=== PATIENT | female | born 1985 | race Caucasian/White ===

== ENCOUNTER 2016-07-29 10:20 | Emergency (ER) | payer OTHER ==
[2016-07-29 11:11] VITALS: BP 105/68
--- NOTE | 2016-07-29 12:13 | UC ---
Abdominal Pain Female HPI - HPI Summary HPI Summary: ONSET OF LOWER ABDOMINAL CRAMPING 6AM TODAY. PT IS 11-12 WEEKS . SEE OB/ [facility] IN [place]. NEXT APPT 08/08. HAS H/O ECTOPIC . DENIES FEVER, NAUSEA OR BLEEDING. NO URINARY SX. - History of Current Complaint Chief Complaint: UCGeneralIllness Stated Complaint: CRAMPING Time Seen by Provider: 07/29/16 12:00 Hx Obtained From: Patient Hx Last Menstrual Period: 04/29/16 Onset/Duration: Sudden Onset Severity Initially: Moderate Severity Currently: Moderate Pain Intensity: 5 Pain Scale Used: 0-10 Numeric Location: Other - LOWER ABDOMEN Radiates: No Character: Cramping Aggravating Factor(s): Nothing Alleviating Factor(s): Nothing Associated Signs and Symptoms: Positive: Negative Allergies/Adverse Reactions: Allergies Allergy/AdvReac Type Severity Reaction Status Date / Time No Known Allergies Allergy Verified 07/29/16 11:05 PMH/Surg Hx/FS Hx/Imm Hx Endocrine History Of: Denies: Diabetes, Thyroid Disease Cardiovascular History Of: Reports: Cardiac Disorders - Tachycardia Denies: Hypertension Respiratory History Of: Reports: Asthma Denies: COPD GI/ History Of: Denies: Gastroesophageal Reflux, Ulcer Neurological History Of: Denies: TIA Psychological History Of: Reports: Anxiety, Depression - on Paxil prior to , taking Lexapro now Cancer History Of: Denies: Lung Cancer - Surgical History Surgical History: Yes Surgery Procedure, Year, and Place: Right Fall[facility] T[facility], [facility] Ear Tubes as a child Other Surgical History: Has right ear tube - Family History Known Family History: Positive: Unknown - PT ADOPTED - Social History Alcohol Use: None Substance Use Type: None Smoking Status (MU): Light Every Day Tobacco Smoker Type: Cigarettes Amount Used/How Often: 4 cig Length of Time of Smoking/Using Tobacco: 14 yrs When Did the Patient Quit Smoking/Using Tobacco: 06/29 Household Exposure Type: Cigarettes - Immunization History Most Recent Influenza Vaccination: 04/2015 Most Recent Pneumonia Vaccination: FALL 2013 Review of Systems Constitutional: Negative Respiratory: Negative Cardiovascular: Negative Gastrointestinal: Abdominal Pain All Other Systems Reviewed And Are Negative: Yes Physical Exam Triage Information Reviewed: Yes Appearance: Well-Appearing, No Pain Distress, Well-Nourished Vital Signs: Initial Vital Signs Temp 98.1 F 07/29/16 11:05 Pulse 80 07/29/16 11:05 Resp 18 07/29/16 11:05 BP 105/68 07/29/16 11:05 Pulse Ox 98 07/29/16 11:05 Vital Signs Reviewed: Yes Eyes: Positive: Conjunctiva Clear ENT: Positive: Hearing grossly normal Neck: Positive: Supple Respiratory: Positive: No respiratory distress, No accessory muscle use Cardiovascular: Positive: Pulses Normal Abdomen Description: Positive: Nontender, Soft. Negative: CVA Tenderness (R), CVA Tenderness (L), Distended, Guarding Musculoskeletal: Positive: No Edema Neurological: Positive: Alert Psychological: Positive: Age Appropriate Behavior Skin: Negative: rashes Diagnostics - Radiology LIMITED OB US Xray Interpretation: Positive (See Comments) - SINGLE LIVE INTRAUTERINE GESTATION AT 11 WEEKS AND 3 DAYS BY CROWN-RUMP LENGTH Radiology Interpretation Completed By: Radiologist Abd Pain Female Course/Dx - Differential Dx/Diagnosis Provider Diagnoses: 1ST TRIMESTER Discharge - Discharge Plan Condition: Stable Disposition: HOME Patient Education Materials: (ED) Referrals: Niesha Larson MD [Medical Doctor] - (KEEP YOUR APPT 08/08) Additional Instructions: NORMAL INTRAUTERINE SEEN ON US TODAY. GO TO ER WITHOUT FAIL IF YOUR CRAMPING WORSENS OR YOU DEVELOP BLEEDING, FEVER OR ANY OTHER CONCERNING SYMPTOMS. TYLENOL FOR DISCOMFORT. NO IBUPROFEN OR ALEVE. KEEP YOUR OB APPT SCHEDULED.
--- NOTE | 2016-07-29 12:50 | RAD ---
HISTORY: Cramping. The gestational age by dates is: 13 weeks, 0 days COMPARISONS: July 11, 2016 TECHNIQUE: Multiple transverse and longitudinal ultrasound images were obtained of the pelvis using grayscale, color Doppler, spectral Doppler imaging and M-Mode Doppler imaging using the endovaginal transducer. FINDINGS: UTERUS: The uterus is normal in shape, size, contour, and echotexture. GESTATION: There is a single live intrauterine gestation. The crown-rump length measures 4.51 cm for a gestational age of 11 weeks, 3 days. The AVIVA is February 14, 2017. cardiac motion is detected at a rate of 169 beats per minute. Gross movement is identified. anatomy cannot be assessed secondary to early dates. The amniotic fluid is qualitatively normal. There are no retroplacental fluid collections. CUL-DE-SAC: There is no free fluid within the cul-de-sac. RIGHT OVARY: The right ovary measures 2.1 x 2.1 x 1.4 cm. LEFT OVARY: The left ovary measures 5.4 x 3.8 x 2.4 cm. There is a 3 cm simple cyst of left ovary. Normal arterial and venous waveforms are identifiable within the ovary on spectral Doppler imaging. BLADDER: The bladder is not well visualized. IMPRESSION: SINGLE LIVE INTRAUTERINE GESTATION AT 11 WEEKS AND 3 DAYS BY CROWN-RUMP LENGTH.
== END 2016-07-29 13:30 | disposition home or self-care (01) ==
LOC: UCEAST 10:20
DX: O26.91 Pregnancy related conditions, unspecified, first trimester (principal); Z3A.11 11 weeks gestation of pregnancy; R10.30 Lower abdominal pain, unspecified; F17.210 Nicotine dependence, cigarettes, uncomplicated
CPT/HCPCS: 76815; 99211; G0463

== ENCOUNTER 2016-08-04 08:54 | Emergency (ER) | payer OTHER ==
[2016-08-04 09:13] VITALS: BP 98/61
--- NOTE | 2016-08-04 09:44 | UC ---
Abdominal Pain Female HPI - HPI Summary HPI Summary: 12-13 weeks , cramping lower abdominal pain. Seen for this last week at [facility], ultrasound was normal with an 11 week fetus in utero. No fever. Continued "pressure" in lower abdomen. Occasional mild spotting. Has OB appt on 08/08 - History of Current Complaint Chief Complaint: UCGU Stated Complaint: CRAMPING Time Seen by Provider: 08/04/16 09:06 Hx Obtained From: Patient Hx Last Menstrual Period: 04/29/16 Onset/Duration: Gradual Onset, Lasting Weeks - 3 Timing: Constant Severity Initially: Mild Severity Currently: Mild Location: Suprapubic Radiates: No Character: Aching, Cramping Aggravating Factor(s): Nothing Alleviating Factor(s): Nothing Associated Signs and Symptoms: Positive: Vaginal Bleeding - spotting, Nausea. Negative: Fever, Cough, Constipation, Blood in Stool, Urinary Symptoms, Decreased Appetite, Vomiting, Diarrhea - Risk Factors Ectopic Risk Factor: Negative Ovarian Torsion Risk Factor: Negative Allergies/Adverse Reactions: Allergies Allergy/AdvReac Type Severity Reaction Status Date / Time No Known Allergies Allergy Verified 07/29/16 11:05 PMH/Surg Hx/FS Hx/Imm Hx Endocrine History Of: Denies: Diabetes, Thyroid Disease Cardiovascular History Of: Reports: Cardiac Disorders - Tachycardia Denies: Hypertension Respiratory History Of: Reports: Asthma Denies: COPD GI/ History Of: Denies: Gastroesophageal Reflux, Ulcer Neurological History Of: Denies: TIA Psychological History Of: Reports: Anxiety, Depression - on Paxil prior to , taking Lexapro now Cancer History Of: Denies: Lung Cancer - Surgical History Surgical History: Yes Surgery Procedure, Year, and Place: Right Fallopian Tube Removed, 2010, [facility]. Ear Tubes as a child Other Surgical History: Has right ear tube - Family History Known Family History: Positive: None, Unknown - PT ADOPTED - Social History Occupation: Unemployed Lives: With Family Alcohol Use: None Substance Use Type: None Smoking Status (MU): Light Every Day Tobacco Smoker Type: Cigarettes Amount Used/How Often: 4 cig Length of Time of Smoking/Using Tobacco: 14 yrs When Did the Patient Quit Smoking/Using Tobacco: 06/29 Household Exposure Type: Cigarettes - Immunization History Most Recent Influenza Vaccination: 04/2015 Most Recent Pneumonia Vaccination: FALL 2013 Review of Systems Constitutional: Negative Skin: Negative Eyes: Negative ENT: Negative Respiratory: Negative Cardiovascular: Negative Gastrointestinal: Abdominal Pain Genitourinary: Negative Motor: Negative Neurovascular: Negative Musculoskeletal: Negative Neurological: Negative Psychological: Negative All Other Systems Reviewed And Are Negative: Yes Physical Exam Triage Information Reviewed: Yes Appearance: Well-Appearing, No Pain Distress, Well-Nourished Vital Signs: Initial Vital Signs Temp 97.7 F 08/04/16 09:07 Pulse 84 08/04/16 09:07 Resp 16 08/04/16 09:07 BP 98/61 08/04/16 09:07 Pulse Ox 99 08/04/16 09:07 Vital Signs Reviewed: Yes Eye Exam: Normal Neck exam: Normal Respiratory Exam: Normal Respiratory: Positive: Lungs clear Cardiovascular Exam: Normal Abdomen Description: Positive: Soft, Other: - mild suprapubic tenderness. 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
== END 2016-08-04 09:56 | disposition home or self-care (01) ==
LOC: UCCORT 08:54
DX: O26.851 Spotting complicating pregnancy, first trimester (principal); Z3A.11 11 weeks gestation of pregnancy; R10.30 Lower abdominal pain, unspecified; R11.0 Nausea; F17.210 Nicotine dependence, cigarettes, uncomplicated
CPT/HCPCS: 87086; 99212; G0463

== ENCOUNTER 2016-08-19 13:55 | Emergency (ER) | payer OTHER ==
[2016-08-19 14:10] VITALS: BP 120/55
--- NOTE | 2016-08-19 22:11 | ED ---
Siva Colon Aidan, scribed for Davon Pierre MD on 08/19/16 at 1646 . - HPI Summary HPI Summary: 30 y/o female presents to the ED with a complaint of acute, constant, moderate ( 6/10), lower pelvic pain described as a cramp that has persisted for the 15 weeks that she has been . No aggravating or alleviating factors noted. Additionally, the patient is concerned with her lack of weight gain during her current . She has only noted a 5lb weight gain since the onset of . Pt denies any vaginal discharge, urinary symptoms, or flank pain. Imaging shows a normal inside the uterus. During her last OB appointment 2 weeks ago, she was given a pelvic exam that was normal. - History of Current Complaint Chief Complaint: EDAbdPain Stated Complaint: CRAMPING/15 WKS Time Seen by Provider: 08/19/16 15:10 Hx Obtained From: Patient Chief Complaint: Pain - lower pelvic pain since onset of , Other: - lack pof weight gain since onset of , Pt has only gained 5 lbs Onset/Duration: Started Weeks Ago - 15, Still Present Timing: Constant Severity: Moderate Current Severity: Moderate Pain Intensity: 6 Location of Pain: None Character: Cramping Aggravating Factors: Other: - unknown Alleviating Factors: Other: - unknown Associated Signs and Symptoms: Positive: Other: - lack of weight gain - Assessment Hx Now: Yes SAB: 1 IEA: 0 Hx Hysterectomy: No - Additional Pertinent History Maternal Blood Type and Rh: O Positive - Allergies/Home Medications Allergies/Adverse Reactions: Allergies Allergy/AdvReac Type Severity Reaction Status Date / Time No Known Allergies Allergy Verified 08/19/16 14:10 PMH/Surg Hx/FS Hx/Imm Hx Endocrine/Hematology History: Denies: Hx Diabetes, Hx Thyroid Disease Cardiovascular History: Reports: Other Cardiovascular Problems/Disorders - PVCs , SVTs Denies: Hx Hypertension Respiratory History: Reports: Hx Asthma Denies: Hx Chronic Obstructive Pulmonary Disease (COPD), Hx Lung Cancer GI History: Denies: Hx Ulcer Neurological History: Denies: Hx Transient Ischemic Attacks (TIA) Psychiatric History: Reports: Hx Anxiety, Hx Depression - on Paxil prior to , taking Lexapro now - Surgical History Surgery Procedure, Year, and Place: Right Fallopian Tube Removed, 2010, [facility]. Ear Tubes as a child Infectious Disease History: No Infectious Disease History: Denies: Hx Clostridium Difficile, Hx Hepatitis, Hx Human Immunodeficiency Virus (HIV), Hx of Known/Suspected MRSA, Hx Shingles, Hx Tuberculosis, Hx Known/ Suspected VRE, Hx Known/Suspected VRSA, History Other Infectious Disease, Traveled Outside the [place] in Last 30 Days - Family History Known Family History: Positive: Unknown - PT ADOPTED - Social History Occupation: Unemployed Lives: With Family Alcohol Use: None Substance Use Type: Reports: None Smoking Status (MU): Light Every Day Tobacco Smoker Type: Cigarettes Amount Used/How Often: 4 cig Length of Time of Smoking/Using Tobacco: 14 yrs Review of Systems Constitutional: Other - lack of weight gain during thus far Eyes: Negative ENT: Negative Cardiovascular: Negative Respiratory: Negative Positive: Abdominal Pain. Negative: Vomiting, Diarrhea, Nausea Genitourinary: Negative Musculoskeletal: Negative Skin: Negative Neurological: Negative Psychological: Normal All Other Systems Reviewed And Are Negative: Yes Physical Exam - Physical Exam Triage Information Reviewed: Yes Vital Signs On Initial Exam: Temp Pulse Resp BP SpO2 FiO2 99.0 F 93 20 120/55 100 08/19/16 14:06 08/19/16 14:06 08/19/16 14:06 08/19/16 14:06 08/19/16 14:06 Vital Signs Reviewed: Yes Appearance: Positive: Well-Appearing - comfortable, pleasant, alert, No Pain Distress Skin: Positive: Warm, Skin Color Reflects Adequate Perfusion, Dry Eyes: Positive: EOMI, COLT ENT: Positive: Other - moist mucosa Neck: Positive: Supple, Nontender - soft, No Lymphadenopathy, Other: - no edema Respiratory/Lung Sounds: Positive: Clear to Auscultation, Breath Sounds Present. Negative: Rales, Rhonchi, Wheezes Cardiovascular: Positive: RRR, Other - no gallops, S1, S2. Negative: Murmur, Rub Abdomen Description: Positive: Other: - abdomen is gravid and uterus is somewhat palpable at the umbilicus, no guarding or rebound, no distress. Negative: CVA Tenderness (R), CVA Tenderness (L), Guarding Bowel Sounds: Positive: Present Musculoskeletal: Positive: Strength/ROM Intact, Other - no calf tenderness. Negative: Edema Left, Edema Right Neurological: Positive: Alert, Oriented to Person Place, Time Psychiatric: Positive: Normal - coherent Procedures - Procedure Summary Procedure Summary: bed side unofficial sonosite US: heart rate clearly visualized, heart rate of 156, clear IUP, very frequent movement. During 5 minutes of examination, I did not visualize 1 uterine contraction. Diagnostics - Vital Signs Vital Signs Temp Pulse Resp BP Pulse Ox 08/19/16 14:06 99.0 F 93 20 120/55 100 - Laboratory Lab Statement: Any lab studies that have been ordered have been reviewed, and results considered in the medical decision making process. Course/Dx - Course Course Of Treatment: She has a reliable OB follow up and has had her first appointment 2 weeks ago. By symptoms and examination, the patients presentations are benign. No focal complaints or findings on exam other than pelvic tenderness. Prior US was also reviewed. Her biggest concern was her 5lb weight gain thus far this , which she believes is to small. Weve considered PID, threatened miscarriage, ectopic, STD, UTI, and abruption, but at this point and stage in the , considering her benign examination, I believe that no further intervention or workup is necessary. - Differential Diagnosis/HQI/PQRI: Incomplete , Missed , Spontaneous , Threatened , Appendicitis, Preeclampsia, Intrauterine , PID, Placenta Abruption, Placenta Previa, STI/STD, Tubo- ovarian Abscess - Diagnoses Provider Diagnoses: Pelvic pain Discharge - Discharge Plan Condition: Good Disposition: HOME Patient Education Materials: Pelvic Pain in Women (ED) Referrals: Lisa Craig PA [Primary Care Provider] - Additional Instructions: follow up with your ob within one week. The documentation as recorded by the Siva sanford Aidan accurately reflects the service I personally performed and the decisions made by , Davon Pierre MD.
== END 2016-08-19 16:50 | disposition home or self-care (01) ==
LOC: ED 13:55
DX: R10.2 Pelvic and perineal pain (principal); Z3A.15 15 weeks gestation of pregnancy
CPT/HCPCS: 99283

== ENCOUNTER 2016-12-21 19:07 | Emergency (ER) | payer OTHER ==
[2016-12-21 19:24] VITALS: BP 109/60
--- NOTE | 2016-12-21 19:55 | UC ---
Throat Pain/Nasal Bobby HPI - HPI Summary HPI Summary: 31 yo female with sore throat and cough x 2-3 days no fever no n/v/d no cp or sob she is 32 weeks - History of Current Complaint Chief Complaint: UCRespiratory Stated Complaint: ST/COUGH- 32 WEEKS Time Seen by Provider: 12/21/16 19:37 Hx Obtained From: Patient Hx Last Menstrual Period: 04/29/16 Onset/Duration: Gradual Onset, Lasting Days Severity: Mild Pain Intensity: 3 Pain Scale Used: 0-10 Numeric Cough: Productive - Allergies/Home Medications Allergies/Adverse Reactions: Allergies Allergy/AdvReac Type Severity Reaction Status Date / Time No Known Allergies Allergy Verified 12/21/16 19:24 Home Medications: Home Medications Multiple Vitamin [Multi Vitamin] 1 tab PO DAILY 12/21/16 [History Confirmed 01/30] PMH/Surg Hx/FS Hx/Imm Hx Previously Healthy: Yes Cardiovascular History: Other - palpitations/PVCs/PACs on propranolol Other Cardiovascular History: pvcs/pacs ,on propranolol Respiratory History: Asthma - as child - Surgical History Surgical History: Yes Surgery Procedure, Year, and Place: Right Fallopian Tube Removed, 2010, [facility]. Ear Tubes as a child Other Surgical History: Has right ear tube - Family History Known Family History: Positive: Unknown - PT ADOPTED - Social History Alcohol Use: None Substance Use Type: None Smoking Status (MU): Light Every Day Tobacco Smoker Type: Cigarettes Amount Used/How Often: 4 cig Length of Time of Smoking/Using Tobacco: 14 yrs When Did the Patient Quit Smoking/Using Tobacco: 06/29 Household Exposure Type: Cigarettes - Immunization History Most Recent Influenza Vaccination: 04/2015 Most Recent Pneumonia Vaccination: FALL 2013 Review of Systems Constitutional: Negative Skin: Negative Eyes: Negative ENT: Sore Throat Respiratory: Cough Cardiovascular: Negative Gastrointestinal: Negative Genitourinary: Negative Motor: Negative Neurovascular: Negative Musculoskeletal: Negative Neurological: Negative Psychological: Negative All Other Systems Reviewed And Are Negative: Yes Physical Exam Triage Information Reviewed: Yes Appearance: Well-Appearing, No Pain Distress, Well-Nourished Vital Signs: Initial Vital Signs Temp 98.7 F 12/21/16 19:18 Pulse 96 12/21/16 19:18 Resp 14 12/21/16 19:18 BP 109/60 12/21/16 19:18 Pulse Ox 99 12/21/16 19:18 Vital Signs Reviewed: Yes Eyes: Positive: Conjunctiva Clear ENT: Positive: Hearing grossly normal, Pharyngeal erythema, TMs normal. Negative: Nasal congestion, Nasal drainage, Tonsillar swelling, Tonsillar exudate, Trismus, Muffled/hoarse voice Neck: Positive: Supple, Nontender, No Lymphadenopathy Respiratory: Positive: Lungs clear, Normal breath sounds, No respiratory distress, No accessory muscle use Cardiovascular: Positive: RRR, No Murmur Abdomen Description: Positive: Other: - gravid uterus Musculoskeletal: Positive: ROM Intact, No Edema Neurological: Positive: Alert Psychological: Positive: Normal Response To Family Skin Exam: Normal Throat Pain/Nasal Course/Dx - Differential Dx/Diagnosis Provider Diagnoses: viral URI /pharyngitis Discharge - Discharge Plan Condition: Stable Disposition: HOME Patient Education Materials: Pharyngitis (ED) Referrals: Lisa Craig PA [Primary Care Provider] - Additional Instructions: strep test (-) tylenol recheck in 3-4 days if not better recheck for new or worsening symptoms
== END 2016-12-21 20:19 | disposition home or self-care (01) ==
LOC: UCCORT 19:07
DX: O26.893 Other specified pregnancy related conditions, third trimester (principal); J06.9 Acute upper respiratory infection, unspecified; J02.9 Acute pharyngitis, unspecified; I49.3 Ventricular premature depolarization; J45.909 Unspecified asthma, uncomplicated; Z3A.32 32 weeks gestation of pregnancy; Z87.891 Personal history of nicotine dependence
CPT/HCPCS: 87651; 99212; G0463

== ENCOUNTER 2016-12-27 19:49 | Emergency (ER) | payer OTHER ==
[2016-12-27 20:48] VITALS: BP 133/60
--- NOTE | 2016-12-27 21:09 | UC ---
Throat Pain/Nasal Bobby HPI - HPI Summary HPI Summary: patient is complaining of a stuffy nose and cough. she is 24 wks and hx of SVT - History of Current Complaint Chief Complaint: UCRespiratory Stated Complaint: UPPER RESP Time Seen by Provider: 12/27/16 20:56 Hx Obtained From: Patient Hx Last Menstrual Period: 04/29/16 ?: Yes Onset/Duration: Gradual Onset, Lasting Days Severity: Moderate Cough: Nonproductive Associated Signs & Symptoms: Positive: Dysphagia, Nasal Discharge - Epiglottits Risk Factors Epiglottis Risk Factors: Negative - Allergies/Home Medications Allergies/Adverse Reactions: Allergies Allergy/AdvReac Type Severity Reaction Status Date / Time No Known Allergies Allergy Verified 12/27/16 20:48 PMH/Surg Hx/FS Hx/Imm Hx Previously Healthy: Yes - Surgical History Surgical History: Yes Surgery Procedure, Year, and Place: Right Fall[facility] Tube Rem[facility], 2010, [facility]. Ear Tubes as a child Other Surgical History: Has right ear tube - Family History Known Family History: Positive: Unknown - PT ADOPTED - Social History Alcohol Use: None Substance Use Type: None Smoking Status (MU): Light Every Day Tobacco Smoker Type: Cigarettes Amount Used/How Often: 4 cig Length of Time of Smoking/Using Tobacco: 14 yrs When Did the Patient Quit Smoking/Using Tobacco: 06/29 Household Exposure Type: Cigarettes - Immunization History Most Recent Influenza Vaccination: 04/2015 Most Recent Pneumonia Vaccination: FALL 2013 Review of Systems Constitutional: Negative Skin: Negative Eyes: Negative ENT: Sore Throat, Nasal Discharge Respiratory: Cough Cardiovascular: Negative Gastrointestinal: Negative Genitourinary: Negative Motor: Negative Neurovascular: Negative Musculoskeletal: Negative Neurological: Negative Psychological: Negative All Other Systems Reviewed And Are Negative: Yes Physical Exam Triage Information Reviewed: Yes Appearance: No Pain Distress, Well-Nourished, Ill-Appearing Vital Signs: Initial Vital Signs Temp 99.3 F 12/27/16 20:42 Pulse 101 12/27/16 20:42 Resp 20 12/27/16 20:42 BP 133/60 12/27/16 20:42 Pulse Ox 99 12/27/16 20:42 Vital Signs Reviewed: Yes Eye Exam: Normal Eyes: Positive: Conjunctiva Clear ENT: Positive: Pharyngeal erythema, Nasal congestion, TMs normal, Other: - pnd Dental Exam: Normal Neck exam: Normal Neck: Positive: Supple, Nontender, No Lymphadenopathy Respiratory Exam: Normal Respiratory: Positive: Chest non-tender, Lungs clear, Normal breath sounds Cardiovascular Exam: Normal Cardiovascular: Positive: No Murmur, Pulses Normal, Tachycardia Abdominal Exam: Normal Abdomen Description: Positive: Nontender, No Organomegaly, Soft Bowel Sounds: Positive: Present Musculoskeletal Exam: Normal Musculoskeletal: Positive: Strength Intact, ROM Intact, No Edema Neurological Exam: Normal Neurological: Positive: Alert, Muscle Tone Normal Psychological Exam: Normal Throat Pain/Nasal Course/Dx - Course Course Of Treatment: hx obtained, exam performed ,meds reviewed, reviewed the home care for cold like symtpoms and what she can use during . recommmend follow up if symtpoms do not improve, with her OB. - Differential Dx/Diagnosis Differential Diagnosis/HQI/PQRI: Influenza, Laryngitis, Otitis Media, Pharyngitis, Sinusitis, URI Provider Diagnoses: nasal congestion. cough. Discharge - Discharge Plan Condition: Stable Disposition: HOME Patient Education Materials: Cold Symptoms (ED) Referrals: Lisa Craig PA [Primary Care Provider] - Additional Instructions: 1. Use the nasal saline for your nose, to wash out the nasal passages. 2. Warm fluids, honey and cough drops for you cough. 3. salt water gargles are also effective 4. Tylenol for pain and fever. 5. Follow up with your OB for any worsening symptoms.
== END 2016-12-27 21:12 | disposition home or self-care (01) ==
LOC: UCCORT 19:49
DX: O26.899 Other specified pregnancy related conditions, unspecified trimester (principal); R05 Cough; R09.81 Nasal congestion; Z3A.24 24 weeks gestation of pregnancy
CPT/HCPCS: 99211; G0463

== ENCOUNTER 2017-01-09 21:15 | Emergency (ER) | payer OTHER ==
[2017-01-09 21:23] VITALS: BP 115/63
--- NOTE | 2017-01-09 21:58 | UC ---
Ear Complaint HPI - HPI Summary HPI Summary: 31 YO female with decreased hearing both ears has taken about 4-5 doses of amox now with right otorrhea no f/c - History of Current Complaint Chief Complaint: UCEar Stated Complaint: EAR PAIN Time Seen by Provider: 01/09/17 21:35 Hx Last Menstrual Period: 04/29/16 Onset/Duration: Gradual Onset, Lasting Days Severity Initially: Mild Severity Currently: Mild Pain Intensity: 3 Pain Scale Used: 0-10 Numeric Alleviating Factors: OTC Meds Associated Signs/Symptoms: Positive: Discharge - right, Hearing Loss - R>L - Allergies/Home Medications Allergies/Adverse Reactions: Allergies Allergy/AdvReac Type Severity Reaction Status Date / Time No Known Allergies Allergy Verified 01/09/17 21:23 Home Medications: Home Medications Amoxicillin CAP* [Amoxicillin 500 MG CAP*] 500 mg PO TID 01/09/17 [History Confirmed 01/09/17] PMH/Surg Hx/FS Hx/Imm Hx Previously Healthy: Yes - Surgical History Surgical History: Yes Surgery Procedure, Year, and Place: Right Fallopian Tube Removed, 2010, [facility]. Ear Tubes as a child Other Surgical History: Has right ear tube - Family History Known Family History: Positive: Unknown - PT ADOPTED - Social History Alcohol Use: None Substance Use Type: None Smoking Status (MU): Light Every Day Tobacco Smoker Type: Cigarettes Amount Used/How Often: 4 cig Length of Time of Smoking/Using Tobacco: 14 yrs When Did the Patient Quit Smoking/Using Tobacco: 06/29 Household Exposure Type: Cigarettes - Immunization History Most Recent Influenza Vaccination: 04/2015 Most Recent Pneumonia Vaccination: FALL 2013 Review of Systems Constitutional: Negative Skin: Negative Eyes: Negative ENT: Ear Ache, Nasal Discharge Respiratory: Negative Cardiovascular: Negative Gastrointestinal: Negative Genitourinary: Negative Motor: Negative Neurovascular: Negative Musculoskeletal: Negative Neurological: Negative Psychological: Negative All Other Systems Reviewed And Are Negative: Yes Physical Exam Triage Information Reviewed: Yes Appearance: Well-Appearing, No Pain Distress, Well-Nourished Vital Signs: Initial Vital Signs Temp 98.0 F 01/09/17 21:19 Pulse 93 01/09/17 21:19 Resp 14 01/09/17 21:19 BP 115/63 01/09/17 21:19 Pulse Ox 100 01/09/17 21:19 Eye Exam: Normal ENT: Negative: Hearing grossly normal, TMs normal - suppurative OM left, right retracted Dental: Negative: Abscess @ Neck: Positive: Supple, Nontender, No Lymphadenopathy Respiratory: Positive: Lungs clear, Normal breath sounds, No respiratory distress Cardiovascular: Positive: RRR, No Murmur Abdomen Description: Positive: Other: - gravid uterus Neurological: Positive: Alert Psychological Exam: Normal Skin Exam: Normal Ear Complaint Course/Dx - Differential Dx/Diagnosis Provider Diagnoses: right supprative OM. left serous otitis media. third trimester Discharge - Discharge Plan Condition: Stable Disposition: HOME Prescriptions: Fluticasone NASAL SPRAY 50MCG* [Flonase NASAL SPRAY 50MCG*] 2 spray BOTH NARES DAILY #1 btl Patient Education Materials: Otitis Media (ED), Serous Otitis Media (ED) Referrals: Lisa Craig PA [Primary Care Provider] - 2 Weeks Additional Instructions: your right ear drum has perforated your left ear drum is retracted but not infected FINISH YOUR 10 DAYS OF AMOX TRY FLONASE TYLENOL NEED FOR PAIN
== END 2017-01-09 22:04 | disposition home or self-care (01) ==
LOC: UCCORT 21:15
DX: O26.893 Other specified pregnancy related conditions, third trimester (principal); H66.41 Suppurative otitis media, unspecified, right ear; H65.92 Unspecified nonsuppurative otitis media, left ear; O99.333 Smoking (tobacco) complicating pregnancy, third trimester; F17.210 Nicotine dependence, cigarettes, uncomplicated; Z3A.00 Weeks of gestation of pregnancy not specified
CPT/HCPCS: 99211; G0463

== ENCOUNTER 2017-06-16 15:05 | Emergency (ER) | payer OTHER ==
--- OUTSIDE RECORDS SUMMARY | 2017-06-16 19:44 | XMS REPORT ---
:1985 External Reference #:[id number] Author Organization [facility] Public Address [address] [address] Phone [phone] Care Team Providers Name Role Phone Rajwinder HutchinsonZAHIRA Primary Care Physician Unavailable Payers Type Date Identification Numbers Payment Provider Subscriber Commercial Policy Number: [id number] Cipriano Hung PayID: [id number] [address] [place] [address] Problems Date Description Provider Status Onset: 06/12/2017 Right conductive hearing loss Ike Mcclure M.D. 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 Active Onset: 09/11/2014 Unilateral conductive hearing loss Kenrick Larry M.D. Active Family History Date Family Member(s) Problem(s) Comments General Pt adopted, unsure of hx Social History Type Date Description Comments Marital Status Lives With Lives With Children Occupation Unemployed Cigarette Use currently smokes 1/2 Pack Daily Cigars Never Smoked Cigars Pipe Never Smoked A Pipe Smokeless Tobacco Never Used Smokeless Tobacco ETOH Use Denies alcohol use Smoking Light tobacco smoker (10 or fewer cigarettes/day) Allergies, Adverse Reactions, Alerts Date Description Reaction Status Severity Comments 09/11/2014 NKDA active Medications Medication Date Status Form Strength Qnty SIG Indications Ordering Provider Atenolol Active Tablets 50mg 1 by mouth Unknown 0 every day Lexapro Hx Tablets 20mg 1 by mouth Unknown 0 - every day 5 Paxil Hx Tablets 30mg one every in Unknown 0 - the morning 7 Vital Signs Date Vital Result Comment 06/12/2017 Height 60 inches 5'0" Weight 126.00 lb Heart Rate 66 /min BP Systolic Sitting 112 mmHg BP Diastolic Sitting 68 mmHg Respiratory Rate 16 /min Pain Level 0 BMI (Body Mass Index) 24.6 kg/m2 10/23/2014 Heart Rate 76 /min BP Systolic Sitting 118 mmHg BP Diastolic Sitting 76 mmHg 09/11/2014 Height 60 inches 5'0" Weight 130.00 lb Heart Rate 70 /min BP Systolic Sitting 122 mmHg BP Diastolic Sitting 80 mmHg BMI (Body Mass Index) 25.4 kg/m2 Results Description No Information Procedures Description No Information Encounters Type Date Location Provider CPT E/M Dx Office Visit 06/12/2017 2:30p [facility], [address] H72.01 [facility] H[facility].11 Office Visit 10/23/2014 9:15a [facility] [address] 388.[facility] 09/11/2014 10:45a [facility], [address] 389.05 [facility] Plan of Care Future Appointment(s):07/03/2017 3:00 pm - [facility]cl[facility]2017 - Ike Mcclure M.D.H72.01 Central perforation of tympanic membrane, right earComments:The patient is scheduled for an audiogram, she will return back after the audiogram. She may be a candidate for right ear tympanoplasty with graft.H90.11 Condctv hear loss, uni, right ear, w unrestr hear cntra side
--- OUTSIDE RECORDS SUMMARY | 2017-06-16 19:44 | XMS REPORT ---
:1985 External Reference #:[id number] Author Organization [facility] Address [address] [place] [address] Phone [phone] Care Team Providers Name Role Phone Rajwinder Hutchinson Primary Care Physician Unavailable Payers Type Date Identification Numbers Payment Provider Subscriber Health Maintenance Policy Number: [id number] [facility] Atiya Hung [facility] ([facility] PayID: [id number] [address] [place] [address] Problems Description No Information Family History Date Family Member(s) Problem(s) Comments General Adopted Social History Type Date Description Comments 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 Cigarette Use Current Cigarette Smoker 1 Pack Daily Cigarette Use for 12 years Cigars Never Smoked Cigars Pipe Never Smoked A Pipe Smokeless Tobacco Never Used Smokeless Tobacco ETOH Use Denies alcohol use Smoking Patient is a current smoker, smokes every day Allergies, Adverse Reactions, Alerts Date Description Reaction Status Severity Comments 05/29/2017 NKDA active Medications Medication Date Status Form Strength Qnty SIG Indications Ordering Provider Atenolol Active Tablets 25mg take 1 Unknown 000 tablet twice a day Propranolol HCL Hx Tablets 20mg TK 1 T PO Unknown 000 - bid 017 Trinessa Lo 0 Hx Tablets 0.18/0.215/ TK 1 T PO Unknown 000 - 0.25 mg-25 qd mcg 017 Citalopram 0 Hx Tablets 20mg TK 1 T PO Unknown Hydrobromide 000 - qd 017 Vital Signs Date Vital Result Comment 05/29/2017 BP Systolic 146 mmHg BP Diastolic 97 mmHg Heart Rate 74 /min Respiratory Rate 17 /min Weight 127.00 lb Weight in kg's 57.607 Height 60 inches 5'0" Height in cm's 152.4 cm BMI (Body Mass Index) 24.8 kg/m2 Results Description No Information Procedures Date CPT Code Description Status 05/29/2017 44674 Tympanometry Completed 05/29/2017 52449 Comprehensive Audiogram Completed 05/29/2017 38473 Binocular Microscopy Completed Encounters Type Date Location Provider CPT E/M Dx Office Visit 05/29/2017 2:15p [place] 07/17/07 [place] [address] H93.A1 Marco Antonio Larry H72.01 H90.11 Plan of Care 05/29/2017 - Kenrick Larry M.D.H93.A1 Pulsatile tinnitus, right earNew Xrays:CT Angiogram Head & NeckComments:The patient has been having pulsatile tinnitus in the right ear in 2013. It is her heartbeat. After that Dr. Kim placed a right myringotomy tube. It did not help her at all. Today she has a small central perforation and she has a mild low frequency conductive hearing loss in that ear. I assume that the perforation and hearing loss is from the myringotomy tube and has nothing to do with the pulsatile tinnitus since this predates placement of the tube. The pulsatile tinnitus is her heartbeat. Given the longevity of the symptom I think it warrants imaging and am ordering a CTA of the head and neck.H72.01 Central perforation of tympanic membrane, right earH90.11 Condctv hear loss, uni, right ear, w unrestr hear cntra side
== END 2017-06-16 17:05 | disposition left against medical advice (07) ==
LOC: UCCORT 15:05
DX: H93.91 Unspecified disorder of right ear (principal); Z53.9 Procedure and treatment not carried out, unspecified reason

== ENCOUNTER 2017-06-20 09:31 | Emergency (ER) | payer OTHER ==
[2017-06-20 10:58] VITALS: BP 129/70
--- NOTE | 2017-06-20 11:48 | UC ---
Ear Complaint HPI - HPI Summary HPI Summary: 31 yo female c/o R ear discomfort, persistently worse over the last several days. No fever / chills. + sinus congestion. Hears / feels a "whooshing" sound, correlates with heart beat, which is bothersome. Hx perforated TM R persistent 2/2 previous myringotomy tube that had fallen out. + cough. Has used fluticasone in the past, does not have any now. Also has used albuterol in the past, but none now. No fever / chills. No recent injury or travel. No rash. + tobacco. No sob. - History of Current Complaint Chief Complaint: UCEar Stated Complaint: EAR PAIN Time Seen by Provider: 06/20/17 11:11 Hx Obtained From: Patient Hx Last Menstrual Period: 04/29/16 ?: No - Allergies/Home Medications Allergies/Adverse Reactions: Allergies Allergy/AdvReac Type Severity Reaction Status Date / Time No Known Allergies Allergy Verified 06/20/17 10:51 Home Medications: Home Medications Atenolol TAB* [Tenormin TAB* 25 MG] 25 mg BID 06/20/17 [History Confirmed ] PMH/Surg Hx/FS Hx/Imm Hx Previously Healthy: Yes - see hpi - Surgical History Surgical History: Yes Surgery Procedure, Year, and Place: Right Fallopian Tube Removed, 2010, [facility]. Ear Tubes as a child. RIGHT ear tube 2013 Other Surgical History: Has right ear tube - Family History Known Family History: Positive: Unknown - PT ADOPTED - Social History Alcohol Use: None Substance Use Type: None Smoking Status (MU): Light Every Day Tobacco Smoker Type: Cigarettes Amount Used/How Often: 4 cig/day Length of Time of Smoking/Using Tobacco: 14 yrs When Did the Patient Quit Smoking/Using Tobacco: 06/29 Household Exposure Type: Cigarettes - Immunization History Most Recent Influenza Vaccination: 2016 Most Recent Pneumonia Vaccination: FALL 2013 Review of Systems Constitutional: Negative Skin: Negative Eyes: Negative ENT: Other - see hpi Respiratory: Cough Cardiovascular: Negative Gastrointestinal: Negative Genitourinary: Negative Motor: Negative Neurovascular: Negative Musculoskeletal: Negative Neurological: Negative Psychological: Negative Is Patient Immunocompromised?: No All Other Systems Reviewed And Are Negative: Yes Physical Exam Triage Information Reviewed: Yes Appearance: Well-Nourished, Thin Vital Signs: Initial Vital Signs Temp 97.1 F 06/20/17 10:52 Pulse 69 06/20/17 10:52 Resp 16 06/20/17 10:52 BP 129/70 06/20/17 10:52 Pulse Ox 100 06/20/17 10:52 Vital Signs Reviewed: Yes Eye Exam: Normal ENT Exam: Other - L TM dull, de la garza, intact. R TM dull, de la garza. There is a perforation, appears non-acute, inf lat TM. No blood, no drainage at time of phys exam ENT: Positive: Pharyngeal erythema - mild post pharynx redness no sores appreciated., Nasal congestion, Nasal drainage, TM dull Neck exam: Normal Neck: Positive: Supple, Nontender Respiratory Exam: Other - bilat exp wheezes, bs equal Respiratory: Positive: Chest non-tender, Wheezing Cardiovascular Exam: Normal Cardiovascular: Positive: RRR, No Murmur, Pulses Normal, Brisk Capillary Refill Abdominal Exam: Normal Abdomen Description: Positive: Nontender Musculoskeletal Exam: Normal Musculoskeletal: Positive: Strength Intact Neurological Exam: Normal - nonfocal grossly intact Psychological Exam: Normal Skin Exam: Normal Ear Complaint Course/Dx - Course Course Of Treatment: D/w pt s/sx, recommend f/u Dr. Kim as planned, has appt end of this month. Likely element of sinusitis, will start augmentin. Rx Fluticasone, albuterol. Questions as posed answered to the best of my ability. - Differential Dx/Diagnosis Provider Diagnoses: Perforated TM, non-acute. wheezing. rhinosinusitis Discharge - Discharge Plan Condition: Stable Disposition: HOME Prescriptions: Albuterol HFA INHALER* [Ventolin HFA Inhaler*] 1 - 2 puff INH Q4H PRN #1 mdi PRN Reason: Wheezing Amoxicillin/Clavulanate TAB* [Augmentin TAB 875*] 875 mg PO BID #14 tab Fluticasone NASAL SPRAY 50MCG* [Flonase NASAL SPRAY 50MCG*] 2 spray BOTH NARES DAILY #1 btl Patient Education Materials: Ruptured Eardrum (ED), Rhinosinusitis (ED), Wheezing (ED) Referrals: Rajwinder Hutchinson PA [Primary Care Provider] - Additional Instructions: Follow up with your ENT doctor (Dr. Kim) as planned end of this month. Seek medical attention for worse or new problems in the meantime. Decrease tobacco. Follow up with your primary care physician per routine.
== END 2017-06-20 11:47 | disposition home or self-care (01) ==
LOC: UCCORT 09:31
DX: H72.91 Unspecified perforation of tympanic membrane, right ear (principal); R06.2 Wheezing; J32.9 Chronic sinusitis, unspecified; F17.210 Nicotine dependence, cigarettes, uncomplicated
CPT/HCPCS: 99212; G0463

== ENCOUNTER 2017-06-27 15:02 | Emergency (ER) | payer OTHER ==
--- NOTE | 2017-06-27 16:03 | UC ---
Respiratory Complaint HPI - HPI Summary HPI Summary: 31 YO FEMALE CURRENTLY ON AMOX FOR ETD RIGHT EAR POPPING AND DECREASED HEARING SINUS PRESSURE AND PAIN HAS HAD SOME WHEEZING - History of Current Complaint Chief Complaint: UCGeneralIllness Stated Complaint: SINUSES Time Seen by Provider: 06/27/17 15:25 Hx Obtained From: Patient Hx Last Menstrual Period: 04/29/16 Onset/Duration: Lasting Weeks Timing: Constant Severity Initially: Moderate Severity Currently: Moderate Pain Intensity: 2 Pain Scale Used: 0-10 Numeric Character: Cough: Nonproductive Aggravating Factors: Nothing Alleviating Factors: Bronchodilator Associated Signs And Symptoms: Positive: Nasal Congestion, Sinus Discomfort - Allergies/Home Medications Allergies/Adverse Reactions: Allergies Allergy/AdvReac Type Severity Reaction Status Date / Time No Known Allergies Allergy Verified 06/27/17 15:27 PMH/Surg Hx/FS Hx/Imm Hx Previously Healthy: Yes Respiratory History: Asthma, Bronchitis - Surgical History Surgical History: Yes Surgery Procedure, Year, and Place: Right Fallopian Tube Removed, 2010, [facility]. Ear Tubes as a child. RIGHT ear tube 2013 Other Surgical History: Has right ear tube - Family History Known Family History: Positive: Unknown - PT ADOPTED - Social History Alcohol Use: None Substance Use Type: None Smoking Status (MU): Current Every Day Smoker Type: Cigarettes Amount Used/How Often: 1/2 PPD Length of Time of Smoking/Using Tobacco: 14 yrs When Did the Patient Quit Smoking/Using Tobacco: 06/29 Household Exposure Type: Cigarettes - Immunization History Most Recent Influenza Vaccination: 2016 Most Recent Pneumonia Vaccination: FALL 2013 Review of Systems Constitutional: Negative Skin: Negative Eyes: Negative ENT: Nasal Discharge, Sinus Congestion, Sinus Pain/Tenderness Respiratory: Cough Cardiovascular: Negative Gastrointestinal: Negative Genitourinary: Negative Motor: Negative Neurovascular: Negative Musculoskeletal: Negative Neurological: Negative Psychological: Negative Is Patient Immunocompromised?: No All Other Systems Reviewed And Are Negative: Yes Physical Exam Triage Information Reviewed: Yes Appearance: Well-Appearing, No Pain Distress, Well-Nourished Vital Signs: Initial Vital Signs Temp 97.1 F 06/27/17 15:27 Pulse 73 06/27/17 15:27 Resp 16 06/27/17 15:27 BP 120/76 06/27/17 15:27 Pulse Ox 100 06/27/17 15:27 Eyes: Positive: Conjunctiva Clear ENT: Positive: Nasal congestion, Nasal drainage, Sinus tenderness - LEFT MAX SINUS TENDERNESS, Uvula midline. Negative: Hearing grossly normal - DECREASED HEARING RIGHT, TMs normal - LEFT TM NORMAL/RIGHT TM ? RETRACTED/SCARRED, Tonsillar swelling, Tonsillar exudate, Trismus, Muffled voice Neck: Positive: Supple, Nontender, No Lymphadenopathy Respiratory: Positive: Lungs clear, Normal breath sounds, No respiratory distress, No accessory muscle use Cardiovascular: Positive: RRR Musculoskeletal: Positive: ROM Intact, No Edema Neurological: Positive: Alert Psychological Exam: Normal Skin Exam: Normal UC Diagnostic Evaluation - Laboratory O2 Sat by Pulse Oximetry: 100 - NORMAL /NOT HYPOXIC Respiratory Course/Dx - Differential Dx/Diagnosis Provider Diagnoses: LEFT SINUS PRESSURE PAIN. ?SEROUS OTITIS MEDIA Discharge - Discharge Plan Condition: Stable Disposition: HOME Prescriptions: Prednisone [Deltasone] 40 mg PO DAILY #15 tab Patient Education Materials: Serous Otitis Media (ED) Referrals: Rajwinder Hutchinson PA [Physician Show Girl] - Additional Instructions: YOU MAY NEED TO SEE YOUR ENT ABOUT YOUR EAR SYMPTOMS
[2017-06-27 16:04] VITALS: BP 120/76
== END 2017-06-27 16:24 | disposition home or self-care (01) ==
LOC: UCCORT 15:02
DX: J34.89 Other specified disorders of nose and nasal sinuses (principal)
CPT/HCPCS: 99212; G0463

== ENCOUNTER 2017-07-24 19:02 | Emergency (ER) | payer OTHER ==
--- OUTSIDE RECORDS SUMMARY | 2017-07-24 19:50 | XMS REPORT ---
:1985 External Reference #:[id number] Author Organization [facility] Address [address] [place] [address] Phone [phone] Care Team Providers Name Role Phone Ariana Tripathi MD Care Team Information Marketing Proposal Specialist Unavailable Ariana Tripathi MD Primary Care Physician Unavailable Payers Type Date Identification Numbers Payment Provider Subscriber Health Maintenance Policy Number: [facility] Atiya Hung Organization (HMO) [id number] PayID: [id number] [address] [place] [phone] Problems Date Description Provider Status Onset: 01/04/2016 Acute bronchitis Active Onset: 12/30/2014 Otitis media Active Onset: 12/23/2014 Injury of ankle Active Onset: 12/14/2014 Patient encounter status Active Onset: 10/21/2014 Bite of bed bug Active Onset: 10/21/2014 Otitic barotrauma Active Onset: 09/10/2014 Ear sensations - finding Active Onset: 09/10/2014 Allergic rhinitis Active Family History Date Family Member(s) Problem(s) Comments General Adopted, Does Not Know Family History Social History Type Date Description Comments Marital Status 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 Cigarette Use currently smokes 1/2 Pack Daily ETOH Use Never used alcohol Recreational Drug Use Never Used Drugs Allergies, Adverse Reactions, Alerts Date Description Reaction Status Severity Comments 08/18/2015 NKDA active 08/16/2015 No Known Allergies active 07/16/2012 NKDA inactive Medications Medication Date Status Form Strength Qnty SIG Indications Ordering Provider Atenolol / Active Tablets 50mg 2 Times A Unknown 0000 Day Wellbutrin SR / Active Tablets ER 1 by mouth Unknown 0000 12HR every day Vitamin D 00/ Active Capsules Unknown (Cholecalcifero 0000 l) Amoxicillin 03/24/ Hx Capsules 500mg 30cap Every 8 Unknown 2015 - s Hours 2016 Neomycin/Polymy 03/24/ Hx Suspension 3.5-32253 1unit 4 Times A Unknown erika/Hydrocortis 2016 - -1 s Day one (Otic) 2016 Proair HFA 01/03/ Hx Aerosol 108(90Bas 1unit Every 4 To Unknown 2015 - e) s 6 HRS as 05/10/ mcg/Act needed for 2016 Shortness Of Breath Augmentin 08/16/ Hx Tablets 875-125mg 20tab Twice Unknown 2016 - s Daily 2016 Cortisporin 08/16/ Hx Suspension 1% Otic 1unit Four Times Unknown Repack 2016 - s Daily 2016 Dexamethasone 10/22/ Hx Tablets 4mg 5tabs one tab Julio, 2014 - daily for Arnoldo, days M.D. 2014 Paxil 10/22/ Hx Tablets 20mg Every Day Unknown 2014 - 2016 Prednisone 09/15/ Hx Tablets 10mg 5tabs 1 by mouth Julio 2014 - every Arnoldo, 09/16/ morning M.D. 2014 Rhinocort Aqua 07/30/ Hx Suspension 32mcg/Act 1unit 2 squirts Julio, 2015 - s each Arnoldo, 05/10/ nostril M.D. 2016 every day Paxil / Hx Tablets 20mg Unknown - 2012 Wellbutrin / Hx Tablets 75mg Unknown - 2014 Sertraline HCL / Hx Tablets 25mg Unknown - 2014 Lexapro / Hx Tablets 20mg 30Tab 1 by mouth Unknown 0000 - s every day 2016 Divalproex / Hx Tablets DR 500mg 2 Times A Unknown Sodium - Day 2016 Vital Signs Date Vital Result Comment 07/20/2017 Weight 132.00 lb Height 61 inches 5'1" BMI (Body Mass Index) 24.9 kg/m2 BP Systolic 124 mmHg BP Diastolic 78 mmHg Heart Rate 82 /min O2 % BldC Oximetry 99 % Body Temperature 97.6 F Pain Level 0 05/11/2017 Weight 132.00 lb Height 61 inches 5'1" BMI (Body Mass Index) 24.9 kg/m2 BP Systolic 121 mmHg BP Diastolic 81 mmHg Heart Rate 68 /min O2 % BldC Oximetry 97 % Body Temperature 98.5 F 10/27/2014 Weight 138.00 lb Height 61 inches 5'1" BMI (Body Mass Index) 26.1 kg/m2 BP Systolic 124 mmHg BP Diastolic 76 mmHg Heart Rate 68 /min O2 % BldC Oximetry 99 % Body Temperature 97.6 F 10/24/2014 Weight 138.00 lb Height 61 inches 5'1" BMI (Body Mass Index) 26.1 kg/m2 BP Systolic 116 mmHg BP Diastolic 76 mmHg Heart Rate 81 /min O2 % BldC Oximetry 97 % Body Temperature 98.1 F 09/17/2014 Weight 139.00 lb Height 61 inches 5'1" BMI (Body Mass Index) 26.3 kg/m2 Body Temperature 98.2 F 09/15/2014 Weight 139.00 lb Height 61 inches 5'1" BMI (Body Mass Index) 26.3 kg/m2 BP Systolic 124 mmHg BP Diastolic 76 mmHg Heart Rate 81 /min O2 % BldC Oximetry 97 % Body Temperature 98.2 F 07/30/2014 Weight 156.00 lb Height 61 inches 5'1" BMI (Body Mass Index) 29.5 kg/m2 BP Systolic 126 mmHg BP Diastolic 78 mmHg Heart Rate 91 /min O2 % BldC Oximetry 99 % Body Temperature 98.3 F 11/28/2012 Weight 151.00 lb Height 61 inches 5'1" BMI (Body Mass Index) 28.5 kg/m2 BP Systolic 118 mmHg BP Diastolic 70 mmHg Heart Rate 86 /min O2 % BldC Oximetry 98 % Body Temperature 98.6 F 07/16/2012 Weight 144.00 lb Height 61 inches 5'1" BMI (Body Mass Index) 27.2 kg/m2 BP Systolic 130 mmHg BP Diastolic 70 mmHg Heart Rate 109 /min O2 % BldC Oximetry 99 % Body Temperature 98.7 F Results Description No Information Procedures Date CPT Code Description Status 07/20/2017 40724 Tympanometry Completed 07/20/2017 39565 Audiometry, Comprehensive Completed 05/11/2017 33585 Tympanometry Completed 10/27/2014 47931 Myringotomy W/Aspiration/Eustachian Tube Inflate Completed 10/24/2014 43320 Tympanometry Completed 09/26/2014 Bone Mineral Density Test Completed 09/26/2014 Diabetic Retinal Eye Exam Completed 09/26/2014 Diabetic Foot Exam Completed 09/17/2014 97768 Pure Tone Audiometry, Air & Bone Completed 11/12/2012 68347 Sleep Staging 4Or More Para Completed 07/16/2012 39118 Fiberoptic Laryngoscopy,Diag. Completed Encounters Type Date Location Provider CPT E/M Dx Office Visit 07/20/2017 9:30a [place] [address] H93.A1 H72.01 Office Visit 05/11/2017 9:45a [place] [address] H93.A1 H61.21 Office Visit 10/24/2014 2:30p Main Office Arnoldo Kim M.D. 83945 388.31 381.81 Office Visit 09/17/2014 1:15p Main Office Arnoldo Kim M.D. 99260 388.31 381.81 Office Visit 09/15/2014 10:45a [place] [address] 388.31 478.0 381.81 Office Visit 07/30/2014 2:45p [place] [address] 388.31 478.0 Office Visit 11/28/2012 1:30p [place] [address] 780.50 Office Visit 07/16/2012 2:00p [place] [address] 780.50 478.0 305.1 Plan of Care Future Appointment(s):08/31/2017 7:30 am - Julio Candelario at [facility] ([facility])
--- OUTSIDE RECORDS SUMMARY | 2017-07-24 19:50 | XMS REPORT ---
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 Ariana Tripathi MD Primary Care Physician Unavailable Payers Type Date Identification Numbers Payment Provider Subscriber Health Maintenance Policy Number: [place] [facility] Atiya Hung Organization (HMO) [id number] PayID: [id number] [address] [place] [address] Problems Date Description Provider Status Onset: 01/04/2016 [...] Strength Qnty SIG Indications Ordering Provider Atenolol 00/ Active Tablets 50mg 2 Times A Unknown 0000 Day Wellbutrin SR 0000/ Active Tablets ER 1 by mouth Unknown 0000 12HR every day Vitamin D 0000/ Active Capsules Unknown (Cholecalcifero 0000 l) Amoxicillin 03/24/ Hx Capsules 500mg 30cap Every 8 Unknown 2015 - s Hours 2016 Neomycin/Polymy 03/24/ Hx Suspension 3.5-54961 1unit 4 Times A Unknown erika/Hydrocortis 2016 - -1 s Day one (Otic) 2016 Proair HFA 01/03/ Hx Aerosol 108(90Bas 1unit Every 4 To Unknown 2015 - e) s 6 HRS as 05/10/ mcg/Act needed for 2017 Shortness Of Breath Augmentin 08/16/ Hx Tablets 875-125mg 20tab Twice Unknown 2016 - s Daily 2016 Cortisporin 08/16/ Hx Suspension 1% Otic 1unit Four Times Unknown Repack 2016 - s Daily 2016 Dexamethasone 10/22/ Hx Tablets 4mg 5tabs one tab Julio, 2014 - daily for Arnoldo, 10/26/ days M.D. 2014 Paxil 10/22/ Hx Tablets 20mg Every Day Unknown 2014 - 2016 Prednisone 09/15/ Hx Tablets 10mg 5tabs 1 by mouth Julio, 2014 - every Arnoldo, 09/16/ morning M.D. [...] Information Procedures Date CPT Code Description Status 05/11/2017 70487 Tympanometry Completed 10/27/2014 98835 Myringotomy W/Aspiration/Eustachian Tube Inflate Completed 10/24/2014 68269 Tympanometry Completed 09/26/2014 Bone Mineral Density Test Completed 09/26/2014 Diabetic Retinal Eye Exam Completed 09/26/2014 Diabetic Foot Exam Completed 09/17/2014 28968 Pure Tone Audiometry, Air & Bone Completed 11/12/2012 12843 Sleep Staging 4Or More Para Completed 07/16/2012 68275 Fiberoptic Laryngoscopy,Diag. Completed Encounters Type Date Location Provider CPT E/M Dx Office Visit 05/11/2017 9:45a [place] [address] H93.A1 H61.21 Office Visit 10/24/2014 2:30p Main Office Arnoldo Kim M.D. 42525 388.31 381.81 Office Visit 09/17/2014 1:15p Main Office Arnoldo Kim M.D. 41801 388.31 381.81 Office Visit 09/15/2014 10:45a [place] [address] 388.31 478.0 381.81 Office Visit 07/30/2014 2:45p [place] [address] 388.31 478.0 Office Visit 11/28/2012 1:30p [place] [address] 780.50 Office Visit 07/16/2012 2:00p [place] [address] 780.50 478.0 305.1 Plan of Care No Information Available
--- NOTE | 2017-07-24 19:52 | UC ---
Complaint Female HPI - HPI Summary HPI Summary: 31 year old female presents with complains of feeling light headed and crampy. - History Of Current Complaint Stated Complaint: UTI Time Seen by Provider: 07/24/17 19:51 Hx Obtained From: Patient Hx Last Menstrual Period: 04/29/16 Onset/Duration: Sudden Onset Timing: Constant Severity Initially: Moderate Severity Currently: Moderate Character: Sharp Aggravating Factor(s): Movement Alleviating Factor(s): Nothing - Allergies/Home Medications Allergies/Adverse Reactions: Allergies Allergy/AdvReac Type Severity Reaction Status Date / Time No Known Allergies Allergy Verified 07/24/17 19:54 PMH/Surg Hx/FS Hx/Imm Hx Previously Healthy: Yes - Surgical History Surgical History: Yes Surgery Procedure, Year, and Place: Right Fallopian Tube Removed, 2010, [facility]. Ear Tubes as a child. RIGHT ear tube 2013 Other Surgical History: Has right ear tube - Family History Known Family History: Positive: Unknown - PT ADOPTED - Social History Alcohol Use: None Substance Use Type: None Smoking Status (MU): Light Every Day Tobacco Smoker Type: Cigarettes Amount Used/How Often: 4 cig/day Length of Time of Smoking/Using Tobacco: 14 yrs When Did the Patient Quit Smoking/Using Tobacco: 06/29 Household Exposure Type: Cigarettes - Immunization History Most Recent Influenza Vaccination: 2016 Most Recent Pneumonia Vaccination: FALL 2013 Review of Systems Constitutional: Fever, Chills, Fatigue Skin: Negative Eyes: Negative ENT: Negative Respiratory: Negative Cardiovascular: Negative Gastrointestinal: Negative Genitourinary: Negative Motor: Negative Neurovascular: Negative Musculoskeletal: Negative Neurological: Negative Psychological: Negative All Other Systems Reviewed And Are Negative: Yes Physical Exam Triage Information Reviewed: Yes Vital Signs Reviewed: Yes Eye Exam: Normal ENT Exam: Normal Dental Exam: Normal Neck exam: Normal Neck: Positive: 1 Respiratory Exam: Normal Cardiovascular Exam: Normal Abdominal Exam: Normal Musculoskeletal Exam: Normal Neurological Exam: Normal Psychological Exam: Normal Skin Exam: Normal Complaint Female Dx - Differential Dx/Diagnosis Provider Diagnoses: fatigue. crampy. light headed Discharge - Discharge Plan Condition: Stable Disposition: HOME Prescriptions: Nitrofurantoin Monohyd Macro [Macrobid] 100 mg PO BID #14 cap Patient Education Materials: Dysuria (ED) Referrals: No Primary Care Phys,NOPCP [Primary Care Provider] -
[2017-07-24 19:54] VITALS: BP 126/67
== END 2017-07-24 20:15 | disposition home or self-care (01) ==
LOC: UCCORT 19:02
DX: R53.83 Other fatigue (principal); R10.30 Lower abdominal pain, unspecified; R42 Dizziness and giddiness; Z32.02 Encounter for pregnancy test, result negative; F17.210 Nicotine dependence, cigarettes, uncomplicated
CPT/HCPCS: 81003; 84702; 87086; 99212; G0463

== ENCOUNTER 2017-10-13 15:29 | Emergency (ER) | payer OTHER ==
--- OUTSIDE RECORDS SUMMARY | 2017-10-13 16:42 | XMS REPORT ---
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 2018 daily as needed for pain Acetaminophen 08/31/ Hx Tablets 500mg 60tab two tab Julio, 2018 - s four times Arnoldo, 09/27/ daily M.D. 2018 maximum 8 a day Amoxicillin 03/24/ Hx Capsules 500mg 30cap Every 8 Unknown 2016 - s Hours 2016 Neomycin/Polymy 03/24/ Hx Suspension 3.5-22142 1unit 4 Times A Unknown erika/Hydrocortis 2016 [...] Hx Suspension 32mcg/Act 1unit 2 squirts Julio, 2014 - s each Arnoldo, 05/10/ nostril M.D. 2016 every day Paxil / Hx Tablets 20mg Unknown - 2012 Wellbutrin / Hx Tablets 75mg Unknown 2014 Sertraline HCL / Hx Tablets 25mg Unknown 2014 Lexapro / Hx Tablets 20mg 30Tab 1 by mouth Unknown 0000 - s every day 2016 Divalproex / Hx Tablets DR 500mg 2 Times A Unknown Sodium 0000 - Day 2016 Vital Signs Date Vital Result Comment 09/28/2017 Weight 129.00 lb Height 61 inches 5'1" BMI (Body Mass Index) 24.4 kg/m2 Heart Rate 104 /min O2 % BldC Oximetry 97 % Body Temperature 98.9 F Pain Level 0 09/12/2017 Weight 129.50 lb Height 61 inches 5'1" BMI (Body Mass Index) 24.5 kg/m2 BP Systolic 131 mmHg BP Diastolic 65 mmHg Heart Rate 76 /min O2 % BldC Oximetry 100 % room air Body Temperature 97.6 F Pain Level 0 09/06/2017 Weight 132.00 lb Height 61 inches 5'1" BMI (Body Mass Index) 24.9 kg/m2 BP Systolic 118 mmHg BP Diastolic 76 mmHg Heart Rate 82 /min O2 % BldC Oximetry 99 % Body Temperature 98.4 F Pain Level 0 07/20/2017 Weight 132.00 lb Height 61 inches [...] Information Procedures Date CPT Code Description Status 08/31/2017 04160 Tympanoplasty W/O Mastoidectomy W/O Ossicular Chain Completed Reconstruct 08/31/2017 73939 Tissue Grafts, Other (Eg, Paratenon, Fat, Dermis Completed 08/31/2017 08147 Anesthesia, Tympanotomy Completed 07/20/2017 54046 Tympanometry Completed 07/20/2017 06506 Audiometry, Comprehensive Completed 05/11/2017 54588 Tympanometry Completed 10/27/2014 63160 Myringotomy W/Aspiration/Eustachian Tube Inflate Completed 10/24/2014 19182 Tympanometry Completed 09/26/2014 Bone Mineral Density Test Completed 09/26/2014 Diabetic Retinal Eye Exam Completed 09/26/2014 Diabetic Foot Exam Completed 09/17/2014 58435 Pure Tone Audiometry, Air & Bone Completed 11/12/2012 30629 Sleep Staging 4Or More Para Completed 07/16/2012 27038 Fiberoptic Laryngoscopy,Diag. Completed Encounters Type Date Location Provider CPT E/M Dx Office Visit 07/20/2017 9:30a [place] [address] H93.A1 H72.01 Office Visit 05/11/2017 9:45a [place] [address] H93.A1 H61.21 Office Visit 10/24/2014 2:30p Main Office Arnoldo Kim M.D. 96691 388.31 381.81 Office Visit 09/17/2014 1:15p Main Office Arnoldo Kim M.D. 48569 388.31 381.81 Office Visit 09/15/2014 10:45a [place] [address] 388.31 478.0 381.81 Office Visit 07/30/2014 2:45p [place] [address] 388.31 478.0 Office Visit 11/28/2012 1:30p [place] [address] 780.50 Office Visit 07/16/2012 2:00p [place] [address] 780.50 478.0 305.1 Plan of Care Future Appointment(s):12/06/2017 10:00 am - Arnoldo Kim M.D. at Main Office
--- OUTSIDE RECORDS SUMMARY | 2017-10-13 16:42 | XMS REPORT ---
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 Ariana Tripathi MD Primary Care Physician Unavailable Payers Type Date Identification Numbers Payment Provider Subscriber Health Maintenance Policy Number: Cipriano [facility] Atiya Hung Organization (HMO) [id number] PayID: [id number] [address] [place] [address] Problems Date Description Provider Status Onset: 01/04/2016 [...] Form Strength Qnty SIG Indications Ordering Provider Dexamethasone 09/28/ Active Tablets 2mg 10tab 1 by mouth Julio 2018 s every day Marco Antonio Mclaughlin Atenolol / Active Tablets 50mg 2 Times A Unknown 0000 Day Wellbutrin SR / Active Tablets ER 1 by mouth Unknown 0000 12HR every day Vitamin D / Active Capsules Unknown (Cholecalcifero 0000 l) Ibuprofen 08/31/ Hx Tablets 600mg 30tab one tab Julio, 2018 - s three Arnoldo, 09/27/ times M.D. 2018 daily as needed for pain Acetaminophen 08/31/ Hx Tablets 500mg 60tab two tab Julio, 2018 - s four times Arnoldo, 09/27/ daily M.D. 2018 maximum 8 a day Amoxicillin 03/24/ Hx Capsules 500mg 30cap Every 8 Unknown 2015 - s Hours 2016 Neomycin/Polymy 03/24/ Hx Suspension 3.5-56625 1unit 4 Times A Unknown erika/Hydrocortis 2016 - -1 s Day one (Otic) 2016 Proair HFA 01/03/ Hx Aerosol 108(90Bas 1unit Every 4 To Unknown 2015 - ) s 6 HRS as 05/10/ mcg/Act needed [...] 05/10/ nostril M.D. 2016 every day Paxil 00/ Hx Tablets 20mg Unknown - 2012 Wellbutrin [...] Procedures Date CPT Code Description Status 08/31/2017 30391 Tympanoplasty W/O Mastoidectomy W/O Ossicular Chain Completed Reconstruct 08/31/2017 98143 Tissue Grafts, Other (Eg, Paratenon, Fat, Dermis Completed 08/31/2017 19166 Anesthesia, Tympanotomy Completed 07/20/2017 50435 Tympanometry Completed 07/20/2017 13562 Audiometry, Comprehensive Completed 05/11/2017 27163 Tympanometry Completed 10/27/2014 96363 Myringotomy W/Aspiration/Eustachian Tube Inflate Completed 10/24/2014 30186 Tympanometry Completed 09/26/2014 Bone Mineral Density Test Completed 09/26/2014 Diabetic Retinal Eye Exam Completed 09/26/2014 Diabetic Foot Exam Completed 09/17/2014 04615 Pure Tone Audiometry, Air & Bone Completed 11/12/2012 66445 Sleep Staging 4Or More Para Completed 07/16/2012 27127 Fiberoptic Laryngoscopy,Diag. Completed Encounters Type Date Location Provider CPT E/M Dx Office Visit 07/20/2017 9:30a [place] [address] H93.A1 H72.01 Office Visit 05/11/2017 9:45a [place] [address] H93.A1 H61.21 Office Visit 10/24/2014 2:30p Main Office Arnoldo Kim M.D. 65420 388.31 381.81 Office Visit 09/17/2014 1:15p Main Office Arnoldo Kim M.D. 06376 388.31 381.81 Office Visit 09/15/2014 10:45a [place] [address] 388.31 478.0 381.81 Office Visit 07/30/2014 2:45p [place] [address] 388.31 478.0 Office Visit 11/28/2012 1:30p [place] [address] 780.50 Office Visit 07/16/2012 2:00p [place] [address] 780.50 478.0 305.1 Plan of Care Future Appointment(s):10/10/2017 11:00 am - Arnoldo Kim M.D. at Main [id number] 10:00 am - Arnoldo Kim M.D. at Main Office
--- OUTSIDE RECORDS SUMMARY | 2017-10-13 16:43 | XMS REPORT ---
:1985 External Reference #:[id number] Author Organization [facility] Operator Address [address] [place] [address] Phone [phone] Care Team Providers Name Role Phone Ariana Tripathi MD Care Team Information Operations Officer Trust Department Unavailable Ariana Tripathi MD Primary Care Physician Unavailable Payers Type Date Identification Numbers Payment Provider Subscriber Health Maintenance Policy Number: Cipriano [facility] Atiya Hung Organization (HMO) [id number] PayID: [id number] [address] [place] [phone] Problems Date Description Provider Status Onset: 01/04/2016 [...] Form Strength Qnty SIG Indications Ordering Provider Ibuprofen 08/31/ Active Tablets 600mg 30tab one tab Kim, 2017 s three Arnoldo, times M.D. daily as needed for pain Acetaminophen 08/31/ Active Tablets 500mg 60tab two tab Kim, 2017 s four times Arnoldo, daily M.D. maximum 8 a day Atenolol 00/ Active Tablets 50mg 2 Times A Unknown 0000 Day Wellbutrin SR 00/ Active Tablets ER 1 by mouth Unknown 0000 12HR every day Vitamin D / Active Capsules Unknown (Cholecalcifero 0000 l) Amoxicillin 03/24/ Hx Capsules 500mg 30cap Every 8 Unknown 2016 - s Hours 2016 Neomycin/Polymy 03/24/ Hx Suspension 3.5-59231 1unit 4 Times A Unknown erika/Hydrocortis 2016 - -1 s Day one (Otic) 2016 Proair HFA 01/03/ Hx Aerosol 108(90Bas 1unit Every 4 To Unknown 2015 - e) s 6 HRS as 05/10/ mcg/Act needed for 2017 Shortness Of Breath Augmentin 08/16/ Hx Tablets 875-125mg 20tab Twice Unknown 2015 - s Daily 2016 Cortisporin 08/16/ Hx Suspension 1% Otic 1unit Four Times Unknown Repack 2015 - s Daily 2016 Dexamethasone 10/22/ Hx [...] 2016 Vital Signs Date Vital Result Comment 09/12/2017 Weight 129.50 lb Height 61 inches [...] Procedures Date CPT Code Description Status 08/31/2017 98867 Tympanoplasty W/O Mastoidectomy W/O Ossicular Chain Completed Reconstruct 08/31/2017 70183 Tissue Grafts, Other (Eg, Paratenon, Fat, Dermis Completed 08/31/2017 97273 Anesthesia, Tympanotomy Completed 07/20/2017 60422 Tympanometry Completed 07/20/2017 28329 Audiometry, Comprehensive Completed 05/11/2017 83891 Tympanometry Completed 10/27/2014 23738 Myringotomy W/Aspiration/Eustachian Tube Inflate Completed 10/24/2014 82794 Tympanometry Completed 09/26/2014 Bone Mineral Density Test Completed 09/26/2014 Diabetic Retinal Eye Exam Completed 09/26/2014 Diabetic Foot Exam Completed 09/17/2014 32290 Pure Tone Audiometry, Air & Bone Completed 11/12/2012 73690 Sleep Staging 4Or More Para Completed 07/16/2012 24751 Fiberoptic Laryngoscopy,Diag. Completed Encounters Type Date Location Provider CPT E/M Dx Office Visit 07/20/2017 9:30a [place] [address] H93.A1 H72.01 Office Visit 05/11/2017 9:45a [place] [address] H93.A1 H61.21 Office Visit 10/24/2014 2:30p Main Office Arnoldo Kim M.D. 01913 388.31 381.81 Office Visit 09/17/2014 1:15p Main Office Arnoldo Kim M.D. 17870 388.31 381.81 Office Visit 09/15/2014 10:45a [place] [address] 388.31 478.0 381.81 Office Visit 07/30/2014 2:45p [place] [address] 388.31 478.0 Office Visit 11/28/2012 1:30p [place] [address] 780.50 Office Visit 07/16/2012 2:00p [place] [address] 780.50 478.0 305.1 Plan of Care Future Appointment(s):12/06/2017 10:00 am - Arnoldo Kim M.D. at Main Office
[2017-10-13 16:50] VITALS: BP 109/66
--- NOTE | 2017-10-13 17:03 | UC ---
Throat Pain/Nasal Bobby HPI - HPI Summary HPI Summary: pt c/o nasal congestion, cough, sinus pressure, "burning chest" - History of Current Complaint Chief Complaint: UCRespiratory Stated Complaint: COUGH, HEADACHE Time Seen by Provider: 10/13/17 16:51 Hx Obtained From: Patient Hx Last Menstrual Period: 2 weeks ago ?: No Onset/Duration: Gradual Onset, Lasting Days, Still Present, Worse Since - onset Severity: Moderate Pain Intensity: 0 Associated Signs & Symptoms: Positive: Sinus Discomfort Related History: Seasonal Allergies, Smoking - Epiglottits Risk Factors Epiglottis Risk Factors: Negative - Allergies/Home Medications Allergies/Adverse Reactions: Allergies Allergy/AdvReac Type Severity Reaction Status Date / Time No Known Allergies Allergy Verified 10/13/17 16:46 PMH/Surg Hx/FS Hx/Imm Hx Previously Healthy: Yes - Surgical History Surgical History: Yes Surgery Procedure, Year, and Place: Right Fallopian Tube Removed, 2010, [facility]. Ear Tubes as a child. RIGHT ear tube 2013 Other Surgical History: Has right ear tube - Family History Known Family History: Positive: Unknown - PT ADOPTED - Social History Occupation: Employed Full-time Lives: With Family Alcohol Use: None Substance Use Type: None Smoking Status (MU): Light Every Day Tobacco Smoker Type: Cigarettes Amount Used/How Often: 4 cig/day Length of Time of Smoking/Using Tobacco: 14 yrs Have You Smoked in the Last Year: Yes When Did the Patient Quit Smoking/Using Tobacco: 06/29 Household Exposure Type: Cigarettes - Immunization History Most Recent Influenza Vaccination: 2016 Most Recent Pneumonia Vaccination: FALL 2013 Review of Systems Constitutional: Fatigue Skin: Negative Eyes: Negative ENT: Sinus Congestion, Sinus Pain/Tenderness Respiratory: Cough Cardiovascular: Negative Gastrointestinal: Negative Genitourinary: Negative Motor: Negative Neurovascular: Negative Musculoskeletal: Negative Neurological: Headache Psychological: Negative Is Patient Immunocompromised?: No All Other Systems Reviewed And Are Negative: Yes Physical Exam Triage Information Reviewed: Yes Appearance: Ill-Appearing Vital Signs: Initial Vital Signs Temp 97.4 F 10/13/17 16:46 Pulse 88 10/13/17 16:46 Resp 16 10/13/17 16:46 BP 109/66 10/13/17 16:46 Pulse Ox 99 10/13/17 16:46 Vital Signs Reviewed: Yes Eye Exam: Normal ENT Exam: Other ENT: Positive: Nasal congestion, Sinus tenderness Neck exam: Normal Respiratory Exam: Normal Cardiovascular Exam: Normal Musculoskeletal Exam: Normal Neurological Exam: Normal Psychological Exam: Normal Skin Exam: Normal Throat Pain/Nasal Course/Dx - Differential Dx/Diagnosis Differential Diagnosis/HQI/PQRI: Influenza, Sinusitis, URI Provider Diagnoses: Sinusitis Discharge - Sign-Out/Discharge Documenting (check all that apply): Discharge - Discharge Plan Condition: Stable Disposition: HOME Prescriptions: Amoxicillin PO (*) [Amoxicillin 875 MG (*)] 875 mg PO Q12H #20 tab Cetirizine* [ZyrTEC 10 MG TAB*] 10 mg PO DAILY #10 tab Patient Education Materials: Sinusitis (ED) Referrals: Lindsey Rizzo MD [Primary Care Provider] - If Needed - Billing Disposition and Condition Condition: STABLE Disposition: HOME
== END 2017-10-13 17:08 | disposition home or self-care (01) ==
LOC: UCCORT 15:29
DX: J32.9 Chronic sinusitis, unspecified (principal); F17.210 Nicotine dependence, cigarettes, uncomplicated
CPT/HCPCS: 99212; G0463

== ENCOUNTER 2017-11-07 14:38 | Emergency (ER) | payer OTHER ==
[2017-11-07 18:52] VITALS: BP 130/89
--- NOTE | 2017-11-07 22:12 | ED ---
Flavia Colon Thomas, scribed for Jag Green MD on 11/07/17 at 1713 . - HPI Summary HPI Summary: The patient is a 32 year old female referred to the ED from her OB for bloodwork. The patient had lower abdominal pain a couple days ago, but she denies any lower abdominal pain today. She denies vaginal bleeding. The patient reports that she had a transvaginal ultrasound four days ago that showed she was four weeks gestation. The patient tells me that her last beta HCG was 1462. She a history of ectopic . - History of Current Complaint Chief Complaint: EDOBProblems Stated Complaint: OB PROBLEM Time Seen by Provider: 11/07/17 16:31 Hx Obtained From: Patient Onset/Duration: Started Days Ago, Resolved Severity: Mild Current Severity: None Pain Intensity: 0 Aggravating Factors: Nothing Alleviating Factors: Other: - Spontaneous Associated Signs and Symptoms: Negative: Vaginal Bleeding or Discharge - Assessment Hx Now: No SAB: 1 IEA: 0 Hx Hysterectomy: No - Additional Pertinent History Maternal Blood Type and Rh: O Positive - Allergies/Home Medications Allergies/Adverse Reactions: Allergies Allergy/AdvReac Type Severity Reaction Status Date / Time No Known Allergies Allergy Verified 11/07/17 14:45 PMH/Surg Hx/FS Hx/Imm Hx Endocrine/Hematology History: Denies: Hx Diabetes, Hx Thyroid Disease Cardiovascular History: Reports: Other Cardiovascular Problems/Disorders - PVCs , SVTs Denies: Hx Hypertension Respiratory History: Reports: Hx Asthma Denies: Hx Chronic Obstructive Pulmonary Disease (COPD), Hx Lung Cancer GI History: Denies: Hx Ulcer Neurological History: Denies: Hx Transient Ischemic Attacks (TIA) Psychiatric History: Reports: Hx Anxiety, Hx Depression - on Paxil prior to , taking Lexapro now - Surgical History Surgery Procedure, Year, and Place: Right Fallopian Tube Removed, 2010, [facility]. Ear Tubes as a child. RIGHT ear tube 2013 Infectious Disease History: No Infectious Disease History: Denies: Hx Clostridium Difficile, Hx Hepatitis, Hx Human Immunodeficiency Virus (HIV), Hx of Known/Suspected MRSA, Hx Shingles, Hx Tuberculosis, Hx Known/ Suspected VRE, Hx Known/Suspected VRSA, History Other Infectious Disease, Traveled Outside the [place] in Last 30 Days - Family History Known Family History: Positive: Unknown - PT ADOPTED - Social History Alcohol Use: None Substance Use Type: Reports: None Smoking Status (MU): Heavy Every Day Tobacco Smoker Type: Cigarettes Amount Used/How Often: 4 cig/day Length of Time of Smoking/Using Tobacco: 14 yrs Have You Smoked in the Last Year: Yes Review of Systems Negative: Fever Negative: Abdominal Pain - lower Negative: other - vaginal bleeding All Other Systems Reviewed And Are Negative: Yes Physical Exam - Summary Physical Exam Summary: Appearance: The patient is well-nourished in no acute distress and in no acute pain. Skin: The skin is warm and dry and skin color reflects adequate perfusion. HEENT: The head is normocephalic and atraumatic. The pupils are equal and reactive. The conjunctivae are clear and without drainage. Nares are patent and without drainage. Mouth reveals moist mucous membranes and the throat is without erythema and exudate. The external ears are intact. The ear canals are patent and without drainage. The tympanic membranes are intact. Neck: the neck is supple with full range of motion and non-tender. There are no carotid bruits. There is no neck vein distension. Respiratory: Chest is non-tender. Lungs are clear to auscultation and breath sounds are symmetrical and equal. Cardiovascular: Heart is regular rate and rhythm. There is no murmur or rub auscultated. There is no peripheral edema and pulses are symmetrical and equal. Abdomen: The abdomen is soft and non-tender. There are normal bowel sounds heard in all four quadrants and there is no organomegaly palpated. Musculoskeletal: There is no back tenderness noted. Extremities are non-tender with full range of motion. There is good capillary refill. There is no peripheral edema or calf tenderness elicited. Neurological: Patient is alert and oriented to person, place and time. The patient has symmetrical motor strength in all four extremities. Cranial nerves are grossly intact. Deep tendon reflexes are symmetrical and equal in all four extremities. Psychiatric: The patient has an appropriate affect and does not exhibit any anxiety or depression. - Physical Exam Triage Information Reviewed: Yes Vital Signs Reviewed: Yes Diagnostics - Vital Signs Vital Signs Temp Pulse Resp BP Pulse Ox 11/07/17 14:39 97.8 F 88 17 118/73 98 - Laboratory Lab Results: Lab Results 11/07/17 Range/Units 17:36 Beta HCG, Quant 5959.00 mIU/mL Lab Statement: Any lab studies that have been ordered have been reviewed, and results considered in the medical decision making process. Course/Dx - Course Course Of Treatment: Ms. Hung's HCG has tripled in two days. She has no abdominal pain or vaginal bleeding and I don't think an U/S is indicated at this time. - Diagnoses Provider Diagnoses: Discharge - Sign-Out/Discharge Documenting (check all that apply): Discharge/Admit/Transfer - Discharge Plan Condition: Stable Disposition: HOME Patient Education Materials: (ED) Referrals: Lindsey Rizzo MD [Primary Care Provider] - 3 Days Additional Instructions: Follow up at your OB in three days. You can use the [facility] Physician Referral service if needed. Return for new or worsening symptoms. - Billing Disposition and Condition Condition: STABLE Disposition: HOME The documentation as recorded by the Flavia sanford Thomas accurately reflects the service I personally performed and the decisions made by me, Jag Green MD.
== END 2017-11-07 18:51 | disposition home or self-care (01) ==
LOC: ED 14:38
DX: O26.91 Pregnancy related conditions, unspecified, first trimester (principal); Z3A.01 Less than 8 weeks gestation of pregnancy; F17.210 Nicotine dependence, cigarettes, uncomplicated
CPT/HCPCS: 36415; 84702; 99282

== ENCOUNTER 2017-11-09 13:28 | Emergency (ER) | payer OTHER ==
[2017-11-09 13:33] VITALS: BP 129/71
== END 2017-11-09 14:54 | disposition left against medical advice (07) ==
LOC: ED 13:28
DX: Z04.8 Encounter for examination and observation for other specified reasons (principal); Z53.21 Procedure and treatment not carried out due to patient leaving prior to being seen by health care provider
CPT/HCPCS: 99282

== ENCOUNTER 2017-11-11 13:31 | Emergency (ER) | payer OTHER ==
[2017-11-11 15:19] LABS: ABS Basophils 0.1 10^3/ul (0-0.2); ABS Eosinophils 0 10^3/ul (0-0.6); ABS Lymphocytes 1.9 10^3/ul (1.0-4.8); ABS Monocytes 0.6 10^3/ul (0-0.8); ABS Neutrophils 7.3 10^3/ul (1.5-7.7); ABS Nucleated RBC 0 10^3/ul; Eosinophil % 0.4 % (0-6); Hematocrit 44 % (35-47); Hemoglobin 15.1 g/dl (12.0-16.0); Lymphocyte % 18.7 % (25-47); Mean Corpuscular HGB Conc 35 g/dl (31-36); Mean Corpuscular Hemoglobin 28 pg (27-31); Mean Corpuscular Volume 82 fL (80-97); Mean Platelet Volume 7.4 um3 (7.4-10.4); Nucleated Red Blood Cells % 0.2; Platelet Count 322 10^3/ul (150-450); Red Blood Count 5.38 10^6/ul (4.0-5.4); Red Cell Distribution Width 13 % (10.5-15); White Blood Count 9.9 10^3/ul (3.5-10.8)
[2017-11-11 17:07] VITALS: BP 123/62
--- NOTE | 2017-11-11 17:38 | ED ---
- HPI Summary HPI Summary: Patient is a 32-year-old female who presents emergency department for vaginal spotting in early . Patient states she is roughly 5 weeks . She states she has had a confirmed intrauterine . Patient states when she wiped after using the restroom today there is a small amount of light pink blood on the toilet paper. She denies other vaginal discharge. Denies urinary symptoms. Denies concern for STIs. She denies abdominal pain or cramping. She is no past medical history. Is a daily smoker. Is scheduled for her first OB apt. November 15. Hx of ectopic . A1. - History of Current Complaint Chief Complaint: EDOBProblems Stated Complaint: PREG WITH SPOTTING Time Seen by Provider: 11/11/17 16:19 Hx Obtained From: Patient Pain Intensity: 0 - Assessment Hx Now: No SAB: 1 IEA: 0 Hx Hysterectomy: No - Additional Pertinent History Maternal Blood Type and Rh: O Positive - Allergies/Home Medications Allergies/Adverse Reactions: Allergies Allergy/AdvReac Type Severity Reaction Status Date / Time No Known Allergies Allergy Verified 11/11/17 13:46 PMH/Surg Hx/FS Hx/Imm Hx Previously Healthy: Yes Endocrine/Hematology History: Denies: Hx Diabetes, Hx Thyroid Disease Cardiovascular History: Reports: Other Cardiovascular Problems/Disorders - PVCs , SVTs Denies: Hx Hypertension Respiratory History: Reports: Hx Asthma Denies: Hx Chronic Obstructive Pulmonary Disease (COPD), Hx Lung Cancer GI History: Denies: Hx Ulcer Neurological History: Denies: Hx Transient Ischemic Attacks (TIA) Psychiatric History: Reports: Hx Anxiety, Hx Depression - on Paxil prior to , taking Lexapro now - Surgical History Surgery Procedure, Year, and Place: Right Fallopian Tube Removed, 2010, [facility]. Ear Tubes as a child. RIGHT ear tube 2013 Infectious Disease History: No Infectious Disease History: Denies: Hx Clostridium Difficile, Hx Hepatitis, Hx Human Immunodeficiency Virus (HIV), Hx of Known/Suspected MRSA, Hx Shingles, Hx Tuberculosis, Hx Known/ Suspected VRE, Hx Known/Suspected VRSA, History Other Infectious Disease, Traveled Outside the [place] in Last 30 Days - Family History Known Family History: Positive: Unknown - PT ADOPTED - Social History Occupation: Unemployed Lives: With Family Alcohol Use: None Substance Use Type: Reports: None Smoking Status (MU): Heavy Every Day Tobacco Smoker Type: Cigarettes Amount Used/How Often: 4 cig/day Length of Time of Smoking/Using Tobacco: 14 yrs Have You Smoked in the Last Year: Yes Review of Systems Constitutional: Negative Positive: other - Light vaginal spotting. Negative: burning, dysuria, discharge All Other Systems Reviewed And Are Negative: Yes Physical Exam - Physical Exam Triage Information Reviewed: Yes Vital Signs Reviewed: Yes Appearance: Positive: Well-Appearing - Patient sitting in bed in no acute distress. Talkative. Head/Face: Positive: Normal Head/Face Inspection Eyes: Positive: Normal Neck: Positive: Supple Neurological: Positive: Normal, CN Intact II-III Psychiatric: Positive: Normal Diagnostics - Vital Signs Vital Signs Temp Pulse Resp BP Pulse Ox 11/11/17 17:00 97.6 F 84 16 123/62 99 11/11/17 15:42 97.3 F 84 16 113/59 99 11/11/17 13:44 98.4 F 84 14 134/66 99 - Laboratory Lab Results: Lab Results 11/11/17 11/11/17 11/11/17 Range/Units 15:08 15:08 15:08 WBC 9.9 (3.5-10.8) 10^3/ul RBC 5.38 (4.0-5.4) 10^6/ul Hgb 15.1 (12.0-16.0) g/dl Hct 44 (35-47) % MCV 82 (80-97) fL MCH 28 (27-31) pg MCHC 35 (31-36) g/dl RDW 13 (10.5-15) % Plt Count 322 (150-450) 10^3/ul MPV 7.4 (7.4-10.4) um3 Neut % (Auto) 73.8 (38-83) % Lymph % (Auto) 18.7 L (25-47) % [place] % (Auto) 6.2 (0-7) % Eos % (Auto) 0.4 (0-6) % Baso % (Auto) 0.9 (0-2) % Absolute Neuts (auto) 7.3 (1.5-7.7) 10^3/ul Absolute Lymphs (auto) 1.9 (1.0-4.8) 10^3/ul Absolute Monos (auto) 0.6 (0-0.8) 10^3/ul Absolute Eos (auto) 0 (0-0.6) 10^3/ul Absolute Basos (auto) 0.1 (0-0.2) 10^3/ul Absolute Nucleated RBC 0 10^3/ul Nucleated RBC % 0.2 Beta HCG, Quant 45686.00 mIU/mL Blood Type O Positive Antibody Screen Negative Result Diagrams: 11/11/17 15:08 Lab Statement: Any lab studies that have been ordered have been reviewed, and results considered in the medical decision making process. Course/Dx - Course Course Of Treatment: Patient presenting to the ER in early for one episode of light vaginal spotting. She currently is having no bleeding or abdominal pain. She has had a confirmed intrauterine . Blood work was obtained in triage which shows an increasing beta hCG of 14,000. Pt. offered STI testing today which she declined. Results discussed with pt. Advised to f.u with OB as scheduled. To return to ER if sxs change or worsen. - Differential Diagnosis/HQI/PQRI: Incomplete , Missed , Spontaneous , Threatened , Early , STI/STD - Diagnoses Provider Diagnoses: Threatened , at early stage Discharge - Sign-Out/Discharge Documenting (check all that apply): Discharge/Admit/Transfer - Discharge Plan Condition: Good Disposition: HOME Patient Education Materials: Threatened Miscarriage (ED) Referrals: Lindsey Rizzo MD [Primary Care Provider] - Additional Instructions: Follow up with your OB as scheduled Return to ER if symptoms change or worsen - Billing Disposition and Condition Condition: GOOD Disposition: HOME
== END 2017-11-11 17:00 | disposition home or self-care (01) ==
LOC: ED 13:31
DX: O20.0 Threatened abortion (principal); Z3A.01 Less than 8 weeks gestation of pregnancy; J45.909 Unspecified asthma, uncomplicated; F41.9 Anxiety disorder, unspecified; F32.9 Major depressive disorder, single episode, unspecified; F17.210 Nicotine dependence, cigarettes, uncomplicated
CPT/HCPCS: 36415; 84702; 85025; 86850; 86900; 86901; 99282

== ENCOUNTER 2017-11-13 20:02 | Emergency (ER) | payer OTHER ==
--- NOTE | 2017-11-13 21:08 | RAD ---
HISTORY: , spotting COMPARISONS: None relevant available time dictation TECHNIQUE: Multiple transverse and longitudinal ultrasound images were obtained of the pelvis using grayscale, color Doppler, spectral Doppler imaging and M-Mode Doppler imaging using the endovaginal transducer. FINDINGS: UTERUS: The uterus is normal in shape, size, contour, and echotexture. GESTATION: There is a single intrauterine gestation.. The crown-rump length measures 0.3 cm for a gestational age of 6 weeks, 0 days. The AVIVA is July 09, 2018. cardiac motion is detected, though this may be an artifact of early dates.. anatomy cannot be assessed secondary to early dates. The amniotic fluid is qualitatively normal. There is a 0.6 x 0.7 x 0.8 cm subchorionic hemorrhage. CUL-DE-SAC: There is no free fluid within the cul-de-sac. RIGHT OVARY: The right ovary measures 1.8 x 2.3 x 2.2 cm. Normal arterial and venous waveforms are identifiable within the ovary on spectral Doppler imaging. LEFT OVARY: The left ovary measures 2.9 x 2.1 x 2.8 cm. Normal arterial and venous waveforms are identifiable within the ovary on spectral Doppler imaging. BLADDER: The bladder is not well visualized. IMPRESSION: 1. SINGLE LIVE INTRAUTERINE GESTATION AT 6 WEEKS, 0 DAYS BY CROWN-RUMP LENGTH. 2. CARDIAC ACTIVITY IS NOT DETECTED, THOUGH THIS MAY BE AN ARTIFACT OF EARLY DATES. RECOMMEND ATTENTION ON FOLLOW-UP IMAGING AND CORRELATION WITH SERIAL BETA-HCG LEVELS. 3. 0.8 CM SUBCHORIONIC HEMORRHAGE.
[2017-11-13 21:28] LABS: ABS Basophils 0.1 10^3/ul (0-0.2); ABS Eosinophils 0.1 10^3/ul (0-0.6); ABS Lymphocytes 2.8 10^3/ul (1.0-4.8); ABS Monocytes 0.7 10^3/ul (0-0.8); ABS Neutrophils 6.9 10^3/ul (1.5-7.7); ABS Nucleated RBC 0 10^3/ul; Eosinophil % 0.8 % (0-6); Hematocrit 44 % (35-47); Hemoglobin 15.1 g/dl (12.0-16.0); Lymphocyte % 26.4 % (25-47); Mean Corpuscular HGB Conc 35 g/dl (31-36); Mean Corpuscular Hemoglobin 28 pg (27-31); Mean Corpuscular Volume 82 fL (80-97); Mean Platelet Volume 7.4 um3 (7.4-10.4); Nucleated Red Blood Cells % 0.1; Platelet Count 328 10^3/ul (150-450); Red Blood Count 5.35 10^6/ul (4.0-5.4); Red Cell Distribution Width 14 % (10.5-15); White Blood Count 10.5 10^3/ul (3.5-10.8)
[2017-11-13 21:36] LABS: INR 0.91 (0.77-1.02)
[2017-11-13 22:01] LABS: EGFR Non-African American 112.3 (>60)
--- NOTE | 2017-11-13 22:25 | ED ---
- HPI Summary HPI Summary: 32-year-old female presents at 6 weeks with vaginal spotting with cramping. She denies any abdominal pain. She denies any nausea vomiting. She denies any diarrhea or constipation. She denies any pain with urination. She denies any abnormal vaginal discharge. She denies any flank pain. She states that has random spotting. She has been seen here multiple times and past week for OB related complaints. she has a follow-up with OB on the november 17. - History of Current Complaint Chief Complaint: EDVaginalBleeding Stated Complaint: 6 WKS PREG/SPOTTING Time Seen by Provider: 11/13/17 21:00 Pain Intensity: 0 - Assessment Hx Now: No SAB: 1 IEA: 0 Hx Hysterectomy: No - Additional Pertinent History Maternal Blood Type and Rh: O Positive - Allergies/Home Medications Allergies/Adverse Reactions: Allergies Allergy/AdvReac Type Severity Reaction Status Date / Time No Known Allergies Allergy Verified 11/11/17 13:46 Home Medications: Home Medications Atenolol TAB* [Tenormin TAB* 25 MG] 25 mg PO BID 11/13/17 [History Confirmed ] Pediatric Multivit No.50/Dha [Flintstones Gummies Plus] 1 chw PO DAILY 11/13/17 [History Confirmed 11/13/17] PMH/Surg Hx/FS Hx/Imm Hx Endocrine/Hematology History: Denies: Hx Diabetes, Hx Thyroid Disease Cardiovascular History: Reports: Other Cardiovascular Problems/Disorders - PVCs , SVTs Denies: Hx Hypertension Respiratory History: Reports: Hx Asthma Denies: Hx Chronic Obstructive Pulmonary Disease (COPD), Hx Lung Cancer GI History: Denies: Hx Ulcer Neurological History: Denies: Hx Transient Ischemic Attacks (TIA) Psychiatric History: Reports: Hx Anxiety, Hx Depression - on Paxil prior to , taking Lexapro now - Surgical History Surgery Procedure, Year, and Place: Right Fallopian Tube Removed, 2010, [facility]. Ear Tubes as a child. RIGHT ear tube 2013 Infectious Disease History: No Infectious Disease History: Denies: Hx Clostridium Difficile, Hx Hepatitis, Hx Human Immunodeficiency Virus (HIV), Hx of Known/Suspected MRSA, Hx Shingles, Hx Tuberculosis, Hx Known/ Suspected VRE, Hx Known/Suspected VRSA, History Other Infectious Disease, Traveled Outside the [place] in Last 30 Days - Family History Known Family History: Positive: Unknown - PT ADOPTED - Social History Alcohol Use: None Substance Use Type: Reports: None Smoking Status (MU): Heavy Every Day Tobacco Smoker Type: Cigarettes Amount Used/How Often: 4 cig/day Length of Time of Smoking/Using Tobacco: 14 yrs Have You Smoked in the Last Year: Yes Review of Systems Negative: Fever Negative: Chest Pain Negative: Shortness Of Breath Positive: Other - vaginal spotting. Negative: Abdominal Pain, Vomiting, Diarrhea, Nausea All Other Systems Reviewed And Are Negative: Yes Physical Exam - Physical Exam Triage Information Reviewed: Yes Vital Signs Reviewed: Yes Appearance: Positive: Well-Appearing Skin: Positive: Warm, Dry Head/Face: Positive: Normal Head/Face Inspection Eyes: Positive: Normal, Conjunctiva Clear Respiratory/Lung Sounds: Positive: Clear to Auscultation, Breath Sounds Present Cardiovascular: Positive: Normal, RRR Abdomen Description: Positive: Nontender, Soft Bowel Sounds: Positive: Present Musculoskeletal: Positive: Normal Neurological: Positive: Normal Psychiatric: Positive: Normal Diagnostics - Vital Signs Vital Signs Temp Pulse Resp BP Pulse Ox 11/13/17 20:03 98.5 F 100 18 138/74 100 - Laboratory Lab Results: Lab Results 11/13/17 11/13/17 11/13/17 Range/Units 21:17 21:17 21:17 WBC 10.5 (3.5-10.8) 10^3/ul RBC 5.35 (4.0-5.4) 10^6/ul Hgb 15.1 (12.0-16.0) g/dl Hct 44 (35-47) % MCV 82 (80-97) fL MCH 28 (27-31) pg MCHC 35 (31-36) g/dl RDW 14 (10.5-15) % Plt Count 328 (150-450) 10^3/ul MPV 7.4 (7.4-10.4) um3 Neut % (Auto) 65.5 (38-83) % Lymph % (Auto) 26.4 (25-47) % [place] % (Auto) 6.3 (0-7) % Eos % (Auto) 0.8 (0-6) % Baso % (Auto) 1.0 (0-2) % Absolute Neuts (auto) 6.9 (1.5-7.7) 10^3/ul Absolute Lymphs (auto) 2.8 (1.0-4.8) 10^3/ul Absolute Monos (auto) 0.7 (0-0.8) 10^3/ul Absolute Eos (auto) 0.1 (0-0.6) 10^3/ul Absolute Basos (auto) 0.1 (0-0.2) 10^3/ul Absolute Nucleated RBC 0 10^3/ul Nucleated RBC % 0.1 INR (Anticoag Therapy) 0.91 (0.77-1.02) APTT 33.4 (26.0-36.3) seconds Sodium (139-145) mmol/L Potassium (3.5-5.0) mmol/L Chloride (101-111) mmol/L Carbon Dioxide (22-32) mmol/L Anion Gap (2-11) mmol/L BUN (6-24) mg/dL Creatinine (0.51-0.95) mg/dL Est GFR ( Amer) (>60) Est GFR (Non-Af Amer) (>60) BUN/Creatinine Ratio (8-20) Glucose (70-100) mg/dL Calcium (8.6-10.3) mg/dL Total Bilirubin (0.2-1.0) mg/dL AST (13-39) U/L ALT (7-52) U/L Alkaline Phosphatase (34-104) U/L Total Protein (6.4-8.9) g/dL Albumin (3.2-5.2) g/dL Globulin (2-4) g/dL Albumin/Globulin Ratio (1-3) Beta HCG, Quant mIU/mL Blood Type O Positive 11/13/17 Range/Units 21:17 WBC (3.5-10.8) 10^3/ul RBC (4.0-5.4) 10^6/ul Hgb (12.0-16.0) g/dl Hct (35-47) % MCV (80-97) fL MCH (27-31) pg MCHC (31-36) g/dl RDW (10.5-15) % Plt Count (150-450) 10^3/ul MPV (7.4-10.4) um3 Neut % (Auto) (38-83) % Lymph % (Auto) (25-47) % [place] % (Auto) (0-7) % Eos % (Auto) (0-6) % Baso % (Auto) (0-2) % Absolute Neuts (auto) (1.5-7.7) 10^3/ul Absolute Lymphs (auto) (1.0-4.8) 10^3/ul Absolute Monos (auto) (0-0.8) 10^3/ul Absolute Eos (auto) (0-0.6) 10^3/ul Absolute Basos (auto) (0-0.2) 10^3/ul Absolute Nucleated RBC 10^3/ul Nucleated RBC % INR (Anticoag Therapy) (0.77-1.02) APTT (26.0-36.3) seconds Sodium 136 L (139-145) mmol/L Potassium 3.5 (3.5-5.0) mmol/L Chloride 106 (101-111) mmol/L Carbon Dioxide 22 (22-32) mmol/L Anion Gap 8 (2-11) mmol/L BUN 8 (6-24) mg/dL Creatinine 0.61 (0.51-0.95) mg/dL Est GFR ( Amer) 144.4 (>60) Est GFR (Non-Af Amer) 112.3 (>60) BUN/Creatinine Ratio 13.1 (8-20) Glucose 103 H (70-100) mg/dL Calcium 9.8 (8.6-10.3) mg/dL Total Bilirubin 0.40 (0.2-1.0) mg/dL AST 13 (13-39) U/L ALT 8 (7-52) U/L Alkaline Phosphatase 101 (34-104) U/L Total Protein 7.6 (6.4-8.9) g/dL Albumin 4.7 (3.2-5.2) g/dL Globulin 2.9 (2-4) g/dL Albumin/Globulin Ratio 1.6 (1-3) Beta HCG, Quant 29282.00 mIU/mL Blood Type Result Diagrams: 11/13/17 21:17 11/13/17 21:17 Lab Statement: Any lab studies that have been ordered have been reviewed, and results considered in the medical decision making process. - Ultrasound No standard instances Ultrasound Interpretation: Positive (See Comments) - IMPRESSION: 1. SINGLE LIVE INTRAUTERINE GESTATION AT 6 WEEKS, 0 DAYS BY CROWN-RUMP LENGTH. 2. CARDIAC ACTIVITY IS NOT DETECTED, THOUGH THIS MAY BE AN ARTIFACT OF EARLY DATES. RECOMMEND ATTENTION ON FOLLOW-UP IMAGING AND CORRELATION WITH SERIAL BETA -HCG LEVELS. 3. 0.8 CM SUBCHORIONIC HEMORRHAGE. Ultrasound Interpretation Completed By: Radiologist Course/Dx - Course Course Of Treatment: 32-year-old female presents at 6 weeks with vaginal spotting with cramping. She denies any abdominal pain. She denies any nausea vomiting. She denies any diarrhea or constipation. She denies any pain with urination. She denies any abnormal vaginal discharge. She denies any flank pain. She states that has random spotting. She has been seen here multiple times and past week for OB related complaints. she has a follow-up with OB on the november 17. On exam nontender abdomen. HCGs 24,000. Ultrasound shows IUP. HCG has been rising and has doubled in the past 2 days. told to follow up with ob. Will wait for final culture about urine. Patient understands agrees with plan. - Differential Diagnosis/HQI/PQRI: Spontaneous , Threatened , Intrauterine , Subchorionic Hemorrhage - Diagnoses Provider Diagnoses: Intrauterine , Subchorionic bleed Discharge - Sign-Out/Discharge Documenting (check all that apply): Discharge/Admit/Transfer - Discharge Plan Condition: Good Disposition: HOME Patient Education Materials: Subchorionic Hemorrhage (ED) Referrals: Lindsey Rizzo MD [Primary Care Provider] - Additional Instructions: Can take Tylenol for pain every 6 hours Follow up with obgyn Return to ED if develop any new or worsening symptoms - Billing Disposition and Condition Condition: GOOD Disposition: HOME
[2017-11-13 22:33] VITALS: BP 128/75
[2017-11-13 22:33] LABS: Urine Appearance Cloudy; Urine Blood 1+ (Negative); Urine Color Yellow; Urine Ketones Negative (Negative); Urine Protein Negative (Negative); Urine Specific Gravity 1.017 (1.010-1.030); Urine Urobilinogen Negative (Negative)
== END 2017-11-13 22:33 | disposition home or self-care (01) ==
LOC: ED 20:02
DX: O46.91 Antepartum hemorrhage, unspecified, first trimester (principal); Z3A.01 Less than 8 weeks gestation of pregnancy; F17.210 Nicotine dependence, cigarettes, uncomplicated
CPT/HCPCS: 36415; 76817; 80053; 81003; 81015; 84702; 85025; 85610; 85730; 86900; 86901; 87086; 99282

== ENCOUNTER 2017-11-30 19:35 | Emergency (ER) | payer OTHER ==
--- OUTSIDE RECORDS SUMMARY | 2017-11-30 19:56 | XMS REPORT ---
:1985 External Reference #:[id number] Author Organization [facility] Address [address], [address] [place] [address] Phone [phone] Care Team Providers Name Role Phone Lindsey Rizzo MD Care Team Information Edger Hand Unavailable Lindsey Rizzo MD Primary Care Physician Unavailable Payers Type Date Identification Numbers Payment Provider Subscriber Commercial Policy Number: [id number] [facility] David Hung PayID: [id number] [address] [place] [address] Medicaid Policy Number: [id number] Medicaid David Hung Group Name: 1 1 [address] PayID: [id number] [place] [address] Commercial Expires: 2014 Policy Number: [facility] David Hung [id number] PayID: [id number] [address] [place] [address] Problems Date Description Provider Status Onset: 05/27/2015 Hyperlipidemia Lisa Craig PA-C Active Onset: 05/27/2015 Anxiety Lisa Craig PA-C Active Onset: 05/27/2015 Depressive disorder Lisa Craig PA-C Active Onset: 04/10/2017 Palpitations Rajwindernicola Hutchinson, RPAC Active Note: PVCs/PACs Onset: 12/19/2016 32 weeks gestation of Stephan Arriaga M.D. Inactive Inactive: 04/10/2017 Onset: 01/02/2017 34 weeks gestation of Stephan Arriaga M.D. Inactive Inactive: 04/10/2017 Onset: 01/16/2017 36 weeks gestation of Stephan Arriaga M.D. Inactive Inactive: 04/10/2017 Onset: 01/23/2017 Gestation period greater than or Stephan Arriaga M.D. Inactive equal to 37 weeks Inactive: 04/10/2017 Onset: 01/30/2017 38 weeks gestation of Stephan Arriaga M.D. Inactive Inactive: 04/10/2017 Onset: 02/06/2017 39 weeks gestation of Stephan Arriaga M.D. Inactive Inactive: 04/10/2017 Onset: 04/03/2017 Encounter for routine Stephan Arriaga M.D. Inactive follow-up Inactive: 04/10/2017 Onset: 04/28/2017 Otitis media Dolly Londono M.D. 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 Abuse No history of abuse Cigarette Use current cigarette smoker Cigarette Use Currently smokes 1-5 Cigarettes Daily ETOH Use Rarely consumes alcohol Smoking Patient is a current smoker, reports 3 cig per day smokes every day during Recreational Drug Use Denies Drug Use Daily Caffeine Consumes on average 16oz of soda per day Age 1st [place] 12 Years Old # Partners in a Lifetime 2 STD's No STD History Allergies, Adverse Reactions, Alerts Date Description Reaction Status Severity Comments 12/30/2015 Bupropion active Moderate altered cognition 07/23/2014 NKDA inactive Medications Medication Date Status Form Strength Qnty SIG Indications Ordering Provider 11/16/ Active Chewtabs 0.4-32.5mg 30uni 1 by mouth O09.71 Sherine Edward/Dha 2018 ts every day Borra, CNM & Folic Acid Metoprolol 11/16/ Active Tablets 25mg 45tab 1/2 tab by R00.2 Song Camilo Tartrate 2018 s mouth twice Margaret, a day M.Venkata, [facility] Flintstones / Active Chewtabs 60mg 2 by mouth Corina, Complete 0000 every day Marco Antonio Rothman 1 11/16/ Hx Capsules 30-0.975-2 30cap take one O09.71 Sherine 2018 - 00mg s capsule by MARA Freitas 11/16/ mouth every 2017 day. Amoxicillin 04/28/ Hx Capsules 500mg 30cap take 1 H66.91 Andras 2017 - s tablet Bry, 05/09/ every 8 M.D. 2017 hours for 10 days Atenolol 04/28/ Hx Tablets 50mg 60tab 1 tab by Dasha 2016 mouth twice MD Emelina 04/28/ a day 2016 Atenolol 04/28/ Hx Tablets 25mg 60tab 1 by mouth R00.2 Song Camilo 2016 - s twice a day Margaret, 11/16/ Marco Antonio, [facility] 2018 Bystolic 04/26/ Hx Tablets 2.5mg 30tab 1 by mouth Porter 2016 daily MD Denny 2016 Norgestim-Eth 04/03/ Hx Tablets 0.18/0.215 84tab 1 by mouth Z39.2 Stephan Lee 2016 - /0.25 s every day Corina, Triphasic 11/16/ mg-25 mcg M.D. 2017 Citalopram 03/08/ Hx Tablets 20mg 90tab 1 by mouth F41.9 David Hydrobromide 2016 - s every day Norbert 11/16/ M.D. 2018 Chantix 03/08/ Hx Tablets 0.5mg X 11 1tabs 0.5 mg po Z71.6 David Starting Month 2017 - & 1 mg qd x3 days, Mathew Toussaint 05/10/ X 42 then 0.5 mg M.D. 2016 po bid x4 days; max: 2 mg/day; info: give w/ food; start drug 1wk before quit date. Chantix 03/08/ Hx Tablets 1mg 60tab 1 by mouth Z71.6 David 2016 - s twice a day Norbert 11/16/ start M.D. 2018 after 1st month Loratadine 01/02/ Hx Tablets 10mg 10tab 1 by mouth R05 David 2017 - s every day Toussaint, 03/08/ for nasal M.D. 2017 congestion Amoxicillin 01/02/ Hx Capsules 500mg 30cap 1 cap by J06.9 David 2016 - s mouth three Toussaint, 01/23/ times a day M.D. 2016 Propranolol HCL 12/08/ Hx Tablets 20mg 60tab 1 tab by David 2017 - s mouth twice Toussaint, 04/26/ a day M.D. 2016 Amoxicillin 09/18/ Hx Tablets 875mg 15tab 1 tab by Kirsten 2017 - s mouth three Perkins, ZAKIA 11/17/ times a day 2016 Amoxicillin 07/21/ Hx Capsules 500mg 14cap Take one H66.001 October 2016 - s capsule by Junior, [facility] 08/15/ mouth twice 2016 daily for 7 days. 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 1 06/27/ Hx Capsules 30-0.975-2 30cap take one October 2015 - 00mg s capsule by Junior, [facility] 07/19/ mouth every 2016 day. Vitamin D-3 06/27/ Hx Capsules 1000Unit 30cap take one October 2015 - s capsule by Junior, [facility] 11/16/ mouth daily 2017 Vitamin D-1000 12/05/ Hx Tablets 1000Unit 90tab 1 by mouth Mikal Swanson Maximum 2016 - s every day Aaron DO Strength 2015 Buspirone HCL 06/15/ Hx Tablets 5mg 60tab 1 by mouth F41.9 Mikal Swanson 2016 s 2 times a Aaron DO day Benzonatate 01/04/ Hx Capsules 200mg 90cap 1 by mouth J01.90 Mikal Swanson 2016 s three times Aaron DO a day as needed cough Saline Nasal 01/04/ Hx Solution 0.65% 135ml 2 sprays J01.90 Mikal Swanson [place] 2016 every 2 Aaron DO hours as needed Probiotic 01/04/ Hx Capsules 60cap 1-2 J01.90 Mikal Swanson Acidophilus 2016 s capsules by Aaron DO mouth daily x10 days Acetaminophen 01/04/ Hx Tablets 500mg 540ta 2 by mouth Mikal Swanson Extra Strength 2016 - bs three times Aaron DO 06/27/ a day 2015 Xenical 12/29/ Hx Capsules 120mg 270ca take with E66.9 Mikal Swanson 2016 - ps or <1h Aaron DO 06/14/ after meals 2015 containing fat 3 times daily; omit dose if meal is non-fat or missed Amoxicillin 07/23/ Hx Capsules 500mg 21cap 1 cap by H66.90 Emmett 2016 - s mouth three Vatra, 12/29/ times a day M.D. 2015 Lexapro 00/ Hx Tablets 20mg 30tab by mouth Unknown 0000 s every day Atenolol / Hx Tablets 25mg 30tab 1/2 by Jami 0000 - s mouth every Simonetta 12/24/ day Diana Thompson MSN, [employer] Paroxetine HCL / Hx Tablets 20mg 90tab 1 by mouth Mikal Swanson 0000 - s every day [facility] 2015 Acetaminophen / Hx Tablets 500mg 1-2 tabs by Unknown Extra Strength 0000 - mouth every 07/06/ 4 hours as 2014 needed Vitamin D 00/00/ Hx Tablets 1000Unit 1 by mouth Unknown (Cholecalcifero 0000 - every day l) 2014 Pravastatin 00/ Hx Tablets 10mg 1 by mouth Unknown Sodium 0000 q hs Multivitamins / Hx Capsules 1 by mouth Unknown 0000 - every day 2014 Atenolol / Hx Tablets 50mg 180ta 1 and 1/2 Song Camilo 0000 - bs by mouth Margaret, 06/15/ twice a day Marco Antonio [facility] 2015 Zithromax / Hx Tablets 250mg take 2 tabs Unknown 0000 - by mouth on 06/15/ day 1 then 2015 1 tab by mouth qddays 2-5 Atenolol / Hx Tablets 75mg 1 by mouth Unknown 0000 - bid 2015 Paxil / Hx Tablets 20mg 1 by mouth Unknown 0000 - every day 2015 Immunizations CPT Code Status Date Vaccine Lot # [id number] Given 12/20/2016 Tdap injection [id number] Given 04/16/2015 Influenza Vaccine (Fluzone) Age 3 And Older [id number] U-Pneum Given 04/12/2013 Pneumococcal,Unspecified [id number] Given 07/17/2011 Tdap injection [id number] Given 07/14/2009 H1N1 Immuniation Adminstration [id number] Given 07/14/2009 H1N1 Immuniation Adminstration Vital Signs Date Vital Result Comment 11/16/2017 BP Systolic Sitting Left Arm 120 mmHg BP Diastolic Sitting Left Arm 64 mmHg Heart Rate 80 /min Respiratory Rate 18 /min Height 64 inches 5'4" Weight 134.00 lb BMI (Body Mass Index) 23.0 kg/m2 BSA (Body Surface Area) 1.65 m2 [place] body weight in kilograms 54 11/16/2017 BP Systolic 135 mmHg BP Diastolic 74 mmHg Height 64 inches 5'4" Weight 134.00 lb BMI (Body Mass Index) 23.0 kg/m2 BSA (Body Surface Area) 1.65 m2 [place] body weight in kilograms 54 04/28/2017 BP Systolic 141 mmHg BP Diastolic 92 mmHg Body Temperature 98.2 F Heart Rate 69 /min Respiratory Rate 14 /min Height 64 inches 5'4" Weight 132.00 lb BMI (Body Mass Index) 22.7 kg/m2 BSA (Body Surface Area) 1.64 m2 O2 % BldC Oximetry 100 % 04/03/2017 BP Systolic 110 mmHg BP Diastolic 86 mmHg Height 64 inches 5'4" Weight 130.25 lb BMI (Body Mass Index) 22.4 kg/m2 BSA (Body Surface Area) 1.63 m2 [place] body weight in kilograms 54 03/08/2017 BP Systolic 119 mmHg BP Diastolic 76 mmHg Heart Rate 73 /min Respiratory Rate 16 /min Height 64 inches 5'4" [place] body weight in kilograms 54 O2 % BldC Oximetry 99 % 02/06/2017 BP Systolic 118 mmHg BP Diastolic 86 mmHg Height 64 inches 5'4" Weight 149.38 lb BMI (Body Mass Index) 25.6 kg/m2 BSA (Body Surface Area) 1.73 m2 [place] body weight in kilograms 54 01/30/2017 BP Systolic 112 mmHg BP Diastolic 70 mmHg Height 64 inches 5'4" Weight 145.00 lb BMI (Body Mass Index) 24.9 kg/m2 BSA (Body Surface Area) 1.71 m2 [place] body weight in kilograms 54 01/23/2017 BP Systolic 106 mmHg BP Diastolic 60 mmHg Height 64 inches 5'4" Weight 147.38 lb BMI (Body Mass Index) 25.3 kg/m2 BSA (Body Surface Area) 1.72 m2 [place] body weight in kilograms 54 01/16/2017 BP Systolic 110 mmHg BP Diastolic 62 mmHg Height 64 inches 5'4" Weight 147.00 lb BMI (Body Mass Index) 25.2 kg/m2 BSA (Body Surface Area) 1.72 m2 [place] body weight in kilograms 54 01/02/2017 BP Systolic Sitting Right Arm 102 mmHg BP Diastolic Sitting Right Arm 58 mmHg Body Temperature 98.7 F Heart Rate 84 /min Height 64 inches 5'4" Weight 148.38 lb BMI (Body Mass Index) 25.5 kg/m2 BSA (Body Surface Area) 1.72 m2 [place] body weight in kilograms 54 O2 % BldC Oximetry 96 % 01/02/2017 BP Systolic 106 mmHg BP Diastolic 66 mmHg Height 64 inches 5'4" Weight 148.25 lb BMI (Body Mass Index) 25.4 kg/m2 BSA (Body Surface Area) 1.72 m2 [place] body weight in kilograms 54 12/19/2016 BP Systolic 118 mmHg BP Diastolic 66 mmHg Height 64 inches 5'4" Weight 148.50 lb BMI (Body Mass Index) 25.5 kg/m2 BSA (Body Surface Area) 1.72 m2 [place] body weight in kilograms 54 12/05/2016 BP Systolic 104 mmHg BP Diastolic 70 mmHg Height 64 inches 5'4" Weight 147.50 lb BMI (Body Mass Index) 25.3 kg/m2 BSA (Body Surface Area) 1.72 m2 [place] body weight in kilograms 54 11/17/2016 BP Systolic 110 mmHg BP Diastolic 68 mmHg Weight 147.00 lb 10/12/2016 BP Systolic 114 mmHg BP Diastolic 68 mmHg Weight 145.00 lb Pain Level 0 09/13/2016 BP Systolic 132 mmHg BP Diastolic 74 mmHg Height 60 inches 5'0" Weight 145.38 lb BMI (Body Mass Index) 28.4 kg/m2 BSA (Body Surface Area) 1.63 m2 09/06/2016 BP Systolic 120 mmHg BP Diastolic 68 mmHg Height 60 inches 5'0" Weight 145.12 lb BMI (Body Mass Index) 28.3 kg/m2 BSA (Body Surface Area) 1.63 m2 [place] body weight in kilograms 45 08/15/2016 BP Systolic 110 mmHg BP Diastolic 70 mmHg Weight 149.12 lb 08/05/2016 BP Systolic 112 mmHg BP Diastolic 70 mmHg Weight 147.38 lb 07/26/2016 BP Systolic 116 mmHg BP Diastolic 74 mmHg Height 60 inches 5'0" Weight 149.25 lb BMI (Body Mass Index) 29.1 kg/m2 BSA (Body Surface Area) 1.65 m2 07/21/2016 BP Systolic 110 mmHg BP Diastolic 74 mmHg Height 60 inches 5'0" Weight 149.12 lb BMI (Body Mass Index) 29.1 kg/m2 BSA (Body Surface Area) 1.65 m2 07/19/2016 BP Systolic 106 mmHg BP Diastolic 74 mmHg Height 60 inches 5'0" Weight 148.50 lb BMI (Body Mass Index) 29.0 kg/m2 BSA (Body Surface Area) 1.64 m2 07/13/2016 BP Systolic 112 mmHg BP Diastolic 68 mmHg Height 60 inches 5'0" Weight 149.00 lb BMI (Body Mass Index) 29.1 kg/m2 BSA (Body Surface Area) 1.65 m2 07/04/2016 BP Systolic 110 mmHg BP Diastolic 70 mmHg Height 60 inches 5'0" Weight 148.12 lb BMI (Body Mass Index) 28.9 kg/m2 BSA (Body Surface Area) 1.64 m2 06/29/2016 BP Systolic 100 mmHg BP Diastolic 70 mmHg Height 60 inches 5'0" Weight 148.38 lb BMI (Body Mass Index) 29.0 kg/m2 BSA (Body Surface Area) 1.64 m2 06/27/2016 BP Systolic 110 mmHg BP Diastolic 74 mmHg Height 60 inches 5'0" Weight 147.12 lb BMI (Body Mass Index) 28.7 kg/m2 BSA (Body Surface Area) 1.64 m2 06/16/2016 BP Systolic Sitting Left Arm 111 mmHg BP Diastolic Sitting Left Arm 74 mmHg Height 60 inches 5'0" Weight 150.00 lb BMI (Body Mass Index) 29.3 kg/m2 BSA (Body Surface Area) 1.65 m2 06/15/2016 BP Systolic 120 mmHg BP Diastolic 82 mmHg Heart Rate 78 /min Respiratory Rate 18 /min Height 60 inches 5'0" Weight 158.00 lb BMI (Body Mass Index) 30.9 kg/m2 BSA (Body Surface Area) 1.69 m2 01/05/2016 BP Systolic 108 mmHg BP Diastolic 67 mmHg Body Temperature 100.6 F Heart Rate 90 /min Height 60 inches 5'0" Weight 157.00 lb BMI (Body Mass Index) 30.7 kg/m2 BSA (Body Surface Area) 1.68 m2 O2 % BldC Oximetry 97 % 12/30/2015 BP Systolic 108 mmHg BP Diastolic 69 mmHg Heart Rate 75 /min Height 60 inches 5'0" Weight 159.00 lb BMI (Body Mass Index) 31.0 kg/m2 BSA (Body Surface Area) 1.69 m2 07/23/2015 BP Systolic 114 mmHg BP Diastolic 71 mmHg Heart Rate 76 /min Height 60 inches 5'0" 07/06/2015 BP Systolic 113 mmHg BP Diastolic 72 mmHg Heart Rate 77 /min Height 60 inches 5'0" Weight 160.00 lb BMI (Body Mass Index) 31.2 kg/m2 BSA (Body Surface Area) 1.70 m2 12/24/2014 BP Systolic Sitting Right Arm 110 mmHg BP Diastolic Sitting Right Arm 74 mmHg Heart Rate 77 /min Height 60 inches 5'0" Weight 145.00 lb BMI (Body Mass Index) 28.3 kg/m2 BSA (Body Surface Area) 1.63 m2 10/01/2014 BP Systolic Sitting Right Arm 122 mmHg BP Diastolic Sitting Right Arm 74 mmHg Heart Rate 88 /min Respiratory Rate 16 /min Height 60 inches 5'0" Weight 133.00 lb BMI (Body Mass Index) 26.0 kg/m2 BSA (Body Surface Area) 1.57 m2 07/23/2014 BP Systolic Sitting Right Arm 112 mmHg BP Diastolic Sitting Right Arm 64 mmHg Heart Rate 83 /min Respiratory Rate 16 /min Height 60 inches 5'0" Weight 154.00 lb BMI (Body Mass Index) 30.1 kg/m2 BSA (Body Surface Area) 1.67 m2 Results Test Date Test Result H/L Range Note Urine Dipstick 11/16/2017 Ua Color Yellow Yellow Ua Clarity Clear Clear Ua Leuko Negative Negative Ua Nitrite Negative Negative Ua Urobilinogen 0.2 0.2 - 1.0 E.U./dL Ua Protein 1+ High Negative Ua PH 6.0 Low 6.5-7.5 Ua Blood 1+ High Negative Ua Specific Allen 1.005 Low 1.010-1.030 Ua Ketones Negative Negative Ua Bilirubin Negative Negative Ua Glucose Negative Negative Slide Review 11/16/2017 Slide Review . 1, 2 HIV Screen 4TH Gen 11/16/2017 HIV Screen 4th Non Reactive Non Reactive 1 , 3 Reflex Generation wRfx Laboratory test 11/16/2017 Treponema Antibody Negative Negative 1 finding [place] CBS W/Automated Diff 11/16/2017 White Blood Count 10.0 K/uL 3.1-10.7 1 Red Blood Count 5.07 M/uL 3.90-5.40 1 Hemoglobin 14.2 gm/dL 11.6-15.8 1 Hematocrit 41.5 % 36.0-46.1 1 Mean Cell Volume 81.9 fl 80.9-99.0 1 Mean Corpuscular HGB 28.0 pg 25.9-32.7 1 Mean Corpuscular HGB Conc 34.2 g/dL 30.8-34.3 1 Platelet Count 378 K/uL High 155-360 1 Red Cell Distri Width SD 39.0 fl 3-47 1 Red Cell Distri Width %CV 13.3 % 11.7-14.4 1 Mean Platelet Volume 10.1 fL 8.9-12.4 1 Neut% 75.1 % High 40.4-72.8 1 Lymph % 17.9 % Low 20.0-42.0 1 [place] % 6.4 % 4.3-13.2 1 Eo% 0.2 % 0.0-6.6 1 Bas% 0.4 % 0.0-1.1 1 Neut# 7.50 K/uL High 1.8-7.0 1 Lymph # 1.79 K/uL 1.0-4.0 1 [place] # 0.64 K/uL 0.3-0.9 1 Eos # 0.02 K/uL 0.0-0.5 1 Baso # 0.04 K/uL 0.0-0.1 1 Drugs Of Abuse-Urine Screen 7 11/16/2017 Amphetamines (Urine) Negative 1 Barbiturates (Urine) Negative 1 Benzodiazepines (Urine) Negative 1 Cannabinoids (Urine) Negative 1 Cocaine Metabolite (Urine) Negative 1 Methadone (Urine) Negative 1 Opiates (Urine) Negative 1 Urine Cutoffs * 1, 4 Urine Culture 11/16/2017 Urine Culture URETHRAL JOAQUÍN 1 Quantity 10,000 - 50,000 <SEE NOTE> 1, 5 Type And Screen 11/16/2017 Patient Blood Type O POS 1 Antibody Screen Negative Negative 1 Laboratory test finding 11/16/2017 Hepatitis B Surface Antigen Negative Negative 1 Hepatitis C Antibody < 0.1 s/corat 0.0-0.9 1, 6 Lead,Blood (Adult) 1 g/dL 0-19 1, 7 Genital Culture W/ Gram 11/16/2017 Gram Stain GRAM STAIN INDIC <SEE 1, 8 Stain NOTE> Gram Stain FEW GR POS. BACI <SEE NOTE> 1, 9 Gram Stain RARE WHITE BLOOD <SEE NOTE> 1, 10 Genital Culture GENITAL JOAQUÍN 1 Chlamydia/GC Rimma 11/16/2017 Chlamydia Trachomatis, PCR Negative Negative 1 Neisseria Gonorrhoeae, PCR Negative Negative 1 Please note: . 1, 11 Laboratory test 11/16/2017 Rubella IgG 14.10 index Immune >0.99 1, 12 finding Antibody CBS W/Automated Diff 06/18/2017 White Blood Count 7.8 K/uL 3.1-10.7 13 Red Blood Count 5.36 M/uL 3.90-5.40 13 Hemoglobin 15.2 gm/dL 11.6-15.8 13 Hematocrit 44.5 % 36.0-46.1 13 Mean Cell Volume 83.0 fl 80.9-99.0 13 Mean Corpuscular HGB 28.4 pg 25.9-32.7 13 Mean Corpuscular HGB Conc 34.2 g/dL 30.8-34.3 13 Platelet Count 358 K/uL 150-400 13 Red Cell Distri Width SD 40.6 fl 3-47 13 Red Cell Distri Width %CV 13.4 % 11.7-14.4 13 Mean Platelet Volume 9.5 fL 8.9-12.4 13 Neut% 61.7 % 40.4-72.8 13 Lymph % 29.9 % 20.0-42.0 13 [place] % 6.3 % 4.3-13.2 13 Eo% 1.7 % 0.0-6.6 13 Bas% 0.4 % 0.0-1.1 13 Neut# 4.82 K/uL 1.8-7.0 13 Lymph # 2.33 K/uL 1.0-4.0 13 [place] # 0.49 K/uL 0.3-0.9 13 Eos # 0.13 K/uL 0.0-0.5 13 Baso # 0.03 K/uL 0.0-0.1 13 Comprehensive Metabolic Panel 06/18/2017 Glucose 88 mg/dL 74-106 13 BUN 12 mg/dL 7-18 13 Creatinine 0.7 mg/dL 0.6-1.3 13 Glom Filtration Rate, Estimate >60 mL/min >60 13 If >60 mL/min >60 13, 14 BUN/Creat 17.1 ratio 13 Sodium 142 mmol/L 136-145 13 Potassium 3.9 mmol/L 3.5-5.1 13 Chloride 106 mmol/L 98-107 13 Carbon Dioxide 28 mmol/L 21-32 13 Anion Gap 8 mEq/L 8-16 13 Calcium 9.1 mg/dL 8.5-10.1 13 Total Protein 7.5 g/dL 6.4-8.2 13 Albumin 3.8 g/dL 3.4-5.0 13 Globulin 3.7 g/dL 1.9-4.3 13 Alb/Glob 1.0 ratio 13 Bilirubin,Total 0.3 mg/dL 0.2-1.0 13 Sgot/Ast 14 U/L Low 15-37 13, 15 SGPT/Alt 23 U/L 12-78 13 Alkaline Phosphatase 98 U/L 45-117 13 Laboratory test finding 06/18/2017 TSH Reflex FT4 0.68 uIU/mL 0.30-4.20 13 and/or FT3 CBC 02/11/2017 White Blood Count 19.4 K/uL High 3.1-10.7 16 Red Blood Count 5.02 M/uL 3.90-5.40 16 Hemoglobin 14.9 gm/dL 11.6-15.8 16 Hematocrit 44.0 % 36.0-46.1 16 Mean Cell Volume 87.6 fl 80.9-99.0 16 Mean Corpuscular HGB 29.7 pg 25.9-32.7 16 Mean Corpuscular HGB Conc 33.9 g/dL 30.8-34.3 16 Platelet Count 316 K/uL 150-400 16 Red Cell Distri Width %CV 14.6 % High 11.7-14.4 16 Mean Platelet Volume 10.2 fL 8.9-12.4 16 Type And Screen 02/11/2017 Patient Blood Type O POS 16 Antibody Screen Negative Negative 16 Laboratory test 02/11/2017 Treponema Antibody Negative Negative 16, 17 finding [place] Laboratory test 01/16/2017 Vaginal Strep NO GROUP B STREP 18, 19 finding Screen <SEE NOTE> Urine Culture 01/02/2017 Urine Culture URETHRAL JOAQUÍN 20 Quantity 10,000 - 50,000 <SEE NOTE> 20, 21 Laboratory test finding 12/21/2016 Rapid Strep Negative Negative 22 Molecular Urine Culture 12/19/2016 Urine Culture URETHRAL JOAQUÍN 23 Quantity > 100,000 CFU/mL 23, 24 Laboratory test 11/17/2016 HIV Screen 4TH Non Reactive Non Reactive 25, 26 finding Gen Reflex Differential-WBC 11/17/2016 Total Cells 100 #CELLS 25 Confirm Counted Metamyelocyte% 1 % High -0 25 Band% 6 % 0-8 25 Neutrophils% 76 % High 33-73 25 Lymph% 11 % Low 20-42 25 Atypical Lymph% 1 % 0-7 25 Monocyte% 4 % 0-10 25 Eosinophil% 1 % 0-5 25 Platelet Estimate NORMAL 25 Toxic Granulation 1+ 25 Differential Comment LARGE PLATELETS <SEE NOTE> 25, 27 Slide Review 11/17/2016 Slide Review DIFF ORDERED 25 Glucose,1 HR Post 11/17/2016 1 HR Glucose,Post 135 mg/dL -138 25, 28 Glucola Glucola 1 Hour Urine Glucose NO SPECIMEN RECE <SEE NOTE> % Negative 25, 29 1 Hour Urine Ketone NO SPECIMEN RECE <SEE NOTE> Negative 25, 30 Laboratory test 11/17/2016 Treponema Antibody Negative Negative 25, 31 finding [place] CBS W/Automated Diff 11/17/2016 White Blood Count 12.7 K/uL High 3.1-10.7 25 Red Blood Count 4.09 M/uL 3.90-5.40 25 Hemoglobin 12.2 gm/dL 11.6-15.8 25 Hematocrit 35.4 % Low 36.0-46.1 25 Mean Cell Volume 86.6 fl 80.9-99.0 25 Mean Corpuscular HGB 29.8 pg 25.9-32.7 25 Mean Corpuscular HGB Conc 34.5 g/dL High 30.8-34.3 25 Platelet Count 306 K/uL 150-400 25 Red Cell Distri Width SD 40.9 fl 3-47 25 Red Cell Distri Width %CV 13.2 % 11.7-14.4 25 Mean Platelet Volume 10.7 fL 8.9-12.4 25, 32 Neut# 9.91 K/uL High 1.8-7.0 25 Lymph # 1.83 K/uL 1.0-4.0 25 [place] # 0.82 K/uL 0.3-0.9 25 Eos # 0.09 K/uL 0.0-0.5 25 Baso # 0.02 K/uL 0.0-0.1 25 Urine Culture 10/12/2016 Urine Culture URETHRAL JOAQUÍN 25 Quantity > 100,000 CFU/mL 25, 33 Urine Culture 09/06/2016 Urine Culture URETHRAL JOAQUÍN 34 Quantity 50,000 - 100,000 <SEE NOTE> 34, 35 Drugs Of Abuse-Urine Screen 7 08/21/2016 Amphetamines (Urine) Negative 36 Barbiturates (Urine) Negative 36 Benzodiazepines (Urine) Negative 36 Cannabinoids (Urine) Negative 36 Cocaine Metabolite (Urine) Negative 36 Methadone (Urine) Negative 36 Opiates (Urine) Negative 36 Urine Cutoffs * 36, 37 Urine Culture 08/21/2016 Urine Culture MIXED URETHRAL F <SEE NOTE> 36, 38 Quantity > 100,000 CFU/mL 36, 39 Laboratory test finding 08/21/2016 Ethyl Alcohol < 3.0 mg/dL 36 Comprehensive Metabolic Panel 08/21/2016 Glucose 136 mg/dL High 74-106 36 BUN 9 mg/dL 7-18 36 Creatinine 0.7 mg/dL 0.6-1.3 36 Glom Filtration Rate, Estimate >60 mL/min >60 36 If >60 mL/min >60 36, 40 BUN/Creat 12.8 ratio 36 Sodium 138 mmol/L 136-145 36 Potassium 3.7 mmol/L 3.5-5.1 36 Chloride 104 mmol/L 98-107 36 Carbon Dioxide 23 mmol/L 21-32 36 Anion Gap 11 mEq/L 8-16 36 Calcium 9.5 mg/dL 8.5-10.1 36 Total Protein 7.6 g/dL 6.4-8.2 36 Albumin 3.2 g/dL Low 3.4-5.0 36 Globulin 4.4 g/dL High 1.9-4.3 36 Alb/Glob 0.7 ratio 36 Bilirubin,Total 0.3 mg/dL 0.2-1.0 36 Sgot/Ast 13 U/L Low 15-37 36, 41 SGPT/Alt 23 U/L 12-78 36 Alkaline Phosphatase 95 U/L 45-117 36 Urine Culture 08/05/2016 Urine Culture URETHRAL JOAQUÍN 42 Quantity 10,000 - 50,000 <SEE NOTE> 42, 43 Ua Routine 08/05/2016 Urine Color YELLOW Yellow 42 Urine Clarity CLEAR Clear 42 Urine Glucose - Dipstick NEGATIVE mg/dL Negative 42 Urine Bilirubin - Dipstick NEGATIVE Negative 42 Urine Ketone NEGATIVE mg/dL Negative 42 Urine Specific Allen 1.015 1.010-1.030 42 Urine Blood SMALL Negative 42 Urine PH 6.5 6.5-7.5 42 Urine Protein - Dipstick NEGATIVE mg/dL Negative 42 Urine Urobilinogen - Dipstick 0.2 E.U./dL 0.2-1.0 42 Urine Nitrite - Dipstick NEGATIVE Negative 42 Urine Leuk Esterase LARGE Negative 42 Urine RBC 0-2 rbc/hpf 0-2 42 Urine WBC 10-20 wbc/hpf High 0-7 42 Urine Epithelial Cells MODERATE /lpf None Seen 42, 44 Urine Calcium Oxalate Crystals MANY None Seen 42 Urine Bacteria MODERATE None Seen 42 Urine Amorph Sediment SMALL Negative 42 Source: URINE, CLEAN CAT <SEE 42, 45 NOTE> Laboratory test finding 08/05/2016 Urine Amorphous Sediment Small Negative Urine Bilirubin Negative Negative Urine Ketones Negative Negative Urine Leukocyte Esterase Large High Negative Urine Nitrite Negative Negative Urine Protein Negative Negative Urine Urobilinogen 0.2 0.2-1.0 Urine Glucose (Ua) 08/05/2016 Urine Glucose (Ua) Negative Negative Laboratory test 08/04/2016 HCG, Quant 42289.0 mIU/mL 46, 47 finding Chlamydia/GC Rimma 08/01/2016 Chlamydia Negative Negative 48 Trachomatis, Rimma Neisseria Gonorrhoeae, Rimma Negative Negative 48 Please note: (SEE NOTE) 48, 49 Laboratory test finding 08/01/2016 Urine Bilirubin Negative Negative Urine Ketones Negative Negative Urine Leukocyte Esterase Large High Negative Urine Nitrite Negative Negative Urine Protein Negative Negative Urine Urobilinogen 0.2 0.2-1.0 Urine Glucose (Ua) 08/01/2016 Urine Glucose (Ua) Negative Negative Therese species 08/01/2016 Therese species Negative [Negative] Dna Probe Dna Probe Gardnerella Dna 08/01/2016 Gardnerella Dna Positive High [Negative] Probe Probe Trichomonas Dna 08/01/2016 Trichomonas Dna Negative [Negative] Probe Probe Laboratory test 08/01/2016 HCG, Quant 96796.0 mIU/mL 48, 50 finding Ua Routine 08/01/2016 Urine Color YELLOW Yellow 48 Urine Clarity CLOUDY Clear 48 Urine Glucose - Dipstick NEGATIVE mg/dL Negative 48 Urine Bilirubin - Dipstick NEGATIVE Negative 48 Urine Ketone NEGATIVE mg/dL Negative 48 Urine Specific Allen 1.010 1.010-1.030 48 Urine Blood TRACE Negative 48 Urine PH 8.0 High 6.5-7.5 48 Urine Protein - Dipstick NEGATIVE mg/dL Negative 48 Urine Urobilinogen - Dipstick 0.2 E.U./dL 0.2-1.0 48 Urine Nitrite - Dipstick NEGATIVE Negative 48 Urine Leuk Esterase LARGE Negative 48 Urine RBC 2-5 rbc/hpf 0-2 48 Urine WBC 5-10 wbc/hpf 0-7 48 Urine Epithelial Cells MANY /lpf None Seen 48, 51 Urine Bacteria MANY None Seen 48 Source: URINE, CLEAN CAT <SEE 48, 52 NOTE> Affirm Vaginitis Panel 08/01/2016 Trichomonas vaginalis Negative [ Negative] 48 Gardnerella vaginalis POSITIVE High [Negative] 48 Therese species Negative [Negative] 48 Urine Culture 08/01/2016 Urine Culture URETHRAL JOAQUÍN 48 Quantity > 100,000 CFU/mL 48, 53 Platelet Estimate 07/22/2016 Platelet Estimate Normal Neutrophils # (Auto) 07/22/2016 Neutrophils # (Auto) 10.71 High 1.8-7.0 Monocytes % 07/22/2016 Monocytes % 4 0-10 Manual Slide Review 07/22/2016 Manual Slide Review Diff Ordered (Hematology) (Hematology) Lymphocytes % 07/22/2016 Lymphocytes % 22 17-56 Lymphocytes # (Auto) 07/22/2016 Lymphocytes # (Auto) 2.42 1.8-7.0 Differential Total 07/22/2016 Differential Total 100 Cells Counted Cells Counted Atypical Lymphocytes % 07/22/2016 Atypical Lymphocytes 4 0-7 % Aspartate Amino Transf 07/22/2016 Aspartate Amino 11 Low 15-37 (Ast/Sgot) Transf (Ast/Sgot) Chlamydia/GC Rimma 07/22/2016 Chlamydia Negative Negative 54 Trachomatis, Rimma Neisseria Gonorrhoeae, Rimma Negative Negative 54 Please note: (SEE NOTE) 54, 55 Comprehensive Metabolic Panel 07/22/2016 Glucose 88 mg/dL 74-106 54 BUN 9 mg/dL 7-18 54 Creatinine 0.5 mg/dL Low 0.6-1.3 54 Glom Filtration Rate, Estimate >60 mL/min >60 54 If >60 mL/min >60 54, 56 BUN/Creat 18.0 ratio 54 Sodium 138 mmol/L 136-145 54 Potassium 3.6 mmol/L 3.5-5.1 54 Chloride 104 mmol/L 98-107 54 Carbon Dioxide 23 mmol/L 21-32 54 Anion Gap 11 mEq/L 8-16 54 Calcium 9.3 mg/dL 8.5-10.1 54 Total Protein 8.1 g/dL 6.4-8.2 54 Albumin 3.7 g/dL 3.4-5.0 54 Globulin 4.4 g/dL High 1.9-4.3 54 Alb/Glob 0.8 ratio 54 Bilirubin,Total 0.3 mg/dL 0.2-1.0 54 Sgot/Ast 11 U/L Low 15-37 54, 57 SGPT/Alt 16 U/L 12-78 54 Alkaline Phosphatase 114 U/L 45-117 54 Type And Screen 07/22/2016 Patient Blood Type O POS 54 Antibody Screen Negative Negative 54 Laboratory test finding 07/22/2016 Alanine Aminotransferase (Alt/SGPT) 16 12-78 Albumin/Globulin Ratio 0.8 BUN/Creatinine Ratio 18.0 Band Neutrophils % 2 0-8 Basophils # (Auto) 0.02 0.0-0.1 Blood Urea Nitrogen 9 7-18 Calcium Level 9.3 8.5-10.1 Carbon Dioxide Level 23 21-32 Chloride Level 104 98-107 Eosinophils # (Auto) 0.16 0.0-0.5 Glucose Screen 88 74-106 Hematocrit 40.5 36.0-46.1 Hemoglobin 14.3 11.6-15.8 Mean Corpuscular Hemoglobin 28.8 25.9-32.7 Mean Corpuscular Hemoglobin Concent 35.3 High 30.8-34.3 Mean Corpuscular Volume 81.7 80.9-99.0 Mean Platelet Volume 9.3 8.9-12.4 Monocytes # (Auto) 0.86 0.3-0.9 Neutrophils % 68 33-73 Platelet Count 336 155-360 Potassium Level 3.6 3.5-5.1 RDW Coefficient of Variation 13.2 11.7-14.4 Red Blood Count 4.96 3.90-5.40 Red Cell Distribution Width 38.4 3-47 Sodium Level 138 136-145 Total Bilirubin 0.3 0.2-1.0 White Blood Count 14.2 High 3.1-10.7 Ua Routine 07/17/2016 Urine Color YELLOW Yellow 58 Urine Clarity SL CLOUDY Clear 58 Urine Glucose - Dipstick NEGATIVE mg/dL Negative 58 Urine Bilirubin - Dipstick NEGATIVE Negative 58 Urine Ketone TRACE mg/dL High Negative 58 Urine Specific Allen 1.020 1.010-1.030 58 Urine Blood SMALL Negative 58 Urine PH 7.0 6.5-7.5 58 Urine Protein - Dipstick NEGATIVE mg/dL Negative 58 Urine Urobilinogen - Dipstick 0.2 E.U./dL 0.2-1.0 58 Urine Nitrite - Dipstick NEGATIVE Negative 58 Urine Leuk Esterase LARGE Negative 58 Urine RBC 0-2 rbc/hpf 0-2 58 Urine WBC 10-20 wbc/hpf High 0-7 58 Urine Epithelial Cells MANY /lpf None Seen 58, 59 Urine Bacteria FEW None Seen 58 Urine Mucus SMALL None Seen 58 Source: URINE, CLEAN CAT <SEE 58, 60 NOTE> Urine Culture 07/17/2016 Urine Culture URETHRAL JOAQUÍN 58 Quantity 50,000 - 100,000 <SEE NOTE> 58, 61 Laboratory test finding 07/17/2016 Urine Bilirubin Negative Negative Urine Ketones Trace High Negative Urine Leukocyte Esterase Large High Negative Urine Nitrite Negative Negative Urine Protein Negative Negative Urine Urobilinogen 0.2 0.2-1.0 Urine Glucose (Ua) 07/17/2016 Urine Glucose (Ua) Negative Negative Laboratory Studies 07/14/2016 Beta HCG, Quantitative 812188.00 mIU/mL Free Thyroxine 0.83 ng/dL 0.61-1.12 Free Triiodothyronine 3.10 pg/mL 2.5-3.9 Hematocrit 42 % 35-47 Hemoglobin 14.2 g/dL 12.0-16.0 Mean Corpuscular Hemoglobin 28 pg 27-31 Mean Corpuscular Hemoglobin Concent 34 g/dL 31-36 Mean Corpuscular Volume 83 fL 80-97 Mean Platelet Volume 9 um3 7.4-10.4 Platelet Count 365 10^3/ul 150-450 Red Blood Count 5.09 10^6/ul 4.0-5.4 Red Cell Distribution Width 13 % 10.5-15 Thyroid Stimulating Hormone (TSH) 0.69 mcIU/mL 0.34-5.60 Urine Specific Allen 1.024 1.010-1.030 Urine pH 6.0 5-9 White Blood Count 15.0 10^3/ul High 3.5-10.8 Laboratory Studies 07/11/2016 Absolute Basophils (auto) 0.1 10^3/ul 0- 0.2 Absolute Eosinophils (auto) 0.1 10^3/ul 0-0.6 Absolute Lymphocytes (auto) 2.1 10^3/ul 1.0-4.8 Absolute Monocytes (auto) 0.8 10^3/ul 0-0.8 Absolute Neutrophils (auto) 10.2 10^3/ul High 1.5-7.7 Alanine Aminotransferase (Alt/SGPT) 12 U/L 7-52 Albumin 4.2 g/dL 3.2-5.2 Albumin/Globulin Ratio 1.4 1-3 Alkaline Phosphatase 81 U/L 34-104 Anion Gap 8 mmol/L 2-11 Aspartate Amino Transf (Ast/Sgot) 13 U/L 13-39 BUN/Creatinine Ratio 14.8 8-20 Basophils (%) (Auto) 0.6 % 0-2 Beta HCG, Quantitative 815297.00 mIU/mL Blood Urea Nitrogen 8 mg/dL 6-24 Calcium Level 9.4 mg/dL 8.6-10.3 Carbon Dioxide Level 23 mmol/L 22-32 Chloride Level 103 mmol/L 101-111 Creatinine 0.54 mg/dL 0.51-0.95 Eosinophils (%) (Auto) 0.9 % 0-6 Estimated GFR () 168.3 Estimated GFR (Non- 130.8 Globulin 3.1 g/dL 2-4 Glucose Level 84 mg/dL 70-100 Hematocrit 44 % 35-47 Hemoglobin 15.2 g/dL 12.0-16.0 Lymphocytes (%) (Auto) 15.7 % Low 25-47 Mean Corpuscular Hemoglobin 28 pg 27-31 Mean Corpuscular Hemoglobin Concent 34 g/dL 31-36 Mean Corpuscular Volume 82 fL 80-97 Mean Platelet Volume 8 um3 7.4-10.4 Monocytes (%) (Auto) 5.9 % 1-9 Neutrophils (%) (Auto) 76.9 % 38-83 Nucleated RBC Absolute Count (auto) 0.02 10^3/ul Nucleated Red Blood Cells % 0.1 Platelet Count 332 10^3/ul 150-450 Potassium Level 3.8 mmol/L 3.5-5.0 Red Blood Count 5.38 10^6/ul 4.0-5.4 Red Cell Distribution Width 13 % 10.5-15 Sodium Level 134 mmol/L 133-145 Total Bilirubin 0.50 mg/dL 0.2-1.0 Total Protein 7.3 g/dL 6.4-8.9 Urine Specific Allen 1.017 1.010-1.030 Urine pH 7.0 5-9 White Blood Count 13.3 10^3/ul High 3.5-10.8 Laboratory test finding 07/11/2016 HCG 508629.00 mIU/mL 62 Urine Culture SEE RESULT BELOW 63 Comp Metabolic Panel 07/11/2016 Sodium 134 mmol/L 133-145 Potassium 3.8 mmol/L 3.5-5.0 Chloride 103 mmol/L 101-111 Co2 Carbon Dioxide 23 mmol/L 22-32 Anion Gap 8 mmol/L 2-11 Glucose 84 mg/dL 70-100 Blood Urea Nitrogen 8 mg/dL 6-24 Creatinine 0.54 mg/dL 0.51-0.95 BUN/Creatinine Ratio 14.8 8-20 Calcium 9.4 mg/dL 8.6-10.3 Total Protein 7.3 g/dL 6.4-8.9 Albumin 4.2 g/dL 3.2-5.2 Globulin 3.1 g/dL 2-4 Albumin/Globulin Ratio 1.4 1-3 Total Bilirubin 0.50 mg/dL 0.2-1.0 Alkaline Phosphatase 81 U/L 34-104 Alt 12 U/L 7-52 Ast 13 U/L 13-39 Egfr Non- 130.8 >60 Egfr 168.3 >60 64 Type & Screen 07/11/2016 Patient Blood Type O Positive Antibody Screen NEGATIVE CBC Auto Diff 07/11/2016 White Blood Count 13.3 10^3/uL High 3.5-10.8 Red Blood Count 5.38 10^6/uL 4.0-5.4 Hemoglobin 15.2 g/dL 12.0-16.0 Hematocrit 44 % 35-47 Mean Corpuscular Volume 82 fL 80-97 Mean Corpuscular Hemoglobin 28 pg 27-31 Mean Corpuscular HGB Conc 34 g/dL 31-36 Red Cell Distribution Width 13 % 10.5-15 Platelet Count 332 10^3/uL 150-450 Mean Platelet Volume 8 um3 7.4-10.4 Abs Neutrophils 10.2 10^3/uL High 1.5-7.7 Abs Lymphocytes 2.1 10^3/uL 1.0-4.8 Abs Monocytes 0.8 10^3/uL 0-0.8 Abs Eosinophils 0.1 10^3/uL 0-0.6 Abs Basophils 0.1 10^3/uL 0-0.2 Abs Nucleated RBC 0.02 10^3/uL Granulocyte % 76.9 % 38-83 Lymphocyte % 15.7 % Low 25-47 Monocyte % 5.9 % 1-9 Eosinophil % 0.9 % 0-6 Basophil % 0.6 % 0-2 Nucleated Red Blood Cells % 0.1 Urinalysis Profile 07/11/2016 Urine Color Yellow Urine Appearance Cloudy Urine Specific Allen 1.017 1.010-1.030 Urine pH 7.0 5-9 Urine Urobilinogen Negative Negative Urine Ketones Trace Negative Urine Protein Negative Negative Urine Leukocytes 3+ Negative Urine Blood 1+ Negative Urine Nitrite Negative Negative Urine Bilirubin Negative Negative Urine Glucose Negative Negative Urine White Blood Cell 3+(>20/hpf) Absent Urine Red Blood Cell 2+(6-10/hpf) Absent Urine Bacteria Absent Absent Urine Squamous Epithelial Cell Present Absent Urine Culture 07/04/2016 Urine Culture Organism: Urethral Joaquín Urine Culture 07/04/2016 Urine Culture URETHRAL JOAQUÍN 65 Quantity 50,000 - 100,000 <SEE NOTE> 65, 66 Type And Screen 07/01/2016 Patient Blood Type O POS 67 Antibody Screen Negative Negative 67 Comprehensive Metabolic Panel 07/01/2016 Glucose 80 mg/dL 74-106 67 BUN 11 mg/dL 7-18 67 Creatinine 0.6 mg/dL 0.6-1.3 67 Glom Filtration Rate, Estimate >60 mL/min >60 67 If >60 mL/min >60 67, 68 BUN/Creat 18.3 ratio 67 Sodium 139 mmol/L 136-145 67 Potassium 3.9 mmol/L 3.5-5.1 67 Chloride 105 mmol/L 98-107 67 Carbon Dioxide 25 mmol/L 21-32 67 Anion Gap 9 mEq/L 8-16 67 Calcium 8.9 mg/dL 8.5-10.1 67 Total Protein 7.7 g/dL 6.4-8.2 67 Albumin 3.9 g/dL 3.4-5.0 67 Globulin 3.8 g/dL 1.9-4.3 67 Alb/Glob 1.0 ratio 67 Bilirubin,Total 0.6 mg/dL 0.2-1.0 67 Sgot/Ast 16 U/L 15-37 67 SGPT/Alt 22 U/L 12-78 67 Alkaline Phosphatase 105 U/L 45-117 67 Laboratory test finding 07/01/2016 Alanine Aminotransferase (Alt/SGPT) 22 12-78 Albumin/Globulin Ratio 1.0 BUN/Creatinine Ratio 18.3 Blood Urea Nitrogen 11 7-18 Calcium Level 8.9 8.5-10.1 Carbon Dioxide Level 25 21-32 Chloride Level 105 98-107 Glucose Screen 80 74-106 Potassium Level 3.9 3.5-5.1 Sodium Level 139 136-145 Total Bilirubin 0.6 0.2-1.0 Neutrophils # (Auto) 07/01/2016 Neutrophils # (Auto) 8.71 High 1.8-7.0 Lymphocytes # (Auto) 07/01/2016 Lymphocytes # (Auto) 1.85 1.8-7.0 Laboratory test finding 07/01/2016 Basophils # (Auto) 0.03 0.0-0.1 Basophils (%) (Auto) 0.3 0.0-1.1 Eosinophils # (Auto) 0.16 0.0-0.5 Eosinophils (%) (Auto) 1.4 0.0-6.6 Hematocrit 43.5 36.0-46.1 Hemoglobin 15.0 11.6-15.8 Lymphocytes (%) (Auto) 15.9 Low 17.0-46.1 Mean Corpuscular Hemoglobin 28.7 25.9-32.7 Mean Corpuscular Hemoglobin Concent 34.5 High 30.8-34.3 Mean Corpuscular Volume 83.2 80.9-99.0 Mean Platelet Volume 9.6 8.9-12.4 Monocytes # (Auto) 0.86 0.3-0.9 Monocytes (%) (Auto) 7.4 4.3-13.2 Neutrophils (%) (Auto) 75.0 High 40.4-72.8 Platelet Count 323 155-360 RDW Coefficient of Variation 13.5 11.7-14.4 Red Blood Count 5.23 3.90-5.40 Red Cell Distribution Width 40.6 3-47 White Blood Count 11.6 High 3.1-10.7 Manual Slide Review 07/01/2016 Manual Slide Review See Note 69 (Hematology) (Hematology) Aspartate Amino 07/01/2016 Aspartate Amino 16 15-37 Transf (Ast/Sgot) Transf (Ast/Sgot) Hepatitis B Surface 06/29/2016 Hepatitis B Surface Nonreactive Nonreactive Antigen Antigen Hepatitis C Antibody 06/29/2016 Hepatitis C Antibody Nonreactive Nonreactive Thin Prep Pap Report 06/29/2016 Thin Prep Pap Report Results on File Status Status Urine Opiates Screen 06/29/2016 Urine Opiates Screen Negative Urine Methadone 06/29/2016 Urine Methadone Negative Screen Screen Urine Drug Screen 06/29/2016 Urine Drug Screen * Information Information Urine Culture 06/29/2016 Urine Culture Organism: Urethral Joaquín Urine Cocaine Screen 06/29/2016 Urine Cocaine Screen Negative Urine Cannabinoids 06/29/2016 Urine Cannabinoids Negative Screen Screen Urine Benzodiazepines 06/29/2016 Urine Negative Screen Benzodiazepines Screen Urine Barbiturates 06/29/2016 Urine Barbiturates Negative Screen Screen Urine Amphetamines 06/29/2016 Urine Amphetamines Negative Screen Screen Manual Slide Review 06/29/2016 Manual Slide Review . (Hematology) (Hematology) Rubella IgG Antibody 06/29/2016 Rubella IgG Antibody Reactive Reactive Whole Blood Lead 06/29/2016 Whole Blood Lead 2 0-19 Drugs Of Abuse-Urine 06/29/2016 Amphetamines (Urine) Negative 70 Screen 7 Barbiturates (Urine) Negative 70 Benzodiazepines (Urine) Negative 70 Cannabinoids (Urine) Negative 70 Cocaine Metabolite (Urine) Negative 70 Methadone (Urine) Negative 70 Opiates (Urine) Negative 70 Urine Cutoffs * 70, 71 Urine Culture 06/29/2016 Urine Culture URETHRAL JOAQUÍN 70 Quantity 10,000 - 50,000 <SEE NOTE> 70, 72 CBS W/Automated Diff 06/29/2016 White Blood Count 12.2 K/uL High 3.1-10.7 70 Red Blood Count 5.37 M/uL 3.90-5.40 70 Hemoglobin 15.4 gm/dL 11.6-15.8 70 Hematocrit 45.3 % 36.0-46.1 70 Mean Cell Volume 84.4 fl 80.9-99.0 70 Mean Corpuscular HGB 28.7 pg 25.9-32.7 70 Mean Corpuscular HGB Conc 34.0 g/dL 30.8-34.3 70 Platelet Count 313 K/uL 155-360 70 Red Cell Distri Width SD 41.9 fl 3-47 70 Red Cell Distri Width %CV 13.7 % 11.7-14.4 70 Mean Platelet Volume 10.5 fL 8.9-12.4 70 Neut% 70.5 % 40.4-72.8 70 Lymph % 20.1 % 17.0-46.1 70 [place] % 7.6 % 4.3-13.2 70 Eo% 1.6 % 0.0-6.6 70 Bas% 0.2 % 0.0-1.1 70 Neut# 8.63 K/uL High 1.8-7.0 70 Lymph # 2.46 K/uL 1.8-7.0 70 [place] # 0.93 K/uL High 0.3-0.9 70 Eos # 0.19 K/uL 0.0-0.5 70 Baso # 0.03 K/uL 0.0-0.1 70 Type And Screen 06/29/2016 Patient Blood Type O POS 70 Antibody Screen Negative Negative 70 Laboratory test 06/29/2016 Hepatitis B Surface Nonreactive Nonreactive 70, 73 finding Antigen Hepatitis C Antibody 06/29/2016 Hepatitis C Nonreactive Nonreactive 70 Antibody Signal/Cutoff ratio < 0.02 <0.80 70, 74 Laboratory test finding 06/29/2016 Lead,Blood (Adult) 2 g/dL 0-19 70, 75 Antibody Detection-Hiv1/2 SCRN Nonreactive Nonreactive 70, 76 Rubella Igg Antibody 06/29/2016 Rubella IgG Antibody Reactive Reactive 70 Rubella IgG Iu/ml > 500.0 IU/mL >=10.0 70, 77 Chlamydia/GC Rimma 06/29/2016 Chlamydia Trachomatis, Rimma Negative Negative 70 Neisseria Gonorrhoeae, Rimma Negative Negative 70 Please note: (SEE NOTE) 70, 78 Specimen Type: Genital 70 Laboratory test 06/29/2016 Treponema Nonreactive Nonreactive 70, 79 finding Antibody Monroe Genital Culture W/ 06/29/2016 Gram Stain GRAM STAIN INDIC 70, 80 Gram Stain <SEE NOTE> Gram Stain FEW GR POS. BACI <SEE NOTE> 70, 81 Gram Stain FEW WHITE BLOOD <SEE NOTE> 70, 82 Gram Stain RARE GRAM POSITI <SEE NOTE> 70, 83 Genital Culture GENITAL JOAQUÍN 70 Slide Review 06/29/2016 Slide Review . 70, 84 CBC Auto Diff 06/26/2016 White Blood Count 10.7 10^3/uL 3.5-10.8 Red Blood Count 5.62 10^6/uL High 4.0-5.4 Hemoglobin 15.9 g/dL 12.0-16.0 Hematocrit 46 % 35-47 Mean Corpuscular Volume 82 fL 80-97 Mean Corpuscular Hemoglobin 28 pg 27-31 Mean Corpuscular HGB Conc 34 g/dL 31-36 Red Cell Distribution Width 13 % 10.5-15 Platelet Count 300 10^3/uL 150-450 Mean Platelet Volume 8 um3 7.4-10.4 Abs Neutrophils 7.5 10^3/uL 1.5-7.7 Abs Lymphocytes 2.1 10^3/uL 1.0-4.8 Abs Monocytes 0.7 10^3/uL 0-0.8 Abs Eosinophils 0.2 10^3/uL 0-0.6 Abs Basophils 0.1 10^3/uL 0-0.2 Abs Nucleated RBC 0.01 10^3/uL Granulocyte % 70.5 % 38-83 Lymphocyte % 19.9 % Low 25-47 Monocyte % 6.7 % 1-9 Eosinophil % 1.8 % 0-6 Basophil % 1.1 % 0-2 Nucleated Red Blood Cells % 0.1 Comp Metabolic Panel 06/26/2016 Sodium 133 mmol/L 133-145 Potassium 4.0 mmol/L 3.5-5.0 Chloride 102 mmol/L 101-111 Co2 Carbon Dioxide 22 mmol/L 22-32 Anion Gap 9 mmol/L 2-11 Glucose 85 mg/dL 70-100 Creatinine 0.66 mg/dL 0.51-0.95 Calcium 10.1 mg/dL 8.6-10.3 Total Protein 7.9 g/dL 6.4-8.9 Albumin 4.6 g/dL 3.2-5.2 Globulin 3.3 g/dL 2-4 Albumin/Globulin Ratio 1.4 1-3 Total Bilirubin 0.60 mg/dL 0.2-1.0 Alkaline Phosphatase 88 U/L 34-104 Alt 13 U/L 7-52 Ast 16 U/L 13-39 Egfr Non- 103.8 >60 Egfr 133.5 >60 85 Blood Urea Nitrogen 10 mg/dL 6-24 BUN/Creatinine Ratio 15.2 8-20 Laboratory test finding 06/26/2016 C Reactive Protein 6.93 mg/L High < 5.00 86 HCG 29023.00 mIU/mL 87 Laboratory Studies 06/26/2016 Absolute Basophils (auto) 0.1 10^3/ul 0- 0.2 Absolute Eosinophils (auto) 0.2 10^3/ul 0-0.6 Absolute Lymphocytes (auto) 2.1 10^3/ul 1.0-4.8 Absolute Monocytes (auto) 0.7 10^3/ul 0-0.8 Absolute Neutrophils (auto) 7.5 10^3/ul 1.5-7.7 Alanine Aminotransferase (Alt/SGPT) 13 U/L 7-52 Albumin 4.6 g/dL 3.2-5.2 Albumin/Globulin Ratio 1.4 1-3 Alkaline Phosphatase 88 U/L 34-104 Anion Gap 9 mmol/L 2-11 Aspartate Amino Transf (Ast/Sgot) 16 U/L 13-39 BUN/Creatinine Ratio 15.2 8-20 Basophils (%) (Auto) 1.1 % 0-2 Beta HCG, Quantitative 87186.00 mIU/mL Blood Urea Nitrogen 10 mg/dL 6-24 C-Reactive Protein 6.93 mg/L High 0-5.00 Calcium Level 10.1 mg/dL 8.6-10.3 Carbon Dioxide Level 22 mmol/L 22-32 Chloride Level 102 mmol/L 101-111 Creatinine 0.66 mg/dL 0.51-0.95 Eosinophils (%) (Auto) 1.8 % 0-6 Estimated GFR () 133.5 Estimated GFR (Non- 103.8 Globulin 3.3 g/dL 2-4 Glucose Level 85 mg/dL 70-100 Hematocrit 46 % 35-47 Hemoglobin 15.9 g/dL 12.0-16.0 Lymphocytes (%) (Auto) 19.9 % Low 25-47 Mean Corpuscular Hemoglobin 28 pg 27-31 Mean Corpuscular Hemoglobin Concent 34 g/dL 31-36 Mean Corpuscular Volume 82 fL 80-97 Mean Platelet Volume 8 um3 7.4-10.4 Monocytes (%) (Auto) 6.7 % 1-9 Neutrophils (%) (Auto) 70.5 % 38-83 Nucleated RBC Absolute Count (auto) 0.01 10^3/ul Nucleated Red Blood Cells % 0.1 Platelet Count 300 10^3/ul 150-450 Potassium Level 4.0 mmol/L 3.5-5.0 Red Blood Count 5.62 10^6/ul High 4.0-5.4 Red Cell Distribution Width 13 % 10.5-15 Sodium Level 133 mmol/L 133-145 Total Bilirubin 0.60 mg/dL 0.2-1.0 Total Protein 7.9 g/dL 6.4-8.9 White Blood Count 10.7 10^3/ul 3.5-10.8 Urinalysis Profile 06/26/2016 Urine Color Yellow Urine Appearance Cloudy Urine Specific Allen 1.014 1.010-1.030 Urine pH 7.0 5-9 Urine Urobilinogen Negative Negative Urine Ketones Negative Negative Urine Protein Negative Negative Urine Leukocytes 3+ Negative Urine Blood 1+ Negative Urine Nitrite Negative Negative Urine Bilirubin Negative Negative Urine Glucose Negative Negative Urine White Blood Cell 2+(11-20/hpf) Absent Urine Red Blood Cell Trace(0-2/hpf) Absent Urine Bacteria 1+ Absent Urine Squamous Epithelial Cell Present Absent Urine Yeast Present Absent Laboratory test 06/25/2016 Gardnerella/Yeast: Vaginal SEE RESULT 88, 89 finding Dna BELOW Trichomonas vaginalis Rna Negative Negative 88, 90 GC/Chlamydia Amplified Rna 06/25/2016 Chlamydia trachomatis Negative Negative 88 Rna Neisseria gonorrhoeae (GC) Rna Negative Negative 88 Laboratory test 06/25/2016 Urine Culture SEE RESULT BELOW 91, 92 finding Laboratory test 06/24/2016 Urine Bilirubin Negative Negative finding Urine Ketones Trace High Negative Urine Leukocyte Esterase Small High Negative Urine Nitrite Negative Negative Urine Protein 30 High Negative Urine Urobilinogen 0.2 0.2-1.0 Urine Culture 06/24/2016 Urine Culture URETHRAL JOAQUÍN 93 Quantity 50,000 - 100,000 <SEE NOTE> 93, 94 Ua Routine 06/24/2016 Urine Color YELLOW Yellow 93 Urine Clarity SL CLOUDY Clear 93 Urine Glucose - Dipstick NEGATIVE mg/dL Negative 93 Urine Bilirubin - Dipstick NEGATIVE Negative 93 Urine Ketone TRACE mg/dL High Negative 93 Urine Specific Allen >=1.030 1.010-1.030 93 Urine Blood MODERATE Negative 93 Urine PH 6.0 Low 6.5-7.5 93 Urine Protein - Dipstick 30 mg/dL High Negative 93 Urine Urobilinogen - Dipstick 0.2 E.U./dL 0.2-1.0 93 Urine Nitrite - Dipstick NEGATIVE Negative 93 Urine Leuk Esterase SMALL Negative 93 Urine RBC 2-5 rbc/hpf 0-2 93 Urine WBC 20-30 wbc/hpf High 0-7 93 Urine Epithelial Cells MANY /lpf None Seen 93, 95 Urine Calcium Oxalate Crystals FEW None Seen 93 Urine Bacteria MANY None Seen 93 Urine Mucus LARGE None Seen 93 Source: URINE, CLEAN CAT <SEE 93, 96 NOTE> Urine HCG (Qualitative) 06/24/2016 Urine HCG (Qualitative) POSITIVE Negative 93 Source: URINE, CLEAN CAT <SEE NOTE> 93, 97 Laboratory test 06/24/2016 HCG, Quant 94542.0 mIU/mL 98, 99 finding Urine Glucose (Ua) 06/24/2016 Urine Glucose (Ua) Negative Negative Laboratory test 06/15/2016 Alanine 20 12-78 finding Aminotransferase (Alt/SGPT) Albumin 3.8 3.4-5.0 Albumin/Globulin Ratio 1.2 Alkaline Phosphatase 114 45-117 Anion Gap 8 8-16 BUN/Creatinine Ratio 13.3 Basophils # (Auto) 0.04 0.0-0.1 Basophils (%) (Auto) 0.4 0.0-1.1 Blood Urea Nitrogen 8 7-18 Calcium Level 8.9 8.5-10.1 Carbon Dioxide Level 24 21-32 Chloride Level 109 High 98-107 Creatinine 0.6 0.6-1.3 Eosinophils # (Auto) 0.22 0.0-0.5 Eosinophils (%) (Auto) 2.1 0.0-6.6 Globulin 3.2 1.9-4.3 Glucose Screen 86 74-106 Hematocrit 43.9 36.0-46.1 Hemoglobin 15.1 11.6-15.8 Lymphocytes (%) (Auto) 22.7 17.0-46.1 Mean Corpuscular Hemoglobin 28.8 25.9-32.7 Mean Corpuscular Hemoglobin Concent 34.4 High 30.8-34.3 Mean Corpuscular Volume 83.6 80.9-99.0 Mean Platelet Volume 10.4 8.9-12.4 Monocytes # (Auto) 0.73 0.3-0.9 Monocytes (%) (Auto) 7.1 4.3-13.2 Neutrophils (%) (Auto) 67.7 40.4-72.8 Platelet Count 352 155-360 Potassium Level 4.0 3.5-5.1 RDW Coefficient of Variation 13.3 11.7-14.4 Red Blood Count 5.25 3.90-5.40 Red Cell Distribution Width 40.1 3-47 Sodium Level 141 136-145 Thyroid Stimulating Hormone (TSH) 0.70 0.30-4.20 Total Bilirubin 0.5 0.2-1.0 Total Protein 7.0 6.4-8.2 White Blood Count 10.3 3.1-10.7 Aspartate Amino Transf 06/15/2016 Aspartate Amino Transf 12 Low 15-37 (Ast/Sgot) (Ast/Sgot) Gamma Glutamyl 06/15/2016 Gamma Glutamyl 25 5-85 Transpeptidase Transpeptidase Lymphocytes # (Auto) 06/15/2016 Lymphocytes # (Auto) 2.34 1.8-7.0 Neutrophils # (Auto) 06/15/2016 Neutrophils # (Auto) 6.96 1.8-7.0 Vitamin D 25-Hydroxy 06/15/2016 Vitamin D 25-Hydroxy 23.5 Low 30.0-100.0 Laboratory test finding 06/15/2016 Gamma Glutamyl 25 U/L 5-85 100 Transpeptidase CBS W/Automated Diff 06/15/2016 White Blood Count 10.3 K/uL 3.1-10.7 100 Red Blood Count 5.25 M/uL 3.90-5.40 100 Hemoglobin 15.1 gm/dL 11.6-15.8 100 Hematocrit 43.9 % 36.0-46.1 100 Mean Cell Volume 83.6 fl 80.9-99.0 100 Mean Corpuscular HGB 28.8 pg 25.9-32.7 100 Mean Corpuscular HGB Conc 34.4 g/dL High 30.8-34.3 100 Platelet Count 352 K/uL 155-360 100 Red Cell Distri Width SD 40.1 fl 3-47 100 Red Cell Distri Width %CV 13.3 % 11.7-14.4 100 Mean Platelet Volume 10.4 fL 8.9-12.4 100 Neut% 67.7 % 40.4-72.8 100 Lymph % 22.7 % 17.0-46.1 100 [place] % 7.1 % 4.3-13.2 100 Eo% 2.1 % 0.0-6.6 100 Bas% 0.4 % 0.0-1.1 100 Neut# 6.96 K/uL 1.8-7.0 100 Lymph # 2.34 K/uL 1.8-7.0 100 [place] # 0.73 K/uL 0.3-0.9 100 Eos # 0.22 K/uL 0.0-0.5 100 Baso # 0.04 K/uL 0.0-0.1 100 Laboratory test 06/15/2016 Vitamin D,25-Hydroxy 23.5 ng/mL Low 30.0-100.0 100, 101 finding Thyroid Stim Hormone 0.70 uIU/mL 0.30-4.20 100 Comprehensive Metabolic Panel 06/15/2016 Glucose 86 mg/dL 74-106 100 BUN 8 mg/dL 7-18 100 Creatinine 0.6 mg/dL 0.6-1.3 100 Glom Filtration Rate, Estimate >60 mL/min >60 100 If >60 mL/min >60 100, 102 BUN/Creat 13.3 ratio 100 Sodium 141 mmol/L 136-145 100 Potassium 4.0 mmol/L 3.5-5.1 100 Chloride 109 mmol/L High 98-107 100 Carbon Dioxide 24 mmol/L 21-32 100 Anion Gap 8 mEq/L 8-16 100 Calcium 8.9 mg/dL 8.5-10.1 100 Total Protein 7.0 g/dL 6.4-8.2 100 Albumin 3.8 g/dL 3.4-5.0 100 Globulin 3.2 g/dL 1.9-4.3 100 Alb/Glob 1.2 ratio 100 Bilirubin,Total 0.5 mg/dL 0.2-1.0 100 Sgot/Ast 12 U/L Low 15-37 100, 103 SGPT/Alt 20 U/L 12-78 100 Alkaline Phosphatase 114 U/L 45-117 100 Total Creatine 06/12/2016 Total Creatine Kinase 96 26-192 Kinase Thyroid Stimulating 06/12/2016 Thyroid Stimulating 0.56 0.30-4.20 Hormone (TSH) Hormone (TSH) Neutrophils # (Auto) 06/12/2016 Neutrophils # (Auto) 7.63 High 1.8-7.0 Manual Slide Review 06/12/2016 Manual Slide Review See Note 104 (Hematology) (Hematology) Lymphocytes # (Auto) 06/12/2016 Lymphocytes # (Auto) 2.28 1.8-7.0 Aspartate Amino 06/12/2016 Aspartate Amino Transf 16 15-37 Transf (Ast/Sgot) (Ast/Sgot) Laboratory test 06/12/2016 Alanine Aminotransferase 20 12-78 finding (Alt/SGPT) Albumin 3.9 3.4-5.0 Albumin/Globulin Ratio 1.0 Alkaline Phosphatase 124 High 45-117 Anion Gap 8 8-16 BUN/Creatinine Ratio 13.7 Basophils # (Auto) 0.03 0.0-0.1 Basophils (%) (Auto) 0.3 0.0-1.1 Blood Urea Nitrogen 11 7-18 Calcium Level 9.0 8.5-10.1 Carbon Dioxide Level 25 21-32 Chloride Level 105 98-107 Creatinine 0.8 0.6-1.3 Eosinophils # (Auto) 0.18 0.0-0.5 Eosinophils (%) (Auto) 1.6 0.0-6.6 Globulin 4.0 1.9-4.3 Glucose Screen 88 74-106 Hematocrit 47.0 High 36.0-46.1 Hemoglobin 16.1 High 11.6-15.8 Lymphocytes (%) (Auto) 20.9 17.0-46.1 Mean Corpuscular Hemoglobin 28.5 25.9-32.7 Mean Corpuscular Hemoglobin Concent 34.3 30.8-34.3 Mean Corpuscular Volume 83.2 80.9-99.0 Mean Platelet Volume 9.8 8.9-12.4 Monocytes # (Auto) 0.79 0.3-0.9 Monocytes (%) (Auto) 7.2 4.3-13.2 Neutrophils (%) (Auto) 70.0 40.4-72.8 Platelet Count 344 155-360 Potassium Level 4.1 3.5-5.1 RDW Coefficient of Variation 13.2 11.7-14.4 Red Blood Count 5.65 High 3.90-5.40 Red Cell Distribution Width 39.9 3-47 Sodium Level 138 136-145 Total Bilirubin 0.6 0.2-1.0 Total Protein 7.9 6.4-8.2 White Blood Count 10.9 High 3.1-10.7 Laboratory test 06/12/2016 TSH Reflex FT4 0.56 uIU/mL 0.30-4.20 105 finding and/or FT3 Routine Culture W/ 04/28/2016 Gram Stain FEW GRAM POS CHAPITO 106, 107 Gram Stain <SEE NOTE> Gram Stain RARE GRAM POSITI <SEE NOTE> 106, 108 Gram Stain RARE WHITE BLOOD <SEE NOTE> 106, 109 Aerobic Culture NO PATHOGENS ISO <SEE NOTE> 106, 110 1 O09.71 Z34.81 2 Instrument flagged sample for slide review. Less than 10% Bands seen, few atypical lymphocytes seen. RBC morphology=0-1+ microcytes Platelet estimate=normal, large platelets present. 3 Performed at: RN - [facility] [address] [id number] Systems Integration Engineer: Rocio Paulson MD, Phone: [phone] 4 URINE SPECIMENS ARE SCREENED AT THE LISTED CUTOFFS DRUG CLASS INITIAL TEST LEVEL Amphetamines 1000 ng/mL Barbiturates 200 ng/mL Benzodiazepines 200 ng/mL Cannabinoids 50 ng/mL Cocaine Metabolite 300 ng/mL Methadone 300 ng/mL Opiates 300 ng/mL Any PRESUMPTIVE POSITIVE findings are UNCONFIRMED. Confirmatory testing is suggested if findings are unexpected. Please contact laboratory if confirmatory testing is desired. SPECIMENS ARE HELD FOR 72 HOURS. 5 10,000 - 50,000 CFU/mL 6 INFCE Result Units: s/co ratio Negative: < 0.8 Indeterminate: 0.8 - 0.9 Positive: > 0.9 The CDC recommends that a positive HCV antibody result be followed up with a HCV Nucleic Acid Amplification test (585284). 7 Analysis by atomic absorption spectroscopy (AAS). Environmental Exposure: WHO Recommendation <20 Occupational Exposure: OSHA Lead Std 40 CHELE 30 Detection Limit=1 Performed at: [address] [id number] Systems Integration Engineer: Rocio Paulson MD, Phone: [phone] GRAM STAIN INDICATES NORMAL GENITAL JOAQUÍN 9 FEW GR POS. BACILLI SUGGESTIVE OF LACTOBACILLUS SP. 10 RARE WHITE BLOOD CELLS 11 A negative result for either C. trachomatis and/or N. gonorrhoeae does not preclued an infection because results are dependent on adequate specimen collection, absence of inhibitors, and sufficient DNA to be detected. 12 Non-immune <0.90 Equivocal 0.90 - 0.99 Immune >0.99 Performed at: [address] [id number] Systems Integration Engineer: Rocio Paulson MD, Phone: [phone] Performed at: [address] [id number] Systems Integration Engineer: Sabas Oneil MD, Phone: [phone] FATIGUE, DIARRHEA, WANTS THYROID CHECKED 14 Note: Persistent reduction for 3 months or more in an eGFR <60 mL/min/1.73 m2 defines CKD. Patients with eGFR values >/=60 mL/min/1.73 m2 may also have CKD if evidence of persistent proteinuria is present. The original MDRD equation for estimated GFR is not valid for patients less than 18 years of age. Additional information may be found at www.kdoqi.org. 15 Values below the stated reference ranges of AST and ALT can be seen in normal populations. Clinical correlation is suggested. 16 LABOR 17 Performed at: [address] [id number] Systems Integration Engineer: Sabas Oneil MD, Phone: [phone] 18 Z3A.36 19 NO GROUP B STREPTOCOCCI ISOLATED 20 Z3A.34 21 10,000 - 50,000 CFU/mL 22 Industrial X Ray Operator: [id number] 23 Z3A.32 24 > 100,000 CFU/mL SPECIMEN IS A MIX OF GRAM POSITIVE ORGANISMS CONSISTENT WITH SKIN VAGINAL CONTAMINATION. SUGGEST REPEAT SPECIMEN IF CLINICALLY INDICATED. 25 O09.892 26 Performed at: [facility] [id number] Systems Integration Engineer: Rocio Paulson MD, Phone: [phone] 27 LARGE PLATELETS PRESENT. 28 POST GLUCOLA 29 NO SPECIMEN RECEIVED 30 NO SPECIMEN RECEIVED 31 Performed at: [address] [id number] Systems Integration Engineer: Sabas Oneil MD, Phone: [phone] 32 11/17/161856: NEUT% previously reported as: 78.2 H % Amended result called to: [] - 11/17/16 at 185611/17/16 1857: LYMPH % previously reported as: 14.4 L % Amended result called to: [] - 11/17/16 at 185611/17/16 185: MONO % previously reported as: 6.5 % Amended result called to: [] - 11/17/16 at 185611/17/16 185: EO% previously reported as: 0.7 % Amended result called to: [] - 11/17/16 at 185611/17/16 185: BAS% previously reported as: 0.2 % Amended result called to: [] - 11/17/16 at 1856 33 > 100,000 CFU/mL SPECIMEN IS A MIX OF GRAM POSITIVE ORGANISMS CONSISTENT WITH SKIN VAGINAL CONTAMINATION. SUGGEST REPEAT SPECIMEN IF CLINICALLY INDICATED. 34 Z3A.17 35 50,000 - 100,000 CFU/mL SPECIMEN IS A MIX OF GRAM POSITIVE ORGANISMS CONSISTENT WITH SKIN VAGINAL CONTAMINATION. SUGGEST REPEAT SPECIMEN IF CLINICALLY INDICATED. 36 941 37 URINE SPECIMENS ARE SCREENED AT THE LISTED CUTOFFS DRUG CLASS INITIAL TEST LEVEL Amphetamines 1000 ng/mL Barbiturates 200 ng/mL Benzodiazepines 200 ng/mL Cannabinoids 50 ng/mL Cocaine Metabolite 300 ng/mL Methadone 300 ng/mL Opiates 300 ng/mL Any PRESUMPTIVE POSITIVE findings are UNCONFIRMED. Confirmatory testing is suggested if findings are unexpected. Please contact laboratory if confirmatory testing is desired. SPECIMENS ARE HELD FOR 72 HOURS. 38 MIXED URETHRAL JOAQUÍN 39 > 100,000 CFU/mL SPECIMEN IS A MIX OF GRAM POSITIVE ORGANISMS CONSISTENT WITH SKIN VAGINAL CONTAMINATION. SUGGEST REPEAT SPECIMEN IF CLINICALLY INDICATED. 40 Note: Persistent reduction for 3 months or more in an eGFR <60 mL/min/1.73 m2 defines CKD. Patients with eGFR values >/=60 mL/min/1.73 m2 may also have CKD if evidence of persistent proteinuria is present. The original MDRD equation for estimated GFR is not valid for patients less than 18 years of age. Additional information may be found at www.kdoqi.org. 41 Values below the stated reference ranges of AST and ALT can be seen in normal populations. Clinical correlation is suggested. 42 Z34.81 43 10,000 - 50,000 CFU/mL 44 POSSIBLE UROGENITAL CONTAMINATION. 45 URINE, CLEAN CATCH 46 13 WKS PREG,LEVEL DROPPING DURING 47 Approximate Gestational Age and Total BHCG Range: 0.2 - 1 Week........................5-50 mIU/mL 1 - 2 Weeks.....................50-500 mIU/mL 2 - 3 Weeks..................100-5,000 mIU/mL 3 - 4 Weeks.................500-10,000 mIU/mL 4 - 5 Weeks...............1,000-50,000 mIU/mL 5 - 6 Weeks.............10,000-100,000 mIU/mL 6 - 8 Weeks.............15,000-200,000 mIU/mL 2 - 3 Months............10,000-100,000 mIU/mL 48 12 WKS PREG,ABDOMINAL CRAMPING 49 A negative result for either C. trachomatis and/or N. gonorrhoeae does not preclued an infection because results are dependent on adequate specimen collection, absence of inhibitors, and sufficient DNA to be detected. A negative result for either C. trachomatis and/or N. gonorrhoeae does not preclued an infection because results are dependent on adequate specimen collection, absence of inhibitors, and sufficient DNA to be detected. 50 Approximate Gestational Age and Total BHCG Range: 0.2 - 1 Week........................5-50 mIU/mL 1 - 2 Weeks.....................50-500 mIU/mL 2 - 3 Weeks..................100-5,000 mIU/mL 3 - 4 Weeks.................500-10,000 mIU/mL 4 - 5 Weeks...............1,000-50,000 mIU/mL 5 - 6 Weeks.............10,000-100,000 mIU/mL 6 - 8 Weeks.............15,000-200,000 mIU/mL 2 - 3 Months............10,000-100,000 mIU/mL 51 POSSIBLE UROGENITAL CONTAMINATION. 52 URINE, CLEAN CATCH 53 > 100,000 CFU/mL SPECIMEN IS A MIX OF GRAM POSITIVE ORGANISMS CONSISTENT WITH SKIN VAGINAL CONTAMINATION. SUGGEST REPEAT SPECIMEN IF CLINICALLY INDICATED. 54 CRAMPING, 10 WKS PREGN, SENT BY DR Ho A negative result for either C. trachomatis and/or N. gonorrhoeae does not preclued an infection because results are dependent on adequate specimen collection, absence of inhibitors, and sufficient DNA to be detected. A negative result for either C. trachomatis and/or N. gonorrhoeae does not preclued an infection because results are dependent on adequate specimen collection, absence of inhibitors, and sufficient DNA to be detected. 56 Note: Persistent reduction for 3 months or more in an eGFR <60 mL/min/1.73 m2 defines CKD. Patients with eGFR values >/=60 mL/min/1.73 m2 may also have CKD if evidence of persistent proteinuria is present. The original MDRD equation for estimated GFR is not valid for patients less than 18 years of age. Additional information may be found at www.kdoqi.org. 57 Values below the stated reference ranges of AST and ALT can be seen in normal populations. Clinical correlation is suggested. 58 MVA, 9 WKS , ABD PAIN 59 POSSIBLE UROGENITAL CONTAMINATION. 60 URINE, CLEAN CATCH 61 50,000 - 100,000 CFU/mL 62 <5.0 Negative 5.0 - 25.0 Indeterminate (Repeat testing recommended after 72 hours) >25.0 Positive Perimenopausal women can display HCG levels of up to 20 mIU/mL 63 SEE RESULT BELOW Name: DAVID HUNG : [address]: Austin Shaffer MD Acct: [id number] Unit: [id number] AGE: 30 Location: ED Re07/11/16 SEX: F Status: DEP ER SPEC: [id number] JOSE: 07/11/16-[address]: Austin Shaffer MD REQ: [id number] RECD: 07/11/16 STATUS: COMP [facility] DR: Lisa Craig PA _ SOURCE: URINE SPDESC: ORDERED: Urine Culture Procedure Result Reported Site Urine Culture Final 07/12/16- 1230 ML No growth of clinically significant organisms * ML - MAIN LAB ([facility]) . END OF REPORT * ML=Testing performed at Main Lab DEPARTMENT OF PATHOLOGY, [address] [place] [address] Lew Cohen M.D. Director [facility] # [id number] 64 Because ethnic data is not always readily available, this report includes an eGFR for both -Americans and non- Americans. The National Kidney Disease Education Program (NKDEP) does not endorse the use of the MDRD equation for patients that are not between the ages of 18 and 70, are , have extremes of body size, muscle mass, or nutritional status, or are non- or non-. According to the National Kidney Foundation, irrespective of diagnosis, the stage of the disease is based on the level of kidney function: Stage Description GFR(mL/min/1.73 m(2)) 1 Kidney damage with normal or decreased GFR 90 2 Kidney damage with mild decrease in GFR 60-89 3 Moderate decrease in GFR 30-59 4 Severe decrease in GFR 15-29 5 Kidney failure <15 (or dialysis) 65 026.851 66 50,000 - 100,000 CFU/mL 67 SPOTTING, 7 WKS 68 Note: Persistent reduction for 3 months or more in an eGFR <60 mL/min/1.73 m2 defines CKD. Patients with eGFR values >/=60 mL/min/1.73 m2 may also have CKD if evidence of persistent proteinuria is present. The original MDRD equation for estimated GFR is not valid for patients less than 18 years of age. Additional information may be found at www.kdoqi.org. 69 Instrument flagged sample for slide review. Less than 10% Bands seen, no other immature WBC's seen. RBC morphology essentially normal. Platelet estimate= Normal 70 Z34.81 71 URINE SPECIMENS ARE SCREENED AT THE LISTED CUTOFFS DRUG CLASS INITIAL TEST LEVEL Amphetamines 1000 ng/mL Barbiturates 200 ng/mL Benzodiazepines 200 ng/mL Cannabinoids 50 ng/mL Cocaine Metabolite 300 ng/mL Methadone 300 ng/mL Opiates 300 ng/mL Any PRESUMPTIVE POSITIVE findings are UNCONFIRMED. Confirmatory testing is suggested if findings are unexpected. Please contact laboratory if confirmatory testing is desired. SPECIMENS ARE HELD FOR 72 HOURS. 72 10,000 - 50,000 CFU/mL 73 HBsAg not detected; does not exclude the possibility of exposure to or early acute infections with HBV. 74 Antibodies to HCV not detected; does not exclude early acute HCV infection. 75 Environmental Exposure: WHO Recommendation <20 Occupational Exposure: OSHA Lead Std 40 CHELE 30 Detection Limit=1 Performed at: RN - [facility] [address] [id number] Systems Integration Engineer: Rocio Paulson MD, Phone: [phone] 76 NOTE: A NON-REACTIVE RESULT INDICATES THAT HIV-1 AND HIV-2 ANTIBODIES HAVE NOT BEEN FOUND IN THIS PATIENT SPECIMEN. A NON-REACTIVE RESULT, HOWEVER, DOES NOT PRECLUDE PREVIOUS EXPOSURE OF INFECTION WITH HIV. * [place] STATE LAW PROHIBITS THE REDISCLOSURE OF THIS RESULT * * TO ANY UNAUTHORIZED REPUBLICAN. * 77 Values >=10.0 IU/mL are positive for IgG antibodies to rubella virus and are considered IMMUNE. 78 A negative result for either C. trachomatis and/or N. gonorrhoeae does not preclued an infection because results are dependent on adequate specimen collection, absence of inhibitors, and sufficient DNA to be detected. A negative result for either C. trachomatis and/or N. gonorrhoeae does not preclued an infection because results are dependent on adequate specimen collection, absence of inhibitors, and sufficient DNA to be detected. 79 Please Note: A nonreactive test result does not exclude the possibility of exposure to, or infection with syphilis. T. pallidum antibodies may be undetectable in some stages of the infection and in some clinical conditions. 80 GRAM STAIN INDICATES NORMAL GENITAL JOAQUÍN 81 FEW GR POS. BACILLI SUGGESTIVE OF LACTOBACILLUS SP. 82 FEW WHITE BLOOD CELLS 83 RARE GRAM POSITIVE COCCI 84 Instrument flagged sample for slide review. Less than 10% Bands seen, no other immature WBC's seen. RBC morphology essentially normal. Platelet estimate=NORMAL 85 Because ethnic data is not always readily available, this report includes an eGFR for both -Americans and non- Americans. The National Kidney Disease Education Program (NKDEP) does not endorse the use of the MDRD equation for patients that are not between the ages of 18 and 70, are , have extremes of body size, muscle mass, or nutritional status, or are non- or non-. According to the National Kidney Foundation, irrespective of diagnosis, the stage of the disease is based on the level of kidney function: Stage Description GFR(mL/min/1.73 m(2)) 1 Kidney damage with normal or decreased GFR 90 2 Kidney damage with mild decrease in GFR 60-89 3 Moderate decrease in GFR 30-59 4 Severe decrease in GFR 15-29 5 Kidney failure <15 (or dialysis) 86 Acute inflammation: >10.00 87 <5.0 Negative 5.0 - 25.0 Indeterminate (Repeat testing recommended after 72 hours) >25.0 Positive Perimenopausal women can display HCG levels of up to 20 mIU/mL 88 [id number] 89 SEE RESULT BELOW Name: DAVID HUNG : [address]: Martita Braga Acct: [id number] Unit: [id number] AGE: 30 Location: [facility] Re06/25/16 SEX: F Status: DEP ER SPEC: [id number] JOSE: 06/25/[address] [facility] [address]: Allyson Mendes DO REQ: [id number] RECD: 06/25/16 STATUS: DELL PARSONS DR: Lisa Craig PA _ SOURCE: VAGINAL SPDESC: ORDERED: Jorje,Yeast DNA COMMENTS: [id number] Procedure Result Reported Site Gardnerella/Yeast: Vaginal DNA Final 06/25/16- 1610 ML Organism 1 Negative Gardnerella Organism 2 Negative Therese The presence of G. vaginalis, although suggestive, is not diagnostic for bacterial vaginosis. Results should be interpreted in conjuction with other clinical and laboratory data available. Women with vaginal discharge should be evaluated for risk factors of cervicitis and pelvic inflammatory disease, toxic shock syndrome (S.aureus), and if present, evaluated for organisms not included in this assay such as N. gonorrhoeae, C. trachomatis, Mobiluncus, Mycoplasma and/or Prevotella. Mixed infections may occur. The performance of this test on patient specimens collected during or immediately after antimicrobial therapy is unknown. The presence or absence of Therese species, or G. vaginalis cannot be used as a test for therapeutic success or failure. * ML - MAIN LAB ([facility]) . END OF REPORT * ML=Testing performed at Main Lab DEPARTMENT OF PATHOLOGY, [address] [place] [address] Lew Cohen M.D. Director [facility] # [id number] 90 [id number] GC/Chlamydia Source?: Endocervical Trichomonas Source: Endocervical 91 Comment: has taken macrobid [id number] 92 SEE RESULT BELOW Name: TANDAVID Bonnie : [address]: Martita Braga Acct: [id number] Unit: [id number] AGE: 30 Location: [facility] Re06/25/16 SEX: F Status: DEP ER SPEC: [id number] JOSE: 06/25/16-[address] [facility] [address]: Allyson Mendes DO REQ: [id number] RECD: 06/25/16-1235 STATUS: DELL PARSONS DR: Emmett Ventura MD _ SOURCE: URINE SPDESC: ORDERED: Urine Culture COMMENTS: Comment: has taken macrobid [id number] Procedure Result Reported Site Urine Culture Final 06/26/16- 1214 ML No growth of clinically significant organisms * ML - MAIN LAB ([facility]) . END OF REPORT * ML=Testing performed at Main Lab DEPARTMENT OF PATHOLOGY, [address] [place] [address] Lew Cohen M.D. Director [facility] # [id number] 93 TEST 94 50,000 - 100,000 CFU/mL SPECIMEN IS A MIX OF GRAM POSITIVE ORGANISMS CONSISTENT WITH SKIN VAGINAL CONTAMINATION. SUGGEST REPEAT SPECIMEN IF CLINICALLY INDICATED. 95 POSSIBLE UROGENITAL CONTAMINATION. 96 URINE, CLEAN CATCH 97 URINE, CLEAN CATCH 98 JUST FOUND OUT , HAVING ABD PAIN, BLEEDING 99 Approximate Gestational Age and Total BHCG Range: 0.2 - 1 Week........................5-50 mIU/mL 1 - 2 Weeks.....................50-500 mIU/mL 2 - 3 Weeks..................100-5,000 mIU/mL 3 - 4 Weeks.................500-10,000 mIU/mL 4 - 5 Weeks...............1,000-50,000 mIU/mL 5 - 6 Weeks.............10,000-100,000 mIU/mL 6 - 8 Weeks.............15,000-200,000 mIU/mL 2 - 3 Months............10,000-100,000 mIU/mL 100 E78.5 E55.9 F41.9 R74.9 101 Vitamin D deficiency has been defined by the [place] of [employer] and an Endocrine Society practice guideline as a level of serum 25-OH vitamin D less than 20 ng/mL (1,2). The Endocrine Society went on to further define vitamin D insufficiency as a level between 21 and 29 ng/mL (2). 1. IOM ([place] of [employer]). 2010. Dietary reference intakes for calcium and D. [place]: The National Academies Press. 2. Marry MF, Malinda NC, Yeimy DEL ANGEL, et al. Evaluation, treatment, and prevention of vitamin D deficiency: an Endocrine Society clinical practice guideline. JCEM. 2010; 96(7):1911-30. Performed at: RN - [facility] [address] [id number] Systems Integration Engineer: Rocio Paulson MD, Phone: [phone] 102 Note: Persistent reduction for 3 months or more in an eGFR <60 mL/min/1.73 m2 defines CKD. Patients with eGFR values >/=60 mL/min/1.73 m2 may also have CKD if evidence of persistent proteinuria is present. The original MDRD equation for estimated GFR is not valid for patients less than 18 years of age. Additional information may be found at www.kdoqi.org. 103 Values below the stated reference ranges of AST and ALT can be seen in normal populations. Clinical correlation is suggested. 104 Instrument flagged sample for slide review. Less than 10% Bands seen, no other immature WBC's seen. RBC morphology essentially normal. Platelet estimate= Normal 105 CP, HEART RACING 106 POSSIBLE CYST BEHIND RT EAR 107 FEW GRAM POS BACILLI SUGGESTIVE OF DIPTHEROIDS 108 RARE GRAM POSITIVE COCCI 109 RARE WHITE BLOOD CELLS 110 NO PATHOGENS ISOLATED Procedures Date CPT Code Description Status 11/16/2017 52162 EKG-Tracing And Report Completed 02/11/2017 13441 Vaginal Delivery Global Care Completed 06/22/2016 27145 Echocardiogram Complete Completed 06/22/2016 50086 Event Monitor Inter/Review Only Completed 06/16/2016 07238 EKG-Tracing And Report Completed 08/20/2014 28446 Vaginal Delivery W/Post- Care Completed 06/24/2013 50762 Holter Monitor 24HR Inter/Report Completed 07/20/2011 61608 Echocardiogram Complete Completed 07/20/2011 18300 Event Monitor Inter/Review Only Completed 12/08/2010 58030 Remove Impacted Cerumen Completed 08/16/2010 10442 Holter Monitor 24HR Inter/Report Completed 08/13/2010 39616 EKG-Tracing And Report Completed 08/13/2010 85805 Pulse Oximetry Completed 08/09/2010 20369 Pulse Oximetry Completed 08/09/2010 19075 Pressurized/Non-Pressurized Inhalation Treatment,Acute Completed Obstructio 11/17/2008 40367 Post- Care Only Completed 10/03/2008 45551 Antepartum 7 Or More Total Office Visit Completed 10/03/2008 31127 Vaginal Delivery Global Care Completed 09/30/2008 01731 Antepartum 7 Or More Total Office Visit Completed 09/25/2008 95096 Antepartum 7 Or More Total Office Visit Completed 09/22/2008 54975 Antepartum 7 Or More Total Office Visit Completed 09/17/2008 10506 Antepartum 7 Or More Total Office Visit Completed 09/09/2008 19249 Antepartum 7 Or More Total Office Visit Completed 09/03/2008 27453 Antepartum 7 Or More Total Office Visit Completed 08/20/2008 79346 Antepartum 7 Or More Total Office Visit Completed Encounters Type Date Location Provider CPT E/M Dx Office Visit 11/16/2017 1:00p Cardiology Office SUAD Lance 98345 R00.2 F17.200 I49.3 Office Visit 04/28/2017 11:00a Primary Care Office Dolly Londono M.D. 47391 H66.91 Office Visit 03/08/2017 11:00a Primary Care Office Lisa Craig 36516 F32.9 VALORIE F41.9 R00.2 E55.9 F17.200 Z71.6 Z70.9 Office Visit 01/02/2017 10:00a [facility] [address] J06.9 O99.333 F17.210 Z71.6 Office Visit 07/21/2016 8:30a Family Medicine & Rosi MARA Junior [address]29[address] H66.001 Women's Health Z33.1 Office Visit 07/19/2016 1:00p Family Medicine & [place] [address] S39.011A Women's Health Z33.1 Office Visit 07/13/2016 1:30p Family Medicine & Kirsten Gregorio, [facility] [address] F41.9 Women's Health Office Visit 07/04/2016 11:00a Family Medicine & Kirsten Gregorio, [facility] [address] O26.851 Women's Health Z33.1 Office Visit 06/27/2016 10:30a Family Medicine & [place] [address] N91.1 Women's Health Z71.6 E55.9 Office Visit 06/16/2016 8:00a Cardiology Office Jami Erin Thompson, 38918 I49.3 MSN, [facility] I49.1 R00.2 Office Visit 06/15/2016 10:00a Primary Care Office Lisa Craig, 53504 F41.9 PA-C F32.9 E55.9 F17.200 Z71.6 D72.829 R74.8 R00.2 E78.5 N92.6 Office Visit 01/05/2016 2:30p Primary Care Office Lisa Craig, 17032 J01.90 PA-C E66.9 F17.200 E55.9 Z71.6 Office Visit 12/30/2015 2:30p Primary Care Office Lisa Craig, 60424 E66.9 PA-C F17.200 Z71.6 E55.9 E78.5 F41.9 F32.9 Office Visit 07/23/2015 3:00p MILLIE Ventura M.D. 22751 H66.90 F32.9 F41.9 E78.5 Z00.01 Office Visit 07/06/2015 10:30a MILLIE Craig PA-C 38564 E78.5 E55.9 F41.9 R00.2 F17.200 Z71.6 E66.9 E04.9 Office Visit 12/24/2014 1:45p Orthopaedic Office Yesenia Lozoya, [address] 719.47 [facility] 845.02 V22.2 Office Visit 10/01/2014 9:10a Cardiology Office Jami Thompson, 61310 785.1 MSN, CHERRI Office Visit 07/23/2014 2:00p Cardiology Office Song LangeAngel Robles, 87594 785.1 Marco Antonio, [facility] Plan of Care Future Appointment(s):12/14/2017 9:00 am - Sherine Freitas CNM at [facility] Medicine & amp; Women's Cgczby2811/16/2017 - Fay Nicholas, PAR00.2 PalpitationsNew Medication:Metoprolol Tartrate 25 mgComments:She will stop atenolol as it is category D. We had a long discussion that she should cut back on precipitant factors, such as tobacco and caffeine intake. She is extremely anxious about not taking any medication and subsequent development of intolerable symptoms. She will trial low dose metoprolol 12.5mg BID.F17.200 Nicotine dependence, unspecified, uncomplicatedComments:Advised to quit smoking. Consequences of tobacco abuse reviewed for both patient and her unborn child.I49.3 Ventricular premature depolarizationComments:Change to metoprolol as above.AllComments:Medications and labs below ordered by Sherine Freitas CNM.Follow up:2 months
--- OUTSIDE RECORDS SUMMARY | 2017-11-30 19:58 | XMS REPORT ---
:1985 External Reference #:[id number] Author Organization [facility] Address [address], [address] [place] [address] Phone [phone] Care Team Providers Name Role Phone Lindsey Rizzo MD Care Team Information Business Services Tech Unavailable Lindsey Rizzo MD Primary Care Physician Unavailable Payers Type Date Identification Numbers Payment Provider Subscriber Commercial Policy Number: [id number] [facility] David Hung PayID: [id number] [address] [place] [address] Medicaid Policy Number: [id number] Medicaid David Hung Group Name: 1 1 [address] PayID: [id number] [place] [address] Commercial Expires: 2014 Policy Number: [place] [facility] David Hung [id number] PayID: [id number] [address] [place] [address] Problems Date Description Provider Status Onset: 05/27/2015 Hyperlipidemia Lisa Craig PA-C Active Onset: 05/27/2015 Anxiety Lisa Craig PA-C Active Onset: 05/27/2015 Depressive disorder Lisa Craig PA-C Active Onset: 04/10/2017 Palpitations Rajwinder Hutchinson, RPAC Active Note: PVCs/PACs Onset: 12/19/2016 [...] 16oz of soda per day Age [address] [place] 12 Years Old # Partners in a [...] s mouth twice Margaret, a day M.Venkata, [facility] Flintstones / Active Chewtabs 60mg 2 by [...] twice a day Margaret, 11/16/ Marco Antonio, [facility] 2018 Bystolic 04/26/ Hx Tablets 2.5mg 30tab [...] October 2016 - s capsule by Junior, [facility] 08/15/ mouth twice 2016 daily for 7 days. 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 1 06/27/ Hx Capsules 30-0.975-2 30cap take one October 2015 - 00mg s capsule by Junior, [facility] 07/19/ mouth every 2016 day. 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 Paroxetine HCL / Hx Tablets 20mg 90tab 1 by mouth Mikal Swanson 0000 - s every day [facility] 2015 Acetaminophen / Hx Tablets 500mg [...] Margaret, 06/15/ twice a day Marco Antonio [facility] 2015 Zithromax / Hx Tablets 250mg take 2 tabs Unknown 0000 - by mouth on 06/15/ day 1 then 2015 1 tab by mouth qddays 2-5 Atenolol / Hx Tablets 75mg 1 by mouth Unknown 0000 - bid 2015 Paxil / Hx Tablets 20mg 1 by mouth Unknown 0000 - every day 2015 Immunizations CPT Code Status Date Vaccine Lot # [id number] Given 12/20/2016 Tdap injection [id number] Given 04/16/2015 Influenza Vaccine (Fluzone) Age 3 And Older [id number] U-Pneum Given 04/12/2013 Pneumococcal,Unspecified [id number] Given 07/17/2011 Tdap injection 64514 Given 07/14/2009 H1N1 Immuniation Adminstration [id number] Given 07/14/2009 H1N1 Immuniation Adminstration Vital Signs Date Vital Result Comment 11/16/2017 BP Systolic Sitting Left Arm 120 mmHg BP Diastolic Sitting Left Arm 64 mmHg Heart Rate 80 /min Respiratory Rate 18 /min Height 64 inches 5'4" Weight 134.00 lb BMI (Body Mass Index) 23.0 kg/m2 BSA (Body Surface Area) 1.65 m2 [place] body weight in kilograms 54 11/16/2017 BP Systolic 135 mmHg BP Diastolic 74 mmHg Height 64 inches 5'4" Weight 134.00 lb BMI (Body Mass Index) 23.0 kg/m2 BSA (Body Surface Area) 1.65 m2 [place] body weight in kilograms 54 04/28/2017 BP [...] kg/m2 BSA (Body Surface Area) 1.63 m2 [place] body weight in kilograms 54 03/08/2017 BP Systolic 119 mmHg BP Diastolic 76 mmHg Heart Rate 73 /min Respiratory Rate 16 /min Height 64 inches 5'4" [place] body weight in kilograms 54 O2 % BldC Oximetry 99 % 02/06/2017 BP Systolic 118 mmHg BP Diastolic 86 mmHg Height 64 inches 5'4" Weight 149.38 lb BMI (Body Mass Index) 25.6 kg/m2 BSA (Body Surface Area) 1.73 m2 [place] body weight in kilograms 54 01/30/2017 BP Systolic 112 mmHg BP Diastolic 70 mmHg Height 64 inches 5'4" Weight 145.00 lb BMI (Body Mass Index) 24.9 kg/m2 BSA (Body Surface Area) 1.71 m2 [place] body weight in kilograms 54 01/23/2017 BP Systolic 106 mmHg BP Diastolic 60 mmHg Height 64 inches 5'4" Weight 147.38 lb BMI (Body Mass Index) 25.3 kg/m2 BSA (Body Surface Area) 1.72 m2 [place] body weight in kilograms 54 01/16/2017 BP Systolic 110 mmHg BP Diastolic 62 mmHg Height 64 inches 5'4" Weight 147.00 lb BMI (Body Mass Index) 25.2 kg/m2 BSA (Body Surface Area) 1.72 m2 [place] body weight in kilograms 54 01/02/2017 BP Systolic Sitting Right Arm 102 mmHg BP Diastolic Sitting Right Arm 58 mmHg Body Temperature 98.7 F Heart Rate 84 /min Height 64 inches 5'4" Weight 148.38 lb BMI (Body Mass Index) 25.5 kg/m2 BSA (Body Surface Area) 1.72 m2 [place] body weight in kilograms 54 O2 % BldC Oximetry 96 % 01/02/2017 BP Systolic 106 mmHg BP Diastolic 66 mmHg Height 64 inches 5'4" Weight 148.25 lb BMI (Body Mass Index) 25.4 kg/m2 BSA (Body Surface Area) 1.72 m2 [place] body weight in kilograms 54 12/19/2016 BP Systolic 118 mmHg BP Diastolic 66 mmHg Height 64 inches 5'4" Weight 148.50 lb BMI (Body Mass Index) 25.5 kg/m2 BSA (Body Surface Area) 1.72 m2 [place] body weight in kilograms 54 12/05/2016 BP Systolic 104 mmHg BP Diastolic 70 mmHg Height 64 inches 5'4" Weight 147.50 lb BMI (Body Mass Index) 25.3 kg/m2 BSA (Body Surface Area) 1.72 m2 [place] body weight in kilograms 54 11/17/2016 BP [...] kg/m2 BSA (Body Surface Area) 1.63 m2 [place] body weight in kilograms 45 08/15/2016 BP [...] Ua Blood 1+ High Negative Ua Specific [place] 1.005 Low 1.010-1.030 Ua Ketones Negative Negative Ua Bilirubin Negative Negative Ua Glucose Negative Negative Slide Review 11/16/2017 Slide Review . 1, 2 HIV Screen 4TH Gen 11/16/2017 HIV Screen 4th Non Reactive Non Reactive 1 , 3 Reflex Generation wRfx Laboratory test 11/16/2017 Treponema Antibody Negative Negative 1 finding [facility] CBS W/Automated Diff 11/16/2017 White Blood Count [...] Lymph % 17.9 % Low 20.0-42.0 1 [place] % 6.4 % 4.3-13.2 1 Eo% 0.2 % 0.0-6.6 1 Bas% 0.4 % 0.0-1.1 1 Neut# 7.50 K/uL High 1.8-7.0 1 Lymph # 1.79 K/uL 1.0-4.0 1 [place] # 0.64 K/uL 0.3-0.9 1 Eos # [...] 13 Lymph % 29.9 % 20.0-42.0 13 [place] % 6.3 % 4.3-13.2 13 Eo% 1.7 % 0.0-6.6 13 Bas% 0.4 % 0.0-1.1 13 Neut# 4.82 K/uL 1.8-7.0 13 Lymph # 2.33 K/uL 1.0-4.0 13 [place] # 0.49 K/uL 0.3-0.9 13 Eos # [...] Treponema Antibody Negative Negative 16, 17 finding [facility] Laboratory test 01/16/2017 Vaginal Strep NO GROUP [...] Treponema Antibody Negative Negative 25, 31 finding [facility] CBS W/Automated Diff 11/17/2016 White Blood Count [...] 25 Lymph # 1.83 K/uL 1.0-4.0 25 [place] # 0.82 K/uL 0.3-0.9 25 Eos # [...] Ketone NEGATIVE mg/dL Negative 42 Urine Specific [place] 1.015 1.010-1.030 42 Urine Blood SMALL Negative [...] Negative Negative Laboratory test 08/04/2016 HCG, Quant 43814.0 mIU/mL 46, 47 finding Chlamydia/GC Rimma 08/01/2016 [...] Probe Probe Laboratory test 08/01/2016 HCG, Quant 76623.0 mIU/mL 48, 50 finding Ua Routine 08/01/2016 Urine Color YELLOW Yellow 48 Urine Clarity CLOUDY Clear 48 Urine Glucose - Dipstick NEGATIVE mg/dL Negative 48 Urine Bilirubin - Dipstick NEGATIVE Negative 48 Urine Ketone NEGATIVE mg/dL Negative 48 Urine Specific [place] 1.010 1.010-1.030 48 Urine Blood TRACE Negative [...] TRACE mg/dL High Negative 58 Urine Specific [place] 1.020 1.010-1.030 58 Urine Blood SMALL Negative [...] Negative Laboratory Studies 07/14/2016 Beta HCG, Quantitative 645709.00 mIU/mL Free Thyroxine 0.83 ng/dL 0.61-1.12 Free [...] Hormone (TSH) 0.69 mcIU/mL 0.34-5.60 Urine Specific [place] 1.024 1.010-1.030 Urine pH 6.0 5-9 White [...] (Auto) 0.6 % 0-2 Beta HCG, Quantitative 010442.00 mIU/mL Blood Urea Nitrogen 8 mg/dL 6-24 [...] Total Protein 7.3 g/dL 6.4-8.9 Urine Specific [place] 1.017 1.010-1.030 Urine pH 7.0 5-9 White Blood Count 13.3 10^3/ul High 3.5-10.8 Laboratory test finding 07/11/2016 HCG 267854.00 mIU/mL 62 Urine Culture SEE RESULT BELOW [...] Color Yellow Urine Appearance Cloudy Urine Specific [place] 1.017 1.010-1.030 Urine pH 7.0 5-9 Urine [...] 70 Lymph % 20.1 % 17.0-46.1 70 [place] % 7.6 % 4.3-13.2 70 Eo% 1.6 % 0.0-6.6 70 Bas% 0.2 % 0.0-1.1 70 Neut# 8.63 K/uL High 1.8-7.0 70 Lymph # 2.46 K/uL 1.8-7.0 70 [place] # 0.93 K/uL High 0.3-0.9 70 Eos [...] Treponema Nonreactive Nonreactive 70, 79 finding Antibody [facility] Genital Culture W/ 06/29/2016 Gram Stain GRAM [...] 6.93 mg/L High < 5.00 86 HCG 08003.00 mIU/mL 87 Laboratory Studies 06/26/2016 Absolute Basophils [...] (Auto) 1.1 % 0-2 Beta HCG, Quantitative 72242.00 mIU/mL Blood Urea Nitrogen 10 mg/dL 6-24 [...] Color Yellow Urine Appearance Cloudy Urine Specific [place] 1.014 1.010-1.030 Urine pH 7.0 5-9 Urine [...] TRACE mg/dL High Negative 93 Urine Specific [place] >=1.030 1.010-1.030 93 Urine Blood MODERATE Negative [...] 93, 97 Laboratory test 06/24/2016 HCG, Quant 03227.0 mIU/mL 98, 99 finding Urine Glucose (Ua) [...] 100 Lymph % 22.7 % 17.0-46.1 100 [place] % 7.1 % 4.3-13.2 100 Eo% 2.1 % 0.0-6.6 100 Bas% 0.4 % 0.0-1.1 100 Neut# 6.96 K/uL 1.8-7.0 100 Lymph # 2.34 K/uL 1.8-7.0 100 [place] # 0.73 K/uL 0.3-0.9 100 Eos # [...] present. 3 Performed at: RN - [facility] [address] [id number] Health Consultant: Rocio Paulson MD, Phone: [phone] URINE SPECIMENS ARE SCREENED AT THE [...] with a HCV Nucleic Acid Amplification test (865846). 7 Analysis by atomic absorption spectroscopy (AAS). Environmental Exposure: WHO Recommendation <20 Occupational Exposure: OSHA Lead Std 40 CHELE 30 Detection Limit=1 Performed at: [address] [id number] Health Consultant: Rocio Paulson MD, Phone: [phone] 8 GRAM STAIN INDICATES NORMAL GENITAL JOAQUÍN [...] 0.90 - 0.99 Immune >0.99 Performed at: [address] [id number] Health Consultant: Rocio Paulson MD, Phone: [phone] Performed at: [address] [id number] Health Consultant: Sabas Oneil MD, Phone: [phone] FATIGUE, DIARRHEA, WANTS THYROID CHECKED 14 [...] is suggested. 16 LABOR 17 Performed at: [address] [id number] Health Consultant: Sabas Oneil MD, Phone: [phone] 18 Z3A.36 19 NO GROUP B STREPTOCOCCI ISOLATED 20 Z3A.34 21 10,000 - 50,000 CFU/mL 22 Teacher [employer]: [id number] 23 Z3A.32 24 > 100,000 CFU/mL SPECIMEN IS A MIX OF GRAM POSITIVE ORGANISMS CONSISTENT WITH SKIN VAGINAL CONTAMINATION. SUGGEST REPEAT SPECIMEN IF CLINICALLY INDICATED. 25 O09.892 26 Performed at: [facility] [address] [id number] Health Consultant: Rocio Paulson MD, Phone: [phone] 27 LARGE PLATELETS PRESENT. 28 POST GLUCOLA 29 NO SPECIMEN RECEIVED 30 NO SPECIMEN RECEIVED 31 Performed at: [address] [id number] Health Consultant: Sabas Oneil MD, Phone: [phone] 32 11/17/161856: NEUT% previously reported as: 78.2 [...] [address]: Austin Shaffer MD Acct: [id number] Unit: [id number] AGE: 30 Location: ED Re07/11/16 SEX: F Status: DEP ER SPEC: [id number] JOSE: 07/11/16-[address]: Austin Shaffer MD REQ: [id number] RECD: 07/11/16 STATUS: COMP [facility] DR: Lisa Craig PA _ SOURCE: URINE SPDESC: ORDERED: Urine Culture Procedure Result Reported Site Urine Culture Final 07/12/16- 1230 ML No growth of clinically significant organisms * ML - MAIN LAB ([facility]) . END OF REPORT * ML=Testing performed at Main Lab DEPARTMENT OF PATHOLOGY, [address] [place] [address] Lew Cohen M.D. Director [facility] # [id number] 64 Because ethnic data is not always [...] Detection Limit=1 Performed at: RN - [facility] [address] [id number] Health Consultant: Rocio Paulson MD, Phone: [phone] NOTE: A NON-REACTIVE RESULT INDICATES THAT HIV-1 AND HIV-2 ANTIBODIES HAVE NOT BEEN FOUND IN THIS PATIENT SPECIMEN. A NON-REACTIVE RESULT, HOWEVER, DOES NOT PRECLUDE PREVIOUS EXPOSURE OF INFECTION WITH HIV. * [place] STATE LAW PROHIBITS THE REDISCLOSURE OF THIS RESULT * * TO ANY UNAUTHORIZED [employer]. * 77 Values >=10.0 IU/mL are positive [...] levels of up to 20 mIU/mL 88 [id number] 89 SEE RESULT BELOW Name: DAVID HUNG : [address]: Martita Braga Acct: [id number] Unit: [id number] AGE: 30 Location: [facility] Re06/25/16 SEX: F Status: DEP ER SPEC: [id number] JOSE: 06/25/[address] [facility] [address]: Allyson Mendes DO REQ: [id number] RECD: 06/25/16 STATUS: DELL PARSONS DR: Lisa Craig PA _ SOURCE: VAGINAL SPDESC: ORDERED: Jorje,Yeast DNA COMMENTS: [id number] Procedure Result Reported Site Gardnerella/Yeast: Vaginal DNA [...] or failure. * ML - MAIN LAB ([facility]) . END OF REPORT * ML=Testing performed at Main Lab DEPARTMENT OF PATHOLOGY, [address] [place] [address] Lew Cohen M.D. Director [facility] # [id number] 90 [id number] GC/Chlamydia Source?: Endocervical Trichomonas Source: Endocervical 91 Comment: has taken macrobid [id number] 92 SEE RESULT BELOW Name: TANDAVID Bonnie : [address]: Martita Braga Acct: [id number] Unit: [id number] AGE: 30 Location: [facility] Re06/25/16 SEX: F Status: DEP ER SPEC: [id number] JOSE: 06/25/16-[address] [facility] [address]: Allyson Mendes DO REQ: [id number] RECD: 06/25/16-1235 STATUS: DELL PARSONS DR: Emmett Ventura MD _ SOURCE: URINE SPDESC: ORDERED: Urine Culture COMMENTS: Comment: has taken macrobid [id number] Procedure Result Reported Site Urine Culture Final 06/26/16- 1214 ML No growth of clinically significant organisms * ML - MAIN LAB ([facility]) . END OF REPORT * ML=Testing performed at Main Lab DEPARTMENT OF PATHOLOGY, [address] [place] [address] Lew Cohen M.D. Director [facility] # [id number] 93 TEST 94 50,000 - 100,000 CFU/mL [...] D deficiency has been defined by the [place] of Medicine and an Endocrine Society practice guideline as a level of serum 25-OH vitamin D less than 20 ng/mL (1,2). The Endocrine Society went on to further define vitamin D insufficiency as a level between 21 and 29 ng/mL (2). 1. IOM ([place] of Medicine). 2010. Dietary reference intakes for calcium and D. [place]: The National Academies Press. 2. Marry MF, Malinda NC, Yeimy DEL ANGEL, et al. Evaluation, treatment, and prevention of vitamin D deficiency: an Endocrine Society clinical practice guideline. JCEM. 2010; 96(7):1911-30. Performed at: RN - [facility] [address] [id number] Health Consultant: Rocio Paulson MD, Phone: [phone] Note: Persistent reduction for 3 months [...] Procedures Date CPT Code Description Status 11/16/2017 26917 EKG-Tracing And Report Completed 02/11/2017 17394 Vaginal Delivery Global Care Completed 06/22/2016 87427 Echocardiogram Complete Completed 06/22/2016 10485 Event Monitor Inter/Review Only Completed 06/16/2016 69345 EKG-Tracing And Report Completed 08/20/2014 90498 Vaginal Delivery W/Post- Care Completed 06/24/2013 11659 Holter Monitor 24HR Inter/Report Completed 07/20/2011 05422 Echocardiogram Complete Completed 07/20/2011 52194 Event Monitor Inter/Review Only Completed 12/08/2010 12768 Remove Impacted Cerumen Completed 08/16/2010 62720 Holter Monitor 24HR Inter/Report Completed 08/13/2010 19916 EKG-Tracing And Report Completed 08/13/2010 91025 Pulse Oximetry Completed 08/09/2010 89132 Pulse Oximetry Completed 08/09/2010 91425 Pressurized/Non-Pressurized Inhalation Treatment,Acute Completed Obstructio 11/17/2008 46481 Post- Care Only Completed 10/03/2008 83499 Antepartum 7 Or More Total Office Visit Completed 10/03/2008 26998 Vaginal Delivery Global Care Completed 09/30/2008 89976 Antepartum 7 Or More Total Office Visit Completed 09/25/2008 53757 Antepartum 7 Or More Total Office Visit Completed 09/22/2008 62318 Antepartum 7 Or More Total Office Visit Completed 09/17/2008 20763 Antepartum 7 Or More Total Office Visit Completed 09/09/2008 01417 Antepartum 7 Or More Total Office Visit Completed 09/03/2008 15239 Antepartum 7 Or More Total Office Visit Completed 08/20/2008 80678 Antepartum 7 Or More Total Office Visit Completed Encounters Type Date Location Provider CPT E/M Dx Office Visit 11/16/2017 1:00p Cardiology Office SUAD Lance 18694 R00.2 F17.200 I49.3 Office Visit 04/28/2017 11:00a Primary Care Office Dolly Londono M.D. 73569 H66.91 Office Visit 03/08/2017 11:00a Primary Care Office Lisa Craig 87025 F32.9 VALORIE F41.9 R00.2 E55.9 F17.200 Z71.6 Z70.9 Office Visit 01/02/2017 10:00a [facility] [address]61 J06.9 O99.333 F17.210 Z71.6 Office Visit 07/21/2016 8:30a Family Medicine & Rosi MARA Junior 17665 H66.001 Women's Health Z33.1 Office Visit 07/19/2016 1:00p Family Medicine & [facility] [place] [address] S39.011A Women's Health Z33.1 Office Visit 07/13/2016 1:30p Family Medicine & Kirsten Gregorio, [facility] 85256 F41.9 Women's Health Office Visit 07/04/2016 11:00a Family Medicine & Kirsten Gregorio, [facility] 67799 O26.851 Women's Health Z33.1 Office Visit 06/27/2016 10:30a Family Medicine & [facility] [place] [address] N91.1 Women's Health Z71.6 E55.9 Office Visit 06/16/2016 8:00a Cardiology Office Jami Erin Thompson, 08525 I49.3 MSN, [facility] I49.1 R00.2 Office Visit 06/15/2016 10:00a Primary Care Office Lisa Craig, 76915 F41.9 PA-C F32.9 E55.9 F17.200 Z71.6 D72.829 R74.8 R00.2 E78.5 N92.6 Office Visit 01/05/2016 2:30p Primary Care Office Lisa Craig, 06524 J01.90 PA-C E66.9 F17.200 E55.9 Z71.6 Office Visit 12/30/2015 2:30p Primary Care Office Lisa Craig, 77984 E66.9 PA-C F17.200 Z71.6 E55.9 E78.5 F41.9 F32.9 Office Visit 07/23/2015 3:00p MILLIE Ventura M.D. 81124 H66.90 F32.9 F41.9 E78.5 Z00.01 Office Visit 07/06/2015 10:30a MILLIE Craig PA-C 26840 E78.5 E55.9 F41.9 R00.2 F17.200 Z71.6 E66.9 E04.9 Office Visit 12/24/2014 1:45p Orthopaedic Office Yesenia Lozoya, 86734 719.47 [facility] 845.02 V22.2 Office Visit 10/01/2014 9:10a Cardiology Office Jami Thompson, 28697 785.1 MSN, CHERRI Office Visit 07/23/2014 2:00p Cardiology Office Song LangeAngel Robles, 27769 785.1 Marco Antonio, [facility] Plan of Care Future Appointment(s):12/14/2017 9:00 am - Sherine Freitas CNM at [facility] & amp; Women[facility] Slxnrh8711/16/2017 - Fay Nicholas, PAR00.2 PalpitationsNew Medication:Metoprolol Tartrate [...]
--- OUTSIDE RECORDS SUMMARY | 2017-11-30 20:00 | XMS REPORT ---
:1985 External Reference #:[id number] Author Organization [facility] Address [address], [address] [place] [address] Phone [phone] Care Team Providers Name Role Phone Lindsey Rizzo MD Care Team Information Fingernail Technician Unavailable Lindsey Rizzo MD Primary Care Physician Unavailable Payers Type Date Identification Numbers Payment Provider Subscriber Commercial Policy Number: [id number] [facility] David Hung PayID: [id number] [address] [place] [address] Medicaid Policy Number: [id number] Medicaid David Hung Group Name: 1 1 [address] PayID: [id number] [place] [address] Commercial Expires: 2014 Policy Number: [place] [facility] David Hung [id number] PayID: [id number] [address] [place] [address] Problems Date Description Provider Status Onset: 05/27/2015 [...] 16oz of soda per day Age 1st Marcellus 12 Years Old # Partners in a [...] s mouth twice Margaret, a day M.Venkata, [facility] Flintstones / Active Chewtabs 60mg 2 by [...] twice a day Margaret, 11/16/ Marco Antonio, [facility] 2018 Bystolic 04/26/ Hx Tablets 2.5mg 30tab [...] October 2016 - s capsule by Junior, [facility] 08/15/ mouth twice 2016 daily for 7 days. 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 1 06/27/ Hx Capsules 30-0.975-2 30cap take one October 2015 - 00mg s capsule by Junior, [facility] 07/19/ mouth every 2016 day. Vitamin D-3 06/27/ Hx Capsules 1000Unit 30cap take one October 2015 - s capsule by Junior, [facility] 11/16/ mouth daily 2017 Vitamin D-1000 [...] 0.65% 135ml 2 sprays J01.90 Mikal Swanson Zenda 2016 every 2 Aaron DO hours as [...] every Simonetta 12/24/ day Diana Thompson MSN, [employer] Paroxetine HCL / Hx Tablets 20mg 90tab 1 by mouth Mikal Swanson 0000 - s every day [facility] 2015 Acetaminophen / Hx Tablets 500mg 1-2 [...] Margaret, 06/15/ twice a day Marco Antonio [facility] 2015 Zithromax / Hx Tablets 250mg take 2 tabs Unknown 0000 - by mouth on 06/15/ day 1 then 2015 1 tab by mouth qddays 2-5 Atenolol / Hx Tablets 75mg 1 by mouth Unknown 0000 - bid 2015 Paxil / Hx Tablets 20mg 1 by mouth Unknown 0000 - every day 2015 Immunizations CPT Code Status Date Vaccine Lot # [id number] Given 12/20/2016 Tdap injection [id number] Given 04/16/2015 Influenza Vaccine (Fluzone) Age 3 And Older [id number] U-Pneum Given 04/12/2013 Pneumococcal,Unspecified [id number] Given 07/17/2011 Tdap injection [id number] Given 07/14/2009 H1N1 Immuniation Adminstration [id number] Given 07/14/2009 H1N1 Immuniation Adminstration Vital Signs Date Vital Result Comment 11/16/2017 BP Systolic Sitting Left Arm 120 mmHg BP Diastolic Sitting Left Arm 64 mmHg Heart Rate 80 /min Respiratory Rate 18 /min Height 64 inches 5'4" Weight 134.00 lb BMI (Body Mass Index) 23.0 kg/m2 BSA (Body Surface Area) 1.65 m2 [place] body weight in kilograms 54 11/16/2017 BP Systolic 135 mmHg BP Diastolic 74 mmHg Height 64 inches 5'4" Weight 134.00 lb BMI (Body Mass Index) 23.0 kg/m2 BSA (Body Surface Area) 1.65 m2 [place] body weight in kilograms 54 04/28/2017 BP [...] kg/m2 BSA (Body Surface Area) 1.63 m2 [place] body weight in kilograms 54 03/08/2017 BP Systolic 119 mmHg BP Diastolic 76 mmHg Heart Rate 73 /min Respiratory Rate 16 /min Height 64 inches 5'4" [place] body weight in kilograms 54 O2 % BldC Oximetry 99 % 02/06/2017 BP Systolic 118 mmHg BP Diastolic 86 mmHg Height 64 inches 5'4" Weight 149.38 lb BMI (Body Mass Index) 25.6 kg/m2 BSA (Body Surface Area) 1.73 m2 [place] body weight in kilograms 54 01/30/2017 BP Systolic 112 mmHg BP Diastolic 70 mmHg Height 64 inches 5'4" Weight 145.00 lb BMI (Body Mass Index) 24.9 kg/m2 BSA (Body Surface Area) 1.71 m2 [place] body weight in kilograms 54 01/23/2017 BP Systolic 106 mmHg BP Diastolic 60 mmHg Height 64 inches 5'4" Weight 147.38 lb BMI (Body Mass Index) 25.3 kg/m2 BSA (Body Surface Area) 1.72 m2 [place] body weight in kilograms 54 01/16/2017 BP Systolic 110 mmHg BP Diastolic 62 mmHg Height 64 inches 5'4" Weight 147.00 lb BMI (Body Mass Index) 25.2 kg/m2 BSA (Body Surface Area) 1.72 m2 [place] body weight in kilograms 54 01/02/2017 BP Systolic Sitting Right Arm 102 mmHg BP Diastolic Sitting Right Arm 58 mmHg Body Temperature 98.7 F Heart Rate 84 /min Height 64 inches 5'4" Weight 148.38 lb BMI (Body Mass Index) 25.5 kg/m2 BSA (Body Surface Area) 1.72 m2 [place] body weight in kilograms 54 O2 % BldC Oximetry 96 % 01/02/2017 BP Systolic 106 mmHg BP Diastolic 66 mmHg Height 64 inches 5'4" Weight 148.25 lb BMI (Body Mass Index) 25.4 kg/m2 BSA (Body Surface Area) 1.72 m2 [place] body weight in kilograms 54 12/19/2016 BP Systolic 118 mmHg BP Diastolic 66 mmHg Height 64 inches 5'4" Weight 148.50 lb BMI (Body Mass Index) 25.5 kg/m2 BSA (Body Surface Area) 1.72 m2 [place] body weight in kilograms 54 12/05/2016 BP Systolic 104 mmHg BP Diastolic 70 mmHg Height 64 inches 5'4" Weight 147.50 lb BMI (Body Mass Index) 25.3 kg/m2 BSA (Body Surface Area) 1.72 m2 [place] body weight in kilograms 54 11/17/2016 BP [...] kg/m2 BSA (Body Surface Area) 1.63 m2 [place] body weight in kilograms 45 08/15/2016 BP [...] Ua Blood 1+ High Negative Ua Specific [place] 1.005 Low 1.010-1.030 Ua Ketones Negative Negative Ua Bilirubin Negative Negative Ua Glucose Negative Negative Slide Review 11/16/2017 Slide Review . 1, 2 HIV Screen 4TH Gen 11/16/2017 HIV Screen 4th Non Reactive Non Reactive 1 , 3 Reflex Generation wRfx Laboratory test 11/16/2017 Treponema Antibody Negative Negative 1 finding [place] CBS W/Automated Diff 11/16/2017 White Blood Count [...] Lymph % 17.9 % Low 20.0-42.0 1 [place] % 6.4 % 4.3-13.2 1 Eo% 0.2 % 0.0-6.6 1 Bas% 0.4 % 0.0-1.1 1 Neut# 7.50 K/uL High 1.8-7.0 1 Lymph # 1.79 K/uL 1.0-4.0 1 [place] # 0.64 K/uL 0.3-0.9 1 Eos # [...] 0.1 s/corat 0.0-0.9 1, 6 Lead,Blood (Adult) <pending> 1 Genital Culture W/ Gram 11/16/2017 Gram Stain GRAM STAIN INDIC <SEE 1, 7 Stain NOTE> Gram Stain FEW GR POS. BACI <SEE NOTE> 1, 8 Gram Stain RARE WHITE BLOOD <SEE NOTE> 1, 9 Genital Culture GENITAL JOAQUÍN 1 Chlamydia/GC Rimma 11/16/2017 Chlamydia Trachomatis, PCR Negative Negative 1 Neisseria Gonorrhoeae, PCR Negative Negative 1 Please note: . 1, 10 Laboratory test 11/16/2017 Rubella IgG 14.10 index Immune >0.99 1, 11 finding Antibody CBS W/Automated Diff 06/18/2017 White Blood Count 7.8 K/uL 3.1-10.7 12 Red Blood Count 5.36 M/uL 3.90-5.40 12 Hemoglobin 15.2 gm/dL 11.6-15.8 12 Hematocrit 44.5 % 36.0-46.1 12 Mean Cell Volume 83.0 fl 80.9-99.0 12 Mean Corpuscular HGB 28.4 pg 25.9-32.7 12 Mean Corpuscular HGB Conc 34.2 g/dL 30.8-34.3 12 Platelet Count 358 K/uL 150-400 12 Red Cell Distri Width SD 40.6 fl 3-47 12 Red Cell Distri Width %CV 13.4 % 11.7-14.4 12 Mean Platelet Volume 9.5 fL 8.9-12.4 12 Neut% 61.7 % 40.4-72.8 12 Lymph % 29.9 % 20.0-42.0 12 [place] % 6.3 % 4.3-13.2 12 Eo% 1.7 % 0.0-6.6 12 Bas% 0.4 % 0.0-1.1 12 Neut# 4.82 K/uL 1.8-7.0 12 Lymph # 2.33 K/uL 1.0-4.0 12 [place] # 0.49 K/uL 0.3-0.9 12 Eos # 0.13 K/uL 0.0-0.5 12 Baso # 0.03 K/uL 0.0-0.1 12 Comprehensive Metabolic Panel 06/18/2017 Glucose 88 mg/dL 74-106 12 BUN 12 mg/dL 7-18 12 Creatinine 0.7 mg/dL 0.6-1.3 12 Glom Filtration Rate, Estimate >60 mL/min >60 12 If >60 mL/min >60 12, 13 BUN/Creat 17.1 ratio 12 Sodium 142 mmol/L 136-145 12 Potassium 3.9 mmol/L 3.5-5.1 12 Chloride 106 mmol/L 98-107 12 Carbon Dioxide 28 mmol/L 21-32 12 Anion Gap 8 mEq/L 8-16 12 Calcium 9.1 mg/dL 8.5-10.1 12 Total Protein 7.5 g/dL 6.4-8.2 12 Albumin 3.8 g/dL 3.4-5.0 12 Globulin 3.7 g/dL 1.9-4.3 12 Alb/Glob 1.0 ratio 12 Bilirubin,Total 0.3 mg/dL 0.2-1.0 12 Sgot/Ast 14 U/L Low 15-37 12, 14 SGPT/Alt 23 U/L 12-78 12 Alkaline Phosphatase 98 U/L 45-117 12 Laboratory test finding 06/18/2017 TSH Reflex FT4 0.68 uIU/mL 0.30-4.20 12 and/or FT3 CBC 02/11/2017 White Blood Count 19.4 K/uL High 3.1-10.7 15 Red Blood Count 5.02 M/uL 3.90-5.40 15 Hemoglobin 14.9 gm/dL 11.6-15.8 15 Hematocrit 44.0 % 36.0-46.1 15 Mean Cell Volume 87.6 fl 80.9-99.0 15 Mean Corpuscular HGB 29.7 pg 25.9-32.7 15 Mean Corpuscular HGB Conc 33.9 g/dL 30.8-34.3 15 Platelet Count 316 K/uL 150-400 15 Red Cell Distri Width %CV 14.6 % High 11.7-14.4 15 Mean Platelet Volume 10.2 fL 8.9-12.4 15 Type And Screen 02/11/2017 Patient Blood Type O POS 15 Antibody Screen Negative Negative 15 Laboratory test 02/11/2017 Treponema Antibody Negative Negative 15, 16 finding [place] Laboratory test 01/16/2017 Vaginal Strep NO GROUP B STREP 17, 18 finding Screen <SEE NOTE> Urine Culture 01/02/2017 Urine Culture URETHRAL JOAQUÍN 19 Quantity 10,000 - 50,000 <SEE NOTE> 19, 20 Laboratory test finding 12/21/2016 Rapid Strep Negative Negative 21 Molecular Urine Culture 12/19/2016 Urine Culture URETHRAL JOAQUÍN 22 Quantity > 100,000 CFU/mL 22, 23 Laboratory test 11/17/2016 HIV Screen 4TH Non Reactive Non Reactive 24, 25 finding Gen Reflex Differential-WBC 11/17/2016 Total Cells 100 #CELLS 24 Confirm Counted Metamyelocyte% 1 % High -0 24 Band% 6 % 0-8 24 Neutrophils% 76 % High 33-73 24 Lymph% 11 % Low 20-42 24 Atypical Lymph% 1 % 0-7 24 Monocyte% 4 % 0-10 24 Eosinophil% 1 % 0-5 24 Platelet Estimate NORMAL 24 Toxic Granulation 1+ 24 Differential Comment LARGE PLATELETS <SEE NOTE> 24, 26 Slide Review 11/17/2016 Slide Review DIFF ORDERED 24 Glucose,1 HR Post 11/17/2016 1 HR Glucose,Post 135 mg/dL -138 24, 27 Glucola Glucola 1 Hour Urine Glucose NO SPECIMEN RECE <SEE NOTE> % Negative 24, 28 1 Hour Urine Ketone NO SPECIMEN RECE <SEE NOTE> Negative 24, 29 Laboratory test 11/17/2016 Treponema Antibody Negative Negative 24, 30 finding [place] CBS W/Automated Diff 11/17/2016 White Blood Count 12.7 K/uL High 3.1-10.7 24 Red Blood Count 4.09 M/uL 3.90-5.40 24 Hemoglobin 12.2 gm/dL 11.6-15.8 24 Hematocrit 35.4 % Low 36.0-46.1 24 Mean Cell Volume 86.6 fl 80.9-99.0 24 Mean Corpuscular HGB 29.8 pg 25.9-32.7 24 Mean Corpuscular HGB Conc 34.5 g/dL High 30.8-34.3 24 Platelet Count 306 K/uL 150-400 24 Red Cell Distri Width SD 40.9 fl 3-47 24 Red Cell Distri Width %CV 13.2 % 11.7-14.4 24 Mean Platelet Volume 10.7 fL 8.9-12.4 24, 31 Neut# 9.91 K/uL High 1.8-7.0 24 Lymph # 1.83 K/uL 1.0-4.0 24 [place] # 0.82 K/uL 0.3-0.9 24 Eos # 0.09 K/uL 0.0-0.5 24 Baso # 0.02 K/uL 0.0-0.1 24 Urine Culture 10/12/2016 Urine Culture URETHRAL JOAQUÍN 24 Quantity > 100,000 CFU/mL 24, 32 Urine Culture 09/06/2016 Urine Culture URETHRAL JOAQUÍN 33 Quantity 50,000 - 100,000 <SEE NOTE> 33, 34 Drugs Of Abuse-Urine Screen 7 08/21/2016 Amphetamines (Urine) Negative 35 Barbiturates (Urine) Negative 35 Benzodiazepines (Urine) Negative 35 Cannabinoids (Urine) Negative 35 Cocaine Metabolite (Urine) Negative 35 Methadone (Urine) Negative 35 Opiates (Urine) Negative 35 Urine Cutoffs * 35, 36 Urine Culture 08/21/2016 Urine Culture MIXED URETHRAL F <SEE NOTE> 35, 37 Quantity > 100,000 CFU/mL 35, 38 Laboratory test finding 08/21/2016 Ethyl Alcohol < 3.0 mg/dL 35 Comprehensive Metabolic Panel 08/21/2016 Glucose 136 mg/dL High 74-106 35 BUN 9 mg/dL 7-18 35 Creatinine 0.7 mg/dL 0.6-1.3 35 Glom Filtration Rate, Estimate >60 mL/min >60 35 If >60 mL/min >60 35, 39 BUN/Creat 12.8 ratio 35 Sodium 138 mmol/L 136-145 35 Potassium 3.7 mmol/L 3.5-5.1 35 Chloride 104 mmol/L 98-107 35 Carbon Dioxide 23 mmol/L 21-32 35 Anion Gap 11 mEq/L 8-16 35 Calcium 9.5 mg/dL 8.5-10.1 35 Total Protein 7.6 g/dL 6.4-8.2 35 Albumin 3.2 g/dL Low 3.4-5.0 35 Globulin 4.4 g/dL High 1.9-4.3 35 Alb/Glob 0.7 ratio 35 Bilirubin,Total 0.3 mg/dL 0.2-1.0 35 Sgot/Ast 13 U/L Low 15-37 35, 40 SGPT/Alt 23 U/L 12-78 35 Alkaline Phosphatase 95 U/L 45-117 35 Urine Culture 08/05/2016 Urine Culture URETHRAL JOAQUÍN 41 Quantity 10,000 - 50,000 <SEE NOTE> 41, 42 Ua Routine 08/05/2016 Urine Color YELLOW Yellow 41 Urine Clarity CLEAR Clear 41 Urine Glucose - Dipstick NEGATIVE mg/dL Negative 41 Urine Bilirubin - Dipstick NEGATIVE Negative 41 Urine Ketone NEGATIVE mg/dL Negative 41 Urine Specific [place] 1.015 1.010-1.030 41 Urine Blood SMALL Negative 41 Urine PH 6.5 6.5-7.5 41 Urine Protein - Dipstick NEGATIVE mg/dL Negative 41 Urine Urobilinogen - Dipstick 0.2 E.U./dL 0.2-1.0 41 Urine Nitrite - Dipstick NEGATIVE Negative 41 Urine Leuk Esterase LARGE Negative 41 Urine RBC 0-2 rbc/hpf 0-2 41 Urine WBC 10-20 wbc/hpf High 0-7 41 Urine Epithelial Cells MODERATE /lpf None Seen 41, 43 Urine Calcium Oxalate Crystals MANY None Seen 41 Urine Bacteria MODERATE None Seen 41 Urine Amorph Sediment SMALL Negative 41 Source: URINE, CLEAN CAT <SEE 41, 44 NOTE> Laboratory test finding 08/05/2016 Urine Amorphous Sediment Small Negative Urine Bilirubin Negative Negative Urine Ketones Negative Negative Urine Leukocyte Esterase Large High Negative Urine Nitrite Negative Negative Urine Protein Negative Negative Urine Urobilinogen 0.2 0.2-1.0 Urine Glucose (Ua) 08/05/2016 Urine Glucose (Ua) Negative Negative Laboratory test 08/04/2016 HCG, Quant 14906.0 mIU/mL 45, 46 finding Chlamydia/GC Rimma 08/01/2016 Chlamydia Negative Negative 47 Trachomatis, Rimma Neisseria Gonorrhoeae, Rimma Negative Negative 47 Please note: (SEE NOTE) 47, 48 Laboratory test finding 08/01/2016 Urine Bilirubin Negative [...] Probe Probe Laboratory test 08/01/2016 HCG, Quant 51074.0 mIU/mL 47, 49 finding Ua Routine 08/01/2016 Urine Color YELLOW Yellow 47 Urine Clarity CLOUDY Clear 47 Urine Glucose - Dipstick NEGATIVE mg/dL Negative 47 Urine Bilirubin - Dipstick NEGATIVE Negative 47 Urine Ketone NEGATIVE mg/dL Negative 47 Urine Specific [place] 1.010 1.010-1.030 47 Urine Blood TRACE Negative 47 Urine PH 8.0 High 6.5-7.5 47 Urine Protein - Dipstick NEGATIVE mg/dL Negative 47 Urine Urobilinogen - Dipstick 0.2 E.U./dL 0.2-1.0 47 Urine Nitrite - Dipstick NEGATIVE Negative 47 Urine Leuk Esterase LARGE Negative 47 Urine RBC 2-5 rbc/hpf 0-2 47 Urine WBC 5-10 wbc/hpf 0-7 47 Urine Epithelial Cells MANY /lpf None Seen 47, 50 Urine Bacteria MANY None Seen 47 Source: URINE, CLEAN CAT <SEE 47, 51 NOTE> Affirm Vaginitis Panel 08/01/2016 Trichomonas vaginalis Negative [ Negative] 47 Gardnerella vaginalis POSITIVE High [Negative] 47 Therese species Negative [Negative] 47 Urine Culture 08/01/2016 Urine Culture URETHRAL JOAQUÍN 47 Quantity > 100,000 CFU/mL 47, 52 Platelet Estimate 07/22/2016 Platelet Estimate Normal Neutrophils [...] (Ast/Sgot) Chlamydia/GC Rimma 07/22/2016 Chlamydia Negative Negative 53 Trachomatis, Rimma Neisseria Gonorrhoeae, Rimma Negative Negative 53 Please note: (SEE NOTE) 53, 54 Comprehensive Metabolic Panel 07/22/2016 Glucose 88 mg/dL 74-106 53 BUN 9 mg/dL 7-18 53 Creatinine 0.5 mg/dL Low 0.6-1.3 53 Glom Filtration Rate, Estimate >60 mL/min >60 53 If >60 mL/min >60 53, 55 BUN/Creat 18.0 ratio 53 Sodium 138 mmol/L 136-145 53 Potassium 3.6 mmol/L 3.5-5.1 53 Chloride 104 mmol/L 98-107 53 Carbon Dioxide 23 mmol/L 21-32 53 Anion Gap 11 mEq/L 8-16 53 Calcium 9.3 mg/dL 8.5-10.1 53 Total Protein 8.1 g/dL 6.4-8.2 53 Albumin 3.7 g/dL 3.4-5.0 53 Globulin 4.4 g/dL High 1.9-4.3 53 Alb/Glob 0.8 ratio 53 Bilirubin,Total 0.3 mg/dL 0.2-1.0 53 Sgot/Ast 11 U/L Low 15-37 53, 56 SGPT/Alt 16 U/L 12-78 53 Alkaline Phosphatase 114 U/L 45-117 53 Type And Screen 07/22/2016 Patient Blood Type O POS 53 Antibody Screen Negative Negative 53 Laboratory test finding 07/22/2016 Alanine Aminotransferase (Alt/SGPT) [...] Ua Routine 07/17/2016 Urine Color YELLOW Yellow 57 Urine Clarity SL CLOUDY Clear 57 Urine Glucose - Dipstick NEGATIVE mg/dL Negative 57 Urine Bilirubin - Dipstick NEGATIVE Negative 57 Urine Ketone TRACE mg/dL High Negative 57 Urine Specific [place] 1.020 1.010-1.030 57 Urine Blood SMALL Negative 57 Urine PH 7.0 6.5-7.5 57 Urine Protein - Dipstick NEGATIVE mg/dL Negative 57 Urine Urobilinogen - Dipstick 0.2 E.U./dL 0.2-1.0 57 Urine Nitrite - Dipstick NEGATIVE Negative 57 Urine Leuk Esterase LARGE Negative 57 Urine RBC 0-2 rbc/hpf 0-2 57 Urine WBC 10-20 wbc/hpf High 0-7 57 Urine Epithelial Cells MANY /lpf None Seen 57, 58 Urine Bacteria FEW None Seen 57 Urine Mucus SMALL None Seen 57 Source: URINE, CLEAN CAT <SEE 57, 59 NOTE> Urine Culture 07/17/2016 Urine Culture URETHRAL JOAQUÍN 57 Quantity 50,000 - 100,000 <SEE NOTE> 57, 60 Laboratory test finding 07/17/2016 Urine Bilirubin Negative Negative Urine Ketones Trace High Negative Urine Leukocyte Esterase Large High Negative Urine Nitrite Negative Negative Urine Protein Negative Negative Urine Urobilinogen 0.2 0.2-1.0 Urine Glucose (Ua) 07/17/2016 Urine Glucose (Ua) Negative Negative Laboratory Studies 07/14/2016 Beta HCG, Quantitative 987262.00 mIU/mL Free Thyroxine 0.83 ng/dL 0.61-1.12 Free [...] Hormone (TSH) 0.69 mcIU/mL 0.34-5.60 Urine Specific [place] 1.024 1.010-1.030 Urine pH 6.0 5-9 White [...] (Auto) 0.6 % 0-2 Beta HCG, Quantitative 174497.00 mIU/mL Blood Urea Nitrogen 8 mg/dL 6-24 [...] Total Protein 7.3 g/dL 6.4-8.9 Urine Specific [place] 1.017 1.010-1.030 Urine pH 7.0 5-9 White Blood Count 13.3 10^3/ul High 3.5-10.8 Laboratory test finding 07/11/2016 HCG 276901.00 mIU/mL 61 Urine Culture SEE RESULT BELOW 62 Comp Metabolic Panel 07/11/2016 Sodium 134 mmol/L [...] Egfr Non- 130.8 >60 Egfr 168.3 >60 63 Type & Screen 07/11/2016 Patient Blood Type [...] Color Yellow Urine Appearance Cloudy Urine Specific [place] 1.017 1.010-1.030 Urine pH 7.0 5-9 Urine [...] Urine Culture 07/04/2016 Urine Culture URETHRAL JOAQUÍN 64 Quantity 50,000 - 100,000 <SEE NOTE> 64, 65 Type And Screen 07/01/2016 Patient Blood Type O POS 66 Antibody Screen Negative Negative 66 Comprehensive Metabolic Panel 07/01/2016 Glucose 80 mg/dL 74-106 66 BUN 11 mg/dL 7-18 66 Creatinine 0.6 mg/dL 0.6-1.3 66 Glom Filtration Rate, Estimate >60 mL/min >60 66 If >60 mL/min >60 66, 67 BUN/Creat 18.3 ratio 66 Sodium 139 mmol/L 136-145 66 Potassium 3.9 mmol/L 3.5-5.1 66 Chloride 105 mmol/L 98-107 66 Carbon Dioxide 25 mmol/L 21-32 66 Anion Gap 9 mEq/L 8-16 66 Calcium 8.9 mg/dL 8.5-10.1 66 Total Protein 7.7 g/dL 6.4-8.2 66 Albumin 3.9 g/dL 3.4-5.0 66 Globulin 3.8 g/dL 1.9-4.3 66 Alb/Glob 1.0 ratio 66 Bilirubin,Total 0.6 mg/dL 0.2-1.0 66 Sgot/Ast 16 U/L 15-37 66 SGPT/Alt 22 U/L 12-78 66 Alkaline Phosphatase 105 U/L 45-117 66 Laboratory test finding 07/01/2016 Alanine Aminotransferase (Alt/SGPT) [...] Review 07/01/2016 Manual Slide Review See Note 68 (Hematology) (Hematology) Aspartate Amino 07/01/2016 Aspartate Amino [...] Drugs Of Abuse-Urine 06/29/2016 Amphetamines (Urine) Negative 69 Screen 7 Barbiturates (Urine) Negative 69 Benzodiazepines (Urine) Negative 69 Cannabinoids (Urine) Negative 69 Cocaine Metabolite (Urine) Negative 69 Methadone (Urine) Negative 69 Opiates (Urine) Negative 69 Urine Cutoffs * 69, 70 Urine Culture 06/29/2016 Urine Culture URETHRAL JOAQUÍN 69 Quantity 10,000 - 50,000 <SEE NOTE> 69, 71 CBS W/Automated Diff 06/29/2016 White Blood Count 12.2 K/uL High 3.1-10.7 69 Red Blood Count 5.37 M/uL 3.90-5.40 69 Hemoglobin 15.4 gm/dL 11.6-15.8 69 Hematocrit 45.3 % 36.0-46.1 69 Mean Cell Volume 84.4 fl 80.9-99.0 69 Mean Corpuscular HGB 28.7 pg 25.9-32.7 69 Mean Corpuscular HGB Conc 34.0 g/dL 30.8-34.3 69 Platelet Count 313 K/uL 155-360 69 Red Cell Distri Width SD 41.9 fl 3-47 69 Red Cell Distri Width %CV 13.7 % 11.7-14.4 69 Mean Platelet Volume 10.5 fL 8.9-12.4 69 Neut% 70.5 % 40.4-72.8 69 Lymph % 20.1 % 17.0-46.1 69 [place] % 7.6 % 4.3-13.2 69 Eo% 1.6 % 0.0-6.6 69 Bas% 0.2 % 0.0-1.1 69 Neut# 8.63 K/uL High 1.8-7.0 69 Lymph # 2.46 K/uL 1.8-7.0 69 [place] # 0.93 K/uL High 0.3-0.9 69 Eos # 0.19 K/uL 0.0-0.5 69 Baso # 0.03 K/uL 0.0-0.1 69 Type And Screen 06/29/2016 Patient Blood Type O POS 69 Antibody Screen Negative Negative 69 Laboratory test 06/29/2016 Hepatitis B Surface Nonreactive Nonreactive 69, 72 finding Antigen Hepatitis C Antibody 06/29/2016 Hepatitis C Nonreactive Nonreactive 69 Antibody Signal/Cutoff ratio < 0.02 <0.80 69, 73 Laboratory test finding 06/29/2016 Lead,Blood (Adult) 2 g/dL 0-19 69, 74 Antibody Detection-Hiv1/2 SCRN Nonreactive Nonreactive 69, 75 Rubella Igg Antibody 06/29/2016 Rubella IgG Antibody Reactive Reactive 69 Rubella IgG Iu/ml > 500.0 IU/mL >=10.0 69, 76 Chlamydia/GC Rimma 06/29/2016 Chlamydia Trachomatis, Rimma Negative Negative 69 Neisseria Gonorrhoeae, Rimma Negative Negative 69 Please note: (SEE NOTE) 69, 77 Specimen Type: Genital 69 Laboratory test 06/29/2016 Treponema Nonreactive Nonreactive 69, 78 finding Antibody [place] Genital Culture W/ 06/29/2016 Gram Stain GRAM STAIN INDIC 69, 79 Gram Stain <SEE NOTE> Gram Stain FEW GR POS. BACI <SEE NOTE> 69, 80 Gram Stain FEW WHITE BLOOD <SEE NOTE> 69, 81 Gram Stain RARE GRAM POSITI <SEE NOTE> 69, 82 Genital Culture GENITAL JOAQUÍN 69 Slide Review 06/29/2016 Slide Review . 69, 83 CBC Auto Diff 06/26/2016 White Blood Count [...] Egfr Non- 103.8 >60 Egfr 133.5 >60 84 Blood Urea Nitrogen 10 mg/dL 6-24 BUN/Creatinine Ratio 15.2 8-20 Laboratory test finding 06/26/2016 C Reactive Protein 6.93 mg/L High < 5.00 85 HCG 48687.00 mIU/mL 86 Laboratory Studies 06/26/2016 Absolute Basophils (auto) 0.1 [...] (Auto) 1.1 % 0-2 Beta HCG, Quantitative 04516.00 mIU/mL Blood Urea Nitrogen 10 mg/dL 6-24 [...] Color Yellow Urine Appearance Cloudy Urine Specific [place] 1.014 1.010-1.030 Urine pH 7.0 5-9 Urine [...] Laboratory test 06/25/2016 Gardnerella/Yeast: Vaginal SEE RESULT 87, 88 finding Dna BELOW Trichomonas vaginalis Rna Negative Negative 87, 89 GC/Chlamydia Amplified Rna 06/25/2016 Chlamydia trachomatis Negative Negative 87 Rna Neisseria gonorrhoeae (GC) Rna Negative Negative 87 Laboratory test 06/25/2016 Urine Culture SEE RESULT BELOW 90, 91 finding Laboratory test 06/24/2016 Urine Bilirubin Negative Negative finding Urine Ketones Trace High Negative Urine Leukocyte Esterase Small High Negative Urine Nitrite Negative Negative Urine Protein 30 High Negative Urine Urobilinogen 0.2 0.2-1.0 Urine Culture 06/24/2016 Urine Culture URETHRAL JOAQUÍN 92 Quantity 50,000 - 100,000 <SEE NOTE> 92, 93 Ua Routine 06/24/2016 Urine Color YELLOW Yellow 92 Urine Clarity SL CLOUDY Clear 92 Urine Glucose - Dipstick NEGATIVE mg/dL Negative 92 Urine Bilirubin - Dipstick NEGATIVE Negative 92 Urine Ketone TRACE mg/dL High Negative 92 Urine Specific [place] >=1.030 1.010-1.030 92 Urine Blood MODERATE Negative 92 Urine PH 6.0 Low 6.5-7.5 92 Urine Protein - Dipstick 30 mg/dL High Negative 92 Urine Urobilinogen - Dipstick 0.2 E.U./dL 0.2-1.0 92 Urine Nitrite - Dipstick NEGATIVE Negative 92 Urine Leuk Esterase SMALL Negative 92 Urine RBC 2-5 rbc/hpf 0-2 92 Urine WBC 20-30 wbc/hpf High 0-7 92 Urine Epithelial Cells MANY /lpf None Seen 92, 94 Urine Calcium Oxalate Crystals FEW None Seen 92 Urine Bacteria MANY None Seen 92 Urine Mucus LARGE None Seen 92 Source: URINE, CLEAN CAT <SEE 92, 95 NOTE> Urine HCG (Qualitative) 06/24/2016 Urine HCG (Qualitative) POSITIVE Negative 92 Source: URINE, CLEAN CAT <SEE NOTE> 92, 96 Laboratory test 06/24/2016 HCG, Quant 26758.0 mIU/mL 97, 98 finding Urine Glucose (Ua) 06/24/2016 Urine Glucose [...] finding 06/15/2016 Gamma Glutamyl 25 U/L 5-85 99 Transpeptidase CBS W/Automated Diff 06/15/2016 White Blood Count 10.3 K/uL 3.1-10.7 99 Red Blood Count 5.25 M/uL 3.90-5.40 99 Hemoglobin 15.1 gm/dL 11.6-15.8 99 Hematocrit 43.9 % 36.0-46.1 99 Mean Cell Volume 83.6 fl 80.9-99.0 99 Mean Corpuscular HGB 28.8 pg 25.9-32.7 99 Mean Corpuscular HGB Conc 34.4 g/dL High 30.8-34.3 99 Platelet Count 352 K/uL 155-360 99 Red Cell Distri Width SD 40.1 fl 3-47 99 Red Cell Distri Width %CV 13.3 % 11.7-14.4 99 Mean Platelet Volume 10.4 fL 8.9-12.4 99 Neut% 67.7 % 40.4-72.8 99 Lymph % 22.7 % 17.0-46.1 99 [place] % 7.1 % 4.3-13.2 99 Eo% 2.1 % 0.0-6.6 99 Bas% 0.4 % 0.0-1.1 99 Neut# 6.96 K/uL 1.8-7.0 99 Lymph # 2.34 K/uL 1.8-7.0 99 [place] # 0.73 K/uL 0.3-0.9 99 Eos # 0.22 K/uL 0.0-0.5 99 Baso # 0.04 K/uL 0.0-0.1 99 Laboratory test 06/15/2016 Vitamin D,25-Hydroxy 23.5 ng/mL Low 30.0-100.0 99, 100 finding Thyroid Stim Hormone 0.70 uIU/mL 0.30-4.20 99 Comprehensive Metabolic Panel 06/15/2016 Glucose 86 mg/dL 74-106 99 BUN 8 mg/dL 7-18 99 Creatinine 0.6 mg/dL 0.6-1.3 99 Glom Filtration Rate, Estimate >60 mL/min >60 99 If >60 mL/min >60 99, 101 BUN/Creat 13.3 ratio 99 Sodium 141 mmol/L 136-145 99 Potassium 4.0 mmol/L 3.5-5.1 99 Chloride 109 mmol/L High 98-107 99 Carbon Dioxide 24 mmol/L 21-32 99 Anion Gap 8 mEq/L 8-16 99 Calcium 8.9 mg/dL 8.5-10.1 99 Total Protein 7.0 g/dL 6.4-8.2 99 Albumin 3.8 g/dL 3.4-5.0 99 Globulin 3.2 g/dL 1.9-4.3 99 Alb/Glob 1.2 ratio 99 Bilirubin,Total 0.5 mg/dL 0.2-1.0 99 Sgot/Ast 12 U/L Low 15-37 99, 102 SGPT/Alt 20 U/L 12-78 99 Alkaline Phosphatase 114 U/L 45-117 99 Total Creatine 06/12/2016 Total Creatine Kinase 96 26-192 Kinase Thyroid Stimulating 06/12/2016 Thyroid Stimulating 0.56 0.30-4.20 Hormone (TSH) Hormone (TSH) Neutrophils # (Auto) 06/12/2016 Neutrophils # (Auto) 7.63 High 1.8-7.0 Manual Slide Review 06/12/2016 Manual Slide Review See Note 103 (Hematology) (Hematology) Lymphocytes # (Auto) 06/12/2016 Lymphocytes [...] 06/12/2016 TSH Reflex FT4 0.56 uIU/mL 0.30-4.20 104 finding and/or FT3 Routine Culture W/ 04/28/2016 Gram Stain FEW GRAM POS CHAPITO 105, 106 Gram Stain <SEE NOTE> Gram Stain RARE GRAM POSITI <SEE NOTE> 105, 107 Gram Stain RARE WHITE BLOOD <SEE NOTE> 105, 108 Aerobic Culture NO PATHOGENS ISO <SEE NOTE> 105, 109 1 O09.71 Z34.81 2 Instrument flagged sample for slide review. Less than 10% Bands seen, few atypical lymphocytes seen. RBC morphology=0-1+ microcytes Platelet estimate=normal, large platelets present. 3 Performed at: RN - [facility] [address] [id number] Insole And Outsole Splitter: Rocio Paulson MD, Phone: [phone] 4 URINE SPECIMENS ARE SCREENED AT THE [...] with a HCV Nucleic Acid Amplification test (597931). 7 GRAM STAIN INDICATES NORMAL GENITAL JOAQUÍN 8 FEW GR POS. BACILLI SUGGESTIVE OF LACTOBACILLUS SP. 9 RARE WHITE BLOOD CELLS 10 A negative result for either C. trachomatis and/or N. gonorrhoeae does not preclued an infection because results are dependent on adequate specimen collection, absence of inhibitors, and sufficient DNA to be detected. 11 Non-immune <0.90 Equivocal 0.90 - 0.99 Immune >0.99 Performed at: [address] [id number] Insole And Outsole Splitter: Rocio Paulson MD, Phone: [phone] Performed at: [address] [id number] Insole And Outsole Splitter: Sabas Oneil MD, Phone: [phone] 12 FATIGUE, DIARRHEA, WANTS THYROID CHECKED 13 Note: Persistent reduction for 3 months or more in an eGFR <60 mL/min/1.73 m2 defines CKD. Patients with eGFR values >/=60 mL/min/1.73 m2 may also have CKD if evidence of persistent proteinuria is present. The original MDRD equation for estimated GFR is not valid for patients less than 18 years of age. Additional information may be found at www.kdoqi.org. 14 Values below the stated reference ranges of AST and ALT can be seen in normal populations. Clinical correlation is suggested. 15 LABOR 16 Performed at: [address] [id number] Insole And Outsole Splitter: Sabas Oneil MD, Phone: [phone] 17 Z3A.36 18 NO GROUP B STREPTOCOCCI ISOLATED 19 Z3A.34 20 10,000 - 50,000 CFU/mL 21 Flower Pot Press Operator: [id number] 22 Z3A.32 23 > 100,000 CFU/mL SPECIMEN IS A MIX OF GRAM POSITIVE ORGANISMS CONSISTENT WITH SKIN VAGINAL CONTAMINATION. SUGGEST REPEAT SPECIMEN IF CLINICALLY INDICATED. 24 O09.892 25 Performed at: [facility] [address] [id number] Insole And Outsole Splitter: Rocio Paulson MD, Phone: [phone] 26 LARGE PLATELETS PRESENT. 27 POST GLUCOLA 28 NO SPECIMEN RECEIVED 29 NO SPECIMEN RECEIVED 30 Performed at: [facility] [address] [id number] Insole And Outsole Splitter: Sabas Oneil MD, Phone: [phone] 31 11/17/161856: NEUT% previously reported as: 78.2 H % Amended result called to: [] - 11/17/16 at 185611/17/16 1857: LYMPH % previously reported as: 14.4 L % Amended result called to: [] - 11/17/16 at 185611/17/16 185: MONO % previously reported as: 6.5 % Amended result called to: [] - 11/17/16 at 185611/17/16 1857: EO% previously reported as: 0.7 % Amended result called to: [] - 11/17/16 at 185611/17/16 185: BAS% previously reported as: 0.2 % Amended result called to: [] - 11/17/16 at 1857 32 > 100,000 CFU/mL SPECIMEN IS A MIX OF GRAM POSITIVE ORGANISMS CONSISTENT WITH SKIN VAGINAL CONTAMINATION. SUGGEST REPEAT SPECIMEN IF CLINICALLY INDICATED. 33 Z3A.17 34 50,000 - 100,000 CFU/mL SPECIMEN IS A MIX OF GRAM POSITIVE ORGANISMS CONSISTENT WITH SKIN VAGINAL CONTAMINATION. SUGGEST REPEAT SPECIMEN IF CLINICALLY INDICATED. 35 941 36 URINE SPECIMENS ARE SCREENED AT THE LISTED CUTOFFS DRUG CLASS INITIAL TEST LEVEL Amphetamines 1000 ng/mL Barbiturates 200 ng/mL Benzodiazepines 200 ng/mL Cannabinoids 50 ng/mL Cocaine Metabolite 300 ng/mL Methadone 300 ng/mL Opiates 300 ng/mL Any PRESUMPTIVE POSITIVE findings are UNCONFIRMED. Confirmatory testing is suggested if findings are unexpected. Please contact laboratory if confirmatory testing is desired. SPECIMENS ARE HELD FOR 72 HOURS. 37 MIXED URETHRAL JOAQUÍN 38 > 100,000 CFU/mL SPECIMEN IS A MIX OF GRAM POSITIVE ORGANISMS CONSISTENT WITH SKIN VAGINAL CONTAMINATION. SUGGEST REPEAT SPECIMEN IF CLINICALLY INDICATED. 39 Note: Persistent reduction for 3 months or more in an eGFR <60 mL/min/1.73 m2 defines CKD. Patients with eGFR values >/=60 mL/min/1.73 m2 may also have CKD if evidence of persistent proteinuria is present. The original MDRD equation for estimated GFR is not valid for patients less than 18 years of age. Additional information may be found at www.kdoqi.org. 40 Values below the stated reference ranges of AST and ALT can be seen in normal populations. Clinical correlation is suggested. 41 Z34.81 42 10,000 - 50,000 CFU/mL 43 POSSIBLE UROGENITAL CONTAMINATION. 44 URINE, CLEAN CATCH 45 13 WKS PREG,LEVEL DROPPING DURING 46 Approximate Gestational Age and Total BHCG Range: 0.2 - 1 Week........................5-50 mIU/mL 1 - 2 Weeks.....................50-500 mIU/mL 2 - 3 Weeks..................100-5,000 mIU/mL 3 - 4 Weeks.................500-10,000 mIU/mL 4 - 5 Weeks...............1,000-50,000 mIU/mL 5 - 6 Weeks.............10,000-100,000 mIU/mL 6 - 8 Weeks.............15,000-200,000 mIU/mL 2 - 3 Months............10,000-100,000 mIU/mL 47 12 WKS PREG,ABDOMINAL CRAMPING 48 A negative result for either C. trachomatis [...] inhibitors, and sufficient DNA to be detected. 49 Approximate Gestational Age and Total BHCG Range: 0.2 - 1 Week........................5-50 mIU/mL 1 - 2 Weeks.....................50-500 mIU/mL 2 - 3 Weeks..................100-5,000 mIU/mL 3 - 4 Weeks.................500-10,000 mIU/mL 4 - 5 Weeks...............1,000-50,000 mIU/mL 5 - 6 Weeks.............10,000-100,000 mIU/mL 6 - 8 Weeks.............15,000-200,000 mIU/mL 2 - 3 Months............10,000-100,000 mIU/mL 50 POSSIBLE UROGENITAL CONTAMINATION. 51 URINE, CLEAN CATCH 52 > 100,000 CFU/mL SPECIMEN IS A MIX OF GRAM POSITIVE ORGANISMS CONSISTENT WITH SKIN VAGINAL CONTAMINATION. SUGGEST REPEAT SPECIMEN IF CLINICALLY INDICATED. 53 CRAMPING, 10 WKS PREGN, SENT BY DR Chamorro A negative result for either C. trachomatis [...] inhibitors, and sufficient DNA to be detected. 55 Note: Persistent reduction for 3 months or more in an eGFR <60 mL/min/1.73 m2 defines CKD. Patients with eGFR values >/=60 mL/min/1.73 m2 may also have CKD if evidence of persistent proteinuria is present. The original MDRD equation for estimated GFR is not valid for patients less than 18 years of age. Additional information may be found at www.kdoqi.org. 56 Values below the stated reference ranges of AST and ALT can be seen in normal populations. Clinical correlation is suggested. 57 MVA, 9 WKS , ABD PAIN 58 POSSIBLE UROGENITAL CONTAMINATION. 59 URINE, CLEAN CATCH 60 50,000 - 100,000 CFU/mL 61 <5.0 Negative 5.0 - 25.0 Indeterminate (Repeat testing recommended after 72 hours) >25.0 Positive Perimenopausal women can display HCG levels of up to 20 mIU/mL 62 SEE RESULT BELOW Name: DAVID HUNG : [address]: Austin Shaffer MD Acct: [id number] Unit: [id number] AGE: 30 Location: ED Re07/11/16 SEX: F Status: DEP ER SPEC: [id number] JOSE: 07/11/[address] [facility] [address]: Austin Shaffer MD REQ: [id number] RECD: 07/11/16 STATUS: DELL PARSONS DR: Lisa BORJAS _ SOURCE: URINE SPDESC: ORDERED: Urine Culture Procedure Result Reported Site Urine Culture Final 07/12/16- 1230 ML No growth of clinically significant organisms * ML - MAIN LAB ([facility]) . END OF REPORT * ML=Testing performed at Main Lab DEPARTMENT OF PATHOLOGY, [address] [place] [address] Lew Cohen M.D. Director [facility] # [id number] 63 Because ethnic data is not always readily [...] 15-29 5 Kidney failure <15 (or dialysis) 64 026.851 65 50,000 - 100,000 CFU/mL 66 SPOTTING, 7 WKS 67 Note: Persistent reduction for 3 months or more in an eGFR <60 mL/min/1.73 m2 defines CKD. Patients with eGFR values >/=60 mL/min/1.73 m2 may also have CKD if evidence of persistent proteinuria is present. The original MDRD equation for estimated GFR is not valid for patients less than 18 years of age. Additional information may be found at www.kdoqi.org. 68 Instrument flagged sample for slide review. Less than 10% Bands seen, no other immature WBC's seen. RBC morphology essentially normal. Platelet estimate= Normal 69 Z34.81 70 URINE SPECIMENS ARE SCREENED AT THE LISTED CUTOFFS DRUG CLASS INITIAL TEST LEVEL Amphetamines 1000 ng/mL Barbiturates 200 ng/mL Benzodiazepines 200 ng/mL Cannabinoids 50 ng/mL Cocaine Metabolite 300 ng/mL Methadone 300 ng/mL Opiates 300 ng/mL Any PRESUMPTIVE POSITIVE findings are UNCONFIRMED. Confirmatory testing is suggested if findings are unexpected. Please contact laboratory if confirmatory testing is desired. SPECIMENS ARE HELD FOR 72 HOURS. 71 10,000 - 50,000 CFU/mL 72 HBsAg not detected; does not exclude the possibility of exposure to or early acute infections with HBV. 73 Antibodies to HCV not detected; does not exclude early acute HCV infection. 74 Environmental Exposure: WHO Recommendation <20 Occupational Exposure: OSHA Lead Std 40 CHELE 30 Detection Limit=1 Performed at: RN - [facility] [address] [id number] Insole And Outsole Splitter: Rocio Paulson MD, Phone: [phone] 75 NOTE: A NON-REACTIVE RESULT INDICATES THAT HIV-1 AND HIV-2 ANTIBODIES HAVE NOT BEEN FOUND IN THIS PATIENT SPECIMEN. A NON-REACTIVE RESULT, HOWEVER, DOES NOT PRECLUDE PREVIOUS EXPOSURE OF INFECTION WITH HIV. * CT STATE LAW PROHIBITS THE REDISCLOSURE OF THIS RESULT * * TO ANY UNAUTHORIZED DEMOCRAT. * 76 Values >=10.0 IU/mL are positive for IgG antibodies to rubella virus and are considered IMMUNE. 77 A negative result for either C. trachomatis [...] inhibitors, and sufficient DNA to be detected. 78 Please Note: A nonreactive test result does not exclude the possibility of exposure to, or infection with syphilis. T. pallidum antibodies may be undetectable in some stages of the infection and in some clinical conditions. 79 GRAM STAIN INDICATES NORMAL GENITAL JOAQUÍN 80 FEW GR POS. BACILLI SUGGESTIVE OF LACTOBACILLUS SP. 81 FEW WHITE BLOOD CELLS 82 RARE GRAM POSITIVE COCCI 83 Instrument flagged sample for slide review. Less than 10% Bands seen, no other immature WBC's seen. RBC morphology essentially normal. Platelet estimate=NORMAL 84 Because ethnic data is not always readily [...] 15-29 5 Kidney failure <15 (or dialysis) 85 Acute inflammation: >10.00 86 <5.0 Negative 5.0 - 25.0 Indeterminate (Repeat testing recommended after 72 hours) >25.0 Positive Perimenopausal women can display HCG levels of up to 20 mIU/mL 87 [id number] 88 SEE RESULT BELOW Name: DAVID HUNG : [address]: Martita Braga Acct: [id number] Unit: [id number] AGE: 30 Location: [facility] Re06/25/16 SEX: F Status: DEP ER SPEC: [id number] JOSE: 06/25/[address] [facility] [address]: Allyson Mendes DO REQ: [id number] RECD: 06/25/16 STATUS: DELL PARSONS DR: Lisa Craig PA _ SOURCE: VAGINAL SPDESC: ORDERED: JorjeYeast DNA COMMENTS: [id number] Procedure Result Reported Site Gardnerella/Yeast: Vaginal DNA [...] or failure. * ML - MAIN LAB ([facility]) . END OF REPORT * ML=Testing performed at Main Lab DEPARTMENT OF PATHOLOGY, [address] [place] [address] Lew Cohen M.D. Director [facility] # [id number] 89 [id number] GC/Chlamydia Source?: Endocervical Trichomonas Source: Endocervical 90 Comment: has taken reyesbity [id number] 91 SEE RESULT BELOW Name: DAVID HUNG : [address]: Martita Braga Acct: [id number] Unit: [id number] AGE: 30 Location: [facility] Re06/25/16 SEX: F Status: DEP ER SPEC: [id number] JOSE: 06/25/16-[address]: Allyson Mendes DO REQ: [id number] RECD: 06/25/16-1235 STATUS: DELL PARSONS DR: Emmett Ventura MD _ SOURCE: URINE SPDESC: ORDERED: Urine Culture COMMENTS: Comment: has taken macrobid [id number] Procedure Result Reported Site Urine Culture Final 06/26/16- 1214 ML No growth of clinically significant organisms * ML - MAIN LAB ([facility]) . END OF REPORT * ML=Testing performed at Main Lab DEPARTMENT OF PATHOLOGY, [address] [place] [address] Lew Cohen M.D. Director [facility] # [id number] 92 TEST 93 50,000 - 100,000 CFU/mL SPECIMEN IS A MIX OF GRAM POSITIVE ORGANISMS CONSISTENT WITH SKIN VAGINAL CONTAMINATION. SUGGEST REPEAT SPECIMEN IF CLINICALLY INDICATED. 94 POSSIBLE UROGENITAL CONTAMINATION. 95 URINE, CLEAN CATCH 96 URINE, CLEAN CATCH 97 JUST FOUND OUT , HAVING ABD PAIN, BLEEDING 98 Approximate Gestational Age and Total BHCG Range: 0.2 - 1 Week........................5-50 mIU/mL 1 - 2 Weeks.....................50-500 mIU/mL 2 - 3 Weeks..................100-5,000 mIU/mL 3 - 4 Weeks.................500-10,000 mIU/mL 4 - 5 Weeks...............1,000-50,000 mIU/mL 5 - 6 Weeks.............10,000-100,000 mIU/mL 6 - 8 Weeks.............15,000-200,000 mIU/mL 2 - 3 Months............10,000-100,000 mIU/mL 99 E78.5 E55.9 F41.9 R74.9 100 Vitamin D deficiency has been defined by the [place] [employer] and an Endocrine Society practice guideline as a level of serum 25-OH vitamin D less than 20 ng/mL (1,2). The Endocrine Society went on to further define vitamin D insufficiency as a level between 21 and 29 ng/mL (2). 1. IOM ([place] [employer]). 2010. Dietary reference intakes for calcium and D. [place]: The National Academies Press. 2. Marry MF, Malinda MONACO, Yeimy DEL ANGEL, et al. Evaluation, treatment, and prevention of vitamin D deficiency: an Endocrine Society clinical practice guideline. JCEM. 2010; 96(7):1911-30. Performed at: RN - [facility] [address] [id number] Insole And Outsole Splitter: Rocio Paulson MD, Phone: [phone] 101 Note: Persistent reduction for 3 months or more in an eGFR <60 mL/min/1.73 m2 defines CKD. Patients with eGFR values >/=60 mL/min/1.73 m2 may also have CKD if evidence of persistent proteinuria is present. The original MDRD equation for estimated GFR is not valid for patients less than 18 years of age. Additional information may be found at www.kdoqi.org. 102 Values below the stated reference ranges of AST and ALT can be seen in normal populations. Clinical correlation is suggested. 103 Instrument flagged sample for slide review. Less than 10% Bands seen, no other immature WBC's seen. RBC morphology essentially normal. Platelet estimate= Normal 104 CP, HEART RACING 105 POSSIBLE CYST BEHIND RT EAR 106 FEW GRAM POS BACILLI SUGGESTIVE OF DIPTHEROIDS 107 RARE GRAM POSITIVE COCCI 108 RARE WHITE BLOOD CELLS 109 NO PATHOGENS ISOLATED Procedures Date CPT Code Description Status 11/16/2017 68529 EKG-Tracing And Report Completed 02/11/2017 93188 Vaginal Delivery Global Care Completed 06/22/2016 35168 Echocardiogram Complete Completed 06/22/2016 16024 Event Monitor Inter/Review Only Completed 06/16/2016 37106 EKG-Tracing And Report Completed 08/20/2014 19026 Vaginal Delivery W/Post- Care Completed 06/24/2013 61986 Holter Monitor 24HR Inter/Report Completed 07/20/2011 80254 Echocardiogram Complete Completed 07/20/2011 36803 Event Monitor Inter/Review Only Completed 12/08/2010 77368 Remove Impacted Cerumen Completed 08/16/2010 63269 Holter Monitor 24HR Inter/Report Completed 08/13/2010 90855 EKG-Tracing And Report Completed 08/13/2010 45402 Pulse Oximetry Completed 08/09/2010 14274 Pulse Oximetry Completed 08/09/2010 03641 Pressurized/Non-Pressurized Inhalation Treatment,Acute Completed Obstructio 11/17/2008 56143 Post- Care Only Completed 10/03/2008 14113 Antepartum 7 Or More Total Office Visit Completed 10/03/2008 84930 Vaginal Delivery Global Care Completed 09/30/2008 13524 Antepartum 7 Or More Total Office Visit Completed 09/25/2008 00222 Antepartum 7 Or More Total Office Visit Completed 09/22/2008 88451 Antepartum 7 Or More Total Office Visit Completed 09/17/2008 84775 Antepartum 7 Or More Total Office Visit Completed 09/09/2008 41298 Antepartum 7 Or More Total Office Visit Completed 09/03/2008 33045 Antepartum 7 Or More Total Office Visit Completed 08/20/2008 57572 Antepartum 7 Or More Total Office Visit Completed Encounters Type Date Location Provider CPT E/M Dx Office Visit 11/16/2017 1:00p Cardiology Office SUAD Lance 69059 R00.2 F17.200 I49.3 Office Visit 04/28/2017 11:00a Primary Care Office Dolly Londono M.D. 40806 H66.91 Office Visit 03/08/2017 11:00a Primary Care Office Lisa Craig, 80020 F32.9 VALORIE F41.9 R00.2 E55.9 F17.200 Z71.6 Z70.9 Office Visit 01/02/2017 10:00a Primary Care Office Rajwinder Hutchinson [facility] 49270 J06.9 O99.333 F17.210 Z71.6 Office Visit 07/21/2016 8:30a Family Medicine & ZAKIA Garza 75398 H66.001 Women's Health Z33.1 Office Visit 07/19/2016 1:00p Family Medicine & Rosi Junior CNM 90430 S39.011A Women's Health Z33.1 Office Visit 07/13/2016 1:30p Family Medicine & Kirsten Perkins CNM 27714 F41.9 Women's Health Office Visit 07/04/2016 11:00a [place] [address] O26.851 Women's Health Z33.1 Office Visit 06/27/2016 10:30a Family Medicine & Rosi Junior, [facility] 50031 N91.1 Women's Health Z71.6 E55.9 Office Visit 06/16/2016 8:00a Cardiology Office Jami Prietodanitza Thompson, 92967 I49.3 MSN, [facility] I49.1 R00.2 Office Visit 06/15/2016 10:00a Primary Care Office Lisa Sanchezard, 45552 F41.9 PA-C F32.9 E55.9 F17.200 Z71.6 D72.829 R74.8 R00.2 E78.5 N92.6 Office Visit 01/05/2016 2:30p Primary Care Office Lisa Yuliana Rafa, 67645 J01.90 PA-C E66.9 F17.200 E55.9 Z71.6 Office Visit 12/30/2015 2:30p Primary Care Office Lisa Bridges Rafa, 88655 E66.9 PA-C F17.200 Z71.6 E55.9 E78.5 F41.9 F32.9 Office Visit 07/23/2015 3:00p MILLIE Ventura M.D. 70240 H66.90 F32.9 F41.9 E78.5 Z00.01 Office Visit 07/06/2015 10:30a Lisa Craig PA-C 24185 E78.5 E55.9 F41.9 R00.2 F17.200 Z71.6 E66.9 E04.9 Office Visit 12/24/2014 1:45p Orthopaedic Office Yesenia Lozoya, 79086 719.47 [facility] 845.02 V22.2 Office Visit 10/01/2014 9:10a Cardiology Office Jami Prietodanitza Thompson, 21463 785.1 MSN, [facility] Office Visit 07/23/2014 2:00p Cardiology Office Song Robles, 26168 785.1 Marco Antonio, [facility] Plan of Care Future Appointment(s):12/14/2017 9:00 am - Sherine Freitas CNM at [facility]111/16/2017 - Fay Nicholas, PAR00.2 PalpitationsNew Medication:Metoprolol Tartrate [...]
--- OUTSIDE RECORDS SUMMARY | 2017-11-30 20:01 | XMS REPORT ---
:1985 External Reference #:[id number] Author Organization [facility] Address [address], [address] [place] [address] Phone [phone] Care Team Providers Name Role Phone Lindsey Rizzo MD Care Team Information Curtain Feller Blindstitch Unavailable Lindsey Rizzo MD Primary Care Physician Unavailable Payers Type Date Identification Numbers Payment Provider Subscriber Commercial Policy Number: [id number] [facility] David Hung PayID: [id number] [address] [place] [address] Medicaid Policy Number: [id number] Medicaid David Hung Group Name: 1 1 [address] PayID: [id number] [place] [address] Commercial Expires: 2014 Policy Number: [place] [facility] David Hung [id number] PayID: [id number] [address] [place] [address] Problems Date Description Provider Status Onset: 05/27/2015 [...] 16oz of soda per day Age 1st [place] 12 Years Old # Partners in a [...] s mouth twice Margaret, a day M.Venkata, [facility] Flintstones / Active Chewtabs 60mg 2 by [...] twice a day Margaret, 11/16/ Marco Antonio, [facility] 2018 Bystolic 04/26/ Hx Tablets 2.5mg 30tab [...] October 2016 - s capsule by Junior, [facility] 08/15/ mouth twice 2016 daily for 7 days. 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 1 06/27/ Hx Capsules 30-0.975-2 30cap take one October 2015 - 00mg s capsule by Junior, [facility] 07/19/ mouth every 2016 day. Vitamin D-3 06/27/ Hx Capsules 1000Unit 30cap take one October 2015 - s capsule by Junior, [facility] 11/16/ mouth daily 2017 Vitamin D-1000 12/05/ [...] 0.65% 135ml 2 sprays J01.90 Mikal Swanson [place] 2016 every 2 Aaron DO hours as [...] every Simonetta 12/24/ day Diana Thompson MSN, [employer] Paroxetine HCL / Hx Tablets 20mg 90tab 1 by mouth Mikal Swanson 0000 - s every day [facility] 2015 Acetaminophen / Hx Tablets 500mg [...] Margaret, 06/15/ twice a day Marco Antonio [facility] 2015 Zithromax / Hx Tablets 250mg take 2 tabs Unknown 0000 - by mouth on 06/15/ day 1 then 2015 1 tab by mouth qddays 2-5 Atenolol / Hx Tablets 75mg 1 by mouth Unknown 0000 - bid 2015 Paxil / Hx Tablets 20mg 1 by mouth Unknown 0000 - every day 2015 Immunizations CPT Code Status Date Vaccine Lot # [id number] Given 12/20/2016 Tdap injection [id number] Given 04/16/2015 Influenza Vaccine (Fluzone) Age 3 And Older [id number] U-Pneum Given 04/12/2013 Pneumococcal,Unspecified [id number] Given 07/17/2011 Tdap injection [id number] Given 07/14/2009 H1N1 Immuniation Adminstration [id number] Given 07/14/2009 H1N1 Immuniation Adminstration Vital Signs Date Vital Result Comment 11/16/2017 BP Systolic Sitting Left Arm 120 mmHg BP Diastolic Sitting Left Arm 64 mmHg Heart Rate 80 /min Respiratory Rate 18 /min Height 64 inches 5'4" Weight 134.00 lb BMI (Body Mass Index) 23.0 kg/m2 BSA (Body Surface Area) 1.65 m2 [place] body weight in kilograms 54 11/16/2017 BP Systolic 135 mmHg BP Diastolic 74 mmHg Height 64 inches 5'4" Weight 134.00 lb BMI (Body Mass Index) 23.0 kg/m2 BSA (Body Surface Area) 1.65 m2 [place] body weight in kilograms 54 04/28/2017 BP [...] kg/m2 BSA (Body Surface Area) 1.63 m2 [place] body weight in kilograms 54 03/08/2017 BP Systolic 119 mmHg BP Diastolic 76 mmHg Heart Rate 73 /min Respiratory Rate 16 /min Height 64 inches 5'4" [place] body weight in kilograms 54 O2 % BldC Oximetry 99 % 02/06/2017 BP Systolic 118 mmHg BP Diastolic 86 mmHg Height 64 inches 5'4" Weight 149.38 lb BMI (Body Mass Index) 25.6 kg/m2 BSA (Body Surface Area) 1.73 m2 [place] body weight in kilograms 54 01/30/2017 BP Systolic 112 mmHg BP Diastolic 70 mmHg Height 64 inches 5'4" Weight 145.00 lb BMI (Body Mass Index) 24.9 kg/m2 BSA (Body Surface Area) 1.71 m2 [place] body weight in kilograms 54 01/23/2017 BP Systolic 106 mmHg BP Diastolic 60 mmHg Height 64 inches 5'4" Weight 147.38 lb BMI (Body Mass Index) 25.3 kg/m2 BSA (Body Surface Area) 1.72 m2 [place] body weight in kilograms 54 01/16/2017 BP Systolic 110 mmHg BP Diastolic 62 mmHg Height 64 inches 5'4" Weight 147.00 lb BMI (Body Mass Index) 25.2 kg/m2 BSA (Body Surface Area) 1.72 m2 [place] body weight in kilograms 54 01/02/2017 BP Systolic Sitting Right Arm 102 mmHg BP Diastolic Sitting Right Arm 58 mmHg Body Temperature 98.7 F Heart Rate 84 /min Height 64 inches 5'4" Weight 148.38 lb BMI (Body Mass Index) 25.5 kg/m2 BSA (Body Surface Area) 1.72 m2 [place] body weight in kilograms 54 O2 % BldC Oximetry 96 % 01/02/2017 BP Systolic 106 mmHg BP Diastolic 66 mmHg Height 64 inches 5'4" Weight 148.25 lb BMI (Body Mass Index) 25.4 kg/m2 BSA (Body Surface Area) 1.72 m2 [place] body weight in kilograms 54 12/19/2016 BP Systolic 118 mmHg BP Diastolic 66 mmHg Height 64 inches 5'4" Weight 148.50 lb BMI (Body Mass Index) 25.5 kg/m2 BSA (Body Surface Area) 1.72 m2 [place] body weight in kilograms 54 12/05/2016 BP Systolic 104 mmHg BP Diastolic 70 mmHg Height 64 inches 5'4" Weight 147.50 lb BMI (Body Mass Index) 25.3 kg/m2 BSA (Body Surface Area) 1.72 m2 [place] body weight in kilograms 54 11/17/2016 BP [...] kg/m2 BSA (Body Surface Area) 1.63 m2 [place] body weight in kilograms 45 08/15/2016 BP [...] Test Date Test Result H/L Range Note Laboratory test 11/16/2017 Hepatitis B Surface <pending> finding Antigen Hepatitis C Antibody <pending> Lead,Blood (Adult) <pending> Laboratory test finding 11/16/2017 Rubella Igg Antibody <pending> Laboratory test finding 11/16/2017 Treponema Antibody <pending> Felt Urine Dipstick 11/16/2017 Ua Color Yellow Yellow Ua Clarity Clear Clear Ua Leuko Negative Negative Ua Nitrite Negative Negative Ua Urobilinogen 0.2 0.2 - 1.0 E.U./dL Ua Protein 1+ High Negative Ua PH 6.0 Low 6.5-7.5 Ua Blood 1+ High Negative Ua Specific Aubrey 1.005 Low 1.010-1.030 Ua Ketones Negative Negative Ua Bilirubin Negative Negative Ua Glucose Negative Negative Laboratory test finding 06/18/2017 TSH Reflex FT4 and/or 0.68 uIU/mL 0.30 -4.20 1 FT3 Comprehensive Metabolic 06/18/2017 Glucose 88 mg/dL 74-106 1 Panel BUN 12 mg/dL 7-18 1 Creatinine 0.7 mg/dL 0.6-1.3 1 Glom Filtration Rate, Estimate >60 mL/min >60 1 If >60 mL/min >60 1, 2 BUN/Creat 17.1 ratio 1 Sodium 142 mmol/L 136-145 1 Potassium 3.9 mmol/L 3.5-5.1 1 Chloride 106 mmol/L 98-107 1 Carbon Dioxide 28 mmol/L 21-32 1 Anion Gap 8 mEq/L 8-16 1 Calcium 9.1 mg/dL 8.5-10.1 1 Total Protein 7.5 g/dL 6.4-8.2 1 Albumin 3.8 g/dL 3.4-5.0 1 Globulin 3.7 g/dL 1.9-4.3 1 Alb/Glob 1.0 ratio 1 Bilirubin,Total 0.3 mg/dL 0.2-1.0 1 Sgot/Ast 14 U/L Low 15-37 1, 3 SGPT/Alt 23 U/L 12-78 1 Alkaline Phosphatase 98 U/L 45-117 1 CBS W/Automated Diff 06/18/2017 White Blood Count 7.8 K/uL 3.1-10.7 1 Red Blood Count 5.36 M/uL 3.90-5.40 1 Hemoglobin 15.2 gm/dL 11.6-15.8 1 Hematocrit 44.5 % 36.0-46.1 1 Mean Cell Volume 83.0 fl 80.9-99.0 1 Mean Corpuscular HGB 28.4 pg 25.9-32.7 1 Mean Corpuscular HGB Conc 34.2 g/dL 30.8-34.3 1 Platelet Count 358 K/uL 150-400 1 Red Cell Distri Width SD 40.6 fl 3-47 1 Red Cell Distri Width %CV 13.4 % 11.7-14.4 1 Mean Platelet Volume 9.5 fL 8.9-12.4 1 Neut% 61.7 % 40.4-72.8 1 Lymph % 29.9 % 20.0-42.0 1 Humphreys % 6.3 % 4.3-13.2 1 Eo% 1.7 % 0.0-6.6 1 Bas% 0.4 % 0.0-1.1 1 Neut# 4.82 K/uL 1.8-7.0 1 Lymph # 2.33 K/uL 1.0-4.0 1 Humphreys # 0.49 K/uL 0.3-0.9 1 Eos # 0.13 K/uL 0.0-0.5 1 Baso # 0.03 K/uL 0.0-0.1 1 CBC 02/11/2017 White Blood Count 19.4 K/uL High 3.1-10.7 4 Red Blood Count 5.02 M/uL 3.90-5.40 4 Hemoglobin 14.9 gm/dL 11.6-15.8 4 Hematocrit 44.0 % 36.0-46.1 4 Mean Cell Volume 87.6 fl 80.9-99.0 4 Mean Corpuscular HGB 29.7 pg 25.9-32.7 4 Mean Corpuscular HGB Conc 33.9 g/dL 30.8-34.3 4 Platelet Count 316 K/uL 150-400 4 Red Cell Distri Width %CV 14.6 % High 11.7-14.4 4 Mean Platelet Volume 10.2 fL 8.9-12.4 4 Type And Screen 02/11/2017 Patient Blood Type O POS 4 Antibody Screen Negative Negative 4 Laboratory test 02/11/2017 Treponema Antibody Negative Negative 4, 5 finding Felt Laboratory test 01/16/2017 Vaginal Strep NO GROUP B STREP 6, 7 finding Screen <SEE NOTE> Urine Culture 01/02/2017 Urine Culture URETHRAL JOAQUÍN 8 Quantity 10,000 - 50,000 <SEE NOTE> 8, 9 Laboratory test finding 12/21/2016 Rapid Strep Negative Negative 10 Molecular Urine Culture 12/19/2016 Urine Culture URETHRAL JOAQUÍN 11 Quantity > 100,000 CFU/mL 11, 12 Laboratory test 11/17/2016 HIV Screen 4TH Non Reactive Non Reactive 13, 14 finding Gen Reflex Differential-WBC 11/17/2016 Total Cells 100 #CELLS 13 Confirm Counted Metamyelocyte% 1 % High -0 13 Band% 6 % 0-8 13 Neutrophils% 76 % High 33-73 13 Lymph% 11 % Low 20-42 13 Atypical Lymph% 1 % 0-7 13 Monocyte% 4 % 0-10 13 Eosinophil% 1 % 0-5 13 Platelet Estimate NORMAL 13 Toxic Granulation 1+ 13 Differential Comment LARGE PLATELETS <SEE NOTE> 13, 15 Slide Review 11/17/2016 Slide Review DIFF ORDERED 13 Glucose,1 HR Post 11/17/2016 1 HR Glucose,Post 135 mg/dL -138 13, 16 Glucola Glucola 1 Hour Urine Glucose NO SPECIMEN RECE <SEE NOTE> % Negative 13, 17 1 Hour Urine Ketone NO SPECIMEN RECE <SEE NOTE> Negative 13, 18 CBS W/Automated Diff 11/17/2016 White Blood Count 12.7 K/uL High 3.1-10.7 13 Red Blood Count 4.09 M/uL 3.90-5.40 13 Hemoglobin 12.2 gm/dL 11.6-15.8 13 Hematocrit 35.4 % Low 36.0-46.1 13 Mean Cell Volume 86.6 fl 80.9-99.0 13 Mean Corpuscular HGB 29.8 pg 25.9-32.7 13 Mean Corpuscular HGB Conc 34.5 g/dL High 30.8-34.3 13 Platelet Count 306 K/uL 150-400 13 Red Cell Distri Width SD 40.9 fl 3-47 13 Red Cell Distri Width %CV 13.2 % 11.7-14.4 13 Mean Platelet Volume 10.7 fL 8.9-12.4 13, 19 Neut# 9.91 K/uL High 1.8-7.0 13 Lymph # 1.83 K/uL 1.0-4.0 13 Humphreys # 0.82 K/uL 0.3-0.9 13 Eos # 0.09 K/uL 0.0-0.5 13 Baso # 0.02 K/uL 0.0-0.1 13 Laboratory test 11/17/2016 Treponema Antibody Negative Negative 13, 20 finding Felt Urine Culture 10/12/2016 Urine Culture URETHRAL JOAQUÍN 13 Quantity > 100,000 CFU/mL 13, 21 Urine Culture 09/06/2016 Urine Culture URETHRAL JOAQUÍN 22 Quantity 50,000 - 100,000 <SEE NOTE> 22, 23 Drugs Of Abuse-Urine Screen 7 08/21/2016 Amphetamines (Urine) Negative 24 Barbiturates (Urine) Negative 24 Benzodiazepines (Urine) Negative 24 Cannabinoids (Urine) Negative 24 Cocaine Metabolite (Urine) Negative 24 Methadone (Urine) Negative 24 Opiates (Urine) Negative 24 Urine Cutoffs * 24, 25 Urine Culture 08/21/2016 Urine Culture MIXED URETHRAL F <SEE NOTE> 24, 26 Quantity > 100,000 CFU/mL 24, 27 Laboratory test finding 08/21/2016 Ethyl Alcohol < 3.0 mg/dL 24 Comprehensive Metabolic Panel 08/21/2016 Glucose 136 mg/dL High 74-106 24 BUN 9 mg/dL 7-18 24 Creatinine 0.7 mg/dL 0.6-1.3 24 Glom Filtration Rate, Estimate >60 mL/min >60 24 If >60 mL/min >60 24, 28 BUN/Creat 12.8 ratio 24 Sodium 138 mmol/L 136-145 24 Potassium 3.7 mmol/L 3.5-5.1 24 Chloride 104 mmol/L 98-107 24 Carbon Dioxide 23 mmol/L 21-32 24 Anion Gap 11 mEq/L 8-16 24 Calcium 9.5 mg/dL 8.5-10.1 24 Total Protein 7.6 g/dL 6.4-8.2 24 Albumin 3.2 g/dL Low 3.4-5.0 24 Globulin 4.4 g/dL High 1.9-4.3 24 Alb/Glob 0.7 ratio 24 Bilirubin,Total 0.3 mg/dL 0.2-1.0 24 Sgot/Ast 13 U/L Low 15-37 24, 29 SGPT/Alt 23 U/L 12-78 24 Alkaline Phosphatase 95 U/L 45-117 24 Urine Glucose (Ua) 08/05/2016 Urine Glucose (Ua) Negative Negative Laboratory test finding 08/05/2016 Urine Amorphous Sediment Small Negative Urine Bilirubin Negative Negative Urine Ketones Negative Negative Urine Leukocyte Esterase Large High Negative Urine Nitrite Negative Negative Urine Protein Negative Negative Urine Urobilinogen 0.2 0.2-1.0 Ua Routine 08/05/2016 Urine Color YELLOW Yellow 30 Urine Clarity CLEAR Clear 30 Urine Glucose - Dipstick NEGATIVE mg/dL Negative 30 Urine Bilirubin - Dipstick NEGATIVE Negative 30 Urine Ketone NEGATIVE mg/dL Negative 30 Urine Specific Aubrey 1.015 1.010-1.030 30 Urine Blood SMALL Negative 30 Urine PH 6.5 6.5-7.5 30 Urine Protein - Dipstick NEGATIVE mg/dL Negative 30 Urine Urobilinogen - Dipstick 0.2 E.U./dL 0.2-1.0 30 Urine Nitrite - Dipstick NEGATIVE Negative 30 Urine Leuk Esterase LARGE Negative 30 Urine RBC 0-2 rbc/hpf 0-2 30 Urine WBC 10-20 wbc/hpf High 0-7 30 Urine Epithelial Cells MODERATE /lpf None Seen 30, 31 Urine Calcium Oxalate Crystals MANY None Seen 30 Urine Bacteria MODERATE None Seen 30 Urine Amorph Sediment SMALL Negative 30 Source: URINE, CLEAN CAT <SEE 30, 32 NOTE> Urine Culture 08/05/2016 Urine Culture URETHRAL JOAQUÍN 30 Quantity 10,000 - 50,000 <SEE NOTE> 30, 33 Laboratory test 08/04/2016 HCG, Quant 78325.0 mIU/mL 34, 35 finding Laboratory test 08/01/2016 HCG, Quant 45717.0 mIU/mL 36, 37 finding Trichomonas Dna 08/01/2016 Trichomonas Dna Negative [Negativ Probe Probe e] Gardnerella Dna 08/01/2016 Gardnerella Dna Positive High [Negativ Probe Probe e] Urine Culture 08/01/2016 Urine Culture URETHRAL JOAQUÍN 36 Quantity > 100,000 CFU/mL 36, 38 Affirm Vaginitis Panel 08/01/2016 Trichomonas vaginalis Negative [ Negative] 36 Gardnerella vaginalis POSITIVE High [Negative] 36 Therese species Negative [Negative] 36 Ua Routine 08/01/2016 Urine Color YELLOW Yellow 36 Urine Clarity CLOUDY Clear 36 Urine Glucose - Dipstick NEGATIVE mg/dL Negative 36 Urine Bilirubin - Dipstick NEGATIVE Negative 36 Urine Ketone NEGATIVE mg/dL Negative 36 Urine Specific Aubrey 1.010 1.010-1.030 36 Urine Blood TRACE Negative 36 Urine PH 8.0 High 6.5-7.5 36 Urine Protein - Dipstick NEGATIVE mg/dL Negative 36 Urine Urobilinogen - Dipstick 0.2 E.U./dL 0.2-1.0 36 Urine Nitrite - Dipstick NEGATIVE Negative 36 Urine Leuk Esterase LARGE Negative 36 Urine RBC 2-5 rbc/hpf 0-2 36 Urine WBC 5-10 wbc/hpf 0-7 36 Urine Epithelial Cells MANY /lpf None Seen 36, 39 Urine Bacteria MANY None Seen 36 Source: URINE, CLEAN CAT <SEE 36, 40 NOTE> Therese species Dna Probe 08/01/2016 Therese species Dna Negative [ Negative] Probe Urine Glucose (Ua) 08/01/2016 Urine Glucose (Ua) Negative Negative Laboratory test finding 08/01/2016 Urine Bilirubin Negative Negative Urine Ketones Negative Negative Urine Leukocyte Esterase Large High Negative Urine Nitrite Negative Negative Urine Protein Negative Negative Urine Urobilinogen 0.2 0.2-1.0 Chlamydia/GC Rimma 08/01/2016 Chlamydia Trachomatis, Rimma Negative Negative 36 Neisseria Gonorrhoeae, Rimma Negative Negative 36 Please note: (SEE NOTE) 36, 41 Type And Screen 07/22/2016 Patient Blood Type O POS 42 Antibody Screen Negative Negative 42 Laboratory test finding 07/22/2016 Alanine Aminotransferase (Alt/SGPT) [...] 0.2-1.0 White Blood Count 14.2 High 3.1-10.7 Aspartate Amino Transf 07/22/2016 Aspartate Amino 11 Low 15-37 (Ast/Sgot) Transf (Ast/Sgot) Atypical Lymphocytes % 07/22/2016 Atypical Lymphocytes 4 0-7 % Differential Total 07/22/2016 Differential Total 100 Cells Counted Cells Counted Lymphocytes # (Auto) 07/22/2016 Lymphocytes # (Auto) 2.42 1.8-7.0 Lymphocytes % 07/22/2016 Lymphocytes % 22 17-56 Manual Slide Review 07/22/2016 Manual Slide Review Diff Ordered (Hematology) (Hematology) Monocytes % 07/22/2016 Monocytes % 4 0-10 Neutrophils # (Auto) 07/22/2016 Neutrophils # (Auto) 10.71 High 1.8-7.0 Platelet Estimate 07/22/2016 Platelet Estimate Normal Comprehensive Metabolic 07/22/2016 Glucose 88 mg/dL 74-106 42 Panel BUN 9 mg/dL 7-18 42 Creatinine 0.5 mg/dL Low 0.6-1.3 42 Glom Filtration Rate, Estimate >60 mL/min >60 42 If >60 mL/min >60 42, 43 BUN/Creat 18.0 ratio 42 Sodium 138 mmol/L 136-145 42 Potassium 3.6 mmol/L 3.5-5.1 42 Chloride 104 mmol/L 98-107 42 Carbon Dioxide 23 mmol/L 21-32 42 Anion Gap 11 mEq/L 8-16 42 Calcium 9.3 mg/dL 8.5-10.1 42 Total Protein 8.1 g/dL 6.4-8.2 42 Albumin 3.7 g/dL 3.4-5.0 42 Globulin 4.4 g/dL High 1.9-4.3 42 Alb/Glob 0.8 ratio 42 Bilirubin,Total 0.3 mg/dL 0.2-1.0 42 Sgot/Ast 11 U/L Low 15-37 42, 44 SGPT/Alt 16 U/L 12-78 42 Alkaline Phosphatase 114 U/L 45-117 42 Chlamydia/GC Rimma 07/22/2016 Chlamydia Trachomatis, Rimma Negative Negative 42 Neisseria Gonorrhoeae, Rimma Negative Negative 42 Please note: (SEE NOTE) 42, 45 Urine Glucose (Ua) 07/17/2016 Urine Glucose (Ua) Negative Negative Laboratory test finding 07/17/2016 Urine Bilirubin Negative Negative Urine Ketones Trace High Negative Urine Leukocyte Esterase Large High Negative Urine Nitrite Negative Negative Urine Protein Negative Negative Urine Urobilinogen 0.2 0.2-1.0 Urine Culture 07/17/2016 Urine Culture URETHRAL JOAQUÍN 46 Quantity 50,000 - 100,000 <SEE NOTE> 46, 47 Ua Routine 07/17/2016 Urine Color YELLOW Yellow 46 Urine Clarity SL CLOUDY Clear 46 Urine Glucose - Dipstick NEGATIVE mg/dL Negative 46 Urine Bilirubin - Dipstick NEGATIVE Negative 46 Urine Ketone TRACE mg/dL High Negative 46 Urine Specific Aubrey 1.020 1.010-1.030 46 Urine Blood SMALL Negative 46 Urine PH 7.0 6.5-7.5 46 Urine Protein - Dipstick NEGATIVE mg/dL Negative 46 Urine Urobilinogen - Dipstick 0.2 E.U./dL 0.2-1.0 46 Urine Nitrite - Dipstick NEGATIVE Negative 46 Urine Leuk Esterase LARGE Negative 46 Urine RBC 0-2 rbc/hpf 0-2 46 Urine WBC 10-20 wbc/hpf High 0-7 46 Urine Epithelial Cells MANY /lpf None Seen 46, 48 Urine Bacteria FEW None Seen 46 Urine Mucus SMALL None Seen 46 Source: URINE, CLEAN CAT <SEE 46, 49 NOTE> Laboratory Studies 07/14/2016 Beta HCG, Quantitative 051312.00 mIU/mL Free Thyroxine 0.83 ng/dL 0.61-1.12 Free [...] Hormone (TSH) 0.69 mcIU/mL 0.34-5.60 Urine Specific Aubrey 1.024 1.010-1.030 Urine pH 6.0 5-9 White Blood Count 15.0 10^3/ul High 3.5-10.8 Urinalysis Profile 07/11/2016 Urine Color Yellow Urine Appearance Cloudy Urine Specific Aubrey 1.017 1.010-1.030 Urine pH 7.0 5-9 Urine Urobilinogen Negative Negative Urine Ketones Trace Negative Urine Protein Negative Negative Urine Leukocytes 3+ Negative Urine Blood 1+ Negative Urine Nitrite Negative Negative Urine Bilirubin Negative Negative Urine Glucose Negative Negative Urine White Blood Cell 3+(>20/hpf) Absent Urine Red Blood Cell 2+(6-10/hpf) Absent Urine Bacteria Absent Absent Urine Squamous Epithelial Cell Present Absent CBC Auto Diff 07/11/2016 White Blood Count [...] 0-2 Nucleated Red Blood Cells % 0.1 Type & Screen 07/11/2016 Patient Blood Type O Positive Antibody Screen NEGATIVE Comp Metabolic Panel 07/11/2016 Sodium 134 mmol/L [...] Egfr Non- 130.8 >60 Egfr 168.3 >60 50 Laboratory test finding 07/11/2016 HCG 142811.00 mIU/mL 51 Urine Culture SEE RESULT BELOW 52 Laboratory Studies 07/11/2016 Absolute Basophils (auto) 0.1 [...] (Auto) 0.6 % 0-2 Beta HCG, Quantitative 217510.00 mIU/mL Blood Urea Nitrogen 8 mg/dL 6-24 [...] Total Protein 7.3 g/dL 6.4-8.9 Urine Specific Aubrey 1.017 1.010-1.030 Urine pH 7.0 5-9 White Blood Count 13.3 10^3/ul High 3.5-10.8 Urine Culture 07/04/2016 Urine Culture Organism: Urethral Joaquín Urine Culture 07/04/2016 Urine Culture URETHRAL JOAQUÍN 53 Quantity 50,000 - 100,000 <SEE NOTE> 53, 54 Type And Screen 07/01/2016 Patient Blood Type O POS 55 Antibody Screen Negative Negative 55 Comprehensive Metabolic Panel 07/01/2016 Glucose 80 mg/dL 74-106 55 BUN 11 mg/dL 7-18 55 Creatinine 0.6 mg/dL 0.6-1.3 55 Glom Filtration Rate, Estimate >60 mL/min >60 55 If >60 mL/min >60 55, 56 BUN/Creat 18.3 ratio 55 Sodium 139 mmol/L 136-145 55 Potassium 3.9 mmol/L 3.5-5.1 55 Chloride 105 mmol/L 98-107 55 Carbon Dioxide 25 mmol/L 21-32 55 Anion Gap 9 mEq/L 8-16 55 Calcium 8.9 mg/dL 8.5-10.1 55 Total Protein 7.7 g/dL 6.4-8.2 55 Albumin 3.9 g/dL 3.4-5.0 55 Globulin 3.8 g/dL 1.9-4.3 55 Alb/Glob 1.0 ratio 55 Bilirubin,Total 0.6 mg/dL 0.2-1.0 55 Sgot/Ast 16 U/L 15-37 55 SGPT/Alt 22 U/L 12-78 55 Alkaline Phosphatase 105 U/L 45-117 55 Manual Slide Review 07/01/2016 Manual Slide Review See Note 57 (Hematology) (Hematology) Aspartate Amino Transf 07/01/2016 Aspartate Amino Transf 16 15-37 (Ast/Sgot) (Ast/Sgot) Laboratory test finding 07/01/2016 Alanine Aminotransferase 22 12-78 (Alt/SGPT) Albumin/Globulin Ratio 1.0 BUN/Creatinine Ratio 18.3 Blood [...] 3-47 White Blood Count 11.6 High 3.1-10.7 Genital Culture W/ Gram 06/29/2016 Gram Stain GRAM STAIN INDIC <SEE 58, 59 Stain NOTE> Gram Stain FEW GR POS. BACI <SEE NOTE> 58, 60 Gram Stain FEW WHITE BLOOD <SEE NOTE> 58, 61 Gram Stain RARE GRAM POSITI <SEE NOTE> 58, 62 Genital Culture GENITAL JOAQUÍN 58 Slide Review 06/29/2016 Slide Review . 58, 63 Urine Amphetamines 06/29/2016 Urine Amphetamines Negative Screen Screen Urine Barbiturates 06/29/2016 Urine Barbiturates Negative Screen Screen Urine 06/29/2016 Urine Negative Benzodiazepines Benzodiazepines Screen Screen Urine Cannabinoids 06/29/2016 Urine Cannabinoids Negative Screen Screen Urine Cocaine 06/29/2016 Urine Cocaine Negative Screen Screen Urine Culture 06/29/2016 Urine Culture Organism: Urethral Joaquín Urine Drug Screen 06/29/2016 Urine Drug Screen * Information Information Urine Methadone 06/29/2016 Urine Methadone Negative Screen Screen Urine Opiates 06/29/2016 Urine Opiates Negative Screen Screen Thin Prep Pap 06/29/2016 Thin Prep Pap Results on File Report Status Report Status Laboratory test 06/29/2016 Treponema Antibody Nonreactive Nonreactive 58 , 64 finding Felt Chlamydia/GC Rimma 06/29/2016 Chlamydia Negative Negative 58 Trachomatis, Rimma Neisseria Gonorrhoeae, Rimma Negative Negative 58 Please note: (SEE NOTE) 58, 65 Specimen Type: Genital 58 Rubella Igg Antibody 06/29/2016 Rubella IgG Antibody Reactive Reactive 58 Rubella IgG Iu/ml > 500.0 IU/mL >=10.0 58, 66 Laboratory test finding 06/29/2016 Lead,Blood (Adult) 2 g/dL 0-19 58, 67 Antibody Detection-Hiv1/2 SCRN Nonreactive Nonreactive 58, 68 Hepatitis C Antibody 06/29/2016 Hepatitis C Antibody Nonreactive Nonreactive 58 Signal/Cutoff ratio < 0.02 <0.80 58, 69 Laboratory test 06/29/2016 Hepatitis B Surface Nonreactive Nonreactive 58, 70 finding Antigen Type And Screen 06/29/2016 Patient Blood Type O POS 58 Antibody Screen Negative Negative 58 CBS W/Automated Diff 06/29/2016 White Blood Count 12.2 K/uL High 3.1-10.7 58 Red Blood Count 5.37 M/uL 3.90-5.40 58 Hemoglobin 15.4 gm/dL 11.6-15.8 58 Hematocrit 45.3 % 36.0-46.1 58 Mean Cell Volume 84.4 fl 80.9-99.0 58 Mean Corpuscular HGB 28.7 pg 25.9-32.7 58 Mean Corpuscular HGB Conc 34.0 g/dL 30.8-34.3 58 Platelet Count 313 K/uL 155-360 58 Red Cell Distri Width SD 41.9 fl 3-47 58 Red Cell Distri Width %CV 13.7 % 11.7-14.4 58 Mean Platelet Volume 10.5 fL 8.9-12.4 58 Neut% 70.5 % 40.4-72.8 58 Lymph % 20.1 % 17.0-46.1 58 Humphreys % 7.6 % 4.3-13.2 58 Eo% 1.6 % 0.0-6.6 58 Bas% 0.2 % 0.0-1.1 58 Neut# 8.63 K/uL High 1.8-7.0 58 Lymph # 2.46 K/uL 1.8-7.0 58 Humphreys # 0.93 K/uL High 0.3-0.9 58 Eos # 0.19 K/uL 0.0-0.5 58 Baso # 0.03 K/uL 0.0-0.1 58 Urine Culture 06/29/2016 Urine Culture URETHRAL JOAQUÍN 58 Quantity 10,000 - 50,000 <SEE NOTE> 58, 71 Drugs Of Abuse-Urine Screen 7 06/29/2016 Amphetamines (Urine) Negative 58 Barbiturates (Urine) Negative 58 Benzodiazepines (Urine) Negative 58 Cannabinoids (Urine) Negative 58 Cocaine Metabolite (Urine) Negative 58 Methadone (Urine) Negative 58 Opiates (Urine) Negative 58 Urine Cutoffs * 58, 72 Whole Blood Lead 06/29/2016 Whole Blood Lead 2 0-19 Hepatitis B Surface 06/29/2016 Hepatitis B Surface Nonreactive Nonreactive Antigen Antigen Hepatitis C Antibody 06/29/2016 Hepatitis C Antibody Nonreactive Nonreactive Manual Slide Review 06/29/2016 Manual Slide Review . (Hematology) (Hematology) Rubella IgG Antibody 06/29/2016 Rubella IgG Antibody Reactive Reactive Urinalysis Profile 06/26/2016 Urine Color Yellow Urine Appearance Cloudy Urine Specific Aubrey 1.014 1.010-1.030 Urine pH 7.0 5-9 Urine [...] Present Absent Urine Yeast Present Absent Laboratory Studies 06/26/2016 Absolute Basophils (auto) 0.1 [...] (Auto) 1.1 % 0-2 Beta HCG, Quantitative 16652.00 mIU/mL Blood Urea Nitrogen 10 mg/dL 6-24 [...] 6.4-8.9 White Blood Count 10.7 10^3/ul 3.5-10.8 Laboratory test finding 06/26/2016 C Reactive Protein 6.93 mg/L High < 5.00 73 HCG 66095.00 mIU/mL 74 Comp Metabolic Panel 06/26/2016 Sodium 133 mmol/L [...] Egfr Non- 103.8 >60 Egfr 133.5 >60 75 Blood Urea Nitrogen 10 mg/dL 6-24 BUN/Creatinine Ratio 15.2 8-20 CBC Auto Diff 06/26/2016 White Blood Count [...] 0-2 Nucleated Red Blood Cells % 0.1 Laboratory test 06/25/2016 Gardnerella/Yeast: Vaginal SEE RESULT 76, 77 finding Dna BELOW Trichomonas vaginalis Rna Negative Negative 76, 78 GC/Chlamydia Amplified Rna 06/25/2016 Chlamydia trachomatis Negative Negative 76 Rna Neisseria gonorrhoeae (GC) Rna Negative Negative 76 Laboratory test 06/25/2016 Urine Culture SEE RESULT BELOW 79, 80 finding Urine Glucose (Ua) 06/24/2016 Urine Glucose Negative Negative (Ua) Urine Culture 06/24/2016 Urine Culture URETHRAL JOAQUÍN 81 Quantity 50,000 - 100,000 <SEE NOTE> 81, 82 Ua Routine 06/24/2016 Urine Color YELLOW Yellow 81 Urine Clarity SL CLOUDY Clear 81 Urine Glucose - Dipstick NEGATIVE mg/dL Negative 81 Urine Bilirubin - Dipstick NEGATIVE Negative 81 Urine Ketone TRACE mg/dL High Negative 81 Urine Specific Aubrey >=1.030 1.010-1.030 81 Urine Blood MODERATE Negative 81 Urine PH 6.0 Low 6.5-7.5 81 Urine Protein - Dipstick 30 mg/dL High Negative 81 Urine Urobilinogen - Dipstick 0.2 E.U./dL 0.2-1.0 81 Urine Nitrite - Dipstick NEGATIVE Negative 81 Urine Leuk Esterase SMALL Negative 81 Urine RBC 2-5 rbc/hpf 0-2 81 Urine WBC 20-30 wbc/hpf High 0-7 81 Urine Epithelial Cells MANY /lpf None Seen 81, 83 Urine Calcium Oxalate Crystals FEW None Seen 81 Urine Bacteria MANY None Seen 81 Urine Mucus LARGE None Seen 81 Source: URINE, CLEAN CAT <SEE 81, 84 NOTE> Urine HCG (Qualitative) 06/24/2016 Urine HCG (Qualitative) POSITIVE Negative 81 Source: URINE, CLEAN CAT <SEE NOTE> 81, 85 Laboratory test finding 06/24/2016 HCG, Quant 64289.0 mIU/mL 86, 87 Laboratory test finding 06/24/2016 Urine Bilirubin Negative Negative Urine Ketones Trace High Negative Urine Leukocyte Esterase Small High Negative Urine Nitrite Negative Negative Urine Protein 30 High Negative Urine Urobilinogen 0.2 0.2-1.0 Laboratory test finding 06/15/2016 Gamma Glutamyl Transpeptidase 25 U/L 5 -85 88 Laboratory test finding 06/15/2016 Alanine Aminotransferase 20 12-78 (Alt/SGPT) Albumin 3.8 3.4-5.0 Albumin/Globulin Ratio 1.2 [...] 06/15/2016 Vitamin D 25-Hydroxy 23.5 Low 30.0-100.0 CBS W/Automated Diff 06/15/2016 White Blood Count 10.3 K/uL 3.1-10.7 88 Red Blood Count 5.25 M/uL 3.90-5.40 88 Hemoglobin 15.1 gm/dL 11.6-15.8 88 Hematocrit 43.9 % 36.0-46.1 88 Mean Cell Volume 83.6 fl 80.9-99.0 88 Mean Corpuscular HGB 28.8 pg 25.9-32.7 88 Mean Corpuscular HGB Conc 34.4 g/dL High 30.8-34.3 88 Platelet Count 352 K/uL 155-360 88 Red Cell Distri Width SD 40.1 fl 3-47 88 Red Cell Distri Width %CV 13.3 % 11.7-14.4 88 Mean Platelet Volume 10.4 fL 8.9-12.4 88 Neut% 67.7 % 40.4-72.8 88 Lymph % 22.7 % 17.0-46.1 88 Humphreys % 7.1 % 4.3-13.2 88 Eo% 2.1 % 0.0-6.6 88 Bas% 0.4 % 0.0-1.1 88 Neut# 6.96 K/uL 1.8-7.0 88 Lymph # 2.34 K/uL 1.8-7.0 88 Humphreys # 0.73 K/uL 0.3-0.9 88 Eos # 0.22 K/uL 0.0-0.5 88 Baso # 0.04 K/uL 0.0-0.1 88 Laboratory test 06/15/2016 Vitamin D,25-Hydroxy 23.5 ng/mL Low 30.0-100.0 88, 89 finding Thyroid Stim Hormone 0.70 uIU/mL 0.30-4.20 88 Comprehensive Metabolic Panel 06/15/2016 Glucose 86 mg/dL 74-106 88 BUN 8 mg/dL 7-18 88 Creatinine 0.6 mg/dL 0.6-1.3 88 Glom Filtration Rate, Estimate >60 mL/min >60 88 If >60 mL/min >60 88, 90 BUN/Creat 13.3 ratio 88 Sodium 141 mmol/L 136-145 88 Potassium 4.0 mmol/L 3.5-5.1 88 Chloride 109 mmol/L High 98-107 88 Carbon Dioxide 24 mmol/L 21-32 88 Anion Gap 8 mEq/L 8-16 88 Calcium 8.9 mg/dL 8.5-10.1 88 Total Protein 7.0 g/dL 6.4-8.2 88 Albumin 3.8 g/dL 3.4-5.0 88 Globulin 3.2 g/dL 1.9-4.3 88 Alb/Glob 1.2 ratio 88 Bilirubin,Total 0.5 mg/dL 0.2-1.0 88 Sgot/Ast 12 U/L Low 15-37 88, 91 SGPT/Alt 20 U/L 12-78 88 Alkaline Phosphatase 114 U/L 45-117 88 Total Creatine Kinase 06/12/2016 Total Creatine Kinase 96 26-192 Thyroid Stimulating 06/12/2016 Thyroid Stimulating 0.56 0.30-4.20 Hormone (TSH) Hormone (TSH) Neutrophils # (Auto) 06/12/2016 Neutrophils # (Auto) 7.63 High 1.8-7.0 Manual Slide Review 06/12/2016 Manual Slide Review See Note 92 (Hematology) (Hematology) Lymphocytes # (Auto) 06/12/2016 Lymphocytes [...] 06/12/2016 TSH Reflex FT4 0.56 uIU/mL 0.30-4.20 93 finding and/or FT3 Routine Culture W/ 04/28/2016 Gram Stain FEW GRAM POS CHAPITO 94, 95 Gram Stain <SEE NOTE> Gram Stain RARE GRAM POSITI <SEE NOTE> 94, 96 Gram Stain RARE WHITE BLOOD <SEE NOTE> 94, 97 Aerobic Culture NO PATHOGENS ISO <SEE NOTE> 94, 98 1 FATIGUE, DIARRHEA, WANTS THYROID CHECKED 2 Note: Persistent reduction for 3 months or more in an eGFR <60 mL/min/1.73 m2 defines CKD. Patients with eGFR values >/=60 mL/min/1.73 m2 may also have CKD if evidence of persistent proteinuria is present. The original MDRD equation for estimated GFR is not valid for patients less than 18 years of age. Additional information may be found at www.kdoqi.org. 3 Values below the stated reference ranges of AST and ALT can be seen in normal populations. Clinical correlation is suggested. 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 SUGGEST REPEAT SPECIMEN IF CLINICALLY INDICATED. 13 O09.892 14 Performed at: [facility] [id number] Wet Roller: Rocio Paulson MD, Phone: [phone] 15 LARGE PLATELETS PRESENT. 16 POST GLUCOLA 17 NO SPECIMEN RECEIVED 18 NO SPECIMEN RECEIVED 19 11/17/16 185: NEUT% previously reported as: 78.2 H % Amended result called to: [] - 11/17/16 at 18511/17/16 1857: LYMPH % previously reported as: 14.4 L % Amended result called to: [] - 11/17/16 at 185611/17/16 185: MONO % previously reported as: 6.5 % Amended result called to: [] - 11/17/16 at 185611/17/16 1857: EO% previously reported as: 0.7 % Amended result called to: [] - 11/17/16 at 185611/17/16 1857: BAS% previously reported as: 0.2 % Amended result called to: [] - 11/17/16 at 185 20 Performed at: [facility] [id number] Wet Roller: Sabas Oneil MD, Phone: [phone] 21 > 100,000 CFU/mL SPECIMEN IS A MIX OF GRAM POSITIVE ORGANISMS CONSISTENT WITH SKIN VAGINAL CONTAMINATION. SUGGEST REPEAT SPECIMEN IF CLINICALLY INDICATED. 22 Z3A.17 23 50,000 - 100,000 CFU/mL SPECIMEN IS A MIX OF GRAM POSITIVE ORGANISMS CONSISTENT WITH SKIN VAGINAL CONTAMINATION. SUGGEST REPEAT SPECIMEN IF CLINICALLY INDICATED. 24 941 25 URINE SPECIMENS ARE SCREENED AT THE LISTED CUTOFFS DRUG CLASS INITIAL TEST LEVEL Amphetamines 1000 ng/mL Barbiturates 200 ng/mL Benzodiazepines 200 ng/mL Cannabinoids 50 ng/mL Cocaine Metabolite 300 ng/mL Methadone 300 ng/mL Opiates 300 ng/mL Any PRESUMPTIVE POSITIVE findings are UNCONFIRMED. Confirmatory testing is suggested if findings are unexpected. Please contact laboratory if confirmatory testing is desired. SPECIMENS ARE HELD FOR 72 HOURS. 26 MIXED URETHRAL JOAQUÍN 27 > 100,000 CFU/mL SPECIMEN IS A MIX OF GRAM POSITIVE ORGANISMS CONSISTENT WITH SKIN VAGINAL CONTAMINATION. SUGGEST REPEAT SPECIMEN IF CLINICALLY INDICATED. 28 Note: Persistent reduction for 3 months or more in an eGFR <60 mL/min/1.73 m2 defines CKD. Patients with eGFR values >/=60 mL/min/1.73 m2 may also have CKD if evidence of persistent proteinuria is present. The original MDRD equation for estimated GFR is not valid for patients less than 18 years of age. Additional information may be found at www.kdoqi.org. 29 Values below the stated reference ranges of AST and ALT can be seen in normal populations. Clinical correlation is suggested. 30 Z34.81 31 POSSIBLE UROGENITAL CONTAMINATION. 32 URINE, CLEAN CATCH 33 10,000 - 50,000 CFU/mL 34 13 WKS PREG,LEVEL DROPPING DURING 35 Approximate Gestational Age and Total BHCG Range: 0.2 - 1 Week........................5-50 mIU/mL 1 - 2 Weeks.....................50-500 mIU/mL 2 - 3 Weeks..................100-5,000 mIU/mL 3 - 4 Weeks.................500-10,000 mIU/mL 4 - 5 Weeks...............1,000-50,000 mIU/mL 5 - 6 Weeks.............10,000-100,000 mIU/mL 6 - 8 Weeks.............15,000-200,000 mIU/mL 2 - 3 Months............10,000-100,000 mIU/mL 36 12 WKS PREG,ABDOMINAL CRAMPING 37 Approximate Gestational Age and Total BHCG Range: 0.2 - 1 Week........................5-50 mIU/mL 1 - 2 Weeks.....................50-500 mIU/mL 2 - 3 Weeks..................100-5,000 mIU/mL 3 - 4 Weeks.................500-10,000 mIU/mL 4 - 5 Weeks...............1,000-50,000 mIU/mL 5 - 6 Weeks.............10,000-100,000 mIU/mL 6 - 8 Weeks.............15,000-200,000 mIU/mL 2 - 3 Months............10,000-100,000 mIU/mL 38 > 100,000 CFU/mL SPECIMEN IS A MIX OF GRAM POSITIVE ORGANISMS CONSISTENT WITH SKIN VAGINAL CONTAMINATION. SUGGEST REPEAT SPECIMEN IF CLINICALLY INDICATED. 39 POSSIBLE UROGENITAL CONTAMINATION. 40 URINE, CLEAN CATCH 41 A negative result for either C. trachomatis [...] inhibitors, and sufficient DNA to be detected. 42 OSVALDO, 10 WKS PREGN, SENT BY 43 Note: Persistent reduction for 3 months or more in an eGFR <60 mL/min/1.73 m2 defines CKD. Patients with eGFR values >/=60 mL/min/1.73 m2 may also have CKD if evidence of persistent proteinuria is present. The original MDRD equation for estimated GFR is not valid for patients less than 18 years of age. Additional information may be found at www.kdoqi.org. 44 Values below the stated reference ranges of AST and ALT can be seen in normal populations. Clinical correlation is suggested. 45 A negative result for either C. trachomatis [...] inhibitors, and sufficient DNA to be detected. 46 MVA, 9 WKS , ABD PAIN 47 50,000 - 100,000 CFU/mL 48 POSSIBLE UROGENITAL CONTAMINATION. 49 URINE, CLEAN CATCH 50 Because ethnic data is not always readily [...] 15-29 5 Kidney failure <15 (or dialysis) 51 <5.0 Negative 5.0 - 25.0 Indeterminate (Repeat testing recommended after 72 hours) >25.0 Positive Perimenopausal women can display HCG levels of up to 20 mIU/mL 52 SEE RESULT BELOW Name: DAVID HUNG : [address]: Austin Shaffer MD Acct: [id number] Unit: [id number] AGE: 30 Location: ED Re07/11/16 SEX: F Status: DEP ER SPEC: [id number] JOSE: 07/11/16 [facility] DR: Austin Shaffer MD REQ: [id number] RECD: 07/11/16 STATUS: DELL PARSONS DR: Lisa Craig PA _ SOURCE: URINE SPDESC: ORDERED: Urine Culture Procedure Result Reported Site Urine Culture Final 07/12/16- 1230 ML No growth of clinically significant organisms * ML - MAIN LAB ([facility]) . END OF REPORT * ML=Testing performed at Main Lab DEPARTMENT OF PATHOLOGY, [address] [place] [address] Lew Cohen M.D. Director [facility] # [id number] 53 026.85 54 50,000 - 100,000 CFU/mL 55 SPOTTING, 7 WKS 56 Note: Persistent reduction for 3 months or more in an eGFR <60 mL/min/1.73 m2 defines CKD. Patients with eGFR values >/=60 mL/min/1.73 m2 may also have CKD if evidence of persistent proteinuria is present. The original MDRD equation for estimated GFR is not valid for patients less than 18 years of age. Additional information may be found at www.kdoqi.org. 57 Instrument flagged sample for slide review. Less than 10% Bands seen, no other immature WBC's seen. RBC morphology essentially normal. Platelet estimate= Normal 58 Z34.81 59 GRAM STAIN INDICATES NORMAL GENITAL JOAQUÍN 60 FEW GR POS. BACILLI SUGGESTIVE OF LACTOBACILLUS SP. 61 FEW WHITE BLOOD CELLS 62 RARE GRAM POSITIVE COCCI 63 Instrument flagged sample for slide review. Less than 10% Bands seen, no other immature WBC's seen. RBC morphology essentially normal. Platelet estimate=NORMAL 64 Please Note: A nonreactive test result does not exclude the possibility of exposure to, or infection with syphilis. T. pallidum antibodies may be undetectable in some stages of the infection and in some clinical conditions. 65 A negative result for either C. trachomatis [...] inhibitors, and sufficient DNA to be detected. 66 Values >=10.0 IU/mL are positive for IgG antibodies to rubella virus and are considered IMMUNE. 67 Environmental Exposure: WHO Recommendation <20 Occupational Exposure: OSHA Lead Std 40 CHELE 30 Detection Limit=1 Performed at: RN - [facility] [address] [id number] Wet Roller: Rocio Paulson MD, Phone: [phone] 68 NOTE: A NON-REACTIVE RESULT INDICATES THAT HIV-1 AND HIV-2 ANTIBODIES HAVE NOT BEEN FOUND IN THIS PATIENT SPECIMEN. A NON-REACTIVE RESULT, HOWEVER, DOES NOT PRECLUDE PREVIOUS EXPOSURE OF INFECTION WITH HIV. * [place] STATE LAW PROHIBITS THE REDISCLOSURE OF THIS RESULT * * TO ANY UNAUTHORIZED LIBERTARIAN. * 69 Antibodies to HCV not detected; does not exclude early acute HCV infection. 70 HBsAg not detected; does not exclude the possibility of exposure to or early acute infections with HBV. 71 10,000 - 50,000 CFU/mL 72 URINE SPECIMENS ARE SCREENED AT THE LISTED CUTOFFS DRUG CLASS INITIAL TEST LEVEL Amphetamines 1000 ng/mL Barbiturates 200 ng/mL Benzodiazepines 200 ng/mL Cannabinoids 50 ng/mL Cocaine Metabolite 300 ng/mL Methadone 300 ng/mL Opiates 300 ng/mL Any PRESUMPTIVE POSITIVE findings are UNCONFIRMED. Confirmatory testing is suggested if findings are unexpected. Please contact laboratory if confirmatory testing is desired. SPECIMENS ARE HELD FOR 72 HOURS. 73 Acute inflammation: >10.00 74 <5.0 Negative 5.0 - 25.0 Indeterminate (Repeat testing recommended after 72 hours) >25.0 Positive Perimenopausal women can display HCG levels of up to 20 mIU/mL 75 Because ethnic data is not always readily [...] 15-29 5 Kidney failure <15 (or dialysis) 76 [id number] 77 SEE RESULT BELOW Name: DAVID HUNG : [address]: Martita Braga Acct: [id number] Unit: [id number] AGE: 30 Location: [facility] Re06/25/16 SEX: F Status: DEP ER SPEC: [id number] JOSE: 06/25/16-1[address] [facility] [address]: Allyson Mendes DO REQ: [id number] RECD: 06/25/16123 STATUS: DELL PARSONS DR: Lisa Craig PA _ SOURCE: VAGINAL SPDESC: ORDERED: JorjeYeast DNA COMMENTS: [id number] Procedure Result Reported Site Gardnerella/Yeast: Vaginal DNA [...] or failure. * ML - MAIN LAB ([facility]) . END OF REPORT * ML=Testing performed at Main Lab DEPARTMENT OF PATHOLOGY, [address] [place] [address] Lew Cohen M.D. Director [facility] # [id number] 78 [id number] GC/Chlamydia Source?: Endocervical Trichomonas Source: Endocervical 79 Comment: has taken macrobid [id number] 80 SEE RESULT BELOW Name: DAVID HUNG : [address]: Martita Braga Acct: [id number] Unit: [id number] AGE: 30 Location: [facility] Re06/25/16 SEX: F Status: DEP ER SPEC: [id number] JOSE: 06/25/16-[address]: Allyson Mendes DO REQ: [id number] RECD: 06/25/16-1235 STATUS: COMP OTHR DR: Emmett Ventura MD _ SOURCE: URINE SPDESC: ORDERED: Urine Culture COMMENTS: Comment: has taken macrobid [id number] Procedure Result Reported Site Urine Culture Final 06/26/16- 1214 ML No growth of clinically significant organisms * ML - MAIN LAB ([facility]) . END OF REPORT * ML=Testing performed at Main Lab DEPARTMENT OF PATHOLOGY, [address] [place] [address] Lew Cohen M.D. Director [facility] # [id number] 81 TEST 82 50,000 - 100,000 CFU/mL SPECIMEN IS A MIX OF GRAM POSITIVE ORGANISMS CONSISTENT WITH SKIN VAGINAL CONTAMINATION. SUGGEST REPEAT SPECIMEN IF CLINICALLY INDICATED. 83 POSSIBLE UROGENITAL CONTAMINATION. 84 URINE, CLEAN CATCH 85 URINE, CLEAN CATCH 86 JUST FOUND OUT , HAVING ABD PAIN, BLEEDING 87 Approximate Gestational Age and Total BHCG Range: 0.2 - 1 Week........................5-50 mIU/mL 1 - 2 Weeks.....................50-500 mIU/mL 2 - 3 Weeks..................100-5,000 mIU/mL 3 - 4 Weeks.................500-10,000 mIU/mL 4 - 5 Weeks...............1,000-50,000 mIU/mL 5 - 6 Weeks.............10,000-100,000 mIU/mL 6 - 8 Weeks.............15,000-200,000 mIU/mL 2 - 3 Months............10,000-100,000 mIU/mL 88 E78.5 E55.9 F41.9 R74.9 89 Vitamin D deficiency has been defined by the [place] [employer] and an Endocrine Society practice guideline as a level of serum 25-OH vitamin D less than 20 ng/mL (1,2). The Endocrine Society went on to further define vitamin D insufficiency as a level between 21 and 29 ng/mL (2). 1. IOM ([place] [employer]). 2010. Dietary reference intakes for calcium and D. [place]: The National Academies Press. 2. Marry MF, Malinda MONACO, Yeimy DEL ANGEL, et al. Evaluation, treatment, and prevention of vitamin D deficiency: an Endocrine Society clinical practice guideline. JCEM. 2010; 96(7):1911-30. Performed at: RN - [facility] [address] [id number] Wet Roller: Rocio Paulson MD, Phone: [phone] 90 Note: Persistent reduction for 3 months or more in an eGFR <60 mL/min/1.73 m2 defines CKD. Patients with eGFR values >/=60 mL/min/1.73 m2 may also have CKD if evidence of persistent proteinuria is present. The original MDRD equation for estimated GFR is not valid for patients less than 18 years of age. Additional information may be found at www.kdoqi.org. 91 Values below the stated reference ranges of AST and ALT can be seen in normal populations. Clinical correlation is suggested. 92 Instrument flagged sample for slide review. Less than 10% Bands seen, no other immature WBC's seen. RBC morphology essentially normal. Platelet estimate= Normal 93 CP, HEART RACING 94 POSSIBLE CYST BEHIND RT EAR 95 FEW GRAM POS BACILLI SUGGESTIVE OF DIPTHEROIDS 96 RARE GRAM POSITIVE COCCI 97 RARE WHITE BLOOD CELLS 98 NO PATHOGENS ISOLATED Procedures Date CPT Code Description Status 11/16/2017 83797 EKG-Tracing And Report Completed 02/11/2017 83642 Vaginal Delivery Global Care Completed 06/22/2016 55753 Echocardiogram Complete Completed 06/22/2016 55161 Event Monitor Inter/Review Only Completed 06/16/2016 75878 EKG-Tracing And Report Completed 08/20/2014 02286 Vaginal Delivery W/Post- Care Completed 06/24/2013 39992 Holter Monitor 24HR Inter/Report Completed 07/20/2011 49958 Echocardiogram Complete Completed 07/20/2011 79963 Event Monitor Inter/Review Only Completed 12/08/2010 22149 Remove Impacted Cerumen Completed 08/16/2010 01140 Holter Monitor 24HR Inter/Report Completed 08/13/2010 00287 EKG-Tracing And Report Completed 08/13/2010 75936 Pulse Oximetry Completed 08/09/2010 21733 Pulse Oximetry Completed 08/09/2010 40396 Pressurized/Non-Pressurized Inhalation Treatment,Acute Completed Obstructio 11/17/2008 14969 Post- Care Only Completed 10/03/2008 33253 Antepartum 7 Or More Total Office Visit Completed 10/03/2008 70759 Vaginal Delivery Global Care Completed 09/30/2008 78108 Antepartum 7 Or More Total Office Visit Completed 09/25/2008 38451 Antepartum 7 Or More Total Office Visit Completed 09/22/2008 35763 Antepartum 7 Or More Total Office Visit Completed 09/17/2008 41432 Antepartum 7 Or More Total Office Visit Completed 09/09/2008 57570 Antepartum 7 Or More Total Office Visit Completed 09/03/2008 02336 Antepartum 7 Or More Total Office Visit Completed 08/20/2008 34282 Antepartum 7 Or More Total Office Visit Completed Encounters Type Date Location Provider CPT E/M Dx Office Visit 11/16/2017 1:00p Cardiology Office SUAD Lance 39547 R00.2 F17.200 I49.3 Office Visit 04/28/2017 11:00a Primary Care Office Dolly Londono M.D. 87880 H66.91 Office Visit 03/08/2017 11:00a Primary Care Office Lisa Craig, 36842 F32.9 VALORIE F41.9 R00.2 E55.9 F17.200 Z71.6 Z70.9 Office Visit 01/02/2017 10:00a Primary Care Office Rajwinder Hutchinson [facility] 76035 J06.9 O99.333 F17.210 Z71.6 Office Visit 07/21/2016 8:30a Family Medicine & ZAKIA Garza 18126 H66.001 Women's Health Z33.1 Office Visit 07/19/2016 1:00p Family Medicine & Rosi Junior CNM 60568 S39.011A Women's Health Z33.1 Office Visit 07/13/2016 1:30p [facility] Eladia CarvalhoampHerminia Perkins CNM 07454 F41.9 Women's Health Office Visit 07/04/2016 11:00a Family Dawnamp; Kirsten Perkins CNM 62763 O26.851 Women's Health Z33.1 Office Visit 06/27/2016 10:30a [facility] Medicine & Rosi Junior CNM 40171 N91.1 Women's Health Z71.6 E55.9 Office Visit 06/16/2016 8:00a Cardiology Office Jami Prietodanitza Thompson, 81391 I49.3 MSN, [facility] I49.1 R00.2 Office Visit 06/15/2016 10:00a Primary Care Office Lisa Sanchezard, 65275 F41.9 PA-C F32.9 E55.9 F17.200 Z71.6 D72.829 R74.8 R00.2 E78.5 N92.6 Office Visit 01/05/2016 2:30p Primary Care Office Lisa Yuliana Rafa, 51893 J01.90 PA-C E66.9 F17.200 E55.9 Z71.6 Office Visit 12/30/2015 2:30p Primary Care Office Lisa Yuliana Rafa, 25326 E66.9 PA-C F17.200 Z71.6 E55.9 E78.5 F41.9 F32.9 Office Visit 07/23/2015 3:00p MILLIE Ventura M.D. 45322 H66.90 F32.9 F41.9 E78.5 Z00.01 Office Visit 07/06/2015 10:30a Lisa Craig PA-C 87328 E78.5 E55.9 F41.9 R00.2 F17.200 Z71.6 E66.9 E04.9 Office Visit 12/24/2014 1:45p Orthopaedic Office Yesenia Lozoya, [address] [facility] 845.02 V22.2 Office Visit 10/01/2014 9:10a Cardiology Office Jami Prietodanitza Thompson, 39086 785.1 MSN, CHERRI Office Visit 07/23/2014 2:00p Cardiology Office Song Robles, 85814 785.1 Marco Antonio, [facility] Plan of Care Future Appointment(s):12/14/2017 9:00 am - Sherine Freitas CNM at Family Medicine & amp; [facility] Jerjxd9811/16/2017 - Fay Belleois, PAR00.2 PalpitationsNew Medication:Metoprolol Tartrate 25 mgComments:She will [...]
--- OUTSIDE RECORDS SUMMARY | 2017-11-30 20:01 | XMS REPORT | Continuity of Care Document ---
:1985 Author Organization [facility] Support Name Relationship Address Phone MG MADDOX spouse [address] [place] [address] MG MADDOX spouse [address] [place] [address] Allergies and Intolerances No Known Allergies Medications RxNorm Medication Dose Route Instructions Start Date End Date Status Atenolol 25 MG Oral 25 mg oral orally 2 times Active Tablet per day Cephalexin Oral 500 mg oral orally 2 times Active per day (7 days) 7454 Nitrofurantoin 100 mg oral orally 2 times Completed per day (10 days) (give with food (meal/snack)) Vitamin 27 1 tab oral orally every day Completed mg iron-0.8 mg Problems No Data in the system Procedures No data in the system Results Laboratory Results Order: URINALYSIS ROUTINE Specimen Source : Body Site: Legend: (G,H)=High, (GG,HH,CH,#H)=Above High Threshold, (#,L)=Low, (##,CL,#L,LL)=Below Low Threshold, (C,CC,CA,#A,A)=Abnormal LOINC Test Result Flag Range Units Date 57786 1Color Ur YELLOW 11/09/2017 18:16 89582-9 1Turbidity Ur Ql CLEAR CLEAR 11/09/2017 18:16 5811-5 1Sp Gr Ur Strip 1.005 1.000-1.030 11/09/2017 18:16 5803-2 1pH Ur Strip 7.0 5.0-8.0 11/09/2017 18:16 19350-2 1WBC # Ur Strip 2+ ! NEGATIVE 11/09/2017 18:16 5802-4 1Nitrite Ur Ql Strip NEGATIVE NEGATIVE 11/09/2017 18:16 5804-0 1Prot Ur Strip-mCnc NEGATIVE NEGATIVE mg/dL 11/09/2017 18:16 5792-7 1Glucose Ur Strip-mCnc NORMAL NORMAL mg/dL 11/09/2017 18:16 5797-6 1Ketones Ur Strip-mCnc TRACE ! NEGATIVE mg/dL 11/09/2017 18:16 59924-8 1Urobilinogen Ur NORMAL NORMAL mg/dL 11/09/2017 18:16 Strip-mCnc 36115-6 1Bilirub Ur Strip-mCnc NEGATIVE NEGATIVE mg/dL 11/09/2017 18:16 5794-3 1Hgb Ur Ql Strip TRACE ! NEGATIVE 11/09/2017 18:16 Performing Lab Footnotes:[facility] - [id number] - [address] [place] [address] NEVIN King [id number] Order: URINE MICROSCOPIC Specimen Source: Body Site: Legend: (G,H)=High , (GG,HH,CH,#H)=Above High Threshold, (#,L)=Low, (##,CL,#L,LL)=Below Low Threshold, (C,CC,CA,#A,A)=Abnormal LOINC Test Result Flag Range Units Date 1URINE MICROSCOPIC EXAM 5821-4 1WBC #/area UrnS HPF 25-50 ! 0-2 /HPF 11/09/2017 18:16 5808-1 1RBC # UrnS HPF 3-5 ! NONE SEEN /HPF 11/09/2017 18:16 Interpretive Crystal: 1The [place] [employer] has defined Microscopic Hematuria as 3 or more RBC per high powered field from a single positive urinalysis with microscopy. 38089-7 1Bacteria UrnS Ql Micro FEW ! NONE SEEN /HPF 11/09/2017 18:16 5787-7 1Epi Cells #/area UrnS HPF MANY ! NONE SEEN /HPF 11/09/2017 18:16 Performing Lab Footnotes:[facility] - [id number] - [address] [place] [address] NEVIN FERNANDEZCIOMD1 Order: CBC DIFF Specimen Source: Body Site: Legend: (G,H)=High, (GG,HH, CH,#H)=Above High Threshold, (#,L)=Low, (##,CL,#L,LL)=Below Low Threshold, (C,CC ,CA,#A,A)=Abnormal LOINC Test Result Flag Range Units Date 6690 1WBC # Bld Auto 11.1 H 4.8-10.8 K/uL 11/09/2017 17:22 19060-6 1RBC # Bld 5.20 4.20-5.40 M/uL 11/09/2017 17:22 718-7 1Hgb Bld-mCnc 15.8 12.0-16.0 gm/dL 11/09/2017 17:22 4544-3 1Hct VFr Bld Auto 42.9 36.0-48.0 % 11/09/2017 17:22 787-2 1MCV RBC Auto 82.5 80.0-100.0 fL 11/09/2017 17:22 12547-1 1MCHC RBC-mCnc 36.8 H 30.0-36.5 % 11/09/2017 17:22 46026-8 1MCH RBC Qn 30.3 27.0-34.0 pg 11/09/2017 17:22 09881-8 1RDW RBC 11.9 11.0-15.0 % 11/09/2017 17:22 777-3 1Platelet # Bld Auto 343 130-450 K/uL 11/09/2017 17:22 15810-0 1PMV Bld Auto 6.5 6.0-12.0 fL 11/09/2017 17:22 751-8 1Neutrophils # Bld Auto 70 37-80 % 11/09/2017 17:22 59231-1 1Lymphocytes NFr Bld 23 10-50 % 11/09/2017 17:22 5905-5 1Monocytes NFr Bld Auto 6 0-12 % 11/09/2017 17:22 59465-9 1Eosinophil # Bld 1 <=8 % 11/09/2017 17:22 704-7 1Basophils # Bld Auto 0 <=3 % 11/09/2017 17:22 21163-6 1Neutrophils # Bld 7.8 1.8-8.6 K/uL 11/09/2017 17:22 731-0 1Lymphocytes # Bld Auto 2.5 0.5-5.0 K/uL 11/09/2017 17:22 742-7 1Monocytes # Bld Auto 0.7 0.0-1.3 K/uL 11/09/2017 17:22 46301-0 1Eosinophil # Bld 0.1 0.0-0.9 K/uL 11/09/2017 17:22 704-7 1Basophils # Bld Auto 0.0 0.0-0.3 K/ul 11/09/2017 17:22 Performing Lab Footnotes:[facility] - [id number] - [address] [place] [address] NEVIN King ISAIAS Order: COMPREHENSIVE PANEL Specimen Source: Body Site: Legend: (G,H)= High, (GG,HH,CH,#H)=Above High Threshold, (#,L)=Low, (##,CL,#L,LL)=Below Low Threshold, (C,CC,CA,#A,A)=Abnormal LOINC Test Result Flag Range Units Date 2951-2 1Sodium SerPl-sCnc 133 L 136-145 mmol/L 11/09/2017 17:22 2823-3 1Potassium SerPl-sCnc 3.8 3.5-5.2 mmol/L 11/09/2017 17:22 5-0 1Chloride SerPl-sCnc 103 100-108 mmol/L 11/09/2017 17:22 8-9 1CO2 SerPl-sCnc 23 21-32 mmol/L 11/09/2017 17:22 2345-7 1Glucose SerPl-mCnc 87 70-100 mg/dL 11/09/2017 17:22 3094-0 1BUN SerPl-mCnc 7 7-21 mg/dL 11/09/2017 17:22 2160-0 1Creat SerPl-mCnc 0.7 0.6-1.3 mg/dL 11/09/2017 17:22 Interpretive Crystal: 1Normal Kidney Function or Mild Disease - GFR >OR=60 Chronic Kidney Disease - GFR 15-59 Renal Failure - GFR < 15 GFR not calculated on patients under 18 years of age. Calculated (estimated) GFR is based on the MDRD Study equation, which assumes a steady state for creatinine. Estimated GFR may not be appropriate for medication dosing. 16379-5 1Ca-I SerPl-mCnc 9.6 8.5-10.8 mg/dL 11/09/2017 17:22 87732-2 1GFR/BSA.pred SerPl-ArVRat >60 11/09/2017 17:22 12095-7 1Bilirub Bld-mCnc 0.9 0.0-1.2 mg/dL 11/09/2017 17:22 2885-2 1Prot SerPl-mCnc 7.4 6.4-8.2 gm/dL 11/09/2017 17:22 1751-7 1Albumin SerPl-mCnc 4.6 3.4-4.8 gm/dL 11/09/2017 17:22 6768-6 1ALP SerPl-cCnc 103 40-150 U/L 11/09/2017 17:22 1742-6 1ALT SerPl-cCnc <10 0-55 U/L 11/09/2017 17:22 1920-8 1AST SerPl-cCnc 11 5-37 U/L 11/09/2017 17:22 Performing Lab Footnotes:[facility] - [id number] - [address] [place] [address] NEVIN King WINDYOMD1 Order: PREG HCG QUANT BLOOD Specimen Source: Body Site: Legend: (G,H)= High, (GG,HH,CH,#H)=Above High Threshold, (#,L)=Low, (##,CL,#L,LL)=Below Low Threshold, (C,CC,CA,#A,A)=Abnormal LOINC Test Result Flag Range Units Date 35605-9 1B-HCG SerPl-mCnc 6,584 H <=5 mIU/mL 11/09/2017 17:22 1Approx Gest Age Approx BHCG Range Non- <3 1-2 Weeks 50-500 2-3 Weeks 100-5,000 3-4 Weeks 500-10, 000 4-5 Weeks 1,000-50,000 5-6 Weeks 10,000-100,000 6-8 Weeks 15,000- 200,000 2-3 Months 5,000-200,000 2nd Trimester 3,000-50,000 3rd Trimester 1,000-50,000 Performing Lab Footnotes:[facility] - [id number] - [address] [place] [address] NEVIN King [id number] Order: PT/INR Specimen Source: Body Site: Legend: (G,H)=High, (GG,HH,CH ,#H)=Above High Threshold, (#,L)=Low, (##,CL,#L,LL)=Below Low Threshold, (C,CC, CA,#A,A)=Abnormal LOINC Test Result Flag Range Units Date 5902-2 1PT Time PPP 11.8 9.4-12.4 sec 11/09/2017 17:22 6301-6 1INR PPP 1.0 11/09/2017 17:22 Interpretive Crystal: 1 INR INTERPERTATION 2.0-3.0 THERAPEUTIC MONITORING 2.5-3.5 HEART VALVE REPLACEMENT Performing Lab Footnotes:[facility] - [id number] - [address] [place] [address] NEVIN ESPARZA Order: PTT Specimen Source: Body Site: Legend: (G,H)=High, (GG,HH,CH,#H )=Above High Threshold, (#,L)=Low, (##,CL,#L,LL)=Below Low Threshold, (C,CC,CA,# A,A)=Abnormal LOINC Test Result Flag Range Units Date 3173-2 1aPTT Time Bld 28.4 25.6-36.4 sec 11/09/2017 17:22 Performing Lab Footnotes:[facility] - [id number] - [address] [place] [address] NEVIN TEMPLEOMSha Microbiology Results w Susceptibilities Order: CULTURE URINE Specimen Source: Urine Body Site: Urine specimen collection, clean catchCultural Observations:Mixed growth consistent with vaginal any [id number] Lab Footnotes:[facility] - [id number] - [address] [place] [address] NEVIN BALTAZARD1 Radiology Results Order: US-TRANSVAGINAL OBExam Completion Date:11/09/2017 17:06 OBSTETRICS REPORT (Signed Final 11/09/2017 07:11 pm) Patient Info ID #: [id number] : [birth year] (32 yrs)(F) Name: DAVID MADDOX Visit Date: 11/09/2017 06:49 pm Performed By Performed By: Silvana Betts Attending: Alonso Torres MD Referred By: [facility] Emergency Dept. Location: [facility] Service(s) [place]. [address] (0102) Indications with history of Ectopic or Molar O09.11 , 1st Tri OB History : 5 Term: 3 Orlin: 0 SAB: 0 TOP: 0 Ectopic: 1 Livin - Evaluation Num Of Fetuses: 1 Preg. Location: See impression Gest. Sac: See impression Yolk Sac: Not seen Pole: Not Seen -------- Biometry -------- GS: 6.8 mm G.Age: 5w 2d AVIVA: 07/10/18 --- Gestational Age LMP: 4w 4d Date: AVIVA: 07/15/18 Best: 4w 4d Det. By: LMP (10/08/17 ) AVIVA: 07/15/18 Cervix Uterus Adnexa ---- Cervix Length: 8.94 cm. Funnel Length: 5.85 cm. Funnel Width: 5.89 cm. Left Ovary Size(cm) 2.93x 3.08 x 2.53 Vol(ml): 12 Right Ovary Size(cm) 2.03 x 1.84 x 1.96 Vol(ml): 3.8 Multiple follicles seen Cul De Sac: No free fluid seen -------- Comments -------- Transvaginal sonography was performed to better visualize uterine contents. Verbal consentof the patient was obtained. Impression There is a likely gestationalsac within the uterus with decidual reaction. No pole or yolk sac is seen. The right and left ovaries appear normal. No free fluid is seen. The above ultrasonographic findings are compatible with either a very early gestation or a miscarriage. An ectopic cannot be completely ruled out by today's scan, but is unlikely. Follow up assessment for determination of location and viablity is recommended with serial BetaHCG and follow up ultrasound. Recommendations If you would like to arrange additional ultrasound follow- up, please call [phone]. If you would like to arrange genetic counseling or MFM consultation for your patient, please call [phone]. Alonso Torres MD Electronically Signed Final Report 11/09/2017 07:11 pm Interpreted By: Alonso Torres MD Electronically signed By: ALONSO TORRES Read By: ALONSO TORRES Date: 11/09/2017 19:11 Social History Code Code System Social History Observation Description Dates Observed 072010012 SNOMED CT Current Smoking Status Never smoker UNK AdministrativeGender Sex Assigned At Unknown Vital Signs Code Code System Vitals Value Date 8480-6 LOINC BP Systolic 115 mm[Hg] 11/09/2017 8462-4 LOINC BP Diastolic 66 mm[Hg] 11/09/2017 8310-5 LOINC Body Temperature 99.2 [degF] 11/09/2017 8865-8 LOINC Pulse Rate 86 {beats}/min 11/09/2017 9279-1 LOINC Respiratory Rate 18 /min 11/09/2017 16727-2 LOINC O2% BldC Oximetry 98 % 11/09/2017 8302-2 LOINC Height 60 [in_i] 11/09/2017 19284-3 LOINC Weight 61.24 kg 11/09/2017 3140-1 LOINC Body surface area Derived from formula 1.58 m2 11/09/2017 76493-8 LOINC BMI (Body Mass Index) 26.5 kg/m2 11/09/2017 Goals Section No data in the system Health Concerns No data in the systemEncounter Diagnosis Date Code Code System Diagnosis Status O23.41 ICD10 UNS INF URINARY TRACT PREG 1ST TRI Active Advance Directives No Data in the System Family History No data in the system Functional Status No data in the system Immunizations No data in the system Medical Equipment No data in the system Mental Status No data in the system Assessment and Plan Assessments No data in the systemPlan Of Treatment No data in the systemPending Tests No data in the system Hospital Discharge Instructions No data in the system
[2017-11-30 20:03] VITALS: BP 126/66
--- OUTSIDE RECORDS SUMMARY | 2017-11-30 20:03 | XMS REPORT ---
:1985 External Reference #:[id number] Author Organization [facility] Address [address], [address] [place] [address] Phone [phone] Care Team Providers Name Role Phone Lindsey Rizzo MD Care Team Information Delivery Lead Unavailable Lindsey Rizzo MD Primary Care Physician Unavailable Payers Type Date Identification Numbers Payment Provider Subscriber Commercial Policy Number: [id number] Cipriano [facility] David Hung PayID: [id number] [address] [place] [address] Medicaid Policy Number: [id number] Medicaid David Hung Group Name: 1 1 [address] PayID: [id number] [place] [address] Commercial Expires: 2014 Policy Number: [place] [facility] David Hung [id number] PayID: [id number] [address] [place] [address] Problems Date Description Provider Status Onset: 05/27/2015 [...] Onset: 02/06/2017 39 weeks gestation of Stephan Ariraga M.D. Inactive Inactive: 04/10/2017 Onset: 04/03/2017 Encounter [...] 16oz of soda per day Age 1st [place] 12 Years Old # Partners in a Lifetime 2 STD's No STD History Allergies, Adverse Reactions, Alerts Date Description Reaction Status Severity Comments 12/30/2015 Bupropion active Moderate altered cognition 07/23/2014 NKDA inactive Medications Medication Date Status Form Strength Qnty SIG Indications Ordering Provider 11/16/ Active Chewtabs 0.4-32.5mg 30uni 1 by mouth O09.71 Sherine Edward/Dha 2018 ts every day Borra, CNM & Folic Acid Atenolol 04/28/ Active Tablets 25mg 60tab 1 by mouth Song Camilo 2016 s twice a day Guillermina Robles., [facility] Flintstones / Active Chewtabs 60mg 2 by mouth Corina, Complete 0000 every day Marco Antonio Rothman 1 11/16/ Hx Capsules 30-0.975-2 30cap take one O09.71 Sherine 2018 - 00mg s capsule by MARA Freitas 11/16/ mouth every 2017 day. Amoxicillin 04/28/ Hx Capsules 500mg 30cap take 1 H66.91 Andras 2016 - s tablet Bry, 05/09/ every 8 M.D. 2017 hours for 10 days Atenolol 04/28/ Hx Tablets 50mg 60tab 1 tab by Dasha 2016 - s mouth twice MD Emelina 04/28/ a day 2016 Bystolic 04/26/ Hx Tablets 2.5mg 30tab 1 by mouth Porter 2016 - s daily MD Denny 2016 Norgestim-Eth 04/03/ Hx [...] 0.5 mg po Z71.6 David Starting Month 2016 - & 1 mg qd x3 days, [...] R05 David 2017 - s every day Norbert 03/08/ for nasal M.D. 2016 congestion Amoxicillin 01/02/ Hx Capsules 500mg 30cap 1 cap by J06.9 David 2017 - s mouth three Toussaint, 07/ times a day M.D. 2016 Propranolol HCL 25/ Hx Tablets 20mg 60tab 1 tab by David 2017 - s mouth twice Toussaint, 04/26/ a day M.D. 2016 Amoxicillin 09/18/ Hx Tablets 875mg 15tab 1 tab by Kirsten 2017 - s mouth three Perkins, [facility] 11/17/ times a day 2016 Amoxicillin 07/21/ Hx Capsules 500mg 14cap Take one H66.001 October 2016 - s capsule by [place], [facility] 08/15/ mouth twice 2017 daily for 7 days. 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 1 06/27/ Hx Capsules 30-0.975-2 30cap take one October 2015 - 00mg s capsule by Junior, [facility] 07/19/ mouth every 2016 day. Vitamin D-3 06/27/ Hx Capsules 1000Unit 30cap take one October 2015 - s capsule by Junior, [facility] 11/16/ mouth daily 2017 Vitamin D-1000 06/20/ Hx Tablets 1000Unit 90tab 1 by mouth Mikal Ortiz 2015 - s every day Aaron DO Strength 2015 Buspirone HCL 30/ Hx Tablets 5mg 60tab 1 by mouth F41.9 Mikal E. 2016 s 2 times a Aaron DO day Benzonatate 01/04/ Hx Capsules 200mg 90cap 1 by mouth J01.90 Mikal Swanson 2016 s three times Aaron DO a day as needed cough Saline Nasal 01/04/ Hx Solution 0.65% 135ml 2 sprays J01.90 Mikal Swanson Turpin 2016 every 2 Aaron DO hours as needed Probiotic 01/04/ Hx Capsules 60cap 1-2 J01.90 Mikal Swanson Acidophilus 2016 s capsules by Aaron DO mouth daily x10 days Acetaminophen 01/04/ Hx Tablets 500mg 540ta 2 by mouth Mikal Swanson Extra Strength 2016 - bs three times Aaron DO 06/27/ a day 2016 Xenical 12/29/ Hx Capsules 120mg 270ca take with E66.9 Mikal Swanson 2016 - ps or <1h Aaron DO 06/14/ after meals 2015 containing fat 3 times daily; omit dose if meal is non-fat or missed Amoxicillin 07/23/ Hx Capsules 500mg 21cap 1 cap by H66.90 Emmett 2016 - s mouth three Vatra, 12/29/ times a day M.Venkata 2016 Lexapro 00/ Hx Tablets 20mg 30tab by mouth Unknown 0000 s every day Atenolol / Hx Tablets 25mg 30tab 1/2 by Jami 0000 - s mouth every Simonetta 12/24/ day 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 0000 - bs by mouth Margaret, 06/15/ twice a day Marco Antonio, [facility] 2015 Zithromax / Hx Tablets 250mg take 2 tabs Unknown 0000 - by mouth on 06/15/ day 1 then 2015 1 tab by mouth qddays 2-5 Atenolol / Hx Tablets 75mg 1 by mouth Unknown 0000 - bid 2015 Paxil / Hx Tablets 20mg 1 by mouth Unknown 0000 - every day 2015 Immunizations CPT Code Status Date Vaccine Lot # [id number] Given 12/20/2016 Tdap injection [id number] Given 04/16/2015 Influenza Vaccine (Fluzone) Age 3 And Older [id number] U-Pneum Given 04/12/2013 Pneumococcal,Unspecified [id number] Given 07/17/2011 Tdap injection [id number] Given 07/14/2009 H1N1 Immuniation Adminstration [id number] Given 07/14/2009 H1N1 Immuniation Adminstration Vital Signs Date Vital Result Comment 11/16/2017 BP Systolic 135 mmHg BP Diastolic 74 mmHg Height 64 inches 5'4" Weight 134.00 lb BMI (Body Mass Index) 23.0 kg/m2 BSA (Body Surface Area) 1.65 m2 [place] body weight in kilograms 54 04/28/2017 BP [...] kg/m2 BSA (Body Surface Area) 1.63 m2 [place] body weight in kilograms 54 03/08/2017 BP Systolic 119 mmHg BP Diastolic 76 mmHg Heart Rate 73 /min Respiratory Rate 16 /min Height 64 inches 5'4" [place] body weight in kilograms 54 O2 % BldC Oximetry 99 % 02/06/2017 BP Systolic 118 mmHg BP Diastolic 86 mmHg Height 64 inches 5'4" Weight 149.38 lb BMI (Body Mass Index) 25.6 kg/m2 BSA (Body Surface Area) 1.73 m2 [place] body weight in kilograms 54 01/30/2017 BP Systolic 112 mmHg BP Diastolic 70 mmHg Height 64 inches 5'4" Weight 145.00 lb BMI (Body Mass Index) 24.9 kg/m2 BSA (Body Surface Area) 1.71 m2 [place] body weight in kilograms 54 01/23/2017 BP Systolic 106 mmHg BP Diastolic 60 mmHg Height 64 inches 5'4" Weight 147.38 lb BMI (Body Mass Index) 25.3 kg/m2 BSA (Body Surface Area) 1.72 m2 [place] body weight in kilograms 54 01/16/2017 BP Systolic 110 mmHg BP Diastolic 62 mmHg Height 64 inches 5'4" Weight 147.00 lb BMI (Body Mass Index) 25.2 kg/m2 BSA (Body Surface Area) 1.72 m2 [place] body weight in kilograms 54 01/02/2017 BP Systolic Sitting Right Arm 102 mmHg BP Diastolic Sitting Right Arm 58 mmHg Body Temperature 98.7 F Heart Rate 84 /min Height 64 inches 5'4" Weight 148.38 lb BMI (Body Mass Index) 25.5 kg/m2 BSA (Body Surface Area) 1.72 m2 [place] body weight in kilograms 54 O2 % BldC Oximetry 96 % 01/02/2017 BP Systolic 106 mmHg BP Diastolic 66 mmHg Height 64 inches 5'4" Weight 148.25 lb BMI (Body Mass Index) 25.4 kg/m2 BSA (Body Surface Area) 1.72 m2 [place] body weight in kilograms 54 12/19/2016 BP Systolic 118 mmHg BP Diastolic 66 mmHg Height 64 inches 5'4" Weight 148.50 lb BMI (Body Mass Index) 25.5 kg/m2 BSA (Body Surface Area) 1.72 m2 [place] body weight in kilograms 54 12/05/2016 BP Systolic 104 mmHg BP Diastolic 70 mmHg Height 64 inches 5'4" Weight 147.50 lb BMI (Body Mass Index) 25.3 kg/m2 BSA (Body Surface Area) 1.72 m2 [place] body weight in kilograms 54 11/17/2016 BP [...] kg/m2 BSA (Body Surface Area) 1.63 m2 [place] body weight in kilograms 45 08/15/2016 BP [...] Laboratory test finding 11/16/2017 Treponema Antibody <pending> [place] Urine Dipstick 11/16/2017 Ua Color Yellow Yellow Ua Clarity Clear Clear Ua Leuko Negative Negative Ua Nitrite Negative Negative Ua Urobilinogen 0.2 0.2 - 1.0 E.U./dL Ua Protein 1+ High Negative Ua PH 6.0 Low 6.5-7.5 Ua Blood 1+ High Negative Ua Specific [place] 1.005 Low 1.010-1.030 Ua Ketones Negative Negative [...] 1 Lymph % 29.9 % 20.0-42.0 1 [place] % 6.3 % 4.3-13.2 1 Eo% 1.7 % 0.0-6.6 1 Bas% 0.4 % 0.0-1.1 1 Neut# 4.82 K/uL 1.8-7.0 1 Lymph # 2.33 K/uL 1.0-4.0 1 [place] # 0.49 K/uL 0.3-0.9 1 Eos # [...] Treponema Antibody Negative Negative 4, 5 finding [place] [facility] Laboratory test 01/16/2017 Vaginal Strep NO GROUP [...] 13 Lymph # 1.83 K/uL 1.0-4.0 13 [place] # 0.82 K/uL 0.3-0.9 13 Eos # 0.09 K/uL 0.0-0.5 13 Baso # 0.02 K/uL 0.0-0.1 13 Laboratory test 11/17/2016 Treponema Antibody Negative Negative 13, 20 finding [place] Urine Culture 10/12/2016 Urine Culture URETHRAL JOAQUÍN [...] Ketone NEGATIVE mg/dL Negative 30 Urine Specific [place] 1.015 1.010-1.030 30 Urine Blood SMALL Negative [...] 30, 33 Laboratory test 08/04/2016 HCG, Quant 54925.0 mIU/mL 34, 35 finding Laboratory test 08/01/2016 HCG, Quant 64582.0 mIU/mL 36, 37 finding Trichomonas Dna 08/01/2016 [...] Ketone NEGATIVE mg/dL Negative 36 Urine Specific [place] 1.010 1.010-1.030 36 Urine Blood TRACE Negative [...] TRACE mg/dL High Negative 46 Urine Specific [place] 1.020 1.010-1.030 46 Urine Blood SMALL Negative [...] NOTE> Laboratory Studies 07/14/2016 Beta HCG, Quantitative 867917.00 mIU/mL Free Thyroxine 0.83 ng/dL 0.61-1.12 Free [...] Hormone (TSH) 0.69 mcIU/mL 0.34-5.60 Urine Specific [place] 1.024 1.010-1.030 Urine pH 6.0 5-9 White Blood Count 15.0 10^3/ul High 3.5-10.8 Urinalysis Profile 07/11/2016 Urine Color Yellow Urine Appearance Cloudy Urine Specific [place] 1.017 1.010-1.030 Urine pH 7.0 5-9 Urine [...] >60 50 Laboratory test finding 07/11/2016 HCG 191053.00 mIU/mL 51 Urine Culture SEE RESULT BELOW [...] (Auto) 0.6 % 0-2 Beta HCG, Quantitative 622842.00 mIU/mL Blood Urea Nitrogen 8 mg/dL 6-24 [...] Total Protein 7.3 g/dL 6.4-8.9 Urine Specific [place] 1.017 1.010-1.030 Urine pH 7.0 5-9 White [...] Laboratory test finding 07/01/2016 Alanine Aminotransferase 22 - (Alt/SGPT) Albumin/Globulin Ratio 1.0 BUN/Creatinine Ratio 18.3 [...] Antibody Nonreactive Nonreactive 58 , 64 finding [facility] Chlamydia/GC Rimma 06/29/2016 Chlamydia Negative Negative 58 [...] 58 Lymph % 20.1 % 17.0-46.1 58 [place] % 7.6 % 4.3-13.2 58 Eo% 1.6 % 0.0-6.6 58 Bas% 0.2 % 0.0-1.1 58 Neut# 8.63 K/uL High 1.8-7.0 58 Lymph # 2.46 K/uL 1.8-7.0 58 [place] # 0.93 K/uL High 0.3-0.9 58 Eos [...] Color Yellow Urine Appearance Cloudy Urine Specific [place] 1.014 1.010-1.030 Urine pH 7.0 5-9 Urine [...] (Auto) 1.1 % 0-2 Beta HCG, Quantitative 01163.00 mIU/mL Blood Urea Nitrogen 10 mg/dL 6-24 [...] 6.93 mg/L High < 5.00 73 HCG 41957.00 mIU/mL 74 Comp Metabolic Panel 06/26/2016 Sodium [...] TRACE mg/dL High Negative 81 Urine Specific [place] >=1.030 1.010-1.030 81 Urine Blood MODERATE Negative [...] 85 Laboratory test finding 06/24/2016 HCG, Quant 01031.0 mIU/mL 86, 87 Laboratory test finding 06/24/2016 [...] 88 Lymph % 22.7 % 17.0-46.1 88 [place] % 7.1 % 4.3-13.2 88 Eo% 2.1 % 0.0-6.6 88 Bas% 0.4 % 0.0-1.1 88 Neut# 6.96 K/uL 1.8-7.0 88 Lymph # 2.34 K/uL 1.8-7.0 88 [place] # 0.73 K/uL 0.3-0.9 88 Eos # [...] is suggested. 4 LABOR 5 Performed at: - [facility] [id number] Director Retirement: Sabas Oneil MD, Phone: [phone] 6 Z3A.36 7 NO GROUP B STREPTOCOCCI ISOLATED 8 Z3A.34 9 10,000 - 50,000 CFU/mL 10 Social Work Case Manager: [id number] Z3A.32 12 > 100,000 CFU/mL SPECIMEN IS A MIX OF GRAM POSITIVE ORGANISMS CONSISTENT WITH SKIN VAGINAL CONTAMINATION. SUGGEST REPEAT SPECIMEN IF CLINICALLY INDICATED. 13 O09.892 14 Performed at: - [facility] [address] [id number] Director Retirement: Rocio Paulson MD, Phone: [phone] 15 LARGE PLATELETS PRESENT. 16 POST GLUCOLA 17 NO SPECIMEN RECEIVED 18 NO SPECIMEN RECEIVED 11/17/161856: NEUT% previously reported as: 78.2 H % Amended result called to: [] - 11/17/16 at 185611/17/161856: LYMPH % previously reported as: 14.4 L % Amended result called to: [] - 11/17/16 at 185611/17/161856: MONO % previously reported as: 6.5 % Amended result called to: [] - 11/17/16 at 185611/17/161856: EO% previously reported as: 0.7 % Amended result called to: [] - 11/17/16 at 185611/17/161856: BAS% previously reported as: 0.2 % Amended result called to: [] - 11/17/16 at 1856 20 Performed at: - [facility] [id number] Director Retirement: Sabas Oneil MD, Phone: [phone] 21 > 100,000 CFU/mL SPECIMEN IS A [...] 42 OSVALDO, 10 WKS PREGN, SENT BY DR Matamoros Note: Persistent reduction for 3 months or [...] [address]: Austin Shaffer MD Acct: [id number] Unit: [id number] AGE: 30 Location: ED Re07/11/16 SEX: F Status: DEP ER SPEC: [id number] JOSE: 07/11/[address] [facility] [address]: Austin Shaffer MD REQ: [id number] RECD: 07/11/16 STATUS: DELL PARSONS DR: Lisa Craig PA _ SOURCE: URINE SPDESC: ORDERED: Urine Culture Procedure Result Reported Site Urine Culture Final 07/12/16- 1230 ML No growth of clinically significant organisms * ML - MAIN LAB ([facility]) . END OF REPORT * ML=Testing performed at Main Lab DEPARTMENT OF PATHOLOGY, [address] [place] [address] Lew Cohen M.D. Director [facility] # [id number] 53 026.851 54 50,000 - 100,000 CFU/mL 55 SPOTTING, [...] 40 CHELE 30 Detection Limit=1 Performed at: - [facility] [id number] Director Retirement: Rocio Paulson MD, Phone: [phone] NOTE: A NON-REACTIVE RESULT INDICATES THAT HIV-1 AND HIV-2 ANTIBODIES HAVE NOT BEEN FOUND IN THIS PATIENT SPECIMEN. A NON-REACTIVE RESULT, HOWEVER, DOES NOT PRECLUDE PREVIOUS EXPOSURE OF INFECTION WITH HIV. * [place] STATE LAW PROHIBITS THE REDISCLOSURE OF THIS RESULT * * TO ANY UNAUTHORIZED [employer]. * 69 Antibodies to HCV not detected; [...] 5 Kidney failure <15 (or dialysis) 76 [id number] 77 SEE RESULT BELOW Name: DAVID HUNG : [address]: Martita Braga Acct: [id number] Unit: [id number] AGE: 30 Location: [facility] Re06/25/16 SEX: F Status: DEP ER SPEC: [id number] JOSE: 06/25/16-[address]: Allyson Mendes DO REQ: [id number] RECD: 06/25/16-123 STATUS: DELL PARSONS DR: Lisa Craig PA _ SOURCE: VAGINAL SPDESC: ORDERED: Jorje,Yeast DNA COMMENTS: [id number] Procedure Result Reported Site Gardnerella/Yeast: Vaginal DNA [...] or failure. * ML - MAIN LAB ([facility]) . END OF REPORT * ML=Testing performed at Main Lab DEPARTMENT OF PATHOLOGY, [address] [place] [address] Lew Cohen M.D. Director [facility] # [id number] 78 [id number] GC/Chlamydia Source?: Endocervical Trichomonas Source: Endocervical 79 Comment: has taken macrobid [id number] 80 SEE RESULT BELOW Name: DAVID HUNG : [address]: Martita Braga Acct: [id number] Unit: [id number] AGE: 30 Location: [facility] Re06/25/16 SEX: F Status: DEP ER SPEC: [id number] JOSE: 06/25/16-[address] [facility] [address]: Allyson Mendes DO REQ: [id number] RECD: 06/25/16 STATUS: DELL PARSONS DR: Emmett Ventura MD _ SOURCE: URINE SPDESC: ORDERED: Urine Culture COMMENTS: Comment: has taken macrobid [id number] Procedure Result Reported Site Urine Culture Final 06/26/16- 1214 ML No growth of clinically significant organisms * ML - MAIN LAB ([facility]) . END OF REPORT * ML=Testing performed at Main Lab DEPARTMENT OF PATHOLOGY, [address] [place] [address] Lew Cohen M.D. Director [facility] # [id number] 81 TEST 82 50,000 - 100,000 CFU/mL [...] D deficiency has been defined by the Goode of Medicine and an Endocrine Society practice guideline as a level of serum 25-OH vitamin D less than 20 ng/mL (1,2). The Endocrine Society went on to further define vitamin D insufficiency as a level between 21 and 29 ng/mL (2). 1. IOM (Goode of Medicine). 2010. Dietary reference intakes for calcium and D. [place]: The National Academies Press. 2. Marry MF, Malinda NC, Yeimy DEL ANGEL, et al. Evaluation, treatment, and prevention of vitamin D deficiency: an Endocrine Society clinical practice guideline. JCEM. 2010; 96(7):1911-30. Performed at: [facility] - [facility] [id number] Director Retirement: Rocio Paulson MD, Phone: [phone] Note: Persistent reduction for 3 months [...] ISOLATED Procedures Date CPT Code Description Status 02/11/2017 92478 Vaginal Delivery Global Care Completed 06/22/2016 66103 Echocardiogram Complete Completed 06/22/2016 80962 Event Monitor Inter/Review Only Completed 06/16/2016 56542 EKG-Tracing And Report Completed 08/20/2014 20907 Vaginal Delivery W/Post- Care Completed 06/24/2013 37820 Holter Monitor 24HR Inter/Report Completed 07/20/2011 43538 Echocardiogram Complete Completed 07/20/2011 45733 Event Monitor Inter/Review Only Completed 12/08/2010 05109 Remove Impacted Cerumen Completed 08/16/2010 42353 Holter Monitor 24HR Inter/Report Completed 08/13/2010 22166 Pulse Oximetry Completed 08/13/2010 30971 EKG-Tracing And Report Completed 08/09/2010 35800 Pressurized/Non-Pressurized Inhalation Treatment,Acute Completed Obstructio 08/09/2010 26653 Pulse Oximetry Completed 11/17/2008 85158 Post- Care Only Completed 10/03/2008 96180 Antepartum 7 Or More Total Office Visit Completed 10/03/2008 21068 Vaginal Delivery Global Care Completed 09/30/2008 28487 Antepartum 7 Or More Total Office Visit Completed 09/25/2008 25606 Antepartum 7 Or More Total Office Visit Completed 09/22/2008 17702 Antepartum 7 Or More Total Office Visit Completed 09/17/2008 45361 Antepartum 7 Or More Total Office Visit Completed 09/09/2008 75388 Antepartum 7 Or More Total Office Visit Completed 09/03/2008 43370 Antepartum 7 Or More Total Office Visit Completed 08/20/2008 55226 Antepartum 7 Or More Total Office Visit Completed Encounters Type Date Location Provider CPT E/M Dx Office Visit 04/28/2017 11:00a Primary Care Office Dolly Londono M.D. 70983 H66.91 Office Visit 03/08/2017 11:00a Primary Care Office Lisa Yuliana Rafa, 38010 F32.9 PA-C F41.9 R00.2 E55.9 F17.200 Z71.6 Z70.9 Office Visit 01/02/2017 10:00a Primary Care Office Rajwinder Hutchinson [facility] 06456 J06.9 O99.333 F17.210 Z71.6 Office Visit 07/21/2016 8:30a Family Medicine & [facility] 48978 H66.001 Women's Health Z33.1 Office Visit 07/19/2016 1:00p Family Medicine & [facility] 20521 S39.011A Women's Health Z33.1 Office Visit 07/13/2016 1:30p [facility] [address]65[address] F41.9 Women's Health Office Visit 07/04/2016 11:00a 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 with PCP
--- NOTE | 2017-11-30 20:07 | UC ---
Ear Complaint HPI - HPI Summary HPI Summary: Pt c/o bilateral ear pain. Pt is a pt of Dr. Kauffman and had TM "patch" placed last year. Denies fever, chills, [place], ST or neck pain - History of Current Complaint Chief Complaint: UCEar Stated Complaint: EAR PAIN Time Seen by Provider: 11/30/17 19:53 Hx Obtained From: Patient Hx Last Menstrual Period: 2 weeks ago ?: Yes Onset/Duration: Gradual Onset, Lasting Days, Still Present Severity Initially: Mild Severity Currently: Mild Pain Intensity: 4 - Allergies/Home Medications Allergies/Adverse Reactions: Allergies Allergy/AdvReac Type Severity Reaction Status Date / Time No Known Allergies Allergy Verified 11/11/17 13:46 Home Medications: Home Medications Metoprolol Tartrate TAB* [Lopressor TAB*] 12.5 mg PO BID 11/30/17 [History Confirmed 11/30/17] PMH/Surg Hx/FS Hx/Imm Hx Previously Healthy: Yes - Surgical History Surgical History: Yes Surgery Procedure, Year, and Place: Right Fallopian Tube Removed, 2010, [facility]. Ear Tubes as a child. RIGHT ear tube 2013 Other Surgical History: Has right ear tube - Family History Known Family History: Positive: Unknown - PT ADOPTED - Social History Occupation: Works From/At Home Lives: With Family Alcohol Use: None Substance Use Type: None Smoking Status (MU): Heavy Every Day Tobacco Smoker Type: Cigarettes Amount Used/How Often: 10 cig/day Length of Time of Smoking/Using Tobacco: 14 yrs Have You Smoked in the Last Year: Yes When Did the Patient Quit Smoking/Using Tobacco: 06/29 Household Exposure Type: Cigarettes - Immunization History Most Recent Influenza Vaccination: 2016 Most Recent Pneumonia Vaccination: FALL 2013 Review of Systems Constitutional: Negative Skin: Negative Eyes: Negative ENT: Ear Ache Respiratory: Negative Cardiovascular: Negative Gastrointestinal: Negative Genitourinary: Negative Motor: Negative Neurovascular: Negative Musculoskeletal: Negative Neurological: Negative Psychological: Negative Is Patient Immunocompromised?: Yes All Other Systems Reviewed And Are Negative: Yes Physical Exam Triage Information Reviewed: Yes Appearance: Well-Appearing Vital Signs: Initial Vital Signs Temp 98.1 F 11/30/17 19:56 Pulse 87 11/30/17 19:56 Resp 20 11/30/17 19:56 BP 126/66 11/30/17 19:56 Pulse Ox 99 05/17/18 19:56 Vital Signs Reviewed: Yes Eye Exam: Normal ENT Exam: Other ENT: Positive: Other - right TM perforated at 7 o'clock position Neck exam: Normal Respiratory: Positive: No respiratory distress Musculoskeletal Exam: Normal Neurological Exam: Normal Psychological Exam: Normal Skin Exam: Normal Ear Complaint Course/Dx - Differential Dx/Diagnosis Differential Diagnosis/HQI/PQRI: Perforated TM Provider Diagnoses: perforated TM. bilateral ear ache Discharge - Sign-Out/Discharge Documenting (check all that apply): Discharge/Admit/Transfer - Discharge Plan Condition: Stable Disposition: HOME Patient Education Materials: Earache (ED) Referrals: Arnoldo Kim MD [Medical Doctor] - Lindsey Rizzo MD [Primary Care Provider] - Additional Instructions: Please follow up with your ENT provider as listed. - Billing Disposition and Condition Condition: STABLE Disposition: HOME
== END 2017-11-30 20:22 | disposition home or self-care (01) ==
LOC: UCCORT 19:35
DX: H72.91 Unspecified perforation of tympanic membrane, right ear (principal); H92.03 Otalgia, bilateral; F17.210 Nicotine dependence, cigarettes, uncomplicated
CPT/HCPCS: 99211; G0463

== ENCOUNTER 2018-04-08 10:02 | Emergency (ER) | payer OTHER ==
--- OUTSIDE RECORDS SUMMARY | 2018-04-08 11:07 | XMS REPORT ---
:1985 External Reference #:[id number] Author Organization [facility] Address [address], [address] [place] [address] Phone [phone] Care Team Providers Name Role Phone Lindsey Rizzo MD Care Team Information Slackman Unavailable Lindsey Rizzo MD Primary Care Physician Unavailable Payers Type Date Identification Numbers Payment Provider Subscriber Commercial Policy Number: [id number] [employer] David Hung PayID: [id number] [address] [place] [address] Problems Date Description Provider Status Onset: 05/27/2015 Hyperlipidemia Lisa Craig PA-C Active Onset: 05/27/2015 Anxiety Lisa Craig PA-C Active Onset: 05/27/2015 Depressive disorder Lisa Craig PA-C Active Onset: 04/10/2017 [facility]ations [facility]: PVCs/PACs Onset: 12/14/2017 Smoking (tobacco) complicating Sherine Freitas CNM Active , first trimester Onset: 12/14/2017 10 weeks gestation of Sherine Freitas CNM Active Onset: 12/14/2017 Hematuria syndrome Sherine Freitas CNM Active Onset: 12/28/2017 12 weeks gestation of Sherine Freitas CNM Active Onset: 12/28/2017 High risk Sherine Freitas CNM Active Onset: 01/29/2018 16 weeks gestation of Sherine Freitas CNM Active Onset: 02/26/2018 20 weeks gestation of Sherine Freitas CNM Active Onset: 12/19/2016 32 weeks gestation of Stephan [...] 16oz of soda per day Age 1st [place] 12 Years Old # Partners in a Lifetime 2 STD's No STD History Allergies, Adverse Reactions, Alerts Date Description Reaction Status Severity Comments 12/30/2015 Bupropion active Moderate altered cognition 07/23/2014 NKDA inactive Medications Medication Date Status Form Strength Qnty SIG Indications Ordering Provider 11/16/ Active Chewtabs 0.4-32.5mg 30unit 1 by mouth O09.71 Cheyanne Freitas/Dha & 2018 s every day MARA Basurto Folic Acid Metoprolol 11/16/ Active Tablets 25mg 45tabs 1/2 tab by R00.2 Margaret Tartrate 2018 mouth twice , Avis day Marco Antonio Camilo, [facility] Flintstones / Active Chewtabs 60mg 2 by mouth Corina, Complete 0000 every day Marco Antonio Rothman 1 11/16/ Hx Capsules 30-0.975-2 30caps take one O09.71 Zena 2018 - 00mg capsule by MARA Basurto 11/16/ mouth every 2017 day. Amoxicillin 04/28/ Hx Capsules 500mg 30caps take 1 H66.91 Bry 2017 - tablet Andras, 05/09/ every 8 M.D. 2017 hours for 10 days Atenolol 04/28/ Hx Tablets 50mg 60tabs 1 tab by Emelina, 2017 - mouth twice MD Dasha 04/28/ a day 2016 Atenolol 04/28/ Hx Tablets 25mg 60tabs 1 by mouth R00.2 Margaret 2017 - twice a day , Song 11/16/ Marco Antonio Camilo, 2018 [facility] Bystolic 04/26/ Hx Tablets 2.5mg 30tabs 1 by mouth Denny, 2017 - daily MD Porter 2016 Norgestim-Eth 04/03/ Hx Tablets 0.18/0.215 84tabs 1 by mouth Z39.2 Corina, Estrad 2017 - /0.25 every day Stephan, Triphasic 11/16/ mg-25 mcg M.D. 2017 Citalopram 03/08/ Hx Tablets 20mg 90tabs 1 by mouth F41.9 Norbert, Hydrobromide 2017 - every day David, 11/16/ M.D. 2018 Chantix 03/08/ Hx Tablets 0.5mg X 11 1tabs 0.5 mg po Z71.6 Norbert, Starting Month 2016 - & 1 mg X qd x3 days, Mathew Hernandez 10/25/ 40 then 0.5 mg M.D. 2016 po bid x4 days; max: 2 mg/day; info: give w/ food; start drug 1wk before quit date. Chantix 03/08/ Hx Tablets 1mg 60tabs 1 by mouth Z71.6 Norbert, 2016 - twice a day David, 11/16/ start M.D. 2018 after 1st month Loratadine 01/02/ Hx Tablets 10mg 10tabs 1 by mouth R05 Norbert, 2016 - every day David, 03/08/ for nasal M.D. 2016 congestion Amoxicillin 01/02/ Hx Capsules 500mg 30caps 1 cap by J06.9 Norbert, 2016 - mouth three David, 01/23/ times a day M.D. 2016 Propranolol HCL 12/08/ Hx Tablets 20mg 60tabs 1 tab by Norbert, 2016 - mouth twice David, 04/26/ a day M.D. 2016 Amoxicillin 09/18/ Hx Tablets 875mg 15tabs 1 tab by Gregorio 2016 - mouth three Kirsten, 11/17/ times a day [facility] 2016 Amoxicillin 07/21/ Hx Capsules 500mg 14caps Take one H66.001 [place], 2016 - capsule by 08/15/ mouth twice [facility] 2016 daily for 7 days. 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 1 12/12/ Hx Capsules 30-0.975-2 30caps take one Junior, 2015 - 00mg capsule by 07/19/ mouth every CNM 2016 day. Vitamin D-3 06/27/ Hx Capsules 1000Unit 30caps take one Junior, 2015 - capsule by 11/16/ mouth daily CNM 2017 Vitamin D-1000 06/20/ Hx Tablets 1000Unit 90tabs 1 by mouth Aaron, Diana 2016 - every day Mikal Jesús., Strength 2015 Buspirone HCL 06/15/ Hx Tablets 5mg 60tabs 1 by mouth F41.9 Aaron, 2016 2 times a Mikal E., day DO Benzonatate 01/04/ Hx Capsules 200mg 90caps 1 by mouth J01.90 Aaron 2015 three times Mikal EAngel, a day as DO needed cough Saline Nasal 01/04/ Hx Solution 0.65% 135ml 2 sprays J01.90 Aaron Cowley 2016 every 2 Mikal EAngel, hours as DO needed Probiotic 01/04/ Hx Capsules 60caps 1-2 J01.90 Aaron Acidophilus 2016 capsules by Mikal E., mouth daily DO x10 days Acetaminophen 01/04/ Hx Tablets 500mg 540tab 2 by mouth Aaron, Extra Strength 2016 - s three times Mikal EAngel, 06/27/ a day DO 2016 Xenical 12/29/ Hx Capsules 120mg 270cap take with E66.9 Aaron 2016 - s or <1h Mikal Swanson, 06/14/ after meals DO 2016 containing fat 3 times daily; omit dose if meal is non-fat or missed Amoxicillin 07/23/ Hx Capsules 500mg 21caps 1 cap by H66.90 Lorenzo 2016 - mouth three Emmett, 12/29/ times a day MD 2016 Lexapro / Hx Tablets 20mg 30tabs by mouth Unknown 0000 every day Atenolol / Hx Tablets 25mg 30tabs 1/2 by Jay, 0000 - mouth every Jami 12/24/ day 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 , 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, 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 Paroxetine HCL / Hx Tablets 20mg 90tabs 1 by mouth Aaron, 0000 - every day Mikal EAngel, DO 2016 Acetaminophen / Hx Tablets 500mg 1-2 tabs by Unknown Extra Strength 0000 - mouth every 07/06/ 4 hours as 2014 needed Vitamin D 00/00/ Hx Tablets 1000Unit 1 by mouth Unknown (Cholecalcifero 0000 - every day l) 2014 Pravastatin 00/00/ Hx Tablets 10mg 1 by mouth Unknown Sodium 0000 q hs Multivitamins 00/00/ Hx Capsules 1 by mouth Unknown 0000 - every day 2014 Atenolol /00/ Hx Tablets 50mg 180tab 1 and 1/2 Davidenko 0000 - s by mouth , Song 06/15/ twice a day Marco Antonio Camilo, 2016 FAC Zithromax 00/ Hx Tablets 250mg take 2 tabs Unknown 0000 - by mouth on 06/15/ day 1 then 2015 1 tab by mouth qd 2- Atenolol 00/ Hx Tablets 75mg 1 by mouth Unknown 0000 - bid 2015 Paxil /00/ Hx Tablets 20mg 1 by mouth Unknown 0000 - every day 2015 Immunizations CPT Code Status Date Vaccine Lot # [id number] Given 12/20/2016 Tdap injection [id number] Given 04/16/2015 Influenza Vaccine (Fluzone) Age 3 And Older [id number] U-Pneum Given 04/12/2013 Pneumococcal,Unspecified [id number] Given 07/17/2011 Tdap injection [id number] Given 07/14/2009 H1N1 Immuniation Adminstration [id number] Given 07/14/2009 H1N1 Immuniation Adminstration Vital Signs Date Vital Result Comment 04/02/2018 BP Systolic 117 mmHg BP Diastolic 77 mmHg Body Temperature 97.7 F Heart Rate 89 /min Respiratory Rate 18 /min Height 64 inches 5'4" Weight 141.38 lb BMI (Body Mass Index) 24.3 kg/m2 BSA (Body Surface Area) 1.69 m2 [place] body weight in kilograms 54 O2 % BldC Oximetry 99 % 02/26/2018 BP Systolic 117 mmHg BP Diastolic 71 mmHg Body Temperature 98.8 F Heart Rate 92 /min Respiratory Rate 18 /min Height 64 inches 5'4" Weight 142.12 lb BMI (Body Mass Index) 24.4 kg/m2 BSA (Body Surface Area) 1.69 m2 [place] body weight in kilograms 54 O2 % BldC Oximetry 97 % 01/29/2018 BP Systolic 111 mmHg BP Diastolic 63 mmHg Body Temperature 98.4 F Heart Rate 88 /min Respiratory Rate 20 /min Height 64 inches 5'4" Weight 135.12 lb BMI (Body Mass Index) 23.2 kg/m2 BSA (Body Surface Area) 1.66 m2 [place] body weight in kilograms 54 O2 % BldC Oximetry 98 % 12/28/2017 BP Systolic 102 mmHg BP Diastolic 64 mmHg Body Temperature 96.0 F Heart Rate 80 /min Respiratory Rate 16 /min Height 64 inches 5'4" Weight 135.00 lb BMI (Body Mass Index) 23.2 kg/m2 BSA (Body Surface Area) 1.66 m2 [place] body weight in kilograms 54 O2 % BldC Oximetry 98 % 12/14/2017 BP Systolic 91 mmHg BP Diastolic 51 mmHg Body Temperature 97.6 F Heart Rate 75 /min Respiratory Rate 18 /min Height 64 inches 5'4" Weight 135.00 lb BMI (Body Mass Index) 23.2 kg/m2 BSA (Body Surface Area) 1.66 m2 [place] body weight in kilograms 54 O2 % BldC Oximetry 98 % 11/16/2017 BP Systolic Sitting Left Arm 120 mmHg BP Diastolic Sitting Left Arm 64 mmHg Heart Rate 80 /min Respiratory Rate 18 /min Height 64 inches 5'4" Weight 134.00 lb BMI (Body Mass Index) 23.0 kg/m2 BSA (Body Surface Area) 1.65 m2 [place] body weight in kilograms 54 11/16/2017 BP Systolic 135 mmHg BP Diastolic 74 mmHg Height 64 inches 5'4" Weight 134.00 lb BMI (Body Mass Index) 23.0 kg/m2 BSA (Body Surface Area) 1.65 m2 [place] body weight in kilograms 54 04/28/2017 BP [...] kg/m2 BSA (Body Surface Area) 1.63 m2 [place] body weight in kilograms 54 03/08/2017 BP Systolic 119 mmHg BP Diastolic 76 mmHg Heart Rate 73 /min Respiratory Rate 16 /min Height 64 inches 5'4" [place] body weight in kilograms 54 O2 % BldC Oximetry 99 % 02/06/2017 BP Systolic 118 mmHg BP Diastolic 86 mmHg Height 64 inches 5'4" Weight 149.38 lb BMI (Body Mass Index) 25.6 kg/m2 BSA (Body Surface Area) 1.73 m2 [place] body weight in kilograms 54 01/30/2017 BP Systolic 112 mmHg BP Diastolic 70 mmHg Height 64 inches 5'4" Weight 145.00 lb BMI (Body Mass Index) 24.9 kg/m2 BSA (Body Surface Area) 1.71 m2 [place] body weight in kilograms 54 01/23/2017 BP Systolic 106 mmHg BP Diastolic 60 mmHg Height 64 inches 5'4" Weight 147.38 lb BMI (Body Mass Index) 25.3 kg/m2 BSA (Body Surface Area) 1.72 m2 [place] body weight in kilograms 54 01/16/2017 BP Systolic 110 mmHg BP Diastolic 62 mmHg Height 64 inches 5'4" Weight 147.00 lb BMI (Body Mass Index) 25.2 kg/m2 BSA (Body Surface Area) 1.72 m2 [place] body weight in kilograms 54 01/02/2017 BP Systolic Sitting Right Arm 102 mmHg BP Diastolic Sitting Right Arm 58 mmHg Body Temperature 98.7 F Heart Rate 84 /min Height 64 inches 5'4" Weight 148.38 lb BMI (Body Mass Index) 25.5 kg/m2 BSA (Body Surface Area) 1.72 m2 [place] body weight in kilograms 54 O2 % BldC Oximetry 96 % 01/02/2017 BP Systolic 106 mmHg BP Diastolic 66 mmHg Height 64 inches 5'4" Weight 148.25 lb BMI (Body Mass Index) 25.4 kg/m2 BSA (Body Surface Area) 1.72 m2 [place] body weight in kilograms 54 12/19/2016 BP Systolic 118 mmHg BP Diastolic 66 mmHg Height 64 inches 5'4" Weight 148.50 lb BMI (Body Mass Index) 25.5 kg/m2 BSA (Body Surface Area) 1.72 m2 [place] body weight in kilograms 54 12/05/2016 BP Systolic 104 mmHg BP Diastolic 70 mmHg Height 64 inches 5'4" Weight 147.50 lb BMI (Body Mass Index) 25.3 kg/m2 BSA (Body Surface Area) 1.72 m2 [place] body weight in kilograms 54 11/17/2016 BP [...] kg/m2 BSA (Body Surface Area) 1.63 m2 [place] body weight in kilograms 45 08/15/2016 BP [...] Test Result H/L Range Note Urine Dipstick 04/02/2018 Ua Color Lilly Yellow Ua Clarity Cloudy Clear Ua Leuko 3+ High Negative Ua Nitrite negative Negative Ua Urobilinogen negative Low 0.2 - 1.0 E.U./dL Ua Protein 1+ High Negative Ua PH 6.5 6.5-7.5 Ua Blood Trace Negative Ua Specific [place] 1.015 1.010-1.030 Ua Ketones negative Negative Ua Bilirubin 1+ High Negative Ua Glucose negative Negative Urine Dipstick 02/26/2018 Ua Color yellow Yellow Ua Clarity cloudy Clear Ua Leuko 3+ High Negative Ua Nitrite negative Negative Ua Urobilinogen 0.2 0.2 - 1.0 E.U./dL Ua Protein negative Negative Ua PH 7.0 6.5-7.5 Ua Blood negative Negative Ua Specific [place] 1.015 1.010-1.030 Ua Ketones negative Negative Ua Bilirubin negative Negative Ua Glucose negative Negative Urine Dipstick 01/29/2018 Ua Color Yellow Yellow Ua Clarity Clear Clear Ua Leuko 3+ High Negative Ua Nitrite negative Negative Ua Urobilinogen 0.2 0.2 - 1.0 E.U./dL Ua Protein negative Negative Ua PH 7.0 6.5-7.5 Ua Blood negative Negative Ua Specific [place] 1.015 1.010-1.030 Ua Ketones negative Negative Ua Bilirubin negative Negative Ua Glucose negative Negative Urine Dipstick 12/28/2017 Ua Color yellow Yellow Ua Clarity cloudy Clear Ua Leuko negative Negative Ua Nitrite negative Negative Ua Urobilinogen 0.2 0.2 - 1.0 E.U./dL Ua Protein negative Negative Ua PH 6.5 6.5-7.5 Ua Blood negative Negative Ua Specific [place] 1.015 1.010-1.030 Ua Ketones negative Negative Ua Bilirubin negative Negative Ua Glucose negative Negative Urine Culture 12/14/2017 Urine Culture URETHRAL JOAQUÍN 1 Quantity 10,000 - 50,000 <SEE NOTE> 1, 2 Urine Dipstick 12/14/2017 Ua Color yellow Yellow Ua Clarity cloudy Clear Ua Leuko 2+ High Negative Ua Nitrite negative Negative Ua Urobilinogen 0.2 0.2 - 1.0 E.U./dL Ua Protein negative Negative Ua PH 6.5 6.5-7.5 Ua Blood 1+ High Negative Ua Specific [place] 1.020 1.010-1.030 Ua Ketones negative Negative Ua Bilirubin negative Negative Ua Glucose negative Negative Urine Dipstick 11/16/2017 Ua Color Yellow Yellow Ua Clarity Clear Clear Ua Leuko Negative Negative Ua Nitrite Negative Negative Ua Urobilinogen 0.2 0.2 - 1.0 E.U./dL Ua Protein 1+ High Negative Ua PH 6.0 Low 6.5-7.5 Ua Blood 1+ High Negative Ua Specific [place] 1.005 Low 1.010-1.030 Ua Ketones Negative Negative Ua Bilirubin Negative Negative Ua Glucose Negative Negative Slide Review 11/16/2017 Slide Review . 3, 4 HIV Screen 4TH Gen 11/16/2017 HIV Screen 4th Non Reactive Non Reactive 3 , 5 Reflex Generation wRfx Laboratory test 11/16/2017 Treponema Antibody Negative Negative 3 finding [facility] 11/16/2017 Amphetamines (Urine) Negative 3 Abuse-Urine Screen 7 Barbiturates (Urine) Negative 3 Benzodiazepines (Urine) Negative 3 Cannabinoids (Urine) Negative 3 Cocaine Metabolite (Urine) Negative 3 Methadone (Urine) Negative 3 Opiates (Urine) Negative 3 Urine Cutoffs * 3, 6 Urine Culture 11/16/2017 Urine Culture URETHRAL JOAQUÍN 3 Quantity 10,000 - 50,000 <SEE NOTE> 3, 7 Type And Screen 11/16/2017 Patient Blood Type O POS 3 Antibody Screen Negative Negative 3 Laboratory test finding 11/16/2017 Hepatitis B Surface Antigen Negative Negative 3 Hepatitis C Antibody < 0.1 s/corat 0.0-0.9 3, 8 Lead,Blood (Adult) 1 g/dL 0-19 3, 9 CBS W/Automated Diff 11/16/2017 White Blood Count 10.0 K/uL 3.1-10.7 3 Red Blood Count 5.07 M/uL 3.90-5.40 3 Hemoglobin 14.2 gm/dL 11.6-15.8 3 Hematocrit 41.5 % 36.0-46.1 3 Mean Cell Volume 81.9 fl 80.9-99.0 3 Mean Corpuscular HGB 28.0 pg 25.9-32.7 3 Mean Corpuscular HGB Conc 34.2 g/dL 30.8-34.3 3 Platelet Count 378 K/uL High 155-360 3 Red Cell Distri Width SD 39.0 fl 3-47 3 Red Cell Distri Width %CV 13.3 % 11.7-14.4 3 Mean Platelet Volume 10.1 fL 8.9-12.4 3 Neut% 75.1 % High 40.4-72.8 3 Lymph % 17.9 % Low 20.0-42.0 3 Steele % 6.4 % 4.3-13.2 3 Eo% 0.2 % 0.0-6.6 3 Bas% 0.4 % 0.0-1.1 3 Neut# 7.50 K/uL High 1.8-7.0 3 Lymph # 1.79 K/uL 1.0-4.0 3 Steele # 0.64 K/uL 0.3-0.9 3 Eos # 0.02 K/uL 0.0-0.5 3 Baso # 0.04 K/uL 0.0-0.1 3 Genital Culture W/ Gram 11/16/2017 Gram Stain GRAM STAIN INDIC <SEE 3, 10 Stain NOTE> Gram Stain FEW GR POS. BACI <SEE NOTE> 3, 11 Gram Stain RARE WHITE BLOOD <SEE NOTE> 3, 12 Genital Culture GENITAL JOAQUÍN 3 Chlamydia/GC Rimma 11/16/2017 Chlamydia Trachomatis, PCR Negative Negative 3 Neisseria Gonorrhoeae, PCR Negative Negative 3 Please note: . 3, 13 Laboratory test 11/16/2017 Rubella IgG 14.10 index Immune >0.99 3, 14 finding Antibody CBS W/Automated Diff 06/18/2017 White Blood Count 7.8 K/uL 3.1-10.7 15 Red Blood Count 5.36 M/uL 3.90-5.40 15 Hemoglobin 15.2 gm/dL 11.6-15.8 15 Hematocrit 44.5 % 36.0-46.1 15 Mean Cell Volume 83.0 fl 80.9-99.0 15 Mean Corpuscular HGB 28.4 pg 25.9-32.7 15 Mean Corpuscular HGB Conc 34.2 g/dL 30.8-34.3 15 Platelet Count 358 K/uL 150-400 15 Red Cell Distri Width SD 40.6 fl 3-47 15 Red Cell Distri Width %CV 13.4 % 11.7-14.4 15 Mean Platelet Volume 9.5 fL 8.9-12.4 15 Neut% 61.7 % 40.4-72.8 15 Lymph % 29.9 % 20.0-42.0 15 Steele % 6.3 % 4.3-13.2 15 Eo% 1.7 % 0.0-6.6 15 Bas% 0.4 % 0.0-1.1 15 Neut# 4.82 K/uL 1.8-7.0 15 Lymph # 2.33 K/uL 1.0-4.0 15 Steele # 0.49 K/uL 0.3-0.9 15 Eos # 0.13 K/uL 0.0-0.5 15 Baso # 0.03 K/uL 0.0-0.1 15 Comprehensive Metabolic Panel 06/18/2017 Glucose 88 mg/dL 74-106 15 BUN 12 mg/dL 7-18 15 Creatinine 0.7 mg/dL 0.6-1.3 15 Glom Filtration Rate, Estimate >60 mL/min >60 15 If >60 mL/min >60 15, 16 BUN/Creat 17.1 ratio 15 Sodium 142 mmol/L 136-145 15 Potassium 3.9 mmol/L 3.5-5.1 15 Chloride 106 mmol/L 98-107 15 Carbon Dioxide 28 mmol/L 21-32 15 Anion Gap 8 mEq/L 8-16 15 Calcium 9.1 mg/dL 8.5-10.1 15 Total Protein 7.5 g/dL 6.4-8.2 15 Albumin 3.8 g/dL 3.4-5.0 15 Globulin 3.7 g/dL 1.9-4.3 15 Alb/Glob 1.0 ratio 15 Bilirubin,Total 0.3 mg/dL 0.2-1.0 15 Sgot/Ast 14 U/L Low 15-37 15, 17 SGPT/Alt 23 U/L 12-78 15 Alkaline Phosphatase 98 U/L 45-117 15 Laboratory test finding 06/18/2017 TSH Reflex FT4 0.68 uIU/mL 0.30-4.20 15 and/or FT3 CBC 02/11/2017 White Blood Count 19.4 K/uL High 3.1-10.7 18 Red Blood Count 5.02 M/uL 3.90-5.40 18 Hemoglobin 14.9 gm/dL 11.6-15.8 18 Hematocrit 44.0 % 36.0-46.1 18 Mean Cell Volume 87.6 fl 80.9-99.0 18 Mean Corpuscular HGB 29.7 pg 25.9-32.7 18 Mean Corpuscular HGB Conc 33.9 g/dL 30.8-34.3 18 Platelet Count 316 K/uL 150-400 18 Red Cell Distri Width %CV 14.6 % High 11.7-14.4 18 Mean Platelet Volume 10.2 fL 8.9-12.4 18 Type And Screen 02/11/2017 Patient Blood Type O POS 18 Antibody Screen Negative Negative 18 Laboratory test 02/11/2017 Treponema Antibody Negative Negative 18, 19 finding [facility] test 01/16/2017 Vaginal Strep NO GROUP B STREP 20, 21 finding Screen <SEE NOTE> Urine Culture 01/02/2017 Urine Culture URETHRAL JOAQUÍN 22 Quantity 10,000 - 50,000 <SEE NOTE> 22, 23 Laboratory test finding 12/21/2016 Rapid Strep Negative Negative 24 Molecular Urine Culture 12/19/2016 Urine Culture URETHRAL JOAQUÍN 25 Quantity > 100,000 CFU/mL 25, 26 Differential-WBC Confirm 11/17/2016 Total Cells Counted 100 #CELLS 27 Metamyelocyte% 1 % High -0 27 Band% 6 % 0-8 27 Neutrophils% 76 % High 33-73 27 Lymph% 11 % Low 20-42 27 Atypical Lymph% 1 % 0-7 27 Monocyte% 4 % 0-10 27 Eosinophil% 1 % 0-5 27 Platelet Estimate NORMAL 27 Toxic Granulation 1+ 27 Differential Comment LARGE PLATELETS <SEE NOTE> 27, 28 Laboratory test 11/17/2016 HIV Screen 4TH Non Reactive Non Reactive 27, 29 finding Gen Reflex Slide Review 11/17/2016 Slide Review DIFF ORDERED 27 Glucose,1 HR Post 11/17/2016 1 HR Glucose,Post 135 mg/dL -138 27, 30 Glucola Glucola 1 Hour Urine Glucose NO SPECIMEN RECE <SEE NOTE> % Negative 27, 31 1 Hour Urine Ketone NO SPECIMEN RECE <SEE NOTE> Negative 27, 32 Laboratory test 11/17/2016 Treponema Antibody Negative Negative 27, 33 finding [facility] CBS W/Automated Diff 11/17/2016 White Blood Count 12.7 K/uL High 3.1-10.7 27 Red Blood Count 4.09 M/uL 3.90-5.40 27 Hemoglobin 12.2 gm/dL 11.6-15.8 27 Hematocrit 35.4 % Low 36.0-46.1 27 Mean Cell Volume 86.6 fl 80.9-99.0 27 Mean Corpuscular HGB 29.8 pg 25.9-32.7 27 Mean Corpuscular HGB Conc 34.5 g/dL High 30.8-34.3 27 Platelet Count 306 K/uL 150-400 27 Red Cell Distri Width SD 40.9 fl 3-47 27 Red Cell Distri Width %CV 13.2 % 11.7-14.4 27 Mean Platelet Volume 10.7 fL 8.9-12.4 27, 34 Neut# 9.91 K/uL High 1.8-7.0 27 Lymph # 1.83 K/uL 1.0-4.0 27 Steele # 0.82 K/uL 0.3-0.9 27 Eos # 0.09 K/uL 0.0-0.5 27 Baso # 0.02 K/uL 0.0-0.1 27 Urine Culture 10/12/2016 Urine Culture URETHRAL JOAQUÍN 27 Quantity > 100,000 CFU/mL 27, 35 Urine Culture 09/06/2016 Urine Culture URETHRAL JOAQUÍN 36 Quantity 50,000 - 100,000 <SEE NOTE> 36, 37 Drugs Of Abuse-Urine Screen 7 08/21/2016 Amphetamines (Urine) Negative 38 Barbiturates (Urine) Negative 38 Benzodiazepines (Urine) Negative 38 Cannabinoids (Urine) Negative 38 Cocaine Metabolite (Urine) Negative 38 Methadone (Urine) Negative 38 Opiates (Urine) Negative 38 Urine Cutoffs * 38, 39 Urine Culture 08/21/2016 Urine Culture MIXED URETHRAL F <SEE NOTE> 38, 40 Quantity > 100,000 CFU/mL 38, 41 Laboratory test finding 08/21/2016 Ethyl Alcohol < 3.0 mg/dL 38 Comprehensive Metabolic Panel 08/21/2016 Glucose 136 mg/dL High 74-106 38 BUN 9 mg/dL 7-18 38 Creatinine 0.7 mg/dL 0.6-1.3 38 Glom Filtration Rate, Estimate >60 mL/min >60 38 If >60 mL/min >60 38, 42 BUN/Creat 12.8 ratio 38 Sodium 138 mmol/L 136-145 38 Potassium 3.7 mmol/L 3.5-5.1 38 Chloride 104 mmol/L 98-107 38 Carbon Dioxide 23 mmol/L 21-32 38 Anion Gap 11 mEq/L 8-16 38 Calcium 9.5 mg/dL 8.5-10.1 38 Total Protein 7.6 g/dL 6.4-8.2 38 Albumin 3.2 g/dL Low 3.4-5.0 38 Globulin 4.4 g/dL High 1.9-4.3 38 Alb/Glob 0.7 ratio 38 Bilirubin,Total 0.3 mg/dL 0.2-1.0 38 Sgot/Ast 13 U/L Low 15-37 38, 43 SGPT/Alt 23 U/L 12-78 38 Alkaline Phosphatase 95 U/L 45-117 38 Urine Glucose (Ua) 08/05/2016 Urine Glucose (Ua) Negative Negative Laboratory test finding 08/05/2016 Urine Amorphous Sediment Small Negative Urine Bilirubin Negative Negative Urine Ketones Negative Negative Urine Leukocyte Esterase Large High Negative Urine Nitrite Negative Negative Urine Protein Negative Negative Urine Urobilinogen 0.2 0.2-1.0 Ua Routine 08/05/2016 Urine Color YELLOW Yellow 44 Urine Clarity CLEAR Clear 44 Urine Glucose - Dipstick NEGATIVE mg/dL Negative 44 Urine Bilirubin - Dipstick NEGATIVE Negative 44 Urine Ketone NEGATIVE mg/dL Negative 44 Urine Specific [place] 1.015 1.010-1.030 44 Urine Blood SMALL Negative 44 Urine PH 6.5 6.5-7.5 44 Urine Protein - Dipstick NEGATIVE mg/dL Negative 44 Urine Urobilinogen - Dipstick 0.2 E.U./dL 0.2-1.0 44 Urine Nitrite - Dipstick NEGATIVE Negative 44 Urine Leuk Esterase LARGE Negative 44 Urine RBC 0-2 rbc/hpf 0-2 44 Urine WBC 10-20 wbc/hpf High 0-7 44 Urine Epithelial Cells MODERATE /lpf None Seen 44, 45 Urine Calcium Oxalate Crystals MANY None Seen 44 Urine Bacteria MODERATE None Seen 44 Urine Amorph Sediment SMALL Negative 44 Source: URINE, CLEAN CAT <SEE NOTE> 44, 46 Urine Culture 08/05/2016 Urine Culture URETHRAL JOAQUÍN 44 Quantity 10,000 - 50,000 <SEE NOTE> 44, 47 Laboratory test finding 08/04/2016 HCG, Quant 25432.0 mIU/mL 48, 49 Ua Routine 08/01/2016 Urine Color YELLOW Yellow 50 Urine Clarity CLOUDY Clear 50 Urine Glucose - Dipstick NEGATIVE mg/dL Negative 50 Urine Bilirubin - Dipstick NEGATIVE Negative 50 Urine Ketone NEGATIVE mg/dL Negative 50 Urine Specific [place] 1.010 1.010-1.030 50 Urine Blood TRACE Negative 50 Urine PH 8.0 High 6.5-7.5 50 Urine Protein - Dipstick NEGATIVE mg/dL Negative 50 Urine Urobilinogen - Dipstick 0.2 E.U./dL 0.2-1.0 50 Urine Nitrite - Dipstick NEGATIVE Negative 50 Urine Leuk Esterase LARGE Negative 50 Urine RBC 2-5 rbc/hpf 0-2 50 Urine WBC 5-10 wbc/hpf 0-7 50 Urine Epithelial Cells MANY /lpf None Seen 50, 51 Urine Bacteria MANY None Seen 50 Source: URINE, CLEAN CAT <SEE NOTE> 50, 52 Laboratory test 08/01/2016 HCG, Quant 78450.0 mIU/mL 50, 53 finding Trichomonas Dna 08/01/2016 Trichomonas Dna Negative [Negative] Probe Probe Gardnerella Dna 08/01/2016 Gardnerella Dna Positive High [Negative] Probe Probe Therese species 08/01/2016 Therese species Negative [Negative] Dna Probe Dna Probe Urine Glucose (Ua) 08/01/2016 Urine Glucose (Ua) Negative Negative Laboratory test 08/01/2016 Urine Bilirubin Negative Negative finding Urine Ketones Negative Negative Urine Leukocyte Esterase Large High Negative Urine Nitrite Negative Negative Urine Protein Negative Negative Urine Urobilinogen 0.2 0.2-1.0 Chlamydia/GC Rimma 08/01/2016 Chlamydia Trachomatis, Rimma Negative Negative 50 Neisseria Gonorrhoeae, Rimma Negative Negative 50 Please note: (SEE NOTE) 50, 54 Urine Culture 08/01/2016 Urine Culture URETHRAL JOAQUÍN 50 Quantity > 100,000 CFU/mL 50, 55 Affirm Vaginitis Panel 08/01/2016 Trichomonas vaginalis Negative [ Negative] 50 Gardnerella vaginalis POSITIVE High [Negative] 50 Therese species Negative [Negative] 50 Platelet Estimate 07/22/2016 Platelet Estimate Normal Neutrophils # (Auto) 07/22/2016 Neutrophils # (Auto) 10.71 High 1.8-7.0 Monocytes % 07/22/2016 Monocytes % 4 0-10 Manual Slide Review 07/22/2016 Manual Slide Review Diff Ordered (Hematology) (Hematology) Lymphocytes % 07/22/2016 Lymphocytes % 22 17-56 Lymphocytes # (Auto) 07/22/2016 Lymphocytes # (Auto) 2.42 1.8-7.0 Differential Total 07/22/2016 Differential Total 100 Cells Counted Cells Counted Chlamydia/GC Rimma 07/22/2016 Chlamydia Negative Negative 56 Trachomatis, Rimma Neisseria Gonorrhoeae, Rimma Negative Negative 56 Please note: (SEE NOTE) 56, 57 Comprehensive Metabolic Panel 07/22/2016 Glucose 88 mg/dL 74-106 56 BUN 9 mg/dL 7-18 56 Creatinine 0.5 mg/dL Low 0.6-1.3 56 Glom Filtration Rate, Estimate >60 mL/min >60 56 If >60 mL/min >60 56, 58 BUN/Creat 18.0 ratio 56 Sodium 138 mmol/L 136-145 56 Potassium 3.6 mmol/L 3.5-5.1 56 Chloride 104 mmol/L 98-107 56 Carbon Dioxide 23 mmol/L 21-32 56 Anion Gap 11 mEq/L 8-16 56 Calcium 9.3 mg/dL 8.5-10.1 56 Total Protein 8.1 g/dL 6.4-8.2 56 Albumin 3.7 g/dL 3.4-5.0 56 Globulin 4.4 g/dL High 1.9-4.3 56 Alb/Glob 0.8 ratio 56 Bilirubin,Total 0.3 mg/dL 0.2-1.0 56 Sgot/Ast 11 U/L Low 15-37 56, 59 SGPT/Alt 16 U/L 12-78 56 Alkaline Phosphatase 114 U/L 45-117 56 Type And Screen 07/22/2016 Patient Blood Type O POS 56 Antibody Screen Negative Negative 56 Laboratory test finding 07/22/2016 Alanine Aminotransferase (Alt/SGPT) [...] 3.1-10.7 Aspartate Amino Transf 07/22/2016 Aspartate Amino Transf 11 Low 15-37 (Ast/Sgot) (Ast/Sgot) Atypical Lymphocytes % 07/22/2016 Atypical Lymphocytes % 4 0-7 Ua Routine 07/17/2016 Urine Color YELLOW Yellow 60 Urine Clarity SL CLOUDY Clear 60 Urine Glucose - Dipstick NEGATIVE mg/dL Negative 60 Urine Bilirubin - Dipstick NEGATIVE Negative 60 Urine Ketone TRACE mg/dL High Negative 60 Urine Specific [place] 1.020 1.010-1.030 60 Urine Blood SMALL Negative 60 Urine PH 7.0 6.5-7.5 60 Urine Protein - Dipstick NEGATIVE mg/dL Negative 60 Urine Urobilinogen - Dipstick 0.2 E.U./dL 0.2-1.0 60 Urine Nitrite - Dipstick NEGATIVE Negative 60 Urine Leuk Esterase LARGE Negative 60 Urine RBC 0-2 rbc/hpf 0-2 60 Urine WBC 10-20 wbc/hpf High 0-7 60 Urine Epithelial Cells MANY /lpf None Seen 60, 61 Urine Bacteria FEW None Seen 60 Urine Mucus SMALL None Seen 60 Source: URINE, CLEAN CAT <SEE NOTE> 60, 62 Urine Culture 07/17/2016 Urine Culture URETHRAL JOAQUÍN 60 Quantity 50,000 - 100,000 <SEE NOTE> 60, 63 Laboratory test finding 07/17/2016 Urine Bilirubin Negative Negative Urine Ketones Trace High Negative Urine Leukocyte Esterase Large High Negative Urine Nitrite Negative Negative Urine Protein Negative Negative Urine Urobilinogen 0.2 0.2-1.0 Urine Glucose (Ua) 07/17/2016 Urine Glucose (Ua) Negative Negative Laboratory Studies 07/14/2016 Beta HCG, Quantitative 844802.00 mIU/mL Free Thyroxine 0.83 ng/dL 0.61-1.12 Free [...] Hormone (TSH) 0.69 mcIU/mL 0.34-5.60 Urine Specific [place] 1.024 1.010-1.030 Urine pH 6.0 5-9 White [...] (Auto) 0.6 % 0-2 Beta HCG, Quantitative 993889.00 mIU/mL Blood Urea Nitrogen 8 mg/dL 6-24 [...] Total Protein 7.3 g/dL 6.4-8.9 Urine Specific [place] 1.017 1.010-1.030 Urine pH 7.0 5-9 White Blood Count 13.3 10^3/ul High 3.5-10.8 Laboratory test finding 07/11/2016 HCG 199558.00 mIU/mL 64 Urine Culture SEE RESULT BELOW 65 Comp Metabolic Panel 07/11/2016 Sodium 134 mmol/L [...] Egfr Non- 130.8 >60 Egfr 168.3 >60 66 Type & Screen 07/11/2016 Patient Blood Type [...] Color Yellow Urine Appearance Cloudy Urine Specific [place] 1.017 1.010-1.030 Urine pH 7.0 5-9 Urine [...] Urine Culture 07/04/2016 Urine Culture URETHRAL JOAQUÍN 67 Quantity 50,000 - 100,000 <SEE NOTE> 67, 68 Type And Screen 07/01/2016 Patient Blood Type O POS 69 Antibody Screen Negative Negative 69 Manual Slide Review 07/01/2016 Manual Slide Review See Note 70 (Hematology) (Hematology) Aspartate Amino Transf 07/01/2016 Aspartate [...] 3-47 White Blood Count 11.6 High 3.1-10.7 Comprehensive Metabolic Panel 07/01/2016 Glucose 80 mg/dL 74-106 69 BUN 11 mg/dL 7-18 69 Creatinine 0.6 mg/dL 0.6-1.3 69 Glom Filtration Rate, Estimate >60 mL/min >60 69 If >60 mL/min >60 69, 71 BUN/Creat 18.3 ratio 69 Sodium 139 mmol/L 136-145 69 Potassium 3.9 mmol/L 3.5-5.1 69 Chloride 105 mmol/L 98-107 69 Carbon Dioxide 25 mmol/L 21-32 69 Anion Gap 9 mEq/L 8-16 69 Calcium 8.9 mg/dL 8.5-10.1 69 Total Protein 7.7 g/dL 6.4-8.2 69 Albumin 3.9 g/dL 3.4-5.0 69 Globulin 3.8 g/dL 1.9-4.3 69 Alb/Glob 1.0 ratio 69 Bilirubin,Total 0.6 mg/dL 0.2-1.0 69 Sgot/Ast 16 U/L 15-37 69 SGPT/Alt 22 U/L 12-78 69 Alkaline Phosphatase 105 U/L 45-117 69 Hepatitis B Surface 06/29/2016 Hepatitis B Surface Nonreactive Nonreactive Antigen Antigen Hepatitis C Antibody 06/29/2016 Hepatitis C Antibody Nonreactive Nonreactive Manual Slide Review 06/29/2016 Manual Slide Review . (Hematology) (Hematology) Rubella IgG Antibody 06/29/2016 Rubella IgG Antibody Reactive Reactive Whole Blood Lead 06/29/2016 Whole Blood Lead 2 0-19 Thin Prep Pap Report 06/29/2016 Thin Prep [...] Benzodiazepines 06/29/2016 Urine Negative Screen Benzodiazepines Screen Drugs Of Abuse-Urine 06/29/2016 Amphetamines (Urine) Negative 72 Screen 7 Barbiturates (Urine) Negative 72 Benzodiazepines (Urine) Negative 72 Cannabinoids (Urine) Negative 72 Cocaine Metabolite (Urine) Negative 72 Methadone (Urine) Negative 72 Opiates (Urine) Negative 72 Urine Cutoffs * 72, 73 Urine Culture 06/29/2016 Urine Culture URETHRAL JOAQUÍN 72 Quantity 10,000 - 50,000 <SEE NOTE> 72, 74 CBS W/Automated Diff 06/29/2016 White Blood Count 12.2 K/uL High 3.1-10.7 72 Red Blood Count 5.37 M/uL 3.90-5.40 72 Hemoglobin 15.4 gm/dL 11.6-15.8 72 Hematocrit 45.3 % 36.0-46.1 72 Mean Cell Volume 84.4 fl 80.9-99.0 72 Mean Corpuscular HGB 28.7 pg 25.9-32.7 72 Mean Corpuscular HGB Conc 34.0 g/dL 30.8-34.3 72 Platelet Count 313 K/uL 155-360 72 Red Cell Distri Width SD 41.9 fl 3-47 72 Red Cell Distri Width %CV 13.7 % 11.7-14.4 72 Mean Platelet Volume 10.5 fL 8.9-12.4 72 Neut% 70.5 % 40.4-72.8 72 Lymph % 20.1 % 17.0-46.1 72 Steele % 7.6 % 4.3-13.2 72 Eo% 1.6 % 0.0-6.6 72 Bas% 0.2 % 0.0-1.1 72 Neut# 8.63 K/uL High 1.8-7.0 72 Lymph # 2.46 K/uL 1.8-7.0 72 Steele # 0.93 K/uL High 0.3-0.9 72 Eos # 0.19 K/uL 0.0-0.5 72 Baso # 0.03 K/uL 0.0-0.1 72 Type And Screen 06/29/2016 Patient Blood Type O POS 72 Antibody Screen Negative Negative 72 Laboratory test 06/29/2016 Hepatitis B Surface Nonreactive Nonreactive 72, 75 finding Antigen Hepatitis C Antibody 06/29/2016 Hepatitis C Nonreactive Nonreactive 72 Antibody Signal/Cutoff ratio < 0.02 <0.80 72, 76 Laboratory test finding 06/29/2016 Lead,Blood (Adult) 2 g/dL 0-19 72, 77 Antibody Detection-Hiv1/2 SCRN Nonreactive Nonreactive 72, 78 Rubella Igg Antibody 06/29/2016 Rubella IgG Antibody Reactive Reactive 72 Rubella IgG Iu/ml > 500.0 IU/mL >=10.0 72, 79 Chlamydia/GC Rimma 06/29/2016 Chlamydia Trachomatis, Rimma Negative Negative 72 Neisseria Gonorrhoeae, Rimma Negative Negative 72 Please note: (SEE NOTE) 72, 80 Specimen Type: Genital 72 Laboratory test 06/29/2016 Treponema Nonreactive Nonreactive 72, 81 finding Antibody Parrish Genital Culture W/ 06/29/2016 Gram Stain GRAM STAIN INDIC 72, 82 Gram Stain <SEE NOTE> Gram Stain FEW GR POS. BACI <SEE NOTE> 72, 83 Gram Stain FEW WHITE BLOOD <SEE NOTE> 72, 84 Gram Stain RARE GRAM POSITI <SEE NOTE> 72, 85 Genital Culture GENITAL JOAQUÍN 72 Slide Review 06/29/2016 Slide Review . 72, 86 Urine Amphetamines 06/29/2016 Urine Amphetamines Negative Screen Screen Urine Barbiturates 06/29/2016 Urine Barbiturates Negative Screen Screen CBC Auto Diff 06/26/2016 White Blood Count [...] Egfr Non- 103.8 >60 Egfr 133.5 >60 87 Blood Urea Nitrogen 10 mg/dL 6-24 BUN/Creatinine Ratio 15.2 8-20 Laboratory test finding 06/26/2016 C Reactive Protein 6.93 mg/L High < 5.00 88 HCG 73729.00 mIU/mL 89 Laboratory Studies 06/26/2016 Absolute Basophils (auto) 0.1 [...] (Auto) 1.1 % 0-2 Beta HCG, Quantitative 39674.00 mIU/mL Blood Urea Nitrogen 10 mg/dL 6-24 [...] Color Yellow Urine Appearance Cloudy Urine Specific [place] 1.014 1.010-1.030 Urine pH 7.0 5-9 Urine [...] Laboratory test 06/25/2016 Gardnerella/Yeast: Vaginal SEE RESULT 90, 91 finding Dna BELOW Trichomonas vaginalis Rna Negative Negative 90, 92 GC/Chlamydia Amplified Rna 06/25/2016 Chlamydia trachomatis Negative Negative 90 Rna Neisseria gonorrhoeae (GC) Rna Negative Negative 90 Laboratory test 06/25/2016 Urine Culture SEE RESULT BELOW 93, 94 finding Laboratory test 06/24/2016 HCG, Quant 94734.0 mIU/mL 95, 96 finding Urine HCG 06/24/2016 Urine HCG POSITIVE Negative 97 (Qualitative) (Qualitative) Source: URINE, CLEAN CAT <SEE NOTE> 97, 98 Ua Routine 06/24/2016 Urine Color YELLOW Yellow 97 Urine Clarity SL CLOUDY Clear 97 Urine Glucose - Dipstick NEGATIVE mg/dL Negative 97 Urine Bilirubin - Dipstick NEGATIVE Negative 97 Urine Ketone TRACE mg/dL High Negative 97 Urine Specific [place] >=1.030 1.010-1.030 97 Urine Blood MODERATE Negative 97 Urine PH 6.0 Low 6.5-7.5 97 Urine Protein - Dipstick 30 mg/dL High Negative 97 Urine Urobilinogen - Dipstick 0.2 E.U./dL 0.2-1.0 97 Urine Nitrite - Dipstick NEGATIVE Negative 97 Urine Leuk Esterase SMALL Negative 97 Urine RBC 2-5 rbc/hpf 0-2 97 Urine WBC 20-30 wbc/hpf High 0-7 97 Urine Epithelial Cells MANY /lpf None Seen 97, 99 Urine Calcium Oxalate Crystals FEW None Seen 97 Urine Bacteria MANY None Seen 97 Urine Mucus LARGE None Seen 97 Source: URINE, CLEAN CAT <SEE NOTE> 97, 100 Urine Culture 06/24/2016 Urine Culture URETHRAL JOAQUÍN 97 Quantity 50,000 - 100,000 <SEE NOTE> 97, 101 Laboratory test finding 06/24/2016 Urine Bilirubin Negative Negative Urine Ketones Trace High Negative Urine Leukocyte Esterase Small High Negative Urine Nitrite Negative Negative Urine Protein 30 High Negative Urine Urobilinogen 0.2 0.2-1.0 Urine Glucose (Ua) 06/24/2016 Urine Glucose (Ua) Negative Negative Comprehensive Metabolic Panel 06/15/2016 Glucose 86 mg/dL 74-106 102 BUN 8 mg/dL 7-18 102 Creatinine 0.6 mg/dL 0.6-1.3 102 Glom Filtration Rate, Estimate >60 mL/min >60 102 If >60 mL/min >60 102, 103 BUN/Creat 13.3 ratio 102 Sodium 141 mmol/L 136-145 102 Potassium 4.0 mmol/L 3.5-5.1 102 Chloride 109 mmol/L High 98-107 102 Carbon Dioxide 24 mmol/L 21-32 102 Anion Gap 8 mEq/L 8-16 102 Calcium 8.9 mg/dL 8.5-10.1 102 Total Protein 7.0 g/dL 6.4-8.2 102 Albumin 3.8 g/dL 3.4-5.0 102 Globulin 3.2 g/dL 1.9-4.3 102 Alb/Glob 1.2 ratio 102 Bilirubin,Total 0.5 mg/dL 0.2-1.0 102 Sgot/Ast 12 U/L Low 15-37 102, 104 SGPT/Alt 20 U/L 12-78 102 Alkaline Phosphatase 114 U/L 45-117 102 Laboratory test 06/15/2016 Vitamin D,25-Hydroxy 23.5 ng/mL Low 30.0-100.0 102, 105 finding Thyroid Stim Hormone 0.70 uIU/mL 0.30-4.20 102 CBS W/Automated Diff 06/15/2016 White Blood Count 10.3 K/uL 3.1-10.7 102 Red Blood Count 5.25 M/uL 3.90-5.40 102 Hemoglobin 15.1 gm/dL 11.6-15.8 102 Hematocrit 43.9 % 36.0-46.1 102 Mean Cell Volume 83.6 fl 80.9-99.0 102 Mean Corpuscular HGB 28.8 pg 25.9-32.7 102 Mean Corpuscular HGB Conc 34.4 g/dL High 30.8-34.3 102 Platelet Count 352 K/uL 155-360 102 Red Cell Distri Width SD 40.1 fl 3-47 102 Red Cell Distri Width %CV 13.3 % 11.7-14.4 102 Mean Platelet Volume 10.4 fL 8.9-12.4 102 Neut% 67.7 % 40.4-72.8 102 Lymph % 22.7 % 17.0-46.1 102 Steele % 7.1 % 4.3-13.2 102 Eo% 2.1 % 0.0-6.6 102 Bas% 0.4 % 0.0-1.1 102 Neut# 6.96 K/uL 1.8-7.0 102 Lymph # 2.34 K/uL 1.8-7.0 102 Steele # 0.73 K/uL 0.3-0.9 102 Eos # 0.22 K/uL 0.0-0.5 102 Baso # 0.04 K/uL 0.0-0.1 102 Laboratory test finding 06/15/2016 Gamma Glutamyl Transpeptidase 25 U/L 5 -85 102 Laboratory test finding 06/15/2016 Alanine Aminotransferase 20 [...] White Blood Count 10.3 3.1-10.7 Aspartate Amino 06/15/2016 Aspartate Amino Transf 12 Low 15-37 Transf (Ast/Sgot) (Ast/Sgot) Gamma Glutamyl 06/15/2016 Gamma Glutamyl 25 5-85 Transpeptidase Transpeptidase Lymphocytes # (Auto) 06/15/2016 Lymphocytes # (Auto) 2.34 1.8-7.0 Neutrophils # (Auto) 06/15/2016 Neutrophils # (Auto) 6.96 1.8-7.0 Vitamin D 25-Hydroxy 06/15/2016 Vitamin D 25-Hydroxy 23.5 Low 30.0-100.0 Laboratory test 06/12/2016 TSH Reflex FT4 and/or 0.56 0.30-4.20 106 finding FT3 uIU/mL Total Creatine Kinase 06/12/2016 Total Creatine Kinase 96 26-192 Thyroid Stimulating 06/12/2016 Thyroid Stimulating 0.56 0.30-4.20 Hormone (TSH) Hormone (TSH) Neutrophils # (Auto) 06/12/2016 Neutrophils # (Auto) 7.63 High 1.8-7.0 Manual Slide Review 06/12/2016 Manual Slide Review See Note 107 (Hematology) (Hematology) Lymphocytes # (Auto) 06/12/2016 Lymphocytes # (Auto) 2.28 1.8-7.0 Aspartate Amino 06/12/2016 Aspartate Amino Transf 16 15-37 Transf (Ast/Sgot) (Ast/Sgot) Laboratory test 06/12/2016 Alanine 20 12-78 finding Aminotransferase (Alt/SGPT) Albumin 3.9 3.4-5.0 Albumin/Globulin Ratio 1.0 [...] 6.4-8.2 White Blood Count 10.9 High 3.1-10.7 Routine Culture W/ Gram 04/28/2016 Gram Stain FEW GRAM POS [place] <SEE 108 , 109 Stain NOTE> Gram Stain RARE GRAM POSITI <SEE NOTE> 108, 110 Gram Stain RARE WHITE BLOOD <SEE NOTE> 108, 111 Aerobic Culture NO PATHOGENS ISO <SEE NOTE> 108, 112 1 R31.9 2 10,000 - 50,000 CFU/mL 3 O09.71 Z34.81 4 Instrument flagged sample for slide review. Less than 10% Bands seen, few atypical lymphocytes seen. RBC morphology=0-1+ microcytes Platelet estimate=normal, large platelets present. 5 Performed at: [facility] [employer] [id number] Administrative Law Judge: Rocio Paulson MD, Phone: [phone] 6 URINE SPECIMENS ARE SCREENED AT THE LISTED CUTOFFS DRUG CLASS INITIAL TEST LEVEL Amphetamines 1000 ng/mL Barbiturates 200 ng/mL Benzodiazepines 200 ng/mL Cannabinoids 50 ng/mL Cocaine Metabolite 300 ng/mL Methadone 300 ng/mL Opiates 300 ng/mL Any PRESUMPTIVE POSITIVE findings are UNCONFIRMED. Confirmatory testing is suggested if findings are unexpected. Please contact laboratory if confirmatory testing is desired. SPECIMENS ARE HELD FOR 72 HOURS. 7 10,000 - 50,000 CFU/mL 8 INFCE Result Units: s/co ratio Negative: < 0.8 Indeterminate: 0.8 - 0.9 Positive: > 0.9 The CDC recommends that a positive HCV antibody result be followed up with a HCV Nucleic Acid Amplification test (337003). 9 Analysis by atomic absorption spectroscopy (AAS). Environmental Exposure: WHO Recommendation <20 Occupational Exposure: OSHA Lead Std 40 CHELE 30 Detection Limit=1 Performed at: [facility] [employer] [id number] Administrative Law Judge: Rocio Paulson MD, Phone: [phone] 10 GRAM STAIN INDICATES NORMAL GENITAL JOAQUÍN 11 FEW GR POS. BACILLI SUGGESTIVE OF LACTOBACILLUS SP. 12 RARE WHITE BLOOD CELLS 13 A negative result for either C. trachomatis and/or N. gonorrhoeae does not preclued an infection because results are dependent on adequate specimen collection, absence of inhibitors, and sufficient DNA to be detected. 14 Non-immune <0.90 Equivocal 0.90 - 0.99 Immune >0.99 Performed at: [address] [id number] Administrative Law Judge: Rocio Paulson MD, Phone: [phone] Performed at: [address] [id number] Administrative Law Judge: Sabas Oneil MD, Phone: [phone] FATIGUE, DIARRHEA, WANTS THYROID CHECKED 16 Note: Persistent reduction for 3 months or more in an eGFR <60 mL/min/1.73 m2 defines CKD. Patients with eGFR values >/=60 mL/min/1.73 m2 may also have CKD if evidence of persistent proteinuria is present. The original MDRD equation for estimated GFR is not valid for patients less than 18 years of age. Additional information may be found at www.kdoqi.org. 17 Values below the stated reference ranges of AST and ALT can be seen in normal populations. Clinical correlation is suggested. 18 LABOR 19 Performed at: [address] [id number] Administrative Law Judge: Sabas Oneil MD, Phone: [phone] 20 Z3A.36 21 NO GROUP B STREPTOCOCCI ISOLATED 22 Z3A.34 23 10,000 - 50,000 CFU/mL 24 Railroader: [id number] 25 Z3A.32 26 > 100,000 CFU/mL SPECIMEN IS A MIX OF GRAM POSITIVE ORGANISMS CONSISTENT WITH SKIN VAGINAL CONTAMINATION. SUGGEST REPEAT SPECIMEN IF CLINICALLY INDICATED. 27 O09.892 28 LARGE PLATELETS PRESENT. 29 Performed at: [address] [id number] Administrative Law Judge: Rocio Paulson MD, Phone: [phone] 30 POST GLUCOLA 31 NO SPECIMEN RECEIVED 32 NO SPECIMEN RECEIVED 33 Performed at: [address] [id number] Administrative Law Judge: Sabas Oneil MD, Phone: [phone] 34 11/17/161856: NEUT% previously reported as: 78.2 H % Amended result called to: [] - 11/17/16 at 7 11/17/161856: LYMPH % previously reported as: 14.4 L % Amended result called to: [] - 11/17/16 at 185611/17/161856: MONO % previously reported as: 6.5 % Amended result called to: [] - 11/17/16 at 185611/17/161856: EO% previously reported as: 0.7 % Amended result called to: [] - 11/17/16 at 185611/17/161856: BAS% previously reported as: 0.2 % Amended result called to: [] - 11/17/16 at 1856 35 > 100,000 CFU/mL SPECIMEN IS A MIX OF GRAM POSITIVE ORGANISMS CONSISTENT WITH SKIN VAGINAL CONTAMINATION. SUGGEST REPEAT SPECIMEN IF CLINICALLY INDICATED. 36 Z3A.17 37 50,000 - 100,000 CFU/mL SPECIMEN IS A MIX OF GRAM POSITIVE ORGANISMS CONSISTENT WITH SKIN VAGINAL CONTAMINATION. SUGGEST REPEAT SPECIMEN IF CLINICALLY INDICATED. 38 941 39 URINE SPECIMENS ARE SCREENED AT THE LISTED CUTOFFS DRUG CLASS INITIAL TEST LEVEL Amphetamines 1000 ng/mL Barbiturates 200 ng/mL Benzodiazepines 200 ng/mL Cannabinoids 50 ng/mL Cocaine Metabolite 300 ng/mL Methadone 300 ng/mL Opiates 300 ng/mL Any PRESUMPTIVE POSITIVE findings are UNCONFIRMED. Confirmatory testing is suggested if findings are unexpected. Please contact laboratory if confirmatory testing is desired. SPECIMENS ARE HELD FOR 72 HOURS. 40 MIXED URETHRAL JOAQUÍN 41 > 100,000 CFU/mL SPECIMEN IS A MIX OF GRAM POSITIVE ORGANISMS CONSISTENT WITH SKIN VAGINAL CONTAMINATION. SUGGEST REPEAT SPECIMEN IF CLINICALLY INDICATED. 42 Note: Persistent reduction for 3 months or more in an eGFR <60 mL/min/1.73 m2 defines CKD. Patients with eGFR values >/=60 mL/min/1.73 m2 may also have CKD if evidence of persistent proteinuria is present. The original MDRD equation for estimated GFR is not valid for patients less than 18 years of age. Additional information may be found at www.kdoqi.org. 43 Values below the stated reference ranges of AST and ALT can be seen in normal populations. Clinical correlation is suggested. 44 Z34.81 45 POSSIBLE UROGENITAL CONTAMINATION. 46 URINE, CLEAN CATCH 47 10,000 - 50,000 CFU/mL 48 13 WKS PREG,LEVEL DROPPING DURING 49 Approximate Gestational Age and Total BHCG Range: 0.2 - 1 Week........................5-50 mIU/mL 1 - 2 Weeks.....................50-500 mIU/mL 2 - 3 Weeks..................100-5,000 mIU/mL 3 - 4 Weeks.................500-10,000 mIU/mL 4 - 5 Weeks...............1,000-50,000 mIU/mL 5 - 6 Weeks.............10,000-100,000 mIU/mL 6 - 8 Weeks.............15,000-200,000 mIU/mL 2 - 3 Months............10,000-100,000 mIU/mL 50 12 WKS PREG,ABDOMINAL CRAMPING 51 POSSIBLE UROGENITAL CONTAMINATION. 52 URINE, CLEAN CATCH 53 Approximate Gestational Age and Total BHCG Range: 0.2 - 1 Week........................5-50 mIU/mL 1 - 2 Weeks.....................50-500 mIU/mL 2 - 3 Weeks..................100-5,000 mIU/mL 3 - 4 Weeks.................500-10,000 mIU/mL 4 - 5 Weeks...............1,000-50,000 mIU/mL 5 - 6 Weeks.............10,000-100,000 mIU/mL 6 - 8 Weeks.............15,000-200,000 mIU/mL 2 - 3 Months............10,000-100,000 mIU/mL 54 A negative result for either C. trachomatis [...] and sufficient DNA to be detected. 55 > 100,000 CFU/mL SPECIMEN IS A MIX OF GRAM POSITIVE ORGANISMS CONSISTENT WITH SKIN VAGINAL CONTAMINATION. SUGGEST REPEAT SPECIMEN IF CLINICALLY INDICATED. 56 OSVALDO, 10 WKS PREGN, SENT BY DR Wolff A negative result for either C. trachomatis [...] inhibitors, and sufficient DNA to be detected. 58 Note: Persistent reduction for 3 months or more in an eGFR <60 mL/min/1.73 m2 defines CKD. Patients with eGFR values >/=60 mL/min/1.73 m2 may also have CKD if evidence of persistent proteinuria is present. The original MDRD equation for estimated GFR is not valid for patients less than 18 years of age. Additional information may be found at www.kdoqi.org. 59 Values below the stated reference ranges of AST and ALT can be seen in normal populations. Clinical correlation is suggested. 60 MVA, 9 WKS , ABD PAIN 61 POSSIBLE UROGENITAL CONTAMINATION. 62 URINE, CLEAN CATCH 63 50,000 - 100,000 CFU/mL 64 <5.0 Negative 5.0 - 25.0 Indeterminate (Repeat testing recommended after 72 hours) >25.0 Positive Perimenopausal women can display HCG levels of up to 20 mIU/mL 65 SEE RESULT BELOW Name: DAVID HUNG : [address]: Austin Shaffer MD Acct: [id number] Unit: [id number] AGE: 30 Location: ED Re07/11/16 SEX: F Status: DEP ER SPEC: [id number] JOSE: 07/11/16-1309 [facility] DR: Austin Shaffer MD REQ: [id number] RECD: 07/11/16 STATUS: DELL PARSONS DR: Lisa BORJAS _ SOURCE: URINE SPDESC: ORDERED: Urine Culture Procedure Result Reported Site Urine Culture Final 07/12/16- 1230 ML No growth of clinically significant organisms * ML - MAIN LAB ([facility]) . END OF REPORT * ML=Testing performed at Main Lab DEPARTMENT OF PATHOLOGY, [address] [place] [address] Lew Cohen M.D. Director [facility] # [id number] 66 Because ethnic data is not always readily [...] 15-29 5 Kidney failure <15 (or dialysis) 67 026.851 68 50,000 - 100,000 CFU/mL 69 SPOTTING, 7 WKS 70 Instrument flagged sample for slide review. Less than 10% Bands seen, no other immature WBC's seen. RBC morphology essentially normal. Platelet estimate= Normal 71 Note: Persistent reduction for 3 months or more in an eGFR <60 mL/min/1.73 m2 defines CKD. Patients with eGFR values >/=60 mL/min/1.73 m2 may also have CKD if evidence of persistent proteinuria is present. The original MDRD equation for estimated GFR is not valid for patients less than 18 years of age. Additional information may be found at www.kdoqi.org. 72 Z34.81 73 URINE SPECIMENS ARE SCREENED AT THE LISTED CUTOFFS DRUG CLASS INITIAL TEST LEVEL Amphetamines 1000 ng/mL Barbiturates 200 ng/mL Benzodiazepines 200 ng/mL Cannabinoids 50 ng/mL Cocaine Metabolite 300 ng/mL Methadone 300 ng/mL Opiates 300 ng/mL Any PRESUMPTIVE POSITIVE findings are UNCONFIRMED. Confirmatory testing is suggested if findings are unexpected. Please contact laboratory if confirmatory testing is desired. SPECIMENS ARE HELD FOR 72 HOURS. 74 10,000 - 50,000 CFU/mL 75 HBsAg not detected; does not exclude the possibility of exposure to or early acute infections with HBV. 76 Antibodies to HCV not detected; does not exclude early acute HCV infection. 77 Environmental Exposure: WHO Recommendation <20 Occupational Exposure: OSHA Lead Std 40 CHELE 30 Detection Limit=1 Performed at: RN - [facility] [address] [id number] Administrative Law Judge: Rocio Paulson MD, Phone: [phone] 78 NOTE: A NON-REACTIVE RESULT INDICATES THAT HIV-1 AND HIV-2 ANTIBODIES HAVE NOT BEEN FOUND IN THIS PATIENT SPECIMEN. A NON-REACTIVE RESULT, HOWEVER, DOES NOT PRECLUDE PREVIOUS EXPOSURE OF INFECTION WITH HIV. * CT STATE LAW PROHIBITS THE REDISCLOSURE OF THIS RESULT * * TO ANY UNAUTHORIZED REPUBLICAN. * 79 Values >=10.0 IU/mL are positive for IgG antibodies to rubella virus and are considered IMMUNE. 80 A negative result for either C. trachomatis [...] inhibitors, and sufficient DNA to be detected. 81 Please Note: A nonreactive test result does not exclude the possibility of exposure to, or infection with syphilis. T. pallidum antibodies may be undetectable in some stages of the infection and in some clinical conditions. 82 GRAM STAIN INDICATES NORMAL GENITAL JOAQUÍN 83 FEW GR POS. BACILLI SUGGESTIVE OF LACTOBACILLUS SP. 84 FEW WHITE BLOOD CELLS 85 RARE GRAM POSITIVE COCCI 86 Instrument flagged sample for slide review. Less than 10% Bands seen, no other immature WBC's seen. RBC morphology essentially normal. Platelet estimate=NORMAL 87 Because ethnic data is not always readily [...] 15-29 5 Kidney failure <15 (or dialysis) 88 Acute inflammation: >10.00 89 <5.0 Negative 5.0 - 25.0 Indeterminate (Repeat testing recommended after 72 hours) >25.0 Positive Perimenopausal women can display HCG levels of up to 20 mIU/mL 90 [id number] 91 SEE RESULT BELOW Name: DAVID HUNG Bonnie : [address]: Martita Braga Acct: [id number] Unit: [id number] AGE: 30 Location: [facility] Re06/25/16 SEX: F Status: DEP ER SPEC: [id number] JOSE: 06/25/16-[address]: Allyson Mendes DO REQ: [id number] RECD: 06/25/16-1235 STATUS: DELL PARSONS DR: Lisa Craig PA _ [facility] ORDERED: Jorje,Yeast DNA COMMENTS: [id number] Procedure Result Reported Site Gardnerella/Yeast: Vaginal DNA [...] or failure. * ML - MAIN LAB ([facility]) . END OF REPORT * ML=Testing performed at Main Lab DEPARTMENT OF PATHOLOGY, [address] [place] [address] Lew Cohen M.D. Director [facility] # [id number] 92 [id number] GC/Chlamydia Source?: Endocervical Trichomonas Source: Endocervical 93 Comment: has taken macrobid [id number] SEE RESULT BELOW Name: DAVID HUNG : [address]: Martita Braga Acct: [id number] Unit: [id number] AGE: 30 Location: [facility] Re06/25/16 SEX: F Status: DEP ER SPEC: [id number] JOSE: 06/25/16-1040 [facility] DR: Allyson Mendes DO REQ: [id number] RECD: 06/25/16-2145 STATUS: DELL PARSONS DR: Emmett Ventura MD _ SOURCE: URINE SPDESC: ORDERED: Urine Culture COMMENTS: Comment: has taken macrobid [id number] Procedure Result Reported Site Urine Culture Final 06/26/16- 1214 ML No growth of clinically significant organisms * ML - MAIN LAB ([facility]) . END OF REPORT * ML=Testing performed at Main Lab DEPARTMENT OF PATHOLOGY, [address] [place] [address] Lew Cohen M.D. Director [facility] # [id number] 95 JUST FOUND OUT , HAVING ABD PAIN, BLEEDING 96 Approximate Gestational Age and Total BHCG Range: 0.2 - 1 Week........................5-50 mIU/mL 1 - 2 Weeks.....................50-500 mIU/mL 2 - 3 Weeks..................100-5,000 mIU/mL 3 - 4 Weeks.................500-10,000 mIU/mL 4 - 5 Weeks...............1,000-50,000 mIU/mL 5 - 6 Weeks.............10,000-100,000 mIU/mL 6 - 8 Weeks.............15,000-200,000 mIU/mL 2 - 3 Months............10,000-100,000 mIU/mL 97 TEST 98 URINE, CLEAN CATCH 99 POSSIBLE UROGENITAL CONTAMINATION. 100 URINE, CLEAN CATCH 101 50,000 - 100,000 CFU/mL SPECIMEN IS A MIX OF GRAM POSITIVE ORGANISMS CONSISTENT WITH SKIN VAGINAL CONTAMINATION. SUGGEST REPEAT SPECIMEN IF CLINICALLY INDICATED. 102 E78.5 E55.9 F41.9 R74.9 103 Note: Persistent reduction for 3 months or more in an eGFR <60 mL/min/1.73 m2 defines CKD. Patients with eGFR values >/=60 mL/min/1.73 m2 may also have CKD if evidence of persistent proteinuria is present. The original MDRD equation for estimated GFR is not valid for patients less than 18 years of age. Additional information may be found at www.kdoqi.org. 104 Values below the stated reference ranges of AST and ALT can be seen in normal populations. Clinical correlation is suggested. 105 Vitamin D deficiency has been defined by the [place] [employer] and an Endocrine Society practice guideline as a level of serum 25-OH vitamin D less than 20 ng/mL (1,2). The Endocrine Society went on to further define vitamin D insufficiency as a level between 21 and 29 ng/mL (2). 1. IOM ([place] [employer]). 2010. Dietary reference intakes for calcium and D. [place]: The National Academies Press. 2. Marry MF, Malinda [place], Yeimy DEL ANGEL, et al. Evaluation, treatment, and prevention of vitamin D deficiency: an Endocrine Society clinical practice guideline. JCEM. 2010; 96(5):1911-30. Performed at: RN - [facility] [address] [id number] Administrative Law Judge: Rocio Paulson MD, Phone: [phone] 106 CP, HEART RACING 107 Instrument flagged sample for slide review. Less than 10% Bands seen, no other immature WBC's seen. RBC morphology essentially normal. Platelet estimate= Normal 108 POSSIBLE CYST BEHIND RT EAR 109 FEW GRAM POS BACILLI SUGGESTIVE OF DIPTHEROIDS 110 RARE GRAM POSITIVE COCCI 111 RARE WHITE BLOOD CELLS 112 NO PATHOGENS ISOLATED Procedures Date CPT Code Description Status 11/16/2017 22831 EKG-Tracing And Report Completed 02/11/2017 16219 Vaginal Delivery Global Care Completed 06/22/2016 92074 Echocardiogram Complete Completed 06/22/2016 37296 Event Monitor Inter/Review Only Completed 06/16/2016 24004 EKG-Tracing And Report Completed 08/20/2014 81609 Vaginal Delivery W/Post- Care Completed 06/24/2013 45944 Holter Monitor 24HR Inter/Report Completed 07/20/2011 95868 Echocardiogram Complete Completed 07/20/2011 75190 Event Monitor Inter/Review Only Completed 12/08/2010 17117 Remove Impacted Cerumen Completed 08/16/2010 66371 Holter Monitor 24HR Inter/Report Completed 08/13/2010 80541 EKG-Tracing And Report Completed 08/13/2010 71290 Pulse Oximetry Completed 08/09/2010 67375 Pulse Oximetry Completed 08/09/2010 27860 Pressurized/Non-Pressurized Inhalation Treatment,Acute Completed Obstructio 11/17/2008 04249 Post- Care Only Completed 10/03/2008 54034 Antepartum 7 Or More Total Office Visit Completed 10/03/2008 78542 Vaginal Delivery Global Care Completed 09/30/2008 60002 Antepartum 7 Or More Total Office Visit Completed 09/25/2008 71336 Antepartum 7 Or More Total Office Visit Completed 09/22/2008 09615 Antepartum 7 Or More Total Office Visit Completed 09/17/2008 18734 Antepartum 7 Or More Total Office Visit Completed 09/09/2008 85083 Antepartum 7 Or More Total Office Visit Completed 09/03/2008 00465 Antepartum 7 Or More Total Office Visit Completed 08/20/2008 71749 Antepartum 7 Or More Total Office Visit Completed Encounters Type Date Location Provider CPT E/M Dx Office Visit 11/16/2017 1:00p [place] [address] R00.2 F17.200 I49.3 Z3A.01 Office Visit 04/28/2017 11:00a Primary Care Office Dolly Londono M.D. 52414 H66.91 Office Visit 03/08/2017 11:00a Primary Care Office Lisa Craig, 92080 F32.9 PA-C F41.9 R00.2 E55.9 F17.200 Z71.6 Z70.9 Office Visit 01/02/2017 10:00a Primary Care Office Jasper Rajwinder, 19509 J06.9 [facility] O99.333 F17.210 Z71.6 Office Visit 07/21/2016 8:30a Family Medicine & Junior, October, [facility] [address]758 H66.001 Women's Health Z33.1 Office Visit 07/19/2016 1:00p Family Medicine & Junior, October, [facility] [address] S39.011A Women's Health Z33.1 Office Visit 07/13/2016 1:30p [facility] [address] F41.9 [facility] Office Visit 07/04/2016 11:00a [facility] [address] O26.851 Women's Health Z33.1 Office Visit 06/27/2016 10:30a Family Medicine & [facility], October, [facility] 67496 N91.1 Health Z71.6 E55.9 Office Visit 06/16/2016 8:00a Cardiology Office Jami Thompson, 44750 I49.3 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, 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 I49.1 R00.2 Office Visit 06/15/2016 10:00a Primary Care Office iLsa Craig, 26913 F41.9 PA-C F32.9 E55.9 F17.200 Z71.6 D72.829 R74.8 R00.2 E78.5 N92.6 Office Visit 01/05/2016 2:30p Primary Care Office Lisa Craig, 67050 J01.90 VALORIE E66.9 F17.200 E55.9 Z71.6 Office Visit 12/30/2015 2:30p Primary Care Office Lisa Craig, 95605 E66.9 PA-C F17.200 Z71.6 E55.9 E78.5 F41.9 F32.9 Office Visit 07/23/2015 3:00[place] [address] H66.90 F32.9 F41.9 E78.5 Z00.01 Office Visit 07/06/2015 10:30a Lisa Simmons PA-C 06699 E78.5 E55.9 F41.9 R00.2 F17.200 Z71.6 E66.9 E04.9 Office Visit 12/24/2014 1:45p Orthopaedic Office Yesenia Lozoya, 524[address] 719.47 [facility] 845.02 V22.2 Office Visit 10/01/2014 9:10a Cardiology Office Jami Thompson, 05624 785.1 MSN, [facility] Office Visit 07/23/2014 2:00p Cardiology Office Song Robles, 45789 785.1 Marco Antonio, [facility] Plan of Care Future Appointment(s):04/26/2018 10:30 am - Sherine Freitas CNM at [facility] Tmazqa5411/16/2017 - Fay Nicholas, PAR00.2 PalpitationsNew Medication:Metoprolol Tartrate [...] child.I49.3 Ventricular premature depolarizationComments:Change to metoprolol as above.Z3A.01 Less than 8 weeks gestation of pregnancyAllComments: Medications and labs below ordered by Sherine Freitas CNM.Follow up:2 months
[2018-04-08 11:33] VITALS: BP 103/61
--- NOTE | 2018-04-08 12:04 | UC ---
Ear Complaint HPI - HPI Summary HPI Summary: 32-year-old female 26 weeks , has been prescribed azithromycin for sinusitis, presents with 2 days of left ear sensation of fullness, similar to prior episodes that she had in the opposite ear on last . Patient required tympanostomy tubes at that time and has had complications of the right ear in the past. Denies any headache. Denies any neck pain. Denies fever. - History of Current Complaint Chief Complaint: UCEar Stated Complaint: LEFT EAR COMPLAINT Hx Last Menstrual Period: 2 weeks ago Pain Intensity: 0 - Allergies/Home Medications Allergies/Adverse Reactions: Allergies Allergy/AdvReac Type Severity Reaction Status Date / Time No Known Allergies Allergy Verified 04/08/18 11:28 Home Medications: Home Medications Azithromycin TAB* [Zithromax TAB (Z-SANDI) 250 mg #6 tabs] 250 mg PO DAILY [History Confirmed 04/08/18] PMH/Surg Hx/FS Hx/Imm Hx - Additional Past Medical History Additional PMH: Tympanostomy tubes on the right Previously Healthy: Yes - Surgical History Surgical History: Yes Surgery Procedure, Year, and Place: Right Fallopian Tube Removed, 2010, [facility]. Ear Tubes as a child. RIGHT ear tube 2013 Other Surgical History: Has right ear tube - Family History Known Family History: Positive: Unknown - PT ADOPTED - Social History Alcohol Use: None Substance Use Type: None Smoking Status (MU): Heavy Every Day Tobacco Smoker Type: Cigarettes Amount Used/How Often: 10 cig/day Length of Time of Smoking/Using Tobacco: 14 yrs Have You Smoked in the Last Year: Yes When Did the Patient Quit Smoking/Using Tobacco: 06/29 Household Exposure Type: Cigarettes - Immunization History Most Recent Influenza Vaccination: 2016 Most Recent Pneumonia Vaccination: FALL 2013 Review of Systems Constitutional: Negative Skin: Negative Eyes: Negative ENT: Ear Ache, Other - Left-sided ear discomfort Respiratory: Negative Cardiovascular: Negative Gastrointestinal: Negative Motor: Negative Neurovascular: Negative All Other Systems Reviewed And Are Negative: Yes Physical Exam - Summary Physical Exam Summary: Gen: alert, in no acute distress HEENT: EOMI, normocephalic, atruamatic. Fullness of the left TM with mild bulge Neck: supple, no masses CV: Normal s1 s2, no murmurs Resp: normal breath sounds b/l GI: no tenderness, no masses Musculoskeletal: normal ROM all 4 extremities Neuro: no obvious focal neurological deficits Skin: no rash Lymph: no lymphadenopathy Psych: appropriate affect, oriented Triage Information Reviewed: Yes Vital Signs: Initial Vital Signs Temp 37.2 C 04/08/18 11:29 Pulse 81 04/08/18 11:29 Resp 14 04/08/18 11:29 BP 103/61 04/08/18 11:29 Pulse Ox 98 04/08/18 11:29 Ear Complaint Course/Dx - Course Course Of Treatment: Patient's symptoms likely secondary to mild sinus congestion, patient instructed to initially try saline through the nose to promote nasal drainage, I also prescribed 2 days of phenylephrine nasal spray for empiric use of saline does not work. I also started the patient to discontinue use of phenylephrine nasal spray after 2 days and to follow up with her ENT. Patient agrees to and understands discharge instructions. - Differential Dx/Diagnosis Provider Diagnoses: sinus congestion Discharge - Sign-Out/Discharge Documenting (check all that apply): Patient Departure All imaging exams completed and their final reports reviewed: No Studies - Discharge Plan Condition: Stable Disposition: HOME Prescriptions: Phenylephrine 0.5% NASAL* [Camacho-Synephrine 0.5% Nasal*] 1 spray LEFT NARE Q4H PRN #1 btl PRN Reason: Congestion Patient Education Materials: Sodium Chloride (Into the nose) Referrals: Lindsey Rizzo MD [Primary Care Provider] - Arnoldo Garg MD [Medical Doctor] - Additional Instructions: PLEASE MAKE AN APPOINTMENT FIRST THING IN THE MORNING TO BE SEEN BY YOUR ENT DOCTOR DR. GARG WITHIN 1 WEEK DO NOT USE NASAL CONGESTANT MEDICATION FOR MORE THAN 2 DAYS - Billing Disposition and Condition Condition: STABLE Disposition: Home
== END 2018-04-08 12:08 | disposition home or self-care (01) ==
LOC: UCCORT 10:02
DX: J34.89 Other specified disorders of nose and nasal sinuses (principal); O26.892 Other specified pregnancy related conditions, second trimester; O99.332 Smoking (tobacco) complicating pregnancy, second trimester; F17.210 Nicotine dependence, cigarettes, uncomplicated; Z3A.26 26 weeks gestation of pregnancy; Z96.22 Myringotomy tube(s) status
CPT/HCPCS: 99212; G0463

== ENCOUNTER 2018-06-01 21:27 | Emergency (ER) | payer OTHER ==
--- OUTSIDE RECORDS SUMMARY | 2018-06-01 21:37 | XMS REPORT ---
:1985 External Reference #:[id number] [facility] Address [address] [place] [address] Phone [phone] Care Team Providers Name Role Phone Lindsey Rizzo MD Care Team Information Professional Development Director Unavailable Lindsey Rizzo MD Primary Care Physician Unavailable Payers Type Date Identification Numbers Payment Provider Subscriber Commercial Policy Number: [id number] [employer] David Hung PayID: [id number] [address] [place] [address] Problems Date Description Provider Status Onset: 05/27/2015 Hyperlipidemia Lisa Craig PA-C Active Onset: 05/27/2015 Anxiety Lisa Craig PA-C Active Onset: 05/27/2015 Depressive disorder Lisa Craig PA-C Active Onset: 04/10/2017 [facility]ations [facility]: PVCs/PACs Onset: 12/14/2017 Smoking [...] gestation of Sherine Freitas CNM Active Onset: 04/02/2018 25 weeks gestation of Sherine Freitas CNM Active Onset: 04/02/2018 Smoking (tobacco) complicating Sherine Freitas CNM Active , second trimester Onset: 04/26/2018 Immunization Sherine Freitas CNM Active Onset: 04/26/2018 Smoking (tobacco) complicating Sherine Freitas CNM Active , third trimester Onset: 04/26/2018 28 weeks gestation of Sherine Freitas CNM Active Onset: 05/14/2018 31 weeks gestation of Sherine Freitas CNM Active [...] 16oz of soda per day Age 1st [place] 12 Years Old # Partners in a Lifetime 2 STD's No STD History Allergies, Adverse Reactions, Alerts Date Description Reaction Status Severity Comments 12/30/2015 Bupropion active Moderate altered cognition 07/23/2014 NKDA inactive Medications Medication Date Status Form Strength Qnty SIG Indications Ordering Provider 11/16/ Active Chewtabs 0.4-32.5mg 30unit 1 by mouth O09.71 Borra, Gummies/Dha & 2018 s every day MARA Basurto Folic Acid Flintstones / Active Chewtabs 60mg 2 by mouth Corina, Complete 0000 every day Marco Antonio Rothman Robitussin 12 04/05/ Hx Suer 30mg/5ML 89ml 2 teaspoon Borra, Hour Cough 2017 - by mouth MARA Basurto Relief 05/14/ every 6 2018 hours as needed Zithromax Z-Mathew 04/05/ Hx Tablets 250mg 6tabs take 2 Borra, 2017 - tablets by MARA Basurto 05/14/ mouth one 2018 time for infection then take 1 tablet by mouth daily for 4 days for infection 1 11/16/ Hx Capsules 30-0.975-2 30caps take one O09.71 Bor, 2018 - 00mg capsule by MARA Basurto 11/16/ mouth every 2017 day. Metoprolol 11/16/ Hx Tablets 25mg 45tabs 1/2 Tab By R00.2 Davidenko Tartrate 2017 - Mouth Twice , Song 05/14/ A Day Marco Antonio Camilo, 2018 FACC Amoxicillin 04/28/ Hx Capsules 500mg 30caps take 1 H66.91 Bry 2016 - tablet Andras, 05/09/ every 8 M.D. 2017 hours for 10 days Atenolol 04/28/ Hx Tablets 50mg 60tabs 1 tab by Emelina 2016 - mouth twice MD Dasha 04/28/ a day 2016 Atenolol 04/28/ Hx Tablets 25mg 60tabs 1 by mouth R00.2 Margaret 2017 - twice a day , Song 11/16/ Marco Antonio Camilo, 2018 [facility] Bystolic 04/26/ Hx Tablets 2.5mg 30tabs 1 by mouth Denny, 2017 - daily MD Porter 2016 Norgestim-Eth 04/03/ Hx Tablets 0.18/0.215 84tabs 1 by mouth Z39.2 Corina Estrad 2016 - /0.25 every day Stephan, Triphasic 11/16/ mg-25 mcg M.D. 2017 Citalopram 03/08/ Hx Tablets 20mg 90tabs 1 by mouth F41.9 Kvng Toussaintbromide 2016 - every day David, 11/16/ M.D. 2017 Chantix 03/08/ Hx Tablets 0.5mg X 11 1tabs 0.5 mg po Z71.6 Norbert, Starting Month 2016 - & 1 mg X qd x3 days, Mathew Hernandez then 0.5 mg M.D. 2016 po bid [...] 500mg 30caps 1 cap by J06.9 Norbert, 2017 - mouth three David, 01/23/ times a day M.D. 2016 Propranolol HCL 12/08/ Hx Tablets 20mg 60tabs 1 tab by Norbert, 2016 - mouth twice David, 04/26/ a day M.D. 2016 Amoxicillin 09/18/ Hx Tablets 875mg 15tabs 1 tab by Gregorio 2017 - mouth three Kirsten, 11/17/ times a day CNM 2017 Amoxicillin 07/21/ Hx Capsules 500mg 14caps Take one H66.001 Junior, 2017 - capsule by 08/15/ mouth twice CNM 2016 daily for 7 days. 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 1 06/27/ Hx Capsules 30-0.975-2 30caps take one Junior, 2015 - 00mg capsule by 07/19/ mouth every CNM 2016 day. Vitamin D-3 06/27/ Hx Capsules 1000Unit 30caps take one Junior, 2015 - capsule by 11/16/ mouth daily CNM 2017 Vitamin D-1000 06/20/ Hx Tablets 1000Unit 90tabs 1 by mouth Aaron, Diana 2016 - every day Mikal E., Strength 2015 Buspirone HCL 06/15/ Hx Tablets 5mg 60tabs 1 by mouth F41.9 Aaron, 2015 2 times a Mikal E., day DO Benzonatate 01/04/ Hx Capsules 200mg 90caps 1 by mouth J01.90 Aaron, 2015 three times Mikal E., a day as DO needed cough Saline Nasal 01/04/ Hx Solution 0.65% 135ml 2 sprays J01.90 Aaron Bulpitt 2016 every 2 Mikal E., hours as DO needed Probiotic 01/04/ Hx Capsules 60caps 1-2 J01.90 Aaron Acidarvind 2016 capsules by Mikal E., mouth daily DO x10 days Acetaminophen 01/04/ Hx Tablets 500mg 540tab 2 by mouth Aaron, Extra Strength 2016 - s three times Mikal Swanson, 06/27/ a day DO 2016 Xenical 12/29/ Hx Capsules 120mg 270cap take with E66.9 Aaron 2015 - s or <1h Mikal Swanson, 06/14/ after meals DO 2016 containing fat 3 times daily; omit dose if meal is non-fat or missed Amoxicillin 07/23/ Hx Capsules 500mg 21caps 1 cap by H66.90 Lorenzo 2016 - mouth three Emmett, 12/29/ times a day MD 2016 Lexapro 00/00/ Hx Tablets 20mg 30tabs by mouth Unknown 0000 every day Atenolol 00/00/ Hx Tablets 25mg 30tabs 1/2 by Thompson, 0000 - mouth every Jami Erin 2014 , 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, 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 Paroxetine HCL / Hx Tablets 20mg 90tabs 1 by mouth Aaron, 0000 - every day Mikal Swanson, 2015 Acetaminophen / Hx Tablets 500mg 1-2 [...] Hx Tablets 50mg 180tab 1 and 1/2 Margaret 0000 - s by mouth Song 06/15/ twice a day Marco Antonio Camilo, 2016 [facility] Zithromax /00/ Hx Tablets 250mg take 2 tabs Unknown 0000 - by mouth on day then 2015 1 tab by mouth qddays 2-5 Atenolol 00/00/ Hx Tablets 75mg 1 by mouth Unknown 0000 - bid 2015 Paxil /00/ Hx Tablets 20mg 1 by mouth Unknown 0000 - every day 2015 Immunizations CPT Code Status Date Vaccine Lot # [id number] Given 04/26/2018 Tdap injection [id number] Given 04/26/2018 Influenza Virus Vaccine, Quadrivalent, 36 Mos+, .5ML [id number] Given 12/20/2016 Tdap injection [id number] Given 04/16/2015 Influenza Vaccine (Fluzone) Age 3 And Older [id number] U-Pneum Given 04/12/2013 Pneumococcal,Unspecified [id number] Given 07/17/2011 Tdap injection [id number] Given 07/14/2009 H1N1 Immuniation Adminstration [id number] Given 07/14/2009 H1N1 Immuniation Adminstration Vital Signs Date Vital Result Comment 05/29/2018 BP Systolic 118 mmHg BP Diastolic 72 mmHg Body Temperature 98.2 F Heart Rate 88 /min Respiratory Rate 18 /min Height 64 inches 5'4" Weight 142.00 lb BMI (Body Mass Index) 24.4 kg/m2 BSA (Body Surface Area) 1.69 m2 [place] body weight in kilograms 54 O2 % BldC Oximetry 98 % 05/14/2018 BP Systolic 116 mmHg BP Diastolic 58 mmHg Body Temperature 97.4 F Heart Rate 83 /min Respiratory Rate 18 /min Height 64 inches 5'4" Weight 142.00 lb BMI (Body Mass Index) 24.4 kg/m2 BSA (Body Surface Area) 1.69 m2 [place] body weight in kilograms 54 O2 % BldC Oximetry 98 % 04/26/2018 BP Systolic 124 mmHg BP Diastolic 80 mmHg Body Temperature 98.3 F Heart Rate 97 /min Respiratory Rate 18 /min Height 64 inches 5'4" Weight 146.00 lb BMI (Body Mass Index) 25.1 kg/m2 BSA (Body Surface Area) 1.71 m2 [place] body weight in kilograms 54 O2 % BldC Oximetry 98 % 04/02/2018 BP Systolic 117 mmHg BP Diastolic 77 mmHg Body Temperature 97.7 F Heart Rate 89 /min Respiratory Rate 18 /min Height 64 inches 5'4" Weight 141.38 lb BMI (Body Mass Index) 24.3 kg/m2 BSA (Body Surface Area) 1.69 m2 [place] body weight in kilograms 54 O2 % BldC Oximetry 99 % 02/26/2018 BP Systolic 117 mmHg BP Diastolic 71 mmHg Body Temperature 98.8 F Heart Rate 92 /min Respiratory Rate 18 /min Height 64 inches 5'4" Weight 142.12 lb BMI (Body Mass Index) 24.4 kg/m2 BSA (Body Surface Area) 1.69 m2 [place] body weight in kilograms 54 O2 % BldC Oximetry 97 % 01/29/2018 BP Systolic 111 mmHg BP Diastolic 63 mmHg Body Temperature 98.4 F Heart Rate 88 /min Respiratory Rate 20 /min Height 64 inches 5'4" Weight 135.12 lb BMI (Body Mass Index) 23.2 kg/m2 BSA (Body Surface Area) 1.66 m2 [place] body weight in kilograms 54 O2 % BldC Oximetry 98 % 12/28/2017 BP Systolic 102 mmHg BP Diastolic 64 mmHg Body Temperature 96.0 F Heart Rate 80 /min Respiratory Rate 16 /min Height 64 inches 5'4" Weight 135.00 lb BMI (Body Mass Index) 23.2 kg/m2 BSA (Body Surface Area) 1.66 m2 [place] body weight in kilograms 54 O2 % BldC Oximetry 98 % 12/14/2017 BP Systolic 91 mmHg BP Diastolic 51 mmHg Body Temperature 97.6 F Heart Rate 75 /min Respiratory Rate 18 /min Height 64 inches 5'4" Weight 135.00 lb BMI (Body Mass Index) 23.2 kg/m2 BSA (Body Surface Area) 1.66 m2 [place] body weight in kilograms 54 O2 % BldC Oximetry 98 % 11/16/2017 BP Systolic Sitting Left Arm 120 mmHg BP Diastolic Sitting Left Arm 64 mmHg Heart Rate 80 /min Respiratory Rate 18 /min Height 64 inches 5'4" Weight 134.00 lb BMI (Body Mass Index) 23.0 kg/m2 BSA (Body Surface Area) 1.65 m2 [place] body weight in kilograms 54 11/16/2017 BP Systolic 135 mmHg BP Diastolic 74 mmHg Height 64 inches 5'4" Weight 134.00 lb BMI (Body Mass Index) 23.0 kg/m2 BSA (Body Surface Area) 1.65 m2 [place] body weight in kilograms 54 04/28/2017 BP [...] kg/m2 BSA (Body Surface Area) 1.63 m2 [place] body weight in kilograms 54 03/08/2017 BP Systolic 119 mmHg BP Diastolic 76 mmHg Heart Rate 73 /min Respiratory Rate 16 /min Height 64 inches 5'4" [place] body weight in kilograms 54 O2 % BldC Oximetry 99 % 02/06/2017 BP Systolic 118 mmHg BP Diastolic 86 mmHg Height 64 inches 5'4" Weight 149.38 lb BMI (Body Mass Index) 25.6 kg/m2 BSA (Body Surface Area) 1.73 m2 [place] body weight in kilograms 54 01/30/2017 BP Systolic 112 mmHg BP Diastolic 70 mmHg Height 64 inches 5'4" Weight 145.00 lb BMI (Body Mass Index) 24.9 kg/m2 BSA (Body Surface Area) 1.71 m2 [place] body weight in kilograms 54 01/23/2017 BP Systolic 106 mmHg BP Diastolic 60 mmHg Height 64 inches 5'4" Weight 147.38 lb BMI (Body Mass Index) 25.3 kg/m2 BSA (Body Surface Area) 1.72 m2 [place] body weight in kilograms 54 01/16/2017 BP Systolic 110 mmHg BP Diastolic 62 mmHg Height 64 inches 5'4" Weight 147.00 lb BMI (Body Mass Index) 25.2 kg/m2 BSA (Body Surface Area) 1.72 m2 [place] body weight in kilograms 54 01/02/2017 BP Systolic Sitting Right Arm 102 mmHg BP Diastolic Sitting Right Arm 58 mmHg Body Temperature 98.7 F Heart Rate 84 /min Height 64 inches 5'4" Weight 148.38 lb BMI (Body Mass Index) 25.5 kg/m2 BSA (Body Surface Area) 1.72 m2 [place] body weight in kilograms 54 O2 % BldC Oximetry 96 % 01/02/2017 BP Systolic 106 mmHg BP Diastolic 66 mmHg Height 64 inches 5'4" Weight 148.25 lb BMI (Body Mass Index) 25.4 kg/m2 BSA (Body Surface Area) 1.72 m2 [place] body weight in kilograms 54 12/19/2016 BP Systolic 118 mmHg BP Diastolic 66 mmHg Height 64 inches 5'4" Weight 148.50 lb BMI (Body Mass Index) 25.5 kg/m2 BSA (Body Surface Area) 1.72 m2 [place] body weight in kilograms 54 12/05/2016 BP Systolic 104 mmHg BP Diastolic 70 mmHg Height 64 inches 5'4" Weight 147.50 lb BMI (Body Mass Index) 25.3 kg/m2 BSA (Body Surface Area) 1.72 m2 [place] body weight in kilograms 54 11/17/2016 BP [...] kg/m2 BSA (Body Surface Area) 1.63 m2 [place] body weight in kilograms 45 08/15/2016 BP [...] Test Date Test Result H/L Range Note Order 05/29/2018 Non-Stress Test reactive 1 Urine Dipstick 05/14/2018 Ua Color yellow Yellow Ua Clarity clear Clear Ua Leuko 2+ High Negative Ua Nitrite negative Negative Ua Urobilinogen 0.2 0.2 - 1.0 E.U./dL Ua Protein 1+ High Negative Ua PH 6.0 Low 6.5-7.5 Ua Blood negative Negative Ua Specific [place] 1.015 1.010-1.030 Ua Ketones negative Negative Ua Bilirubin negative Negative Ua Glucose negative Negative Glucose,1 HR Post Glucola 04/26/2018 1 HR Glucose,Post Glucola 102 mg/dL -138 2, 3 1 Hour Urine Glucose NO SPECIMEN RECE <SEE NOTE> % Negative 2, 4 1 Hour Urine Ketone NO SPECIMEN RECE <SEE NOTE> Negative 2, 5 Urine Dipstick 04/26/2018 Ua Color yellow Yellow Ua Clarity cloudy Clear Ua Leuko 3+ High Negative Ua Nitrite negative Negative Ua Urobilinogen 0.2 0.2 - 1.0 E.U./dL Ua Protein negative Negative Ua PH 6.5 6.5-7.5 Ua Blood negative Negative Ua Specific [place] 1.010 1.010-1.030 Ua Ketones negative Negative Ua Bilirubin negative Negative Ua Glucose negative Negative Differential-WBC Confirm 04/26/2018 Total Cells Counted 100 #CELLS 2 Band% 2 % 0-8 2 Neutrophils% 86 % High 33-73 2 Lymph% 6 % Low 20-42 2 Monocyte% 4 % 0-10 2 Eosinophil% 2 % 0-5 2 Platelet Estimate NORMAL 2 Toxic Granulation 0-1+ 2 Differential Comment LARGE PLATELETS <SEE NOTE> 2, 6 HIV Screen 4TH Gen 04/26/2018 HIV Screen 4th Non Reactive Non Reactive 2 , 7 Reflex Generation wRfx Laboratory test 04/26/2018 [place]rep[place]ema Antibody Negative Negative 2, 8 finding [place] Slide Review 04/26/2018 Slide Review DIFF ORDERED 2 CBC W/Automated 04/26/2018 White Blood Count 12.0 K/uL High 3.1-10.7 2 Diff Red Blood Count 4.17 M/uL 3.90-5.40 2 Hemoglobin 12.5 gm/dL 11.6-15.8 2 Hematocrit 35.7 % Low 36.0-46.1 2 Mean Cell Volume 85.6 fl 80.9-99.0 2 Mean Corpuscular HGB 30.0 pg 25.9-32.7 2 Mean Corpuscular HGB Conc 35.0 g/dL High 30.8-34.3 2 Platelet Count 293 K/uL 155-360 2 Red Cell Distri Width SD 40.9 fl 3-47 2 Red Cell Distri Width %CV 13.4 % 11.7-14.4 2 Mean Platelet Volume 10.5 fL 8.9-12.4 2 Neut% 80.1 % High 40.4-72.8 2 Lymph % 12.6 % Low 20.0-42.0 2 [place] % 6.5 % 4.3-13.2 2 Eo% 0.6 % 0.0-6.6 2 Bas% 0.2 % 0.0-1.1 2 Neut# 9.63 K/uL High 1.8-7.0 2 Lymph # 1.52 K/uL 1.0-4.0 2 S[place]ent # 0.78 K/uL 0.3-0.9 2 Eos # 0.07 K/uL 0.0-0.5 2 Baso # 0.02 K/uL 0.0-0.1 2 Urine Dipstick 04/02/2018 Ua Color Lilly Yellow Ua Clarity Cloudy Clear Ua Leuko 3+ High Negative Ua Nitrite negative Negative Ua Urobilinogen negative Low 0.2 - 1.0 E.U./dL Ua Protein 1+ High Negative Ua PH 6.5 6.5-7.5 Ua Blood Trace Negative Ua Specific [place] 1.015 1.010-1.030 Ua Ketones negative Negative Ua Bilirubin 1+ High Negative Ua Glucose negative Negative Urine Dipstick 02/26/2018 Ua Color yellow Yellow Ua Clarity cloudy Clear Ua Leuko 3+ High Negative Ua Nitrite negative Negative Ua Urobilinogen 0.2 0.2 - 1.0 E.U./dL Ua Protein negative Negative Ua PH 7.0 6.5-7.5 Ua Blood negative Negative Ua Specific [place] 1.015 1.010-1.030 Ua Ketones negative Negative Ua Bilirubin negative Negative Ua Glucose negative Negative Urine Dipstick 01/29/2018 Ua Color Yellow Yellow Ua Clarity Clear Clear Ua Leuko 3+ High Negative Ua Nitrite negative Negative Ua Urobilinogen 0.2 0.2 - 1.0 E.U./dL Ua Protein negative Negative Ua PH 7.0 6.5-7.5 Ua Blood negative Negative Ua Specific [place] 1.015 1.010-1.030 Ua Ketones negative Negative Ua Bilirubin negative Negative Ua Glucose negative Negative Urine Dipstick 12/28/2017 Ua Color yellow Yellow Ua Clarity cloudy Clear Ua Leuko negative Negative Ua Nitrite negative Negative Ua Urobilinogen 0.2 0.2 - 1.0 E.U./dL Ua Protein negative Negative Ua PH 6.5 6.5-7.5 Ua Blood negative Negative Ua Specific [place] 1.015 1.010-1.030 Ua Ketones negative Negative Ua Bilirubin negative Negative Ua Glucose negative Negative Urine Culture 12/14/2017 Urine Culture URETHRAL JOAQUÍN 9 Quantity 10,000 - 50,000 <SEE NOTE> 9, 10 Urine Dipstick 12/14/2017 Ua Color yellow Yellow Ua Clarity cloudy Clear Ua Leuko 2+ High Negative Ua Nitrite negative Negative Ua Urobilinogen 0.2 0.2 - 1.0 E.U./dL Ua Protein negative Negative Ua PH 6.5 6.5-7.5 Ua Blood 1+ High Negative Ua Specific [place] 1.020 1.010-1.030 Ua Ketones negative Negative Ua Bilirubin negative Negative Ua Glucose negative Negative Urine Dipstick 11/16/2017 Ua Color Yellow Yellow Ua Clarity Clear Clear Ua Leuko Negative Negative Ua Nitrite Negative Negative Ua Urobilinogen 0.2 0.2 - 1.0 E.U./dL Ua Protein 1+ High Negative Ua PH 6.0 Low 6.5-7.5 Ua Blood 1+ High Negative Ua Specific [place] 1.005 Low 1.010-1.030 Ua Ketones Negative Negative Ua Bilirubin Negative Negative Ua Glucose Negative Negative Slide Review 11/16/2017 Slide Review . 11, 12 HIV Screen 4TH 11/16/2017 HIV Screen 4th Non Reactive Non Reactive 11, 13 Gen Reflex Generation wRfx Drugs Of 11/16/2017 Amphetamines (Urine) Negative 11 Abuse-Urine Screen 7 Barbiturates (Urine) Negative 11 Benzodiazepines (Urine) Negative 11 Cannabinoids (Urine) Negative 11 Cocaine Metabolite (Urine) Negative 11 Methadone (Urine) Negative 11 Opiates (Urine) Negative 11 Urine Cutoffs * 11, 14 Urine Culture 11/16/2017 Urine Culture URETHRAL JOAQUÍN 11 Quantity 10,000 - 50,000 <SEE NOTE> 11, 15 Type And Screen 11/16/2017 Patient Blood Type O POS 11 Antibody Screen Negative Negative 11 Laboratory test finding 11/16/2017 Hepatitis B Surface Negative Negative 11 Antigen Hepatitis C Antibody < 0.1 s/corat 0.0-0.9 11, 16 Lead,Blood (Adult) 1 g/dL 0-19 11, 17 Laboratory test 11/16/2017 Rubella IgG 14.10 index Immune >0.99 11, 18 finding Antibody Laboratory test 11/16/2017 Treponema Antibody Negative Negative 11 finding [place] CBS W/Automated Diff 11/16/2017 White Blood Count 10.0 K/uL 3.1-10.7 11 Red Blood Count 5.07 M/uL 3.90-5.40 11 Hemoglobin 14.2 gm/dL 11.6-15.8 11 Hematocrit 41.5 % 36.0-46.1 11 Mean Cell Volume 81.9 fl 80.9-99.0 11 Mean Corpuscular HGB 28.0 pg 25.9-32.7 11 Mean Corpuscular HGB Conc 34.2 g/dL 30.8-34.3 11 Platelet Count 378 K/uL High 155-360 11 Red Cell Distri Width SD 39.0 fl 3-47 11 Red Cell Distri Width %CV 13.3 % 11.7-14.4 11 Mean Platelet Volume 10.1 fL 8.9-12.4 11 Neut% 75.1 % High 40.4-72.8 11 Lymph % 17.9 % Low 20.0-42.0 11 S[place]ent % 6.4 % 4.3-13.2 11 Eo% 0.2 % 0.0-6.6 11 Bas% 0.4 % 0.0-1.1 11 Neut# 7.50 K/uL High 1.8-7.0 11 Lymph # 1.79 K/uL 1.0-4.0 11 S[place]ent # 0.64 K/uL 0.3-0.9 11 Eos # 0.02 K/uL 0.0-0.5 11 Baso # 0.04 K/uL 0.0-0.1 11 Genital Culture W/ Gram 11/16/2017 Gram Stain GRAM STAIN INDIC <SEE 11 , 19 Stain NOTE> Gram Stain FEW GR POS. BACI <SEE NOTE> 11, 20 Gram Stain RARE WHITE BLOOD <SEE NOTE> 11, 21 Genital Culture GENITAL JOAQUÍN 11 Chlamydia/GC Rimma 11/16/2017 Chlamydia Trachomatis, PCR Negative Negative 11 Neisseria Gonorrhoeae, PCR Negative Negative 11 Please note: . 11, 22 CBS W/Automated Diff 06/18/2017 White Blood Count 7.8 K/uL 3.1-10.7 23 Red Blood Count 5.36 M/uL 3.90-5.40 23 Hemoglobin 15.2 gm/dL 11.6-15.8 23 Hematocrit 44.5 % 36.0-46.1 23 Mean Cell Volume 83.0 fl 80.9-99.0 23 Mean Corpuscular HGB 28.4 pg 25.9-32.7 23 Mean Corpuscular HGB Conc 34.2 g/dL 30.8-34.3 23 Platelet Count 358 K/uL 150-400 23 Red Cell Distri Width SD 40.6 fl 3-47 23 Red Cell Distri Width %CV 13.4 % 11.7-14.4 23 Mean Platelet Volume 9.5 fL 8.9-12.4 23 Neut% 61.7 % 40.4-72.8 23 Lymph % 29.9 % 20.0-42.0 23 S[place]ent % 6.3 % 4.3-13.2 23 Eo% 1.7 % 0.0-6.6 23 Bas% 0.4 % 0.0-1.1 23 Neut# 4.82 K/uL 1.8-7.0 23 Lymph # 2.33 K/uL 1.0-4.0 23 S[place]ent # 0.49 K/uL 0.3-0.9 23 Eos # 0.13 K/uL 0.0-0.5 23 Baso # 0.03 K/uL 0.0-0.1 23 Comprehensive Metabolic Panel 06/18/2017 Glucose 88 mg/dL 74-106 23 BUN 12 mg/dL 7-18 23 Creatinine 0.7 mg/dL 0.6-1.3 23 Glom Filtration Rate, Estimate >60 mL/min >60 23 If >60 mL/min >60 23, 24 BUN/Creat 17.1 ratio 23 Sodium 142 mmol/L 136-145 23 Potassium 3.9 mmol/L 3.5-5.1 23 Chloride 106 mmol/L 98-107 23 Carbon Dioxide 28 mmol/L 21-32 23 Anion Gap 8 mEq/L 8-16 23 Calcium 9.1 mg/dL 8.5-10.1 23 Total Protein 7.5 g/dL 6.4-8.2 23 Albumin 3.8 g/dL 3.4-5.0 23 Globulin 3.7 g/dL 1.9-4.3 23 Alb/Glob 1.0 ratio 23 Bilirubin,Total 0.3 mg/dL 0.2-1.0 23 Sgot/Ast 14 U/L Low 15-37 23, 25 SGPT/Alt 23 U/L 12-78 23 Alkaline Phosphatase 98 U/L 45-117 23 Laboratory test finding 06/18/2017 TSH Reflex FT4 0.68 uIU/mL 0.30-4.20 23 and/or FT3 CBC 02/11/2017 White Blood Count 19.4 K/uL High 3.1-10.7 26 Red Blood Count 5.02 M/uL 3.90-5.40 26 Hemoglobin 14.9 gm/dL 11.6-15.8 26 Hematocrit 44.0 % 36.0-46.1 26 Mean Cell Volume 87.6 fl 80.9-99.0 26 Mean Corpuscular HGB 29.7 pg 25.9-32.7 26 Mean Corpuscular HGB Conc 33.9 g/dL 30.8-34.3 26 Platelet Count 316 K/uL 150-400 26 Red Cell Distri Width %CV 14.6 % High 11.7-14.4 26 Mean Platelet Volume 10.2 fL 8.9-12.4 26 Type And Screen 02/11/2017 Patient Blood Type O POS 26 Antibody Screen Negative Negative 26 Laboratory test 02/11/2017 [place]rep[place]ema Antibody Negative Negative 26, 27 finding [place] Laboratory test 01/16/2017 Vaginal Strep NO GROUP B STREP 28, 29 finding Screen <SEE NOTE> Urine Culture 01/02/2017 Urine Culture URETHRAL JOAQUÍN 30 Quantity 10,000 - 50,000 <SEE NOTE> 30, 31 Laboratory test finding 12/21/2016 Rapid Strep Negative Negative 32 Molecular Urine Culture 12/19/2016 Urine Culture URETHRAL JOAQUÍN 33 Quantity > 100,000 CFU/mL 33, 34 CBS W/Automated Diff 11/17/2016 White Blood Count 12.7 K/uL High 3.1-10.7 35 Red Blood Count 4.09 M/uL 3.90-5.40 35 Hemoglobin 12.2 gm/dL 11.6-15.8 35 Hematocrit 35.4 % Low 36.0-46.1 35 Mean Cell Volume 86.6 fl 80.9-99.0 35 Mean Corpuscular HGB 29.8 pg 25.9-32.7 35 Mean Corpuscular HGB Conc 34.5 g/dL High 30.8-34.3 35 Platelet Count 306 K/uL 150-400 35 Red Cell Distri Width SD 40.9 fl 3-47 35 Red Cell Distri Width %CV 13.2 % 11.7-14.4 35 Mean Platelet Volume 10.7 fL 8.9-12.4 35, 36 Neut# 9.91 K/uL High 1.8-7.0 35 Lymph # 1.83 K/uL 1.0-4.0 35 [place] # 0.82 K/uL 0.3-0.9 35 Eos # 0.09 K/uL 0.0-0.5 35 Baso # 0.02 K/uL 0.0-0.1 35 Laboratory test finding 11/17/2016 Trep[place]ema Antibody Negative Negative 35, 37 [place] Glucose,1 HR Post 11/17/2016 1 HR Glucose,Post 135 mg/dL -138 35, 38 Glucola Glucola 1 Hour Urine Glucose NO SPECIMEN RECE <SEE NOTE> % Negative 35, 39 1 Hour Urine Ketone NO SPECIMEN RECE <SEE NOTE> Negative 35, 40 Slide Review 11/17/2016 Slide Review DIFF ORDERED 35 Differential-WBC Confirm 11/17/2016 Total Cells Counted 100 #CELLS 35 Metamyelocyte% 1 % High -0 35 Band% 6 % 0-8 35 Neutrophils% 76 % High 33-73 35 Lymph% 11 % Low 20-42 35 Atypical Lymph% 1 % 0-7 35 Monocyte% 4 % 0-10 35 Eosinophil% 1 % 0-5 35 Platelet Estimate NORMAL 35 Toxic Granulation 1+ 35 Differential Comment LARGE PLATELETS <SEE NOTE> 35, 41 Laboratory test 11/17/2016 HIV Screen 4TH Non Reactive Non Reactive 35, 42 finding Gen Reflex Urine Culture 10/12/2016 Urine Culture URETHRAL JOAQUÍN 35 Quantity > 100,000 CFU/mL 35, 43 Urine Culture 09/06/2016 Urine Culture URETHRAL JOAQUÍN 44 Quantity 50,000 - 100,000 <SEE NOTE> 44, 45 Drugs Of Abuse-Urine Screen 7 08/21/2016 Amphetamines (Urine) Negative 46 Barbiturates (Urine) Negative 46 Benzodiazepines (Urine) Negative 46 Cannabinoids (Urine) Negative 46 Cocaine Metabolite (Urine) Negative 46 Methadone (Urine) Negative 46 Opiates (Urine) Negative 46 Urine Cutoffs * 46, 47 Urine Culture 08/21/2016 Urine Culture MIXED URETHRAL F <SEE NOTE> 46, 48 Quantity > 100,000 CFU/mL 46, 49 Laboratory test finding 08/21/2016 Ethyl Alcohol < 3.0 mg/dL 46 Comprehensive Metabolic Panel 08/21/2016 Glucose 136 mg/dL High 74-106 46 BUN 9 mg/dL 7-18 46 Creatinine 0.7 mg/dL 0.6-1.3 46 Glom Filtration Rate, Estimate >60 mL/min >60 46 If >60 mL/min >60 46, 50 BUN/Creat 12.8 ratio 46 Sodium 138 mmol/L 136-145 46 Potassium 3.7 mmol/L 3.5-5.1 46 Chloride 104 mmol/L 98-107 46 Carbon Dioxide 23 mmol/L 21-32 46 Anion Gap 11 mEq/L 8-16 46 Calcium 9.5 mg/dL 8.5-10.1 46 Total Protein 7.6 g/dL 6.4-8.2 46 Albumin 3.2 g/dL Low 3.4-5.0 46 Globulin 4.4 g/dL High 1.9-4.3 46 Alb/Glob 0.7 ratio 46 Bilirubin,Total 0.3 mg/dL 0.2-1.0 46 Sgot/Ast 13 U/L Low 15-37 46, 51 SGPT/Alt 23 U/L 12-78 46 Alkaline Phosphatase 95 U/L 45-117 46 Urine Culture 08/05/2016 Urine Culture URETHRAL JOAQUÍN 52 Quantity 10,000 - 50,000 <SEE NOTE> 52, 53 Ua Routine 08/05/2016 Urine Color YELLOW Yellow 52 Urine Clarity CLEAR Clear 52 Urine Glucose - Dipstick NEGATIVE mg/dL Negative 52 Urine Bilirubin - Dipstick NEGATIVE Negative 52 Urine Ketone NEGATIVE mg/dL Negative 52 Urine Specific [place] 1.015 1.010-1.030 52 Urine Blood SMALL Negative 52 Urine PH 6.5 6.5-7.5 52 Urine Protein - Dipstick NEGATIVE mg/dL Negative 52 Urine Urobilinogen - Dipstick 0.2 E.U./dL 0.2-1.0 52 Urine Nitrite - Dipstick NEGATIVE Negative 52 Urine Leuk Esterase LARGE Negative 52 Urine RBC 0-2 rbc/hpf 0-2 52 Urine WBC 10-20 wbc/hpf High 0-7 52 Urine Epithelial Cells MODERATE /lpf None Seen 52, 54 Urine Calcium Oxalate Crystals MANY None Seen 52 Urine Bacteria MODERATE None Seen 52 Urine Amorph Sediment SMALL Negative 52 Source: URINE, CLEAN CAT <SEE NOTE> 52, 55 Laboratory test finding 08/05/2016 Urine Amorphous Sediment Small Negative Urine Bilirubin Negative Negative Urine Ketones Negative Negative Urine Leukocyte Esterase Large High Negative Urine Nitrite Negative Negative Urine Protein Negative Negative Urine Urobilinogen 0.2 0.2-1.0 Urine Glucose (Ua) 08/05/2016 Urine Glucose (Ua) Negative Negative Laboratory test 08/04/2016 HCG, Quant 67015.0 mIU/mL 56, 57 finding Ua Routine 08/01/2016 Urine Color YELLOW Yellow 58 Urine Clarity CLOUDY Clear 58 Urine Glucose - Dipstick NEGATIVE mg/dL Negative 58 Urine Bilirubin - Dipstick NEGATIVE Negative 58 Urine Ketone NEGATIVE mg/dL Negative 58 Urine Specific [place] 1.010 1.010-1.030 58 Urine Blood TRACE Negative 58 Urine PH 8.0 High 6.5-7.5 58 Urine Protein - Dipstick NEGATIVE mg/dL Negative 58 Urine Urobilinogen - Dipstick 0.2 E.U./dL 0.2-1.0 58 Urine Nitrite - Dipstick NEGATIVE Negative 58 Urine Leuk Esterase LARGE Negative 58 Urine RBC 2-5 rbc/hpf 0-2 58 Urine WBC 5-10 wbc/hpf 0-7 58 Urine Epithelial Cells MANY /lpf None Seen 58, 59 Urine Bacteria MANY None Seen 58 Source: URINE, CLEAN CAT <SEE NOTE> 58, 60 Affirm Vaginitis Panel 08/01/2016 Trichomonas vaginalis Negative [ Negative] 58 Gardnerella vaginalis POSITIVE High [Negative] 58 Therese species Negative [Negative] 58 Urine Culture 08/01/2016 Urine Culture URETHRAL JOAQUÍN 58 Quantity > 100,000 CFU/mL 58, 61 Chlamydia/GC Rimma 08/01/2016 Chlamydia Trachomatis, Rimma Negative Negative 58 Neisseria Gonorrhoeae, Rimma Negative Negative 58 Please note: (SEE NOTE) 58, 62 Laboratory test finding 08/01/2016 Urine Bilirubin Negative Negative Urine Ketones Negative Negative Urine Leukocyte Esterase Large High Negative Urine Nitrite Negative Negative Urine Protein Negative Negative Urine Urobilinogen 0.2 0.2-1.0 Urine Glucose 08/01/2016 Urine Glucose (Ua) Negative Negative (Ua) Therese species 08/01/2016 Therese species Dna Negative [Negative] Dna Probe Probe Gardnerella Dna 08/01/2016 Gardnerella Dna Probe Positive High [Negative] Probe Trichomonas Dna 08/01/2016 Trichomonas Dna Probe Negative [Negative] Probe Laboratory test 08/01/2016 HCG, Quant 46448.0 58, 63 finding mIU/mL Platelet Estimate 07/22/2016 Platelet Estimate Normal Neutrophils # 07/22/2016 Neutrophils # (Auto) 10.71 High 1.8-7.0 (Auto) Monocytes % 07/22/2016 Monocytes % 4 0-10 Manual Slide 07/22/2016 Manual Slide Review Diff Ordered Review (Hematology) (Hematology) Lymphocytes % 07/22/2016 Lymphocytes % 22 17-56 Lymphocytes # 07/22/2016 Lymphocytes # (Auto) 2.42 1.8-7.0 (Auto) Differential 07/22/2016 Differential Total 100 Total Cells Cells Counted Counted Atypical 07/22/2016 Atypical Lymphocytes 4 0-7 Lymphocytes % % Aspartate Amino 07/22/2016 Aspartate Amino 11 Low 15-37 Transf (Ast/Sgot) Transf (Ast/Sgot) Laboratory test 07/22/2016 Alanine 16 12-78 finding Aminotransferase (Alt/SGPT) Albumin/Globulin Ratio 0.8 BUN/Creatinine Ratio 18.0 Band [...] 0.2-1.0 White Blood Count 14.2 High 3.1-10.7 Type And Screen 07/22/2016 Patient Blood Type O POS 64 Antibody Screen Negative Negative 64 Comprehensive Metabolic Panel 07/22/2016 Glucose 88 mg/dL 74-106 64 BUN 9 mg/dL 7-18 64 Creatinine 0.5 mg/dL Low 0.6-1.3 64 Glom Filtration Rate, Estimate >60 mL/min >60 64 If >60 mL/min >60 64, 65 BUN/Creat 18.0 ratio 64 Sodium 138 mmol/L 136-145 64 Potassium 3.6 mmol/L 3.5-5.1 64 Chloride 104 mmol/L 98-107 64 Carbon Dioxide 23 mmol/L 21-32 64 Anion Gap 11 mEq/L 8-16 64 Calcium 9.3 mg/dL 8.5-10.1 64 Total Protein 8.1 g/dL 6.4-8.2 64 Albumin 3.7 g/dL 3.4-5.0 64 Globulin 4.4 g/dL High 1.9-4.3 64 Alb/Glob 0.8 ratio 64 Bilirubin,Total 0.3 mg/dL 0.2-1.0 64 Sgot/Ast 11 U/L Low 15-37 64, 66 SGPT/Alt 16 U/L 12-78 64 Alkaline Phosphatase 114 U/L 45-117 64 Chlamydia/GC Rimma 07/22/2016 Chlamydia Trachomatis, Rimma Negative Negative 64 Neisseria Gonorrhoeae, Rimma Negative Negative 64 Please note: (SEE NOTE) 64, 67 Ua Routine 07/17/2016 Urine Color YELLOW Yellow 68 Urine Clarity SL CLOUDY Clear 68 Urine Glucose - Dipstick NEGATIVE mg/dL Negative 68 Urine Bilirubin - Dipstick NEGATIVE Negative 68 Urine Ketone TRACE mg/dL High Negative 68 Urine Specific [place] 1.020 1.010-1.030 68 Urine Blood SMALL Negative 68 Urine PH 7.0 6.5-7.5 68 Urine Protein - Dipstick NEGATIVE mg/dL Negative 68 Urine Urobilinogen - Dipstick 0.2 E.U./dL 0.2-1.0 68 Urine Nitrite - Dipstick NEGATIVE Negative 68 Urine Leuk Esterase LARGE Negative 68 Urine RBC 0-2 rbc/hpf 0-2 68 Urine WBC 10-20 wbc/hpf High 0-7 68 Urine Epithelial Cells MANY /lpf None Seen 68, 69 Urine Bacteria FEW None Seen 68 Urine Mucus SMALL None Seen 68 Source: URINE, CLEAN CAT <SEE NOTE> 68, 70 Urine Culture 07/17/2016 Urine Culture URETHRAL JOAQUÍN 68 Quantity 50,000 - 100,000 <SEE NOTE> 68, 71 Laboratory test finding 07/17/2016 Urine Bilirubin Negative Negative Urine Ketones Trace High Negative Urine Leukocyte Esterase Large High Negative Urine Nitrite Negative Negative Urine Protein Negative Negative Urine Urobilinogen 0.2 0.2-1.0 Urine Glucose (Ua) 07/17/2016 Urine Glucose (Ua) Negative Negative Laboratory Studies 07/14/2016 Beta HCG, Quantitative 851760.00 mIU/mL Free Thyroxine 0.83 ng/dL 0.61-1.12 Free [...] Hormone (TSH) 0.69 mcIU/mL 0.34-5.60 Urine Specific [place] 1.024 1.010-1.030 Urine pH 6.0 5-9 White [...] (Auto) 0.6 % 0-2 Beta HCG, Quantitative 696159.00 mIU/mL Blood Urea Nitrogen 8 mg/dL 6-24 [...] Total Protein 7.3 g/dL 6.4-8.9 Urine Specific [place] 1.017 1.010-1.030 Urine pH 7.0 5-9 White Blood Count 13.3 10^3/ul High 3.5-10.8 Laboratory test finding 07/11/2016 HCG 553344.00 mIU/mL 72 Urine Culture SEE RESULT BELOW 73 Comp Metabolic Panel 07/11/2016 Sodium 134 mmol/L [...] Egfr Non- 130.8 >60 Egfr 168.3 >60 74 Type & Screen 07/11/2016 Patient Blood Type [...] Color Yellow Urine Appearance Cloudy Urine Specific [place] 1.017 1.010-1.030 Urine pH 7.0 5-9 Urine [...] Present Absent Urine Culture 07/04/2016 Urine Culture URETHRAL JOAQUÍN 75 Quantity 50,000 - 100,000 <SEE NOTE> 75, 76 Urine Culture 07/04/2016 Urine Culture Organism: Urethral Joaquín Laboratory test 07/01/2016 Basophils # (Auto) 0.03 0.0-0.1 finding Basophils (%) (Auto) 0.3 0.0-1.1 Eosinophils # [...] 3-47 White Blood Count 11.6 High 3.1-10.7 Lymphocytes # (Auto) 07/01/2016 Lymphocytes # (Auto) 1.85 1.8-7.0 Neutrophils # (Auto) 07/01/2016 Neutrophils # (Auto) 8.71 High 1.8-7.0 Laboratory test finding 07/01/2016 Alanine Aminotransferase 22 12-78 (Alt/SGPT) Albumin/Globulin Ratio 1.0 BUN/Creatinine Ratio 18.3 Blood Urea Nitrogen 11 7-18 Calcium Level 8.9 8.5-10.1 Carbon Dioxide Level 25 21-32 Chloride Level 105 98-107 Glucose Screen 80 74-106 Potassium Level 3.9 3.5-5.1 Sodium Level 139 136-145 Total Bilirubin 0.6 0.2-1.0 Aspartate Amino Transf 07/01/2016 Aspartate Amino Transf 16 15-37 (Ast/Sgot) (Ast/Sgot) Manual Slide Review 07/01/2016 Manual Slide Review See Note 77 (Hematology) (Hematology) Comprehensive Metabolic 07/01/2016 Glucose 80 mg/dL 74-106 78 Panel BUN 11 mg/dL 7-18 78 Creatinine 0.6 mg/dL 0.6-1.3 78 Glom Filtration Rate, Estimate >60 mL/min >60 78 If >60 mL/min >60 78, 79 BUN/Creat 18.3 ratio 78 Sodium 139 mmol/L 136-145 78 Potassium 3.9 mmol/L 3.5-5.1 78 Chloride 105 mmol/L 98-107 78 Carbon Dioxide 25 mmol/L 21-32 78 Anion Gap 9 mEq/L 8-16 78 Calcium 8.9 mg/dL 8.5-10.1 78 Total Protein 7.7 g/dL 6.4-8.2 78 Albumin 3.9 g/dL 3.4-5.0 78 Globulin 3.8 g/dL 1.9-4.3 78 Alb/Glob 1.0 ratio 78 Bilirubin,Total 0.6 mg/dL 0.2-1.0 78 Sgot/Ast 16 U/L 15-37 78 SGPT/Alt 22 U/L 12-78 78 Alkaline Phosphatase 105 U/L 45-117 78 Type And Screen 07/01/2016 Patient Blood Type O POS 78 Antibody Screen Negative Negative 78 Urine Barbiturates 06/29/2016 Urine Barbiturates Negative Screen Screen Urine Benzodiazepines 06/29/2016 Urine Negative Screen Benzodiazepines Screen Urine Cannabinoids 06/29/2016 Urine Cannabinoids Negative Screen Screen Urine Cocaine Screen 06/29/2016 Urine Cocaine Screen Negative Urine Culture 06/29/2016 Urine Culture Organism: Urethral Joaquín Urine Drug Screen 06/29/2016 Urine Drug Screen * Information Information Urine Methadone 06/29/2016 Urine Methadone Negative Screen Screen Urine Opiates Screen 06/29/2016 Urine Opiates Screen Negative Thin Prep Pap Report 06/29/2016 Thin Prep Pap Report Results on File Status Status Hepatitis B Surface 06/29/2016 Hepatitis B Surface Nonreactive Nonreactive Antigen Antigen Hepatitis C Antibody 06/29/2016 Hepatitis C Antibody Nonreactive Nonreactive Manual Slide Review 06/29/2016 Manual Slide Review . (Hematology) (Hematology) Rubella IgG Antibody 06/29/2016 Rubella IgG Antibody Reactive Reactive Whole Blood Lead 06/29/2016 Whole Blood Lead 2 0-19 Drugs Of Abuse-Urine 06/29/2016 Amphetamines (Urine) Negative 80 Screen 7 Barbiturates (Urine) Negative 80 Benzodiazepines (Urine) Negative 80 Cannabinoids (Urine) Negative 80 Cocaine Metabolite (Urine) Negative 80 Methadone (Urine) Negative 80 Opiates (Urine) Negative 80 Urine Cutoffs * 80, 81 Urine Culture 06/29/2016 Urine Culture URETHRAL JOAQUÍN 80 Quantity 10,000 - 50,000 <SEE NOTE> 80, 82 CBS W/Automated Diff 06/29/2016 White Blood Count 12.2 K/uL High 3.1-10.7 80 Red Blood Count 5.37 M/uL 3.90-5.40 80 Hemoglobin 15.4 gm/dL 11.6-15.8 80 Hematocrit 45.3 % 36.0-46.1 80 Mean Cell Volume 84.4 fl 80.9-99.0 80 Mean Corpuscular HGB 28.7 pg 25.9-32.7 80 Mean Corpuscular HGB Conc 34.0 g/dL 30.8-34.3 80 Platelet Count 313 K/uL 155-360 80 Red Cell Distri Width SD 41.9 fl 3-47 80 Red Cell Distri Width %CV 13.7 % 11.7-14.4 80 Mean Platelet Volume 10.5 fL 8.9-12.4 80 Neut% 70.5 % 40.4-72.8 80 Lymph % 20.1 % 17.0-46.1 80 Sargent % 7.6 % 4.3-13.2 80 Eo% 1.6 % 0.0-6.6 80 Bas% 0.2 % 0.0-1.1 80 Neut# 8.63 K/uL High 1.8-7.0 80 Lymph # 2.46 K/uL 1.8-7.0 80 Sargent # 0.93 K/uL High 0.3-0.9 80 Eos # 0.19 K/uL 0.0-0.5 80 Baso # 0.03 K/uL 0.0-0.1 80 Type And Screen 06/29/2016 Patient Blood Type O POS 80 Antibody Screen Negative Negative 80 Urine Amphetamines 06/29/2016 Urine Amphetamines Negative Screen Screen Slide Review 06/29/2016 Slide Review . 80, 83 Genital Culture W/ Gram 06/29/2016 Gram Stain GRAM STAIN INDIC 80, 84 Stain <SEE NOTE> Gram Stain FEW GR POS. BACI <SEE NOTE> 80, 85 Gram Stain FEW WHITE BLOOD <SEE NOTE> 80, 86 Gram Stain RARE GRAM POSITI <SEE NOTE> 80, 87 Genital Culture GENITAL JOAQUÍN 80 Laboratory test 06/29/2016 Treponema Antibody Nonreactive Nonreactive 80 , 88 finding [place] Chlamydia/GC Rimma 06/29/2016 Chlamydia Negative Negative 80 Trachomatis, Rimma Neisseria Gonorrhoeae, Rimma Negative Negative 80 Please note: (SEE NOTE) 80, 89 Specimen Type: Genital 80 Rubella Igg Antibody 06/29/2016 Rubella IgG Antibody Reactive Reactive 80 Rubella IgG Iu/ml > 500.0 IU/mL >=10.0 80, 90 Laboratory test finding 06/29/2016 Lead,Blood (Adult) 2 g/dL 0-19 80, 91 Antibody Detection-Hiv1/2 SCRN Nonreactive Nonreactive 80, 92 Hepatitis C Antibody 06/29/2016 Hepatitis C Antibody Nonreactive Nonreactive 80 Signal/Cutoff ratio < 0.02 <0.80 80, 93 Laboratory test 06/29/2016 Hepatitis B Surface Nonreactive Nonreactive 80, 94 finding Antigen Urinalysis Profile 06/26/2016 Urine Color Yellow Urine Appearance Cloudy Urine Specific [place] 1.014 1.010-1.030 Urine pH 7.0 5-9 Urine [...] (Auto) 1.1 % 0-2 Beta HCG, Quantitative 47659.00 mIU/mL Blood Urea Nitrogen 10 mg/dL 6-24 [...] Reactive Protein 6.93 mg/L High < 5.00 95 HCG 84544.00 mIU/mL 96 Comp Metabolic Panel 06/26/2016 Sodium 133 mmol/L [...] Egfr Non- 103.8 >60 Egfr 133.5 >60 97 Blood Urea Nitrogen 10 mg/dL 6-24 BUN/Creatinine [...] Blood Cells % 0.1 Laboratory test 06/25/2016 Urine Culture SEE RESULT BELOW 98, 99 finding GC/Chlamydia 06/25/2016 Chlamydia Negative Negative 100 Amplified Rna trachomatis Rna Neisseria gonorrhoeae (GC) Rna Negative Negative 100 Laboratory test 06/25/2016 Gardnerella/Yeast: Vaginal SEE RESULT 100, 101 finding Dna BELOW Trichomonas vaginalis Rna Negative Negative 100, 102 Laboratory test 06/24/2016 HCG, Quant 41992.0 mIU/mL 103, 104 finding Urine HCG 06/24/2016 Urine HCG POSITIVE Negative 105 (Qualitative) (Qualitative) Source: URINE, CLEAN CAT <SEE NOTE> 105, 106 Ua Routine 06/24/2016 Urine Color YELLOW Yellow 105 Urine Clarity SL CLOUDY Clear 105 Urine Glucose - Dipstick NEGATIVE mg/dL Negative 105 Urine Bilirubin - Dipstick NEGATIVE Negative 105 Urine Ketone TRACE mg/dL High Negative 105 Urine Specific [place] >=1.030 1.010-1.030 105 Urine Blood MODERATE Negative 105 Urine PH 6.0 Low 6.5-7.5 105 Urine Protein - Dipstick 30 mg/dL High Negative 105 Urine Urobilinogen - Dipstick 0.2 E.U./dL 0.2-1.0 105 Urine Nitrite - Dipstick NEGATIVE Negative 105 Urine Leuk Esterase SMALL Negative 105 Urine RBC 2-5 rbc/hpf 0-2 105 Urine WBC 20-30 wbc/hpf High 0-7 105 Urine Epithelial Cells MANY /lpf None Seen 105, 107 Urine Calcium Oxalate Crystals FEW None Seen 105 Urine Bacteria MANY None Seen 105 Urine Mucus LARGE None Seen 105 Source: URINE, CLEAN CAT <SEE NOTE> 105, 108 Urine Culture 06/24/2016 Urine Culture URETHRAL JOAQUÍN 105 Quantity 50,000 - 100,000 <SEE NOTE> 105, 109 Laboratory test finding 06/24/2016 Urine Bilirubin Negative Negative Urine Ketones Trace High Negative Urine Leukocyte Esterase Small High Negative Urine Nitrite Negative Negative Urine Protein 30 High Negative Urine Urobilinogen 0.2 0.2-1.0 Urine Glucose (Ua) 06/24/2016 Urine Glucose (Ua) Negative Negative Comprehensive Metabolic Panel 06/15/2016 Glucose 86 mg/dL 74-106 110 BUN 8 mg/dL 7-18 110 Creatinine 0.6 mg/dL 0.6-1.3 110 Glom Filtration Rate, Estimate >60 mL/min >60 110 If >60 mL/min >60 110, 111 BUN/Creat 13.3 ratio 110 Sodium 141 mmol/L 136-145 110 Potassium 4.0 mmol/L 3.5-5.1 110 Chloride 109 mmol/L High 98-107 110 Carbon Dioxide 24 mmol/L 21-32 110 Anion Gap 8 mEq/L 8-16 110 Calcium 8.9 mg/dL 8.5-10.1 110 Total Protein 7.0 g/dL 6.4-8.2 110 Albumin 3.8 g/dL 3.4-5.0 110 Globulin 3.2 g/dL 1.9-4.3 110 Alb/Glob 1.2 ratio 110 Bilirubin,Total 0.5 mg/dL 0.2-1.0 110 Sgot/Ast 12 U/L Low 15-37 110, 112 SGPT/Alt 20 U/L 12-78 110 Alkaline Phosphatase 114 U/L 45-117 110 Laboratory test 06/15/2016 Vitamin D,25-Hydroxy 23.5 ng/mL Low 30.0-100.0 110, 113 finding Thyroid Stim Hormone 0.70 uIU/mL 0.30-4.20 110 CBS W/Automated Diff 06/15/2016 White Blood Count 10.3 K/uL 3.1-10.7 110 Red Blood Count 5.25 M/uL 3.90-5.40 110 Hemoglobin 15.1 gm/dL 11.6-15.8 110 Hematocrit 43.9 % 36.0-46.1 110 Mean Cell Volume 83.6 fl 80.9-99.0 110 Mean Corpuscular HGB 28.8 pg 25.9-32.7 110 Mean Corpuscular HGB Conc 34.4 g/dL High 30.8-34.3 110 Platelet Count 352 K/uL 155-360 110 Red Cell Distri Width SD 40.1 fl 3-47 110 Red Cell Distri Width %CV 13.3 % 11.7-14.4 110 Mean Platelet Volume 10.4 fL 8.9-12.4 110 Neut% 67.7 % 40.4-72.8 110 Lymph % 22.7 % 17.0-46.1 110 Sargent % 7.1 % 4.3-13.2 110 Eo% 2.1 % 0.0-6.6 110 Bas% 0.4 % 0.0-1.1 110 Neut# 6.96 K/uL 1.8-7.0 110 Lymph # 2.34 K/uL 1.8-7.0 110 Sargent # 0.73 K/uL 0.3-0.9 110 Eos # 0.22 K/uL 0.0-0.5 110 Baso # 0.04 K/uL 0.0-0.1 110 Laboratory test finding 06/15/2016 Gamma Glutamyl Transpeptidase 25 U/L 5 -85 110 Laboratory test finding 06/15/2016 Alanine Aminotransferase 20 [...] 06/12/2016 TSH Reflex FT4 and/or 0.56 0.30-4.20 114 finding FT3 uIU/mL Laboratory test 06/12/2016 Alanine Aminotransferase 20 12-78 [...] 6.4-8.2 White Blood Count 10.9 High 3.1-10.7 Aspartate Amino 06/12/2016 Aspartate Amino 16 15-37 Transf (Ast/Sgot) Transf (Ast/Sgot) Lymphocytes # 06/12/2016 Lymphocytes # 2.28 1.8-7.0 (Auto) (Auto) Manual Slide Review 06/12/2016 Manual Slide Review See Note 115 (Hematology) (Hematology) Total Creatine 06/12/2016 Total Creatine 96 26-192 Kinase Kinase Thyroid Stimulating 06/12/2016 Thyroid Stimulating 0.56 0.30-4.20 Hormone (TSH) Hormone (TSH) Neutrophils # 06/12/2016 Neutrophils # 7.63 High 1.8-7.0 (Auto) (Auto) Routine Culture W04/28/2016 Gram Stain FEW GRAM POS 116, 117 Gram Stain CHAPITO <SEE NOTE> Gram Stain RARE GRAM POSITI <SEE NOTE> 116, 118 Gram Stain RARE WHITE BLOOD <SEE NOTE> 116, 119 Aerobic Culture NO PATHOGENS ISO <SEE NOTE> 116, 120 1 05/29/18 (MonMay 29) 10:24 AM SHERINE A BORRA Baseline 140bpm with moderate variability and accels 2 Z3A.28 3 POST GLUCOLA 4 NO SPECIMEN RECEIVED 5 NO SPECIMEN RECEIVED 6 LARGE PLATELETS PRESENT. 7 Performed at: [address] [id number] Lift Team Technician: Rocio Paulson MD, Phone: [phone] 8 Performed at: [address] [id number] Lift Team Technician: Sabas Oneil MD, Phone: [phone] 9 R31.9 10 10,000 - 50,000 CFU/mL 11 O09.71 Z34.81 12 Instrument flagged sample for slide review. Less than 10% Bands seen, few atypical lymphocytes seen. RBC morphology=0-1+ microcytes Platelet estimate=normal, large platelets present. 13 Performed at: [address] [id number] Lift Team Technician: Rocio Paulson MD, Phone: [phone] 14 URINE SPECIMENS ARE SCREENED AT THE LISTED [facility] INITIAL TEST LEVEL Amphetamines 1000 ng/mL Barbiturates 200 ng/mL Benzodiazepines 200 ng/mL Cannabinoids 50 ng/mL Cocaine Metabolite 300 ng/mL Methadone 300 ng/mL Opiates 300 ng/mL Any PRESUMPTIVE POSITIVE findings are UNCONFIRMED. Confirmatory testing is suggested if findings are unexpected. Please contact laboratory if confirmatory testing is desired. SPECIMENS ARE HELD FOR 72 HOURS. 15 10,000 - 50,000 CFU/mL 16 INFCE Result Units: s/co ratio Negative: < 0.8 Indeterminate: 0.8 - 0.9 Positive: > 0.9 The CDC recommends that a positive HCV antibody result be followed up with a HCV Nucleic Acid Amplification test (136765). 17 Analysis by atomic absorption spectroscopy (AAS). Environmental Exposure: WHO Recommendation <20 Occupational Exposure: OSHA Lead Std 40 CHELE 30 Detection Limit=1 Performed at: [address] [id number] Lift Team Technician: Rocio Paulson MD, Phone: [phone] 18 Non-immune <0.90 Equivocal 0.90 - 0.99 Immune >0.99 Performed at: [address] [id number] Lift Team Technician: Rocio Paulson MD, Phone: [phone] Performed at: [address] [id number] Lift Team Technician: Sabas Oneil MD, Phone: [phone] 19 GRAM STAIN INDICATES NORMAL GENITAL JOAQUÍN 20 FEW GR POS. BACILLI SUGGESTIVE OF LACTOBACILLUS SP. 21 RARE WHITE BLOOD CELLS 22 A negative result for either C. trachomatis and/or N. gonorrhoeae does not preclued an infection because results are dependent on adequate specimen collection, absence of inhibitors, and sufficient DNA to be detected. 23 FATIGUE, DIARRHEA, WANTS THYROID CHECKED 24 Note: Persistent reduction for 3 months or more in an eGFR <60 mL/min/1.73 m2 defines CKD. Patients with eGFR values >/=60 mL/min/1.73 m2 may also have CKD if evidence of persistent proteinuria is present. The original MDRD equation for estimated GFR is not valid for patients less than 18 years of age. Additional information may be found at www.kdoqi.org. 25 Values below the stated reference ranges of AST and ALT can be seen in normal populations. Clinical correlation is suggested. 26 LABOR 27 Performed at: [facility] [id number] Lift Team Technician: Sabas Oneil MD, Phone: [phone] 28 Z3A.36 29 NO GROUP B STREPTOCOCCI ISOLATED 30 Z3A.34 31 10,000 - 50,000 CFU/mL 32 [employer] Specialist: [id number] 33 Z3A.32 34 > 100,000 CFU/mL SPECIMEN IS A MIX OF GRAM POSITIVE ORGANISMS CONSISTENT WITH SKIN VAGINAL CONTAMINATION. SUGGEST REPEAT SPECIMEN IF CLINICALLY INDICATED. 35 O09.892 36 11/17/161856: NEUT% previously reported as: 78.2 H [...] called to: [] - 11/17/16 at 1856 37 Performed at: [address] [id number] Lift Team Technician: Sabas Oneil MD, Phone: [phone] 38 POST GLUCOLA 39 NO SPECIMEN RECEIVED 40 NO SPECIMEN RECEIVED 41 LARGE PLATELETS PRESENT. 42 Performed at: RN - [facility] [address] [id number] Lift Team Technician: Rocio Paulson MD, Phone: [phone] 43 > 100,000 CFU/mL SPECIMEN IS A MIX OF GRAM POSITIVE ORGANISMS CONSISTENT WITH SKIN VAGINAL CONTAMINATION. SUGGEST REPEAT SPECIMEN IF CLINICALLY INDICATED. 44 Z3A.17 45 50,000 - 100,000 CFU/mL SPECIMEN IS A MIX OF GRAM POSITIVE ORGANISMS CONSISTENT WITH SKIN VAGINAL CONTAMINATION. SUGGEST REPEAT SPECIMEN IF CLINICALLY INDICATED. 46 941 47 URINE SPECIMENS ARE SCREENED AT THE LISTED [facility] INITIAL TEST LEVEL Amphetamines 1000 ng/mL Barbiturates 200 ng/mL Benzodiazepines 200 ng/mL Cannabinoids 50 ng/mL Cocaine Metabolite 300 ng/mL Methadone 300 ng/mL Opiates 300 ng/mL Any PRESUMPTIVE POSITIVE findings are UNCONFIRMED. Confirmatory testing is suggested if findings are unexpected. Please contact laboratory if confirmatory testing is desired. SPECIMENS ARE HELD FOR 72 HOURS. 48 MIXED URETHRAL JOAQUÍN 49 > 100,000 CFU/mL SPECIMEN IS A MIX OF GRAM POSITIVE ORGANISMS CONSISTENT WITH SKIN VAGINAL CONTAMINATION. SUGGEST REPEAT SPECIMEN IF CLINICALLY INDICATED. 50 Note: Persistent reduction for 3 months or more in an eGFR <60 mL/min/1.73 m2 defines CKD. Patients with eGFR values >/=60 mL/min/1.73 m2 may also have CKD if evidence of persistent proteinuria is present. The original MDRD equation for estimated GFR is not valid for patients less than 18 years of age. Additional information may be found at www.kdoqi.org. 51 Values below the stated reference ranges of AST and ALT can be seen in normal populations. Clinical correlation is suggested. 52 Z34.81 53 10,000 - 50,000 CFU/mL 54 POSSIBLE UROGENITAL CONTAMINATION. 55 URINE, CLEAN CATCH 56 13 WKS PREG,LEVEL DROPPING DURING 57 Approximate Gestational Age and Total BHCG Range: 0.2 - 1 Week........................5-50 mIU/mL 1 - 2 Weeks.....................50-500 mIU/mL 2 - 3 Weeks..................100-5,000 mIU/mL 3 - 4 Weeks.................500-10,000 mIU/mL 4 - 5 Weeks...............1,000-50,000 mIU/mL 5 - 6 Weeks.............10,000-100,000 mIU/mL 6 - 8 Weeks.............15,000-200,000 mIU/mL 2 - 3 Months............10,000-100,000 mIU/mL 58 12 WKS PREG,ABDOMINAL CRAMPING 59 POSSIBLE UROGENITAL CONTAMINATION. 60 URINE, CLEAN CATCH 61 > 100,000 CFU/mL SPECIMEN IS A MIX OF GRAM POSITIVE ORGANISMS CONSISTENT WITH SKIN VAGINAL CONTAMINATION. SUGGEST REPEAT SPECIMEN IF CLINICALLY INDICATED. 62 A negative result for either C. trachomatis [...] inhibitors, and sufficient DNA to be detected. 63 Approximate Gestational Age and Total BHCG Range: 0.2 - 1 Week........................5-50 mIU/mL 1 - 2 Weeks.....................50-500 mIU/mL 2 - 3 Weeks..................100-5,000 mIU/mL 3 - 4 Weeks.................500-10,000 mIU/mL 4 - 5 Weeks...............1,000-50,000 mIU/mL 5 - 6 Weeks.............10,000-100,000 mIU/mL 6 - 8 Weeks.............15,000-200,000 mIU/mL 2 - 3 Months............10,000-100,000 mIU/mL 64 CRAMPING, 10 WKS PREGN, SENT BY 65 Note: Persistent reduction for 3 months or more in an eGFR <60 mL/min/1.73 m2 defines CKD. Patients with eGFR values >/=60 mL/min/1.73 m2 may also have CKD if evidence of persistent proteinuria is present. The original MDRD equation for estimated GFR is not valid for patients less than 18 years of age. Additional information may be found at www.kdoqi.org. 66 Values below the stated reference ranges of AST and ALT can be seen in normal populations. Clinical correlation is suggested. 67 A negative result for either C. trachomatis [...] inhibitors, and sufficient DNA to be detected. 68 MVA, 9 WKS , ABD PAIN 69 POSSIBLE UROGENITAL CONTAMINATION. 70 URINE, CLEAN CATCH 71 50,000 - 100,000 CFU/mL 72 <5.0 Negative 5.0 - 25.0 Indeterminate (Repeat testing recommended after 72 hours) >25.0 Positive Perimenopausal women can display HCG levels of up to 20 mIU/mL 73 SEE RESULT BELOW Name: TANDAVID L : [address]: Austin Shaffer MD Acct: [id number] Unit: [id number] AGE: 30 Location: ED Re07/11/16 SEX: F Status: DEP ER SPEC: [id number] JOSE: 07/11/16-[address] [facility] [address]: Austin Shaffer MD REQ: [id number] RECD: 07/11/16 STATUS: DELL PARSONS DR: Lisa Craig PA _ SOURCE: URINE [facility]: ORDERED: Urine Culture Procedure Result Reported Site Urine Culture Final 07/12/16- 1230 ML No growth of clinically significant organisms * ML - MAIN LAB ([facility]1) . END OF REPORT * ML=Testing performed at Main Lab DEPARTMENT OF PATHOLOGY, [address] [place] [address] Lew Cohen M.D. Director [facility] # [id number] 74 Because ethnic data is not always readily [...] 15-29 5 Kidney failure <15 (or dialysis) 75 026.851 76 50,000 - 100,000 CFU/mL 77 Instrument flagged sample for slide review. Less than 10% Bands seen, no other immature WBC's seen. RBC morphology essentially normal. Platelet estimate= Normal 78 SPOTTING, 7 WKS 79 Note: Persistent reduction for 3 months or more in an eGFR <60 mL/min/1.73 m2 defines CKD. Patients with eGFR values >/=60 mL/min/1.73 m2 may also have CKD if evidence of persistent proteinuria is present. The original MDRD equation for estimated GFR is not valid for patients less than 18 years of age. Additional information may be found at www.kdoqi.org. 80 Z34.81 81 URINE SPECIMENS ARE SCREENED AT THE LISTED CUTOFFS DRUG CLASS INITIAL TEST LEVEL Amphetamines 1000 ng/mL Barbiturates 200 ng/mL Benzodiazepines 200 ng/mL Cannabinoids 50 ng/mL Cocaine Metabolite 300 ng/mL Methadone 300 ng/mL Opiates 300 ng/mL Any PRESUMPTIVE POSITIVE findings are UNCONFIRMED. Confirmatory testing is suggested if findings are unexpected. Please contact laboratory if confirmatory testing is desired. SPECIMENS ARE HELD FOR 72 HOURS. 82 10,000 - 50,000 CFU/mL 83 Instrument flagged sample for slide review. Less than 10% Bands seen, no other immature WBC's seen. RBC morphology essentially normal. Platelet estimate=NORMAL 84 GRAM STAIN INDICATES NORMAL GENITAL JOAQUÍN 85 FEW GR POS. BACILLI SUGGESTIVE OF LACTOBACILLUS SP. 86 FEW WHITE BLOOD CELLS 87 RARE GRAM POSITIVE COCCI 88 Please Note: A nonreactive test result does not exclude the possibility of exposure to, or infection with syphilis. T. pallidum antibodies may be undetectable in some stages of the infection and in some clinical conditions. 89 A negative result for either C. trachomatis [...] inhibitors, and sufficient DNA to be detected. 90 Values >=10.0 IU/mL are positive for IgG antibodies to rubella virus and are considered IMMUNE. 91 Environmental Exposure: WHO Recommendation <20 Occupational Exposure: OSHA Lead Std 40 CHELE 30 Detection Limit=1 Performed at: [facility] [address] [id number] Lift Team Technician: Rocio Paulson MD, Phone: [phone] 92 NOTE: A NON-REACTIVE RESULT INDICATES THAT HIV-1 AND HIV-2 ANTIBODIES HAVE NOT BEEN FOUND IN THIS PATIENT SPECIMEN. A NON-REACTIVE RESULT, HOWEVER, DOES NOT PRECLUDE PREVIOUS EXPOSURE OF INFECTION WITH HIV. * [place] STATE LAW PROHIBITS THE REDISCLOSURE OF THIS RESULT * * TO ANY UNAUTHORIZED DEMOCRAT. * 93 Antibodies to HCV not detected; does not exclude early acute HCV infection. 94 HBsAg not detected; does not exclude the possibility of exposure to or early acute infections with HBV. 95 Acute inflammation: >10.00 96 <5.0 Negative 5.0 - 25.0 Indeterminate (Repeat testing recommended after 72 hours) >25.0 Positive Perimenopausal women can display HCG levels of up to 20 mIU/mL 97 Because ethnic data is not always readily [...] 15-29 5 Kidney failure <15 (or dialysis) 98 Comment: has taken macrobid [id number] 99 SEE RESULT BELOW Name: DAVID HUNG : [address]: Martita Braga Acct: [id number] Unit: [id number] AGE: 30 Location: [facility] Re06/25/16 SEX: F Status: DEP ER SPEC: [id number] JOSE: 06/25/16-[address] [facility] [address]: Allyson Mendes DO REQ: [id number] RECD: 06/25/16 STATUS: DELL PARSONS DR: Emmett Ventura MD _ SOURCE: URINE [facility]: ORDERED: Urine Culture COMMENTS: Comment: has taken macrobid [id number] Procedure Result Reported Site Urine Culture Final 06/26/16- 1214 ML No growth of clinically significant organisms * ML - MAIN LAB ([facility]) . END OF REPORT * ML=Testing performed at Main Lab DEPARTMENT OF PATHOLOGY, [address] [place] [address] Lew Cohen M.D. Director [facility] # [id number] 100 [id number] SEE RESULT BELOW Name: DAVID HUNG : [address]: Martita Braga Acct: [id number] Unit: [id number] AGE: 30 Location: [facility] Re06/25/16 SEX: F Status: DEP ER SPEC: [id number] JOSE: 06/25/[address] [facility] [address]: Allyson Mendes DO REQ: [id number] RECD: 06/25/16 STATUS: DELL PARSONS DR: Lisa Craig PA _ [facility] ORDERED: JorjeYeast DNA COMMENTS: [id number] Procedure Result Reported Site Gardnerella/Yeast: Vaginal DNA [...] or failure. * ML - MAIN LAB ([facility]) . END OF REPORT * ML=Testing performed at Main Lab DEPARTMENT OF PATHOLOGY, [address] [place] [address] Lew Cohen M.D. Director [facility] # [id number] 102 [id number] GC/Chlamydia Source?: Endocervical Trichomonas Source: Endocervical 103 JUST FOUND OUT , HAVING ABD PAIN, BLEEDING 104 Approximate Gestational Age and Total BHCG Range: 0.2 - 1 Week........................5-50 mIU/mL 1 - 2 Weeks.....................50-500 mIU/mL 2 - 3 Weeks..................100-5,000 mIU/mL 3 - 4 Weeks.................500-10,000 mIU/mL 4 - 5 Weeks...............1,000-50,000 mIU/mL 5 - 6 Weeks.............10,000-100,000 mIU/mL 6 - 8 Weeks.............15,000-200,000 mIU/mL 2 - 3 Months............10,000-100,000 mIU/mL 105 TEST 106 URINE, CLEAN CATCH 107 POSSIBLE UROGENITAL CONTAMINATION. 108 URINE, CLEAN CATCH 109 50,000 - 100,000 CFU/mL SPECIMEN IS A MIX OF GRAM POSITIVE ORGANISMS CONSISTENT WITH SKIN VAGINAL CONTAMINATION. SUGGEST REPEAT SPECIMEN IF CLINICALLY INDICATED. 110 E78.5 E55.9 F41.9 R74.9 111 Note: Persistent reduction for 3 months or more in an eGFR <60 mL/min/1.73 m2 defines CKD. Patients with eGFR values >/=60 mL/min/1.73 m2 may also have CKD if evidence of persistent proteinuria is present. The original MDRD equation for estimated GFR is not valid for patients less than 18 years of age. Additional information may be found at www.kdoqi.org. 112 Values below the stated reference ranges of AST and ALT can be seen in normal populations. Clinical correlation is suggested. 113 Vitamin D deficiency has been defined by the [place] of [employer] and an Endocrine Society practice guideline as a level of serum 25-OH vitamin D less than 20 ng/mL (1,2). The Endocrine Society went on to further define vitamin D insufficiency as a level between 21 and 29 ng/mL (2). 1. IOM ([place] of Medicine). 2010. Dietary reference intakes for calcium and D. [place]: The National Academies Press. 2. Marry MF, Malinda [place], Melecio-Levi DEL ANGEL, et al. Evaluation, treatment, and prevention of vitamin D deficiency: an Endocrine Society clinical practice guideline. JCEM. 2010; 96(7):1911-30. Performed at: RN - [facility] [address] [id number] Lift Team Technician: Rocio Paulson MD, Phone: [phone] 114 CP, HEART RACING 115 Instrument flagged sample for slide review. Less than 10% Bands seen, no other immature WBC's seen. RBC morphology essentially normal. Platelet estimate= Normal 116 POSSIBLE CYST BEHIND RT EAR 117 FEW GRAM POS BACILLI SUGGESTIVE OF DIPTHEROIDS 118 RARE GRAM POSITIVE COCCI 119 RARE WHITE BLOOD CELLS 120 NO PATHOGENS ISOLATED Procedures Date CPT Code Description Status 05/29/2018 22162 Non-Stress Test (NST) Completed 11/16/2017 17975 EKG-Tracing And Report Completed 02/11/2017 96887 Vaginal Delivery Global Care Completed 06/22/2016 68334 Echocardiogram Complete Completed 06/22/2016 63974 Event Monitor Inter/Review Only Completed 06/16/2016 12964 EKG-Tracing And Report Completed 08/20/2014 46095 Vaginal Delivery W/Post- Care Completed 06/24/2013 45301 Holter Monitor 24HR Inter/Report Completed 07/20/2011 77481 Echocardiogram Complete Completed 07/20/2011 76859 Event Monitor Inter/Review Only Completed 12/08/2010 75443 Remove Impacted Cerumen Completed 08/16/2010 38527 Holter Monitor 24HR Inter/Report Completed 08/13/2010 29197 EKG-Tracing And Report Completed 08/13/2010 93426 Pulse Oximetry Completed 08/09/2010 41942 Pulse Oximetry Completed 08/09/2010 78585 Pressurized/Non-Pressurized Inhalation Treatment,Acute Completed Obstructio 11/17/2008 16619 Post- Care Only Completed 10/03/2008 67884 Antepartum 7 Or More Total Office Visit Completed 10/03/2008 90395 Vaginal Delivery Global Care Completed 09/30/2008 10972 Antepartum 7 Or More Total Office Visit Completed 09/25/2008 17502 Antepartum 7 Or More Total Office Visit Completed 09/22/2008 90023 Antepartum 7 Or More Total Office Visit Completed 09/17/2008 28686 Antepartum 7 Or More Total Office Visit Completed 09/09/2008 35140 Antepartum 7 Or More Total Office Visit Completed 09/03/2008 15452 Antepartum 7 Or More Total Office Visit Completed 08/20/2008 78226 Antepartum 7 Or More Total Office Visit Completed Encounters Type Date Location Provider CPT E/M Dx Office Visit 11/16/2017 1:00p [place] [address] R00.2 F17.200 I49.3 Z3A.01 Office Visit 04/28/2017 11:00a Primary Care Office Dolly Londono M.D. 91810 H66.91 Office Visit 03/08/2017 11:00a Primary Care Office Lisa Craig, 42042 F32.9 PA-C F41.9 R00.2 E55.9 F17.200 Z71.6 Z70.9 Office Visit 01/02/2017 10:00a Primary Care Office Jasper Rajwinder, 03287 J06.9 RPAC O99.333 F17.210 Z71.6 Office Visit 07/21/2016 8:30a [facility] [place], [place] [address] H66.001 Women's Health Z33.1 Office Visit 07/19/2016 1:00p [facility] [place], [place] [address] S39.011A Women's Health Z33.1 Office Visit 07/13/2016 1:30p [facility] [address] F41.9 [facility] Office Visit 07/04/2016 11:00a [facility] [address] O26.851 Women's Health Z33.1 Office Visit 06/27/2016 10:30a [facility] [place], [place] [address] N91.1 Health Z71.6 E55.9 Office Visit 06/16/2016 8:00a Cardiology Office Jami Thompson, 13773 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, 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 I49.1 R00.2 Office Visit 06/15/2016 10:00a Primary Care Office Lisa Craig, 44830 F41.9 PA-C F32.9 E55.9 F17.200 Z71.6 D72.829 R74.8 R00.2 E78.5 N92.6 Office Visit 01/05/2016 2:30p Primary Care Office Lisa Craig, 59326 J01.90 PA-C E66.9 F17.200 E55.9 Z71.6 Office Visit 12/30/2015 2:30p Primary Care Office Lisa Craig, 88536 E66.9 PA-C F17.200 Z71.6 E55.9 E78.5 F41.9 F32.9 Office Visit 07/23/2015 3:00[place] [address] H66.90 F32.9 F41.9 E78.5 Z00.01 Office Visit 07/06/2015 10:30a Lisa Simmons PA-C 87042 E78.5 E55.9 F41.9 R00.2 F17.200 Z71.6 E66.9 E04.9 Office Visit 12/24/2014 1:45p Orthopaedic Office Darell Yesenia FaulknerAngel, [address] 719.47 [facility] 845.02 V22.2 Office Visit 10/01/2014 9:10a Cardiology Office Jami Thompson, 59205 785.1 MSN, 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 Office Visit 07/23/2014 2:00p Cardiology Office Song Robles, 17846 785.1 Marco Antonio, [facility] Plan of Care Future Appointment(s):06/12/2018 11:30 am - Sherine Freitas CNM at [facility]9211/16/2017 - Fay Nicholas, PAR00.2 PalpitationsNew Medication:Metoprolol Tartrate [...]
--- OUTSIDE RECORDS SUMMARY | 2018-06-01 21:38 | XMS REPORT ---
:1985 External Reference #:[id number] Author Organization [facility] 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 Lindsey Rizzo MD Primary Care Physician Unavailable Payers Type Date Identification Numbers Payment Provider Subscriber Commercial Policy Number: [id number] [employer] David Hung PayID: [id number] [address] [place] [address] Problems Date Description Provider Status Onset: 05/27/2015 Hyperlipidemia Lisa Craig PA-C Active Onset: 05/27/2015 Anxiety Lisa Craig PA-C Active Onset: 05/27/2015 Depressive disorder Lisa Craig PA-C Active Onset: 04/10/2017 Palpitations [facility]: PVCs/PACs Onset: 12/14/2017 Smoking [...] 16oz of soda per day Age [address] [place] 12 Years Old # Partners in a [...] , Song 11/16/ Marco Antonio Camilo, 2018 [facility] Bystolic 04/26/ Hx Tablets 2.5mg 30tabs 1 [...] 07/19/ a day [place] 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 , 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, 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 Multi 06/29/ Hx Capsules [id number] O09.71 Odell, +Dha 2015 - mg 09/06/ CNM 2016 [...] Solution 0.65% 135ml 2 sprays J01.90 Aaron Chester 2016 every 2 Mikal E., hours as DO needed Probiotic 01/04/ Hx Capsules 60caps 1-2 J01.90 Aarno Acidarvind 2016 capsules by Mikal E., mouth [...] mouth every Jami [place] 2014 , 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, 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 Paroxetine HCL / Hx Tablets 20mg 90tabs [...] twice a day Marco Antonio Camilo, 2016 [facility] Zithromax /00/ Hx Tablets 250mg take 2 tabs Unknown 0000 - by mouth on day then 2015 1 tab by mouth qddays 2-5 Atenolol 00/00/ Hx Tablets 75mg 1 by mouth Unknown 0000 - bid 2015 Paxil /00/ Hx Tablets 20mg 1 by mouth Unknown 0000 - every day 2015 Immunizations CPT Code Status Date Vaccine Lot # [id number] Given 04/26/2018 Tdap injection [id number] Given 04/26/2018 Influenza Virus Vaccine, Quadrivalent, 36 Mos+, .5ML [id number] Given 12/20/2016 Tdap injection [id number] Given 04/16/2015 Influenza Vaccine (Fluzone) Age 3 And Older [id number] U-Pneum Given 04/12/2013 Pneumococcal,Unspecified [id number] 00469 Given 07/17/2011 Tdap injection [id number] Given 07/14/2009 H1N1 Immuniation Adminstration [id number] Given 07/14/2009 H1N1 Immuniation Adminstration Vital Signs Date Vital Result Comment 05/14/2018 BP Systolic 116 mmHg BP Diastolic 58 mmHg Body Temperature 97.4 F Heart Rate 83 /min Respiratory Rate 18 /min Height 64 inches 5'4" Weight 142.00 lb BMI (Body Mass Index) 24.4 kg/m2 BSA (Body Surface Area) 1.69 m2 [place] body weight in kilograms 54 O2 % BldC Oximetry 98 % 04/26/2018 BP Systolic 124 mmHg BP Diastolic 80 mmHg Body Temperature 98.3 F Heart Rate 97 /min Respiratory Rate 18 /min Height 64 inches 5'4" Weight 146.00 lb BMI (Body Mass Index) 25.1 kg/m2 BSA (Body Surface Area) 1.71 m2 [place] body weight in kilograms 54 O2 % BldC Oximetry 98 % 04/02/2018 BP Systolic 117 mmHg BP Diastolic 77 mmHg Body Temperature 97.7 F Heart Rate 89 /min Respiratory Rate 18 /min Height 64 inches 5'4" Weight 141.38 lb BMI (Body Mass Index) 24.3 kg/m2 BSA (Body Surface Area) 1.69 m2 [place] body weight in kilograms 54 O2 % BldC Oximetry 99 % 02/26/2018 BP Systolic 117 mmHg BP Diastolic 71 mmHg Body Temperature 98.8 F Heart Rate 92 /min Respiratory Rate 18 /min Height 64 inches 5'4" Weight 142.12 lb BMI (Body Mass Index) 24.4 kg/m2 BSA (Body Surface Area) 1.69 m2 [place] body weight in kilograms 54 O2 % BldC Oximetry 97 % 01/29/2018 BP Systolic 111 mmHg BP Diastolic 63 mmHg Body Temperature 98.4 F Heart Rate 88 /min Respiratory Rate 20 /min Height 64 inches 5'4" Weight 135.12 lb BMI (Body Mass Index) 23.2 kg/m2 BSA (Body Surface Area) 1.66 m2 [place] body weight in kilograms 54 O2 % BldC Oximetry 98 % 12/28/2017 BP Systolic 102 mmHg BP Diastolic 64 mmHg Body Temperature 96.0 F Heart Rate 80 /min Respiratory Rate 16 /min Height 64 inches 5'4" Weight 135.00 lb BMI (Body Mass Index) 23.2 kg/m2 BSA (Body Surface Area) 1.66 m2 [place] body weight in kilograms 54 O2 % BldC Oximetry 98 % 12/14/2017 BP Systolic 91 mmHg BP Diastolic 51 mmHg Body Temperature 97.6 F Heart Rate 75 /min Respiratory Rate 18 /min Height 64 inches 5'4" Weight 135.00 lb BMI (Body Mass Index) 23.2 kg/m2 BSA (Body Surface Area) 1.66 m2 [place] body weight in kilograms 54 O2 % BldC Oximetry 98 % 11/16/2017 BP Systolic Sitting Left Arm 120 mmHg BP Diastolic Sitting Left Arm 64 mmHg Heart Rate 80 /min Respiratory Rate 18 /min Height 64 inches 5'4" Weight 134.00 lb BMI (Body Mass Index) 23.0 kg/m2 BSA (Body Surface Area) 1.65 m2 [place] body weight in kilograms 54 11/16/2017 BP Systolic 135 mmHg BP Diastolic 74 mmHg Height 64 inches 5'4" Weight 134.00 lb BMI (Body Mass Index) 23.0 kg/m2 BSA (Body Surface Area) 1.65 m2 [place] body weight in kilograms 54 04/28/2017 BP [...] kg/m2 BSA (Body Surface Area) 1.63 m2 [place] body weight in kilograms 54 03/08/2017 BP Systolic 119 mmHg BP Diastolic 76 mmHg Heart Rate 73 /min Respiratory Rate 16 /min Height 64 inches 5'4" [place] body weight in kilograms 54 O2 % BldC Oximetry 99 % 02/06/2017 BP Systolic 118 mmHg BP Diastolic 86 mmHg Height 64 inches 5'4" Weight 149.38 lb BMI (Body Mass Index) 25.6 kg/m2 BSA (Body Surface Area) 1.73 m2 [place] body weight in kilograms 54 01/30/2017 BP Systolic 112 mmHg BP Diastolic 70 mmHg Height 64 inches 5'4" Weight 145.00 lb BMI (Body Mass Index) 24.9 kg/m2 BSA (Body Surface Area) 1.71 m2 [place] body weight in kilograms 54 01/23/2017 BP Systolic 106 mmHg BP Diastolic 60 mmHg Height 64 inches 5'4" Weight 147.38 lb BMI (Body Mass Index) 25.3 kg/m2 BSA (Body Surface Area) 1.72 m2 [place] body weight in kilograms 54 01/16/2017 BP Systolic 110 mmHg BP Diastolic 62 mmHg Height 64 inches 5'4" Weight 147.00 lb BMI (Body Mass Index) 25.2 kg/m2 BSA (Body Surface Area) 1.72 m2 [place] body weight in kilograms 54 01/02/2017 BP Systolic Sitting Right Arm 102 mmHg BP Diastolic Sitting Right Arm 58 mmHg Body Temperature 98.7 F Heart Rate 84 /min Height 64 inches 5'4" Weight 148.38 lb BMI (Body Mass Index) 25.5 kg/m2 BSA (Body Surface Area) 1.72 m2 [place] body weight in kilograms 54 O2 % BldC Oximetry 96 % 01/02/2017 BP Systolic 106 mmHg BP Diastolic 66 mmHg Height 64 inches 5'4" Weight 148.25 lb BMI (Body Mass Index) 25.4 kg/m2 BSA (Body Surface Area) 1.72 m2 [place] body weight in kilograms 54 12/19/2016 BP Systolic 118 mmHg BP Diastolic 66 mmHg Height 64 inches 5'4" Weight 148.50 lb BMI (Body Mass Index) 25.5 kg/m2 BSA (Body Surface Area) 1.72 m2 [place] body weight in kilograms 54 12/05/2016 BP Systolic 104 mmHg BP Diastolic 70 mmHg Height 64 inches 5'4" Weight 147.50 lb BMI (Body Mass Index) 25.3 kg/m2 BSA (Body Surface Area) 1.72 m2 [place] body weight in kilograms 54 11/17/2016 BP [...] kg/m2 BSA (Body Surface Area) 1.63 m2 [place] body weight in kilograms 45 08/15/2016 BP [...] Test Result H/L Range Note Urine Dipstick 05/14/2018 Ua Color yellow Yellow Ua Clarity clear Clear Ua Leuko 2+ High Negative Ua Nitrite negative Negative Ua Urobilinogen 0.2 0.2 - 1.0 E.U./dL Ua Protein 1+ High Negative Ua PH 6.0 Low 6.5-7.5 Ua Blood negative Negative Ua Specific [place] 1.015 1.010-1.030 Ua Ketones negative Negative Ua Bilirubin negative Negative Ua Glucose negative Negative Glucose,1 HR Post Glucola 04/26/2018 1 HR Glucose,Post Glucola 102 mg/dL -138 1, 2 1 Hour Urine Glucose NO SPECIMEN RECE <SEE NOTE> % Negative 1, 3 1 Hour Urine Ketone NO SPECIMEN RECE <SEE NOTE> Negative 1, 4 HIV Screen 4TH Gen 04/26/2018 HIV Screen 4th Non Reactive Non Reactive 1 , 5 Reflex Generation wRfx Laboratory test 04/26/2018 Treponema Antibody Negative Negative 1, 6 finding [place] CBC W/Automated 04/26/2018 White Blood Count 12.0 K/uL High 3.1-10.7 1 Diff Red Blood Count 4.17 M/uL 3.90-5.40 1 Hemoglobin 12.5 gm/dL 11.6-15.8 1 Hematocrit 35.7 % Low 36.0-46.1 1 Mean Cell Volume 85.6 fl 80.9-99.0 1 Mean Corpuscular HGB 30.0 pg 25.9-32.7 1 Mean Corpuscular HGB Conc 35.0 g/dL High 30.8-34.3 1 Platelet Count 293 K/uL 155-360 1 Red Cell Distri Width SD 40.9 fl 3-47 1 Red Cell Distri Width %CV 13.4 % 11.7-14.4 1 Mean Platelet Volume 10.5 fL 8.9-12.4 1 Neut% 80.1 % High 40.4-72.8 1 Lymph % 12.6 % Low 20.0-42.0 1 [place] % 6.5 % 4.3-13.2 1 Eo% 0.6 % 0.0-6.6 1 Bas% 0.2 % 0.0-1.1 1 Neut# 9.63 K/uL High 1.8-7.0 1 Lymph # 1.52 K/uL 1.0-4.0 1 [place] # 0.78 K/uL 0.3-0.9 1 Eos # 0.07 K/uL 0.0-0.5 1 Baso # 0.02 K/uL 0.0-0.1 1 Slide Review 04/26/2018 Slide Review DIFF ORDERED 1 Differential-WBC Confirm 04/26/2018 Total Cells Counted 100 #CELLS 1 Band% 2 % 0-8 1 Neutrophils% 86 % High 33-73 1 Lymph% 6 % Low 20-42 1 Monocyte% 4 % 0-10 1 Eosinophil% 2 % 0-5 1 Platelet Estimate NORMAL 1 Toxic Granulation 0-1+ 1 Differential Comment LARGE PLATELETS <SEE NOTE> 1, 7 Urine Dipstick 04/26/2018 Ua Color yellow Yellow Ua Clarity cloudy Clear Ua Leuko 3+ High Negative Ua Nitrite negative Negative Ua Urobilinogen 0.2 0.2 - 1.0 E.U./dL Ua Protein negative Negative Ua PH 6.5 6.5-7.5 Ua Blood negative Negative Ua Specific [place] 1.010 1.010-1.030 Ua Ketones negative Negative Ua Bilirubin negative Negative Ua Glucose negative Negative Urine Dipstick 04/02/2018 Ua Color Lilly Yellow Ua Clarity Cloudy Clear Ua Leuko 3+ High Negative Ua Nitrite negative Negative Ua Urobilinogen negative Low 0.2 - 1.0 E.U./dL Ua Protein 1+ High Negative Ua PH 6.5 6.5-7.5 Ua Blood Trace Negative Ua Specific [place] 1.015 1.010-1.030 Ua Ketones negative Negative Ua Bilirubin 1+ High Negative Ua Glucose negative Negative Urine Dipstick 02/26/2018 Ua Color yellow Yellow Ua Clarity cloudy Clear Ua Leuko 3+ High Negative Ua Nitrite negative Negative Ua Urobilinogen 0.2 0.2 - 1.0 E.U./dL Ua Protein negative Negative Ua PH 7.0 6.5-7.5 Ua Blood negative Negative Ua Specific [place] 1.015 1.010-1.030 Ua Ketones negative Negative Ua Bilirubin negative Negative Ua Glucose negative Negative Urine Dipstick 01/29/2018 Ua Color Yellow Yellow Ua Clarity Clear Clear Ua Leuko 3+ High Negative Ua Nitrite negative Negative Ua Urobilinogen 0.2 0.2 - 1.0 E.U./dL Ua Protein negative Negative Ua PH 7.0 6.5-7.5 Ua Blood negative Negative Ua Specific [place] 1.015 1.010-1.030 Ua Ketones negative Negative Ua Bilirubin negative Negative Ua Glucose negative Negative Urine Dipstick 12/28/2017 Ua Color yellow Yellow Ua Clarity cloudy Clear Ua Leuko negative Negative Ua Nitrite negative Negative Ua Urobilinogen 0.2 0.2 - 1.0 E.U./dL Ua Protein negative Negative Ua PH 6.5 6.5-7.5 Ua Blood negative Negative Ua Specific [place] 1.015 1.010-1.030 Ua Ketones negative Negative Ua Bilirubin negative Negative Ua Glucose negative Negative Urine Culture 12/14/2017 Urine Culture URETHRAL JOAQUÍN 8 Quantity 10,000 - 50,000 <SEE NOTE> 8, 9 Urine Dipstick 12/14/2017 Ua Color yellow Yellow Ua Clarity cloudy Clear Ua Leuko 2+ High Negative Ua Nitrite negative Negative Ua Urobilinogen 0.2 0.2 - 1.0 E.U./dL Ua Protein negative Negative Ua PH 6.5 6.5-7.5 Ua Blood 1+ High Negative Ua Specific [place] 1.020 1.010-1.030 Ua Ketones negative Negative Ua Bilirubin negative Negative Ua Glucose negative Negative Urine Dipstick 11/16/2017 Ua Color Yellow Yellow Ua Clarity Clear Clear Ua Leuko Negative Negative Ua Nitrite Negative Negative Ua Urobilinogen 0.2 0.2 - 1.0 E.U./dL Ua Protein 1+ High Negative Ua PH 6.0 Low 6.5-7.5 Ua Blood 1+ High Negative Ua Specific [place] 1.005 Low 1.010-1.030 Ua Ketones Negative Negative Ua Bilirubin Negative Negative Ua Glucose Negative Negative Slide Review 11/16/2017 Slide Review . 10, 11 HIV Screen 4TH Gen 11/16/2017 HIV Screen 4th Non Reactive Non Reactive 10, 12 Reflex Generation wRfx Laboratory test 11/16/2017 Treponema Antibody Negative Negative 10 finding [place] [facility] 11/16/2017 Amphetamines (Urine) Negative 10 Abuse-Urine Screen 7 Barbiturates (Urine) Negative 10 Benzodiazepines (Urine) Negative 10 Cannabinoids (Urine) Negative 10 Cocaine Metabolite (Urine) Negative 10 Methadone (Urine) Negative 10 Opiates (Urine) Negative 10 Urine Cutoffs * 10, 13 Urine Culture 11/16/2017 Urine Culture URETHRAL JOAQUÍN 10 Quantity 10,000 - 50,000 <SEE NOTE> 10, 14 Type And Screen 11/16/2017 Patient Blood Type O POS 10 Antibody Screen Negative Negative 10 Laboratory test finding 11/16/2017 Hepatitis B Surface Negative Negative 10 Antigen Hepatitis C Antibody < 0.1 s/corat 0.0-0.9 10, 15 Lead,Blood (Adult) 1 g/dL 0-19 10, 16 CBS W/Automated Diff 11/16/2017 White Blood Count 10.0 K/uL 3.1-10.7 10 Red Blood Count 5.07 M/uL 3.90-5.40 10 Hemoglobin 14.2 gm/dL 11.6-15.8 10 Hematocrit 41.5 % 36.0-46.1 10 Mean Cell Volume 81.9 fl 80.9-99.0 10 Mean Corpuscular HGB 28.0 pg 25.9-32.7 10 Mean Corpuscular HGB Conc 34.2 g/dL 30.8-34.3 10 Platelet Count 378 K/uL High 155-360 10 Red Cell Distri Width SD 39.0 fl 3-47 10 Red Cell Distri Width %CV 13.3 % 11.7-14.4 10 Mean Platelet Volume 10.1 fL 8.9-12.4 10 Neut% 75.1 % High 40.4-72.8 10 Lymph % 17.9 % Low 20.0-42.0 10 [place] % 6.4 % 4.3-13.2 10 Eo% 0.2 % 0.0-6.6 10 Bas% 0.4 % 0.0-1.1 10 Neut# 7.50 K/uL High 1.8-7.0 10 Lymph # 1.79 K/uL 1.0-4.0 10 [place] # 0.64 K/uL 0.3-0.9 10 Eos # 0.02 K/uL 0.0-0.5 10 Baso # 0.04 K/uL 0.0-0.1 10 Genital Culture W/ Gram 11/16/2017 Gram Stain GRAM STAIN INDIC <SEE 10 , 17 Stain NOTE> Gram Stain FEW GR POS. BACI <SEE NOTE> 10, 18 Gram Stain RARE WHITE BLOOD <SEE NOTE> 10, 19 Genital Culture GENITAL JOAQUÍN 10 Chlamydia/GC Rimma 11/16/2017 Chlamydia Trachomatis, PCR Negative Negative 10 Neisseria Gonorrhoeae, PCR Negative Negative 10 Please note: . 10, 20 Laboratory test 11/16/2017 Rubella IgG 14.10 index Immune >0.99 10, 21 finding Antibody CBS W/Automated Diff 06/18/2017 White Blood Count 7.8 K/uL 3.1-10.7 22 Red Blood Count 5.36 M/uL 3.90-5.40 22 Hemoglobin 15.2 gm/dL 11.6-15.8 22 Hematocrit 44.5 % 36.0-46.1 22 Mean Cell Volume 83.0 fl 80.9-99.0 22 Mean Corpuscular HGB 28.4 pg 25.9-32.7 22 Mean Corpuscular HGB Conc 34.2 g/dL 30.8-34.3 22 Platelet Count 358 K/uL 150-400 22 Red Cell Distri Width SD 40.6 fl 3-47 22 Red Cell Distri Width %CV 13.4 % 11.7-14.4 22 Mean Platelet Volume 9.5 fL 8.9-12.4 22 Neut% 61.7 % 40.4-72.8 22 Lymph % 29.9 % 20.0-42.0 22 [place] % 6.3 % 4.3-13.2 22 Eo% 1.7 % 0.0-6.6 22 Bas% 0.4 % 0.0-1.1 22 Neut# 4.82 K/uL 1.8-7.0 22 Lymph # 2.33 K/uL 1.0-4.0 22 [place] # 0.49 K/uL 0.3-0.9 22 Eos # 0.13 K/uL 0.0-0.5 22 Baso # 0.03 K/uL 0.0-0.1 22 Comprehensive Metabolic Panel 06/18/2017 Glucose 88 mg/dL 74-106 22 BUN 12 mg/dL 7-18 22 Creatinine 0.7 mg/dL 0.6-1.3 22 Glom Filtration Rate, Estimate >60 mL/min >60 22 If >60 mL/min >60 22, 23 BUN/Creat 17.1 ratio 22 Sodium 142 mmol/L 136-145 22 Potassium 3.9 mmol/L 3.5-5.1 22 Chloride 106 mmol/L 98-107 22 Carbon Dioxide 28 mmol/L 21-32 22 Anion Gap 8 mEq/L 8-16 22 Calcium 9.1 mg/dL 8.5-10.1 22 Total Protein 7.5 g/dL 6.4-8.2 22 Albumin 3.8 g/dL 3.4-5.0 22 Globulin 3.7 g/dL 1.9-4.3 22 Alb/Glob 1.0 ratio 22 Bilirubin,Total 0.3 mg/dL 0.2-1.0 22 Sgot/Ast 14 U/L Low 15-37 22, 24 SGPT/Alt 23 U/L 12-78 22 Alkaline Phosphatase 98 U/L 45-117 22 Laboratory test finding 06/18/2017 TSH Reflex FT4 0.68 uIU/mL 0.30-4.20 22 and/or FT3 CBC 02/11/2017 White Blood Count 19.4 K/uL High 3.1-10.7 25 Red Blood Count 5.02 M/uL 3.90-5.40 25 Hemoglobin 14.9 gm/dL 11.6-15.8 25 Hematocrit 44.0 % 36.0-46.1 25 Mean Cell Volume 87.6 fl 80.9-99.0 25 Mean Corpuscular HGB 29.7 pg 25.9-32.7 25 Mean Corpuscular HGB Conc 33.9 g/dL 30.8-34.3 25 Platelet Count 316 K/uL 150-400 25 Red Cell Distri Width %CV 14.6 % High 11.7-14.4 25 Mean Platelet Volume 10.2 fL 8.9-12.4 25 Type And Screen 02/11/2017 Patient Blood Type O POS 25 Antibody Screen Negative Negative 25 Laboratory test 02/11/2017 Treponema Antibody Negative Negative 25, 26 finding [place] Laboratory test 01/16/2017 Vaginal Strep NO GROUP B STREP 27, 28 finding Screen <SEE NOTE> Urine Culture 01/02/2017 Urine Culture URETHRAL JOAQUÍN 29 Quantity 10,000 - 50,000 <SEE NOTE> 29, 30 Laboratory test finding 12/21/2016 Rapid Strep Negative Negative 31 Molecular Urine Culture 12/19/2016 Urine Culture URETHRAL JOAQUÍN 32 Quantity > 100,000 CFU/mL 32, 33 CBS W/Automated Diff 11/17/2016 White Blood Count 12.7 K/uL High 3.1-10.7 34 Red Blood Count 4.09 M/uL 3.90-5.40 34 Hemoglobin 12.2 gm/dL 11.6-15.8 34 Hematocrit 35.4 % Low 36.0-46.1 34 Mean Cell Volume 86.6 fl 80.9-99.0 34 Mean Corpuscular HGB 29.8 pg 25.9-32.7 34 Mean Corpuscular HGB Conc 34.5 g/dL High 30.8-34.3 34 Platelet Count 306 K/uL 150-400 34 Red Cell Distri Width SD 40.9 fl 3-47 34 Red Cell Distri Width %CV 13.2 % 11.7-14.4 34 Mean Platelet Volume 10.7 fL 8.9-12.4 34, 35 Neut# 9.91 K/uL High 1.8-7.0 34 Lymph # 1.83 K/uL 1.0-4.0 34 [place] # 0.82 K/uL 0.3-0.9 34 Eos # 0.09 K/uL 0.0-0.5 34 Baso # 0.02 K/uL 0.0-0.1 34 Laboratory test finding 11/17/2016 Treponema Antibody Negative Negative 34, 36 [place] Glucose,1 HR Post 11/17/2016 1 HR Glucose,Post 135 mg/dL -138 34, 37 Glucola Glucola 1 Hour Urine Glucose NO SPECIMEN RECE <SEE NOTE> % Negative 34, 38 1 Hour Urine Ketone NO SPECIMEN RECE <SEE NOTE> Negative 34, 39 Slide Review 11/17/2016 Slide Review DIFF ORDERED 34 Differential-WBC Confirm 11/17/2016 Total Cells Counted 100 #CELLS 34 Metamyelocyte% 1 % High -0 34 Band% 6 % 0-8 34 Neutrophils% 76 % High 33-73 34 Lymph% 11 % Low 20-42 34 Atypical Lymph% 1 % 0-7 34 Monocyte% 4 % 0-10 34 Eosinophil% 1 % 0-5 34 Platelet Estimate NORMAL 34 Toxic Granulation 1+ 34 Differential Comment LARGE PLATELETS <SEE NOTE> 34, 40 Laboratory test 11/17/2016 HIV Screen 4TH Non Reactive Non Reactive 34, 41 finding Gen Reflex Urine Culture 10/12/2016 Urine Culture URETHRAL JOAQUÍN 34 Quantity > 100,000 CFU/mL 34, 42 Urine Culture 09/06/2016 Urine Culture URETHRAL JOAQUÍN 43 Quantity 50,000 - 100,000 <SEE NOTE> 43, 44 Drugs Of Abuse-Urine Screen 7 08/21/2016 Amphetamines (Urine) Negative 45 Barbiturates (Urine) Negative 45 Benzodiazepines (Urine) Negative 45 Cannabinoids (Urine) Negative 45 Cocaine Metabolite (Urine) Negative 45 Methadone (Urine) Negative 45 Opiates (Urine) Negative 45 Urine Cutoffs * 45, 46 Urine Culture 08/21/2016 Urine Culture MIXED URETHRAL F <SEE NOTE> 45, 47 Quantity > 100,000 CFU/mL 45, 48 Laboratory test finding 08/21/2016 Ethyl Alcohol < 3.0 mg/dL 45 Comprehensive Metabolic Panel 08/21/2016 Glucose 136 mg/dL High 74-106 45 BUN 9 mg/dL 7-18 45 Creatinine 0.7 mg/dL 0.6-1.3 45 Glom Filtration Rate, Estimate >60 mL/min >60 45 If >60 mL/min >60 45, 49 BUN/Creat 12.8 ratio 45 Sodium 138 mmol/L 136-145 45 Potassium 3.7 mmol/L 3.5-5.1 45 Chloride 104 mmol/L 98-107 45 Carbon Dioxide 23 mmol/L 21-32 45 Anion Gap 11 mEq/L 8-16 45 Calcium 9.5 mg/dL 8.5-10.1 45 Total Protein 7.6 g/dL 6.4-8.2 45 Albumin 3.2 g/dL Low 3.4-5.0 45 Globulin 4.4 g/dL High 1.9-4.3 45 Alb/Glob 0.7 ratio 45 Bilirubin,Total 0.3 mg/dL 0.2-1.0 45 Sgot/Ast 13 U/L Low 15-37 45, 50 SGPT/Alt 23 U/L 12-78 45 Alkaline Phosphatase 95 U/L 45-117 45 Urine Culture 08/05/2016 Urine Culture URETHRAL JOAQUÍN 51 Quantity 10,000 - 50,000 <SEE NOTE> 51, 52 Ua Routine 08/05/2016 Urine Color YELLOW Yellow 51 Urine Clarity CLEAR Clear 51 Urine Glucose - Dipstick NEGATIVE mg/dL Negative 51 Urine Bilirubin - Dipstick NEGATIVE Negative 51 Urine Ketone NEGATIVE mg/dL Negative 51 Urine Specific [place] 1.015 1.010-1.030 51 Urine Blood SMALL Negative 51 Urine PH 6.5 6.5-7.5 51 Urine Protein - Dipstick NEGATIVE mg/dL Negative 51 Urine Urobilinogen - Dipstick 0.2 E.U./dL 0.2-1.0 51 Urine Nitrite - Dipstick NEGATIVE Negative 51 Urine Leuk Esterase LARGE Negative 51 Urine RBC 0-2 rbc/hpf 0-2 51 Urine WBC 10-20 wbc/hpf High 0-7 51 Urine Epithelial Cells MODERATE /lpf None Seen 51, 53 Urine Calcium Oxalate Crystals MANY None Seen 51 Urine Bacteria MODERATE None Seen 51 Urine Amorph Sediment SMALL Negative 51 Source: URINE, CLEAN CAT <SEE NOTE> 51, 54 Laboratory test finding 08/05/2016 Urine Amorphous Sediment Small Negative Urine Bilirubin Negative Negative Urine Ketones Negative Negative Urine Leukocyte Esterase Large High Negative Urine Nitrite Negative Negative Urine Protein Negative Negative Urine Urobilinogen 0.2 0.2-1.0 Urine Glucose (Ua) 08/05/2016 Urine Glucose (Ua) Negative Negative Laboratory test 08/04/2016 HCG, Quant 58537.0 mIU/mL 55, 56 finding Ua Routine 08/01/2016 Urine Color YELLOW Yellow 57 Urine Clarity CLOUDY Clear 57 Urine Glucose - Dipstick NEGATIVE mg/dL Negative 57 Urine Bilirubin - Dipstick NEGATIVE Negative 57 Urine Ketone NEGATIVE mg/dL Negative 57 Urine Specific [place] 1.010 1.010-1.030 57 Urine Blood TRACE Negative 57 Urine PH 8.0 High 6.5-7.5 57 Urine Protein - Dipstick NEGATIVE mg/dL Negative 57 Urine Urobilinogen - Dipstick 0.2 E.U./dL 0.2-1.0 57 Urine Nitrite - Dipstick NEGATIVE Negative 57 Urine Leuk Esterase LARGE Negative 57 Urine RBC 2-5 rbc/hpf 0-2 57 Urine WBC 5-10 wbc/hpf 0-7 57 Urine Epithelial Cells MANY /lpf None Seen 57, 58 Urine Bacteria MANY None Seen 57 Source: URINE, CLEAN CAT <SEE NOTE> 57, 59 Affirm Vaginitis Panel 08/01/2016 Trichomonas vaginalis Negative [ Negative] 57 Gardnerella vaginalis POSITIVE High [Negative] 57 Therese species Negative [Negative] 57 Urine Culture 08/01/2016 Urine Culture URETHRAL JOAQUÍN 57 Quantity > 100,000 CFU/mL 57, 60 Chlamydia/GC Rimma 08/01/2016 Chlamydia Trachomatis, Rimma Negative Negative 57 Neisseria Gonorrhoeae, Rimma Negative Negative 57 Please note: (SEE NOTE) 57, 61 Laboratory test finding 08/01/2016 Urine Bilirubin Negative [...] Probe Probe Laboratory test 08/01/2016 HCG, Quant 80268.0 mIU/mL 57, 62 finding Chlamydia/GC Rim[place] 07/22/2016 Chlamydia Negative Negative 63 Trachomatis, Rimma Neisseria Gonorrhoeae, Rimma Negative Negative 63 Please note: (SEE NOTE) 63, 64 Comprehensive Metabolic Panel 07/22/2016 Glucose 88 mg/dL 74-106 63 BUN 9 mg/dL 7-18 63 Creatinine 0.5 mg/dL Low 0.6-1.3 63 Glom Filtration Rate, Estimate >60 mL/min >60 63 If >60 mL/min >60 63, 65 BUN/Creat 18.0 ratio 63 Sodium 138 mmol/L 136-145 63 Potassium 3.6 mmol/L 3.5-5.1 63 Chloride 104 mmol/L 98-107 63 Carbon Dioxide 23 mmol/L 21-32 63 Anion Gap 11 mEq/L 8-16 63 Calcium 9.3 mg/dL 8.5-10.1 63 Total Protein 8.1 g/dL 6.4-8.2 63 Albumin 3.7 g/dL 3.4-5.0 63 Globulin 4.4 g/dL High 1.9-4.3 63 Alb/Glob 0.8 ratio 63 Bilirubin,Total 0.3 mg/dL 0.2-1.0 63 Sgot/Ast 11 U/L Low 15-37 63, 66 SGPT/Alt 16 U/L 12-78 63 Alkaline Phosphatase 114 U/L 45-117 63 Type And Screen 07/22/2016 Patient Blood Type O POS 63 Antibody Screen Negative Negative 63 Laboratory test finding 07/22/2016 Alanine Aminotransferase (Alt/SGPT) [...] % 07/22/2016 Atypical Lymphocytes % 4 0-7 Platelet Estimate 07/22/2016 Platelet Estimate Normal Neutrophils # (Auto) 07/22/2016 Neutrophils # (Auto) 10.71 High 1.8-7.0 Monocytes % 07/22/2016 Monocytes % 4 0-10 Manual Slide Review 07/22/2016 Manual Slide Review Diff Ordered (Hematology) (Hematology) Lymphocytes % 07/22/2016 Lymphocytes % 22 17-56 Lymphocytes # (Auto) 07/22/2016 Lymphocytes # (Auto) 2.42 1.8-7.0 Differential Total 07/22/2016 Differential Total 100 Cells Counted Cells Counted Ua Routine 07/17/2016 Urine Color YELLOW Yellow 67 Urine Clarity SL CLOUDY Clear 67 Urine Glucose - Dipstick NEGATIVE mg/dL Negative 67 Urine Bilirubin - Dipstick NEGATIVE Negative 67 Urine Ketone TRACE mg/dL High Negative 67 Urine Specific [place] 1.020 1.010-1.030 67 Urine Blood SMALL Negative 67 Urine PH 7.0 6.5-7.5 67 Urine Protein - Dipstick NEGATIVE mg/dL Negative 67 Urine Urobilinogen - Dipstick 0.2 E.U./dL 0.2-1.0 67 Urine Nitrite - Dipstick NEGATIVE Negative 67 Urine Leuk Esterase LARGE Negative 67 Urine RBC 0-2 rbc/hpf 0-2 67 Urine WBC 10-20 wbc/hpf High 0-7 67 Urine Epithelial Cells MANY /lpf None Seen 67, 68 Urine Bacteria FEW None Seen 67 Urine Mucus SMALL None Seen 67 Source: URINE, CLEAN CAT <SEE NOTE> 67, 69 Urine Culture 07/17/2016 Urine Culture URETHRAL JOAQUÍN 67 Quantity 50,000 - 100,000 <SEE NOTE> 67, 70 Laboratory test finding 07/17/2016 Urine Bilirubin Negative Negative Urine Ketones Trace High Negative Urine Leukocyte Esterase Large High Negative Urine Nitrite Negative Negative Urine Protein Negative Negative Urine Urobilinogen 0.2 0.2-1.0 Urine Glucose (Ua) 07/17/2016 Urine Glucose (Ua) Negative Negative Laboratory Studies 07/14/2016 Beta HCG, Quantitative 005284.00 mIU/mL Free Thyroxine 0.83 ng/dL 0.61-1.12 Free [...] Hormone (TSH) 0.69 mcIU/mL 0.34-5.60 Urine Specific Pioneer 1.024 1.010-1.030 Urine pH 6.0 5-9 White [...] (Auto) 0.6 % 0-2 Beta HCG, Quantitative 727713.00 mIU/mL Blood Urea Nitrogen 8 mg/dL 6-24 [...] Total Protein 7.3 g/dL 6.4-8.9 Urine Specific Pioneer 1.017 1.010-1.030 Urine pH 7.0 5-9 White Blood Count 13.3 10^3/ul High 3.5-10.8 Laboratory test finding 07/11/2016 HCG 794261.00 mIU/mL 71 Urine Culture SEE RESULT BELOW 72 Comp Metabolic Panel 07/11/2016 Sodium 134 mmol/L [...] Egfr Non- 130.8 >60 Egfr 168.3 >60 73 Type & Screen 07/11/2016 Patient Blood Type [...] Color Yellow Urine Appearance Cloudy Urine Specific Pioneer 1.017 1.010-1.030 Urine pH 7.0 5-9 Urine [...] Urine Culture 07/04/2016 Urine Culture URETHRAL JOAQUÍN 74 Quantity 50,000 - 100,000 <SEE NOTE> 74, 75 Laboratory test finding 07/01/2016 Basophils # (Auto) [...] Review 07/01/2016 Manual Slide Review See Note 76 (Hematology) (Hematology) Comprehensive Metabolic 07/01/2016 Glucose 80 mg/dL 74-106 77 Panel BUN 11 mg/dL 7-18 77 Creatinine 0.6 mg/dL 0.6-1.3 77 Glom Filtration Rate, Estimate >60 mL/min >60 77 If >60 mL/min >60 77, 78 BUN/Creat 18.3 ratio 77 Sodium 139 mmol/L 136-145 77 Potassium 3.9 mmol/L 3.5-5.1 77 Chloride 105 mmol/L 98-107 77 Carbon Dioxide 25 mmol/L 21-32 77 Anion Gap 9 mEq/L 8-16 77 Calcium 8.9 mg/dL 8.5-10.1 77 Total Protein 7.7 g/dL 6.4-8.2 77 Albumin 3.9 g/dL 3.4-5.0 77 Globulin 3.8 g/dL 1.9-4.3 77 Alb/Glob 1.0 ratio 77 Bilirubin,Total 0.6 mg/dL 0.2-1.0 77 Sgot/Ast 16 U/L 15-37 77 SGPT/Alt 22 U/L 12-78 77 Alkaline Phosphatase 105 U/L 45-117 77 Type And Screen 07/01/2016 Patient Blood Type O POS 77 Antibody Screen Negative Negative 77 Hepatitis B Surface 06/29/2016 Hepatitis B Surface Nonreactive Nonreactive Antigen Antigen Hepatitis C Antibody 06/29/2016 Hepatitis C Nonreactive Nonreactive Antibody Manual Slide Review 06/29/2016 Manual Slide Review . (Hematology) (Hematology) Rubella IgG Antibody 06/29/2016 Rubella IgG Reactive Reactive Antibody Whole Blood Lead 06/29/2016 Whole Blood Lead 2 0-19 Thin Prep Pap Report 06/29/2016 Thin Prep Pap Results on File Status Report Status Urine Opiates Screen 06/29/2016 Urine Opiates Negative Screen Urine Methadone 06/29/2016 Urine Methadone Negative Screen Screen Urine Drug Screen 06/29/2016 Urine Drug Screen * Information Information Urine Culture 06/29/2016 Urine Culture Organism: Urethral Joaquín Urine Cocaine Screen 06/29/2016 Urine Cocaine Negative Screen Urine Cannabinoids 06/29/2016 Urine Cannabinoids Negative Screen Screen Drugs Of Abuse-Urine 06/29/2016 Amphetamines Negative 79 Screen 7 (Urine) Barbiturates (Urine) Negative 79 Benzodiazepines (Urine) Negative 79 Cannabinoids (Urine) Negative 79 Cocaine Metabolite (Urine) Negative 79 Methadone (Urine) Negative 79 Opiates (Urine) Negative 79 Urine Cutoffs * 79, 80 Urine Culture 06/29/2016 Urine Culture URETHRAL JOAQUÍN 79 Quantity 10,000 - 50,000 <SEE NOTE> 79, 81 CBS W/Automated Diff 06/29/2016 White Blood Count 12.2 K/uL High 3.1-10.7 79 Red Blood Count 5.37 M/uL 3.90-5.40 79 Hemoglobin 15.4 gm/dL 11.6-15.8 79 Hematocrit 45.3 % 36.0-46.1 79 Mean Cell Volume 84.4 fl 80.9-99.0 79 Mean Corpuscular HGB 28.7 pg 25.9-32.7 79 Mean Corpuscular HGB Conc 34.0 g/dL 30.8-34.3 79 Platelet Count 313 K/uL 155-360 79 Red Cell Distri Width SD 41.9 fl 3-47 79 Red Cell Distri Width %CV 13.7 % 11.7-14.4 79 Mean Platelet Volume 10.5 fL 8.9-12.4 79 Neut% 70.5 % 40.4-72.8 79 Lymph % 20.1 % 17.0-46.1 79 Garland % 7.6 % 4.3-13.2 79 Eo% 1.6 % 0.0-6.6 79 Bas% 0.2 % 0.0-1.1 79 Neut# 8.63 K/uL High 1.8-7.0 79 Lymph # 2.46 K/uL 1.8-7.0 79 Garland # 0.93 K/uL High 0.3-0.9 79 Eos # 0.19 K/uL 0.0-0.5 79 Baso # 0.03 K/uL 0.0-0.1 79 Type And Screen 06/29/2016 Patient Blood Type O POS 79 Antibody Screen Negative Negative 79 Laboratory test 06/29/2016 Hepatitis B Surface Nonreactive Nonreactive 79, 82 finding Antigen Hepatitis C Antibody 06/29/2016 Hepatitis C Nonreactive Nonreactive 79 Antibody Signal/Cutoff ratio < 0.02 <0.80 79, 83 Laboratory test finding 06/29/2016 Lead,Blood (Adult) 2 g/dL 0-19 79, 84 Antibody Detection-Hiv1/2 SCRN Nonreactive Nonreactive 79, 85 Rubella Igg Antibody 06/29/2016 Rubella IgG Antibody Reactive Reactive 79 Rubella IgG Iu/ml > 500.0 IU/mL >=10.0 79, 86 Chlamydia/GC Rimma 06/29/2016 Chlamydia Trachomatis, Rimma Negative Negative 79 Neisseria Gonorrhoeae, Rimma Negative Negative 79 Please note: (SEE NOTE) 79, 87 Specimen Type: Genital 79 Laboratory test 06/29/2016 Treponema Nonreactive Nonreactive 79, 88 finding Antibody [place] Genital Culture W/ 06/29/2016 Gram Stain GRAM STAIN INDIC 79, 89 Gram Stain <SEE NOTE> Gram Stain FEW GR POS. BACI <SEE NOTE> 79, 90 Gram Stain FEW WHITE BLOOD <SEE NOTE> 79, 91 Gram Stain RARE GRAM POSITI <SEE NOTE> 79, 92 Genital Culture GENITAL JOAQUÍN 79 Slide Review 06/29/2016 Slide Review . 79, 93 Urine Amphetamines 06/29/2016 Urine Amphetamines Negative Screen Screen Urine Barbiturates 06/29/2016 Urine Barbiturates Negative Screen Screen Urine Benzodiazepines 06/29/2016 Urine Benzodiazepines Negative Screen Screen CBC Auto Diff 06/26/2016 White Blood Count 10.7 10^3/uL 3.5-10. 8 Red Blood Count 5.62 10^6/uL High 4.0-5.4 [...] Egfr Non- 103.8 >60 Egfr 133.5 >60 94 Blood Urea Nitrogen 10 mg/dL 6-24 BUN/Creatinine Ratio 15.2 8-20 Laboratory test finding 06/26/2016 C Reactive Protein 6.93 mg/L High < 5.00 95 HCG 24665.00 mIU/mL 96 Laboratory Studies 06/26/2016 Absolute Basophils (auto) 0.1 [...] (Auto) 1.1 % 0-2 Beta HCG, Quantitative 64683.00 mIU/mL Blood Urea Nitrogen 10 mg/dL 6-24 [...] Color Yellow Urine Appearance Cloudy Urine Specific Pioneer 1.014 1.010-1.030 Urine pH 7.0 5-9 Urine [...] Laboratory test 06/25/2016 Gardnerella/Yeast: Vaginal SEE RESULT 97, 98 finding Dna BELOW Trichomonas vaginalis Rna Negative Negative 97, 99 GC/Chlamydia Amplified Rna 06/25/2016 Chlamydia trachomatis Negative Negative 97 Rna Neisseria gonorrhoeae (GC) Rna Negative Negative 97 Laboratory test 06/25/2016 Urine Culture SEE RESULT BELOW 100, 101 finding Laboratory test 06/24/2016 HCG, Quant 82298.0 mIU/mL 102, 103 finding Urine HCG 06/24/2016 Urine HCG POSITIVE Negative 104 (Qualitative) (Qualitative) Source: URINE, CLEAN CAT <SEE NOTE> 104, 105 Ua Routine 06/24/2016 Urine Color YELLOW Yellow 104 Urine Clarity SL CLOUDY Clear 104 Urine Glucose - Dipstick NEGATIVE mg/dL Negative 104 Urine Bilirubin - Dipstick NEGATIVE Negative 104 Urine Ketone TRACE mg/dL High Negative 104 Urine Specific Pioneer >=1.030 1.010-1.030 104 Urine Blood MODERATE Negative 104 Urine PH 6.0 Low 6.5-7.5 104 Urine Protein - Dipstick 30 mg/dL High Negative 104 Urine Urobilinogen - Dipstick 0.2 E.U./dL 0.2-1.0 104 Urine Nitrite - Dipstick NEGATIVE Negative 104 Urine Leuk Esterase SMALL Negative 104 Urine RBC 2-5 rbc/hpf 0-2 104 Urine WBC 20-30 wbc/hpf High 0-7 104 Urine Epithelial Cells MANY /lpf None Seen 104, 106 Urine Calcium Oxalate Crystals FEW None Seen 104 Urine Bacteria MANY None Seen 104 Urine Mucus LARGE None Seen 104 Source: URINE, CLEAN CAT <SEE NOTE> 104, 107 Urine Culture 06/24/2016 Urine Culture URETHRAL JOAQUÍN 104 Quantity 50,000 - 100,000 <SEE NOTE> 104, 108 Laboratory test finding 06/24/2016 Urine Bilirubin Negative Negative Urine Ketones Trace High Negative Urine Leukocyte Esterase Small High Negative Urine Nitrite Negative Negative Urine Protein 30 High Negative Urine Urobilinogen 0.2 0.2-1.0 Urine Glucose (Ua) 06/24/2016 Urine Glucose (Ua) Negative Negative Lymphocytes # (Auto) 06/15/2016 Lymphocytes # (Auto) 2.34 1.8-7.0 Comprehensive Metabolic 06/15/2016 Glucose 86 mg/dL 74-106 109 Panel BUN 8 mg/dL 7-18 109 Creatinine 0.6 mg/dL 0.6-1.3 109 Glom Filtration Rate, Estimate >60 mL/min >60 109 If >60 mL/min >60 109, 110 BUN/Creat 13.3 ratio 109 Sodium 141 mmol/L 136-145 109 Potassium 4.0 mmol/L 3.5-5.1 109 Chloride 109 mmol/L High 98-107 109 Carbon Dioxide 24 mmol/L 21-32 109 Anion Gap 8 mEq/L 8-16 109 Calcium 8.9 mg/dL 8.5-10.1 109 Total Protein 7.0 g/dL 6.4-8.2 109 Albumin 3.8 g/dL 3.4-5.0 109 Globulin 3.2 g/dL 1.9-4.3 109 Alb/Glob 1.2 ratio 109 Bilirubin,Total 0.5 mg/dL 0.2-1.0 109 Sgot/Ast 12 U/L Low 15-37 109, 111 SGPT/Alt 20 U/L 12-78 109 Alkaline Phosphatase 114 U/L 45-117 109 Laboratory test 06/15/2016 Vitamin D,25-Hydroxy 23.5 ng/mL Low 30.0-100.0 109, 112 finding Thyroid Stim Hormone 0.70 uIU/mL 0.30-4.20 109 CBS W/Automated Diff 06/15/2016 White Blood Count 10.3 K/uL 3.1-10.7 109 Red Blood Count 5.25 M/uL 3.90-5.40 109 Hemoglobin 15.1 gm/dL 11.6-15.8 109 Hematocrit 43.9 % 36.0-46.1 109 Mean Cell Volume 83.6 fl 80.9-99.0 109 Mean Corpuscular HGB 28.8 pg 25.9-32.7 109 Mean Corpuscular HGB Conc 34.4 g/dL High 30.8-34.3 109 Platelet Count 352 K/uL 155-360 109 Red Cell Distri Width SD 40.1 fl 3-47 109 Red Cell Distri Width %CV 13.3 % 11.7-14.4 109 Mean Platelet Volume 10.4 fL 8.9-12.4 109 Neut% 67.7 % 40.4-72.8 109 Lymph % 22.7 % 17.0-46.1 109 Garland % 7.1 % 4.3-13.2 109 Eo% 2.1 % 0.0-6.6 109 Bas% 0.4 % 0.0-1.1 109 Neut# 6.96 K/uL 1.8-7.0 109 Lymph # 2.34 K/uL 1.8-7.0 109 Garland # 0.73 K/uL 0.3-0.9 109 Eos # 0.22 K/uL 0.0-0.5 109 Baso # 0.04 K/uL 0.0-0.1 109 Neutrophils # (Auto) 06/15/2016 Neutrophils # (Auto) 6.96 1.8-7.0 Vitamin D 25-Hydroxy 06/15/2016 Vitamin D 25-Hydroxy 23.5 Low 30.0-100.0 Laboratory test 06/15/2016 Gamma Glutamyl 25 U/L 5-85 109 finding Transpeptidase Laboratory test 06/15/2016 Alanine Aminotransferase 20 12-78 finding (Alt/SGPT) Albumin 3.8 3.4-5.0 Albumin/Globulin Ratio 1.2 [...] 06/15/2016 Gamma Glutamyl 25 5-85 Transpeptidase Transpeptidase Laboratory test 06/12/2016 TSH Reflex FT4 and/or 0.56 uIU/mL 0.30-4.20 113 finding FT3 Total Creatine Kinase 06/12/2016 Total Creatine Kinase 96 26-192 Thyroid Stimulating 06/12/2016 Thyroid Stimulating 0.56 0.30-4.20 Hormone (TSH) Hormone (TSH) Neutrophils # (Auto) 06/12/2016 Neutrophils # (Auto) 7.63 High 1.8-7.0 Manual Slide Review 06/12/2016 Manual Slide Review See Note 114 (Hematology) (Hematology) Lymphocytes # (Auto) 06/12/2016 Lymphocytes [...] Gram Stain FEW GRAM POS CHAPITO <SEE 115 , 116 Stain NOTE> Gram Stain RARE GRAM POSITI <SEE NOTE> 115, 117 Gram Stain RARE WHITE BLOOD <SEE NOTE> 115, 118 Aerobic Culture NO PATHOGENS ISO <SEE NOTE> 115, 119 1 Z3A.28 2 POST GLUCOLA 3 NO SPECIMEN RECEIVED 4 NO SPECIMEN RECEIVED 5 Performed at: RN - [facility] [address] [id number] Sheet Rock Applicator: Rocio Paulson MD, Phone: [phone] 6 Performed at: - [facility] [address] [id number] Sheet Rock Applicator: Sabas Oneil MD, Phone: [phone] 7 LARGE PLATELETS PRESENT. 8 R31.9 9 10,000 - 50,000 CFU/mL 10 O09.71 Z34.81 11 Instrument flagged sample for slide review. Less than 10% Bands seen, few atypical lymphocytes seen. RBC morphology=0-1+ microcytes Platelet estimate=normal, large platelets present. 12 Performed at: [address] [id number] Sheet Rock Applicator: Rocio Paulson MD, Phone: [phone] 13 URINE SPECIMENS ARE SCREENED AT THE LISTED [place] [facility] INITIAL TEST LEVEL Amphetamines 1000 ng/mL Barbiturates 200 ng/mL Benzodiazepines 200 ng/mL Cannabinoids 50 ng/mL Cocaine Metabolite 300 ng/mL Methadone 300 ng/mL Opiates 300 ng/mL Any PRESUMPTIVE POSITIVE findings are UNCONFIRMED. Confirmatory testing is suggested if findings are unexpected. Please contact laboratory if confirmatory testing is desired. SPECIMENS ARE HELD FOR 72 HOURS. 14 10,000 - 50,000 CFU/mL 15 INFCE Result Units: s/co ratio Negative: < 0.8 Indeterminate: 0.8 - 0.9 Positive: > 0.9 The CDC recommends that a positive HCV antibody result be followed up with a HCV Nucleic Acid Amplification test (611300). 16 Analysis by atomic absorption spectroscopy (AAS). Environmental Exposure: WHO Recommendation <20 Occupational Exposure: OSHA Lead Std 40 CHELE 30 Detection Limit=1 Performed at: [address] [id number] Sheet Rock Applicator: Rocio Paulson MD, Phone: [phone] 17 GRAM STAIN INDICATES NORMAL GENITAL JOAQUÍN 18 FEW GR POS. BACILLI SUGGESTIVE OF LACTOBACILLUS SP. 19 RARE WHITE BLOOD CELLS 20 A negative result for either C. trachomatis and/or N. gonorrhoeae does not preclued an infection because results are dependent on adequate specimen collection, absence of inhibitors, and sufficient DNA to be detected. 21 Non-immune <0.90 Equivocal 0.90 - 0.99 Immune >0.99 Performed at: [address] [id number] Sheet Rock Applicator: Rocio Paulson MD, Phone: [phone] Performed at: [address] [id number] Sheet Rock Applicator: Sabas Oneil MD, Phone: [phone] 22 FATIGUE, DIARRHEA, WANTS THYROID CHECKED 23 Note: Persistent reduction for 3 months or more in an eGFR <60 mL/min/1.73 m2 defines CKD. Patients with eGFR values >/=60 mL/min/1.73 m2 may also have CKD if evidence of persistent proteinuria is present. The original MDRD equation for estimated GFR is not valid for patients less than 18 years of age. Additional information may be found at www.kdoqi.org. 24 Values below the stated reference ranges of AST and ALT can be seen in normal populations. Clinical correlation is suggested. 25 LABOR 26 Performed at: [address] [id number] Sheet Rock Applicator: Sabas Oneil MD, Phone: [phone] 27 Z3A.36 28 NO GROUP B STREPTOCOCCI ISOLATED 29 Z3A.34 30 10,000 - 50,000 CFU/mL 31 Hospital Nurse: [id number] 32 Z3A.32 33 > 100,000 CFU/mL SPECIMEN IS A MIX OF GRAM POSITIVE ORGANISMS CONSISTENT WITH SKIN VAGINAL CONTAMINATION. SUGGEST REPEAT SPECIMEN IF CLINICALLY INDICATED. 34 O09.892 35 11/17/161856: NEUT% previously reported as: 78.2 H % Amended result called to: [] - 11/17/16 at 185611/17/161856: LYMPH % previously reported as: 14.4 L % Amended result called to: [] - 11/17/16 at 185611/17/16 185: MONO % previously reported as: 6.5 % Amended result called to: [] - 11/17/16 at 185611/17/161856: EO% previously reported as: 0.7 % Amended result called to: [] 11/17/16 at 185611/17/161856: BAS% previously reported as: 0.2 % Amended result called to: [] - 11/17/16 at 1856 36 Performed at: [address] [id number] Sheet Rock Applicator: Sabas Oneil MD, Phone: [phone] 37 POST GLUCOLA 38 NO SPECIMEN RECEIVED 39 NO SPECIMEN RECEIVED 40 LARGE PLATELETS PRESENT. 41 Performed at: [address] [id number] Sheet Rock Applicator: Rocio Paulson MD, Phone: [phone] 42 > 100,000 CFU/mL SPECIMEN IS A MIX OF GRAM POSITIVE ORGANISMS CONSISTENT WITH SKIN VAGINAL CONTAMINATION. SUGGEST REPEAT SPECIMEN IF CLINICALLY INDICATED. 43 Z3A.17 44 50,000 - 100,000 CFU/mL SPECIMEN IS A MIX OF GRAM POSITIVE ORGANISMS CONSISTENT WITH SKIN VAGINAL CONTAMINATION. SUGGEST REPEAT SPECIMEN IF CLINICALLY INDICATED. 45 941 46 URINE SPECIMENS ARE SCREENED AT THE LISTED [place] [facility] CLASS INITIAL TEST LEVEL Amphetamines 1000 ng/mL Barbiturates 200 ng/mL Benzodiazepines 200 ng/mL Cannabinoids 50 ng/mL Cocaine Metabolite 300 ng/mL Methadone 300 ng/mL Opiates 300 ng/mL Any PRESUMPTIVE POSITIVE findings are UNCONFIRMED. Confirmatory testing is suggested if findings are unexpected. Please contact laboratory if confirmatory testing is desired. SPECIMENS ARE HELD FOR 72 HOURS. 47 MIXED URETHRAL JOAQUÍN 48 > 100,000 CFU/mL SPECIMEN IS A MIX OF GRAM POSITIVE ORGANISMS CONSISTENT WITH SKIN VAGINAL CONTAMINATION. SUGGEST REPEAT SPECIMEN IF CLINICALLY INDICATED. 49 Note: Persistent reduction for 3 months or more in an eGFR <60 mL/min/1.73 m2 defines CKD. Patients with eGFR values >/=60 mL/min/1.73 m2 may also have CKD if evidence of persistent proteinuria is present. The original MDRD equation for estimated GFR is not valid for patients less than 18 years of age. Additional information may be found at www.kdoqi.org. 50 Values below the stated reference ranges of AST and ALT can be seen in normal populations. Clinical correlation is suggested. 51 Z34.81 52 10,000 - 50,000 CFU/mL 53 POSSIBLE UROGENITAL CONTAMINATION. 54 URINE, CLEAN CATCH 55 13 WKS PREG,LEVEL DROPPING DURING 56 Approximate Gestational Age and Total BHCG Range: 0.2 - 1 Week........................5-50 mIU/mL 1 - 2 Weeks.....................50-500 mIU/mL 2 - 3 Weeks..................100-5,000 mIU/mL 3 - 4 Weeks.................500-10,000 mIU/mL 4 - 5 Weeks...............1,000-50,000 mIU/mL 5 - 6 Weeks.............10,000-100,000 mIU/mL 6 - 8 Weeks.............15,000-200,000 mIU/mL 2 - 3 Months............10,000-100,000 mIU/mL 57 12 WKS PREG,ABDOMINAL CRAMPING 58 POSSIBLE UROGENITAL CONTAMINATION. 59 URINE, CLEAN CATCH 60 > 100,000 CFU/mL SPECIMEN IS A MIX OF GRAM POSITIVE ORGANISMS CONSISTENT WITH SKIN VAGINAL CONTAMINATION. SUGGEST REPEAT SPECIMEN IF CLINICALLY INDICATED. 61 A negative result for either C. trachomatis [...] inhibitors, and sufficient DNA to be detected. 62 Approximate Gestational Age and Total BHCG Range: 0.2 - 1 Week........................5-50 mIU/mL 1 - 2 Weeks.....................50-500 mIU/mL 2 - 3 Weeks..................100-5,000 mIU/mL 3 - 4 Weeks.................500-10,000 mIU/mL 4 - 5 Weeks...............1,000-50,000 mIU/mL 5 - 6 Weeks.............10,000-100,000 mIU/mL 6 - 8 Weeks.............15,000-200,000 mIU/mL 2 - 3 Months............10,000-100,000 mIU/mL 63 CRAMPING, 10 WKS PREGN, SENT BY DR Barron A negative result for either C. trachomatis [...] inhibitors, and sufficient DNA to be detected. 65 Note: Persistent reduction for 3 months [...] normal populations. Clinical correlation is suggested. 67 MVA, 9 WKS , ABD PAIN 68 POSSIBLE UROGENITAL CONTAMINATION. 69 URINE, CLEAN CATCH 70 50,000 - 100,000 CFU/mL 71 <5.0 Negative 5.0 - 25.0 Indeterminate (Repeat testing recommended after 72 hours) >25.0 Positive Perimenopausal women can display HCG levels of up to 20 mIU/mL 72 SEE RESULT BELOW Name: DAVID HUNG Bonnie : [address]: Austin Shaffer MD Acct: [id number] Unit: [id number] AGE: 30 Location: ED Re07/11/16 SEX: F Status: DEP ER SPEC: [id number] JOSE: 07/11/16-[address]: Austin Shaffer MD REQ: [id number] RECD: 07/11/16-9 STATUS: DELL CURTIS : Lisa BORJAS _ SOURCE: URINE SPDESC: ORDERED: Urine Culture Procedure Result Reported Site Urine Culture Final 07/12/16- 1230 ML No growth of clinically significant organisms * ML - [facility] ([facility]) . END OF REPORT * ML=Testing performed at Main Lab DEPARTMENT OF PATHOLOGY, [address] [place] [address] Lew Cohen M.D. Director [facility] # [id number] 73 Because ethnic data is not always readily [...] 15-29 5 Kidney failure <15 (or dialysis) 74 026.851 75 50,000 - 100,000 CFU/mL 76 Instrument flagged sample for slide review. Less than 10% Bands seen, no other immature WBC's seen. RBC morphology essentially normal. Platelet estimate= Normal 77 SPOTTING, 7 WKS 78 Note: Persistent reduction for 3 months or more in an eGFR <60 mL/min/1.73 m2 defines CKD. Patients with eGFR values >/=60 mL/min/1.73 m2 may also have CKD if evidence of persistent proteinuria is present. The original MDRD equation for estimated GFR is not valid for patients less than 18 years of age. Additional information may be found at www.kdoqi.org. 79 Z34.81 80 URINE SPECIMENS ARE SCREENED AT THE LISTED [place] DRUG CLASS INITIAL TEST LEVEL Amphetamines 1000 ng/mL Barbiturates 200 ng/mL Benzodiazepines 200 ng/mL Cannabinoids 50 ng/mL Cocaine Metabolite 300 ng/mL Methadone 300 ng/mL Opiates 300 ng/mL Any PRESUMPTIVE POSITIVE findings are UNCONFIRMED. Confirmatory testing is suggested if findings are unexpected. Please contact laboratory if confirmatory testing is desired. SPECIMENS ARE HELD FOR 72 HOURS. 81 10,000 - 50,000 CFU/mL 82 HBsAg not detected; does not exclude the possibility of exposure to or early acute infections with HBV. 83 Antibodies to HCV not detected; does not exclude early acute HCV infection. 84 Environmental Exposure: WHO Recommendation <20 Occupational Exposure: OSHA Lead Std 40 CHELE 30 Detection Limit=1 Performed at: RN - [facility] [address] [id number] Sheet Rock Applicator: Rocio Paulson MD, Phone: [phone] 85 NOTE: A NON-REACTIVE RESULT INDICATES THAT HIV-1 AND HIV-2 ANTIBODIES HAVE NOT BEEN FOUND IN THIS PATIENT SPECIMEN. A NON-REACTIVE RESULT, HOWEVER, DOES NOT PRECLUDE PREVIOUS EXPOSURE OF INFECTION WITH HIV. * [place] STATE LAW PROHIBITS THE REDISCLOSURE OF THIS RESULT * * TO ANY UNAUTHORIZED [employer]. * 86 Values >=10.0 IU/mL are positive for IgG antibodies to rubella virus and are considered IMMUNE. 87 A negative result for either C. trachomatis [...] inhibitors, and sufficient DNA to be detected. 88 Please Note: A nonreactive test result does not exclude the possibility of exposure to, or infection with syphilis. T. pallidum antibodies may be undetectable in some stages of the infection and in some clinical conditions. 89 GRAM STAIN INDICATES NORMAL GENITAL JOAQUÍN 90 FEW GR POS. BACILLI SUGGESTIVE OF LACTOBACILLUS SP. 91 FEW WHITE BLOOD CELLS 92 RARE GRAM POSITIVE COCCI 93 Instrument flagged sample for slide review. Less than 10% Bands seen, no other immature WBC's seen. RBC morphology essentially normal. Platelet estimate=NORMAL 94 Because ethnic data is not always readily [...] 15-29 5 Kidney failure <15 (or dialysis) 95 Acute inflammation: >10.00 96 <5.0 Negative 5.0 - 25.0 Indeterminate (Repeat testing recommended after 72 hours) >25.0 Positive Perimenopausal women can display HCG levels of up to 20 mIU/mL 97 [id number] 98 SEE RESULT BELOW Name: DAVID HUNG : [address]: Martita Braga Acct: [id number] Unit: [id number] AGE: 30 Location: [facility] Re06/25/16 SEX: F Status: DEP ER SPEC: [id number] JOSE: 06/25/[address] [facility] [address]: Allyson Mendes DO REQ: [id number] RECD: 06/25/160 STATUS: DELL PARSONS DR: Lisa BORJAS _ SOURCE: VAGINAL SPDESC: ORDERED: Jorje,Yeast DNA COMMENTS: [id number] Procedure Result Reported Site Gardnerella/Yeast: Vaginal DNA [...] or failure. * ML - MAIN LAB ([facility]) . END OF REPORT * ML=Testing performed at Main Lab DEPARTMENT OF PATHOLOGY, [address] [place] [address] Lew Cohen M.D. Director [facility] # [id number] 99 [id number] GC/Chlamydia Source?: Endocervical Trichomonas Source: Endocervical 100 Comment: has taken macrobid [id number] SEE RESULT BELOW Name: TANDAVID L : [address]: Martita Braga Acct: [id number] Unit: [id number] AGE: 30 Location: [facility] Re06/25/16 SEX: F Status: DEP ER SPEC: [id number] JOSE: 06/25/[address] [facility] [address]: Allyson Mendes DO REQ: [id number] RECD: 06/25/16-1235 STATUS: DELL PARSONS DR: Emmett Ventura MD _ SOURCE: URINE SPDESC: ORDERED: Urine Culture COMMENTS: Comment: has taken macrobid [id number] Procedure Result Reported Site Urine Culture Final 06/26/16- 1214 ML No growth of clinically significant organisms * ML - MAIN LAB ([facility]) . END OF REPORT * ML=Testing performed at Main Lab DEPARTMENT OF PATHOLOGY, [address] [place] [address] Lew Cohen M.D. Director [facility] # [id number] 102 JUST FOUND OUT , HAVING ABD PAIN, BLEEDING 103 Approximate Gestational Age and Total BHCG Range: 0.2 - 1 Week........................5-50 mIU/mL 1 - 2 Weeks.....................50-500 mIU/mL 2 - 3 Weeks..................100-5,000 mIU/mL 3 - 4 Weeks.................500-10,000 mIU/mL 4 - 5 Weeks...............1,000-50,000 mIU/mL 5 - 6 Weeks.............10,000-100,000 mIU/mL 6 - 8 Weeks.............15,000-200,000 mIU/mL 2 - 3 Months............10,000-100,000 mIU/mL 104 TEST 105 URINE, CLEAN CATCH 106 POSSIBLE UROGENITAL CONTAMINATION. 107 URINE, CLEAN CATCH 108 50,000 - 100,000 CFU/mL SPECIMEN IS A MIX OF GRAM POSITIVE ORGANISMS CONSISTENT WITH SKIN VAGINAL CONTAMINATION. SUGGEST REPEAT SPECIMEN IF CLINICALLY INDICATED. 109 E78.5 E55.9 F41.9 R74.9 110 Note: Persistent reduction for 3 months or more in an eGFR <60 mL/min/1.73 m2 defines CKD. Patients with eGFR values >/=60 mL/min/1.73 m2 may also have CKD if evidence of persistent proteinuria is present. The original MDRD equation for estimated GFR is not valid for patients less than 18 years of age. Additional information may be found at www.kdoqi.org. 111 Values below the stated reference ranges of AST and ALT can be seen in normal populations. Clinical correlation is suggested. 112 Vitamin D deficiency has been defined by the [place] [employer] and an Endocrine Society practice guideline as a level of serum 25-OH vitamin D less than 20 ng/mL (1,2). The Endocrine Society went on to further define vitamin D insufficiency as a level between 21 and 29 ng/mL (2). 1. IOM ([place] of [employer]). 2010. Dietary reference intakes for calcium and D. [place]: The National Academies Press. 2. Marry MF, Malinda NC, Yeimy DEL ANGEL, et al. Evaluation, treatment, and prevention of vitamin D deficiency: an Endocrine Society clinical practice guideline. JCEM. 2010; 96(7):1911-30. Performed at: RN - [facility] [address] [id number] Sheet Rock Applicator: Rocio Paulson MD, Phone: [phone] 113 CP, HEART RACING 114 Instrument flagged sample for slide review. Less than 10% Bands seen, no other immature WBC's seen. RBC morphology essentially normal. Platelet estimate= Normal 115 POSSIBLE CYST BEHIND RT EAR 116 FEW GRAM POS BACILLI SUGGESTIVE OF DIPTHEROIDS 117 RARE GRAM POSITIVE COCCI 118 RARE WHITE BLOOD CELLS 119 NO PATHOGENS ISOLATED Procedures Date CPT Code Description Status 11/16/2017 65132 EKG-Tracing And Report Completed 02/11/2017 03072 Vaginal Delivery Global Care Completed 06/22/2016 86117 Echocardiogram Complete Completed 06/22/2016 85890 Event Monitor Inter/Review Only Completed 06/16/2016 77341 EKG-Tracing And Report Completed 08/20/2014 69164 Vaginal Delivery W/Post- Care Completed 06/24/2013 41647 Holter Monitor 24HR Inter/Report Completed 07/20/2011 29435 Echocardiogram Complete Completed 07/20/2011 19662 Event Monitor Inter/Review Only Completed 12/08/2010 83606 Remove Impacted Cerumen Completed 08/16/2010 08910 Holter Monitor 24HR Inter/Report Completed 08/13/2010 24719 EKG-Tracing And Report Completed 08/13/2010 12553 Pulse Oximetry Completed 08/09/2010 59342 Pulse Oximetry Completed 08/09/2010 80653 Pressurized/Non-Pressurized Inhalation Treatment,Acute Completed Obstructio 11/17/2008 52864 Post- Care Only Completed 10/03/2008 82101 Antepartum 7 Or More Total Office Visit Completed 10/03/2008 90224 Vaginal Delivery Global Care Completed 09/30/2008 88299 Antepartum 7 Or More Total Office Visit Completed 09/25/2008 04467 Antepartum 7 Or More Total Office Visit Completed 09/22/2008 97951 Antepartum 7 Or More Total Office Visit Completed 09/17/2008 76359 Antepartum 7 Or More Total Office Visit Completed 09/09/2008 07941 Antepartum 7 Or More Total Office Visit Completed 09/03/2008 46028 Antepartum 7 Or More Total Office Visit Completed 08/20/2008 72037 Antepartum 7 Or More Total Office Visit Completed Encounters Type Date Location Provider CPT E/M Dx Office Visit 11/16/2017 1:00p [place] [address] R00.2 F17.200 I49.3 Z3A.01 Office Visit 04/28/2017 11:00a Primary Care Office Dolly Londono M.D. 52203 H66.91 Office Visit 03/08/2017 11:00a Primary Care Office Lisa Craig [address]6767 F32.9 VALORIE F41.9 R00.2 E55.9 F17.200 Z71.6 Z70.9 Office Visit 01/02/2017 10:00a Primary Care Office Rajwinder Hutchinson 03130 J06.9 RPA O99.333 F17.210 Z71.6 Office Visit 07/21/2016 8:30a [facility] [place], [place] [address] H66.001 Women's Health Z33.1 Office Visit 07/19/2016 1:00p [facility] [place], [place] [address] S39.011A Women's Health Z33.1 Office Visit 07/13/2016 1:30p Family Medicine & Gregorio Kirsten, [facility] [address] F41.9 Women's Health Office Visit 07/04/2016 11:00a Family Medicine & Perkins Kirsten, [facility] [address] O26.851 Women's Health Z33.1 Office Visit 06/27/2016 10:30a [facility] [place], [place] [address] N91.1 Health Z71.6 E55.9 Office Visit 06/16/2016 8:00a Cardiology Office Jay Jamimartha Khan, 47605 I49.3 MSN, 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 I49.1 R00.2 Office Visit 06/15/2016 10:00a Primary Care Office Lisa Craig, 42613 F41.9 PA-C F32.9 E55.9 F17.200 Z71.6 D72.829 R74.8 R00.2 E78.5 N92.6 Office Visit 01/05/2016 2:30p Primary Care Office Lisa Craig, 45514 J01.90 PA-C E66.9 F17.200 E55.9 Z71.6 Office Visit 12/30/2015 2:30p Primary Care Office Lisa Craig, 31985 E66.9 PA-C F17.200 Z71.6 E55.9 E78.5 F41.9 F32.9 Office Visit 07/23/2015 3:00[place] [address] H66.90 F32.9 F41.9 E78.5 Z00.01 Office Visit 07/06/2015 10:30a Lisa Simmons PA-C 83139 E78.5 E55.9 F41.9 R00.2 F17.200 Z71.6 E66.9 E04.9 Office Visit 12/24/2014 1:45p Orthopaedic Office Yesenia Lozoya, [address] [facility] 845.02 V22.2 Office Visit 10/01/2014 9:10a Cardiology Office Jami Thompsondanitza, [address] 785.1 MSN, CHERRI Office Visit 07/23/2014 2:00p Cardiology Office Song Robles, [address] 785.1 Marco Antonio, [facility] Plan of Care Future Appointment(s):05/28/2018 9:30 am - Sherine Freitas CNM at [facility] Sqntxg1011/16/2017 - Fay Nicholas, PAR00.2 PalpitationsNew Medication:Metoprolol Tartrate [...]
--- OUTSIDE RECORDS SUMMARY | 2018-06-01 21:39 | XMS REPORT ---
:1985 External Reference #:[id number] Author Organization [facility] Address [address], [address] [place] [address] Phone [phone] Care Team Providers Name Role Phone Lindsey Rizzo MD Care Team Information Enrollment Counselor Unavailable Lindsey Rizzo MD Primary Care Physician Unavailable Payers Type Date Identification Numbers Payment Provider Subscriber Commercial Policy Number: [id number] [employer] David Hung PayID: [id number] [address] [place] [address] Problems Date Description Provider Status Onset: 05/27/2015 Hyperlipidemia Lisa Craig PA-C Active Onset: 05/27/2015 Anxiety Lisa Craig PA-C Active Onset: 05/27/2015 Depressive disorder Lisa Craig PA-C Active Onset: 04/10/2017 Palpitations [facility] Hutch[facility] Note: PVCs/PACs Onset: 12/14/2017 Smoking (tobacco) [...] 16oz of soda per day Age 1st Zarate 12 Years Old # Partners in a [...] Hx Tablets 250mg 6tabs take 2 Borra, 2018 - tablets by MARA Basurto 05/14/ mouth one 2018 time for infection then take 1 tablet by mouth daily for 4 days for infection 1 11/16/ Hx Capsules 30-0.975-2 30caps take one O09.71 Borra, 2018 - 00mg capsule by MARA Basurto 11/16/ mouth every 2017 day. Metoprolol 11/16/ Hx Tablets 25mg 45tabs 1/2 Tab By R00.2 Margaret Tartrate 2017 - Mouth Twice , Song [...] , Song 11/16/ Marco Antonio Camilo, 2018 [facility] Bystolic 04/26/ Hx Tablets 2.5mg 30tabs 1 by mouth Denny, 2017 - daily MD Porter 2016 Norgestim-Eth 04/03/ Hx Tablets 0.18/0.215 84tabs 1 by mouth Z39.2 Corina, Estrad 2016 - /0.25 every day Tsephan, Triphasic 11/16/ mg-25 mcg M.D. 2017 Citalopram [...] Tablets 20mg 60tabs 1 tab by Norbert, 2017 - mouth twice David, 04/26/ a day M.D. 2016 Amoxicillin 09/18/ Hx Tablets 875mg 15tabs 1 tab by Gregorio 2017 - mouth three Kirsten, 11/17/ times a day CNM 2016 Amoxicillin 07/21/ Hx Capsules 500mg 14caps Take one H66.001 Junior, 2017 - capsule by 08/15/ mouth twice [facility] 2016 daily for 7 days. 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, [employer] Multi 06/29/ Hx Capsules 27-0.8-228 O09.71 Junior, +Dha 2016 - mg 09/06/ CNM 2017 Paroxetine HCL 06/29/ Hx Tablets 10mg [...] Hx Tablets 1000Unit 90tabs 1 by mouth Diana Walker 2016 - every day Mikal E., Strength 2015 Buspirone HCL 06/15/ Hx Tablets 5mg 60tabs 1 by mouth F41.9 Aaron 2015 2 times a Mikal E., day DO Benzonatate 01/04/ Hx Capsules 200mg 90caps 1 by mouth J01.90 Aaron 2016 three times Mikal E., a day as DO needed cough Saline Nasal 01/04/ Hx Solution 0.65% 135ml 2 sprays J01.90 Aaron [place] 2016 every 2 Mikal E., hours as DO needed Probiotic 01/04/ Hx Capsules 60caps 1-2 J01.90 Paul Walker 2016 capsules by Mikal E., mouth daily DO x10 days Acetaminophen 01/04/ Hx Tablets 500mg 540tab 2 by mouth Aaron Extra Strength 2016 - s three times Mikal E., 06/27/ a day DO 2016 Xenical 12/29/ Hx Capsules 120mg 270cap take with E66.9 Aaron 2015 - s or <1h Mikal Swanson, 06/14/ after meals DO 2015 containing fat 3 times daily; omit dose if meal is non-fat or missed Amoxicillin 07/23/ Hx Capsules 500mg 21caps 1 cap by H66.90 Lorenzo 2016 - mouth three Emmett, 12/29/ times a day MD 2015 Lexapro /00/ Hx Tablets 20mg 30tabs by mouth Unknown 0000 every day Atenolol 00/ Hx Tablets 25mg 30tabs 1/2 by Jay 0000 - mouth every Jami day Erin 2014 , 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, [employer] Paroxetine HCL / Hx Tablets 20mg 90tabs 1 by mouth Teofilo Walker - every day Mikal Swanson, 2015 Acetaminophen [...] day 2014 Atenolol 00/ Hx Tablets 50mg 180tab 1 and 1/2 Davidenko 0000 - s by mouth Song 06/15/ twice a day Marco Antonio Camilo, 2016 FAC Zithromax / Hx Tablets 250mg take 2 tabs Unknown 0000 - by mouth on then 2015 1 tab by mouth qddays 2-5 Atenolol /00/ Hx Tablets 75mg 1 by mouth Unknown 0000 - bid 2015 Paxil /00/ Hx Tablets 20mg 1 by mouth Unknown 0000 - every day 2015 Immunizations CPT Code Status Date Vaccine Lot # [id number] Given 04/26/2018 Tdap injection [id number] 65019 Given 04/26/2018 Influenza Virus Vaccine, Quadrivalent, 36 Mos+, .5ML 00722 Given 12/20/2016 Tdap injection [id number] Given 04/16/2015 Influenza Vaccine (Fluzone) Age 3 And Older [id number] U-Pneum Given 04/12/2013 Pneumococcal,Unspecified [id number] 95419 Given 07/17/2011 Tdap injection 54586 Given 07/14/2009 H1N1 Immuniation Adminstration 50954 Given 07/14/2009 H1N1 Immuniation Adminstration Vital Signs Date Vital Result Comment 05/14/2018 BP Systolic 116 mmHg BP Diastolic 58 mmHg Body Temperature 97.4 F Heart Rate 83 /min Respiratory Rate 18 /min Height 64 inches 5'4" Weight 142.00 lb BMI (Body Mass Index) 24.4 kg/m2 BSA (Body Surface Area) 1.69 m2 [place] body weight in kilograms 54 O2 % BldC Oximetry 98 % 04/26/2018 BP Systolic 124 mmHg BP Diastolic 80 mmHg Body Temperature 98.3 F Heart Rate 97 /min Respiratory Rate 18 /min Height 64 inches 5'4" Weight 146.00 lb BMI (Body Mass Index) 25.1 kg/m2 BSA (Body Surface Area) 1.71 m2 [place] body weight in kilograms 54 O2 % BldC Oximetry 98 % 04/02/2018 BP Systolic 117 mmHg BP Diastolic 77 mmHg Body Temperature 97.7 F Heart Rate 89 /min Respiratory Rate 18 /min Height 64 inches 5'4" Weight 141.38 lb BMI (Body Mass Index) 24.3 kg/m2 BSA (Body Surface Area) 1.69 m2 [place] body weight in kilograms 54 O2 % BldC Oximetry 99 % 02/26/2018 BP Systolic 117 mmHg BP Diastolic 71 mmHg Body Temperature 98.8 F Heart Rate 92 /min Respiratory Rate 18 /min Height 64 inches 5'4" Weight 142.12 lb BMI (Body Mass Index) 24.4 kg/m2 BSA (Body Surface Area) 1.69 m2 [place] body weight in kilograms 54 O2 % BldC Oximetry 97 % 01/29/2018 BP Systolic 111 mmHg BP Diastolic 63 mmHg Body Temperature 98.4 F Heart Rate 88 /min Respiratory Rate 20 /min Height 64 inches 5'4" Weight 135.12 lb BMI (Body Mass Index) 23.2 kg/m2 BSA (Body Surface Area) 1.66 m2 [place] body weight in kilograms 54 O2 % BldC Oximetry 98 % 12/28/2017 BP Systolic 102 mmHg BP Diastolic 64 mmHg Body Temperature 96.0 F Heart Rate 80 /min Respiratory Rate 16 /min Height 64 inches 5'4" Weight 135.00 lb BMI (Body Mass Index) 23.2 kg/m2 BSA (Body Surface Area) 1.66 m2 [place] body weight in kilograms 54 O2 % BldC Oximetry 98 % 12/14/2017 BP Systolic 91 mmHg BP Diastolic 51 mmHg Body Temperature 97.6 F Heart Rate 75 /min Respiratory Rate 18 /min Height 64 inches 5'4" Weight 135.00 lb BMI (Body Mass Index) 23.2 kg/m2 BSA (Body Surface Area) 1.66 m2 [place] body weight in kilograms 54 O2 % BldC Oximetry 98 % 11/16/2017 BP Systolic Sitting Left Arm 120 mmHg BP Diastolic Sitting Left Arm 64 mmHg Heart Rate 80 /min Respiratory Rate 18 /min Height 64 inches 5'4" Weight 134.00 lb BMI (Body Mass Index) 23.0 kg/m2 BSA (Body Surface Area) 1.65 m2 [place] body weight in kilograms 54 11/16/2017 BP Systolic 135 mmHg BP Diastolic 74 mmHg Height 64 inches 5'4" Weight 134.00 lb BMI (Body Mass Index) 23.0 kg/m2 BSA (Body Surface Area) 1.65 m2 [place] body weight in kilograms 54 04/28/2017 BP [...] kg/m2 BSA (Body Surface Area) 1.63 m2 [place] body weight in kilograms 54 03/08/2017 BP Systolic 119 mmHg BP Diastolic 76 mmHg Heart Rate 73 /min Respiratory Rate 16 /min Height 64 inches 5'4" [place] body weight in kilograms 54 O2 % BldC Oximetry 99 % 02/06/2017 BP Systolic 118 mmHg BP Diastolic 86 mmHg Height 64 inches 5'4" Weight 149.38 lb BMI (Body Mass Index) 25.6 kg/m2 BSA (Body Surface Area) 1.73 m2 [place] body weight in kilograms 54 01/30/2017 BP Systolic 112 mmHg BP Diastolic 70 mmHg Height 64 inches 5'4" Weight 145.00 lb BMI (Body Mass Index) 24.9 kg/m2 BSA (Body Surface Area) 1.71 m2 [place] body weight in kilograms 54 01/23/2017 BP Systolic 106 mmHg BP Diastolic 60 mmHg Height 64 inches 5'4" Weight 147.38 lb BMI (Body Mass Index) 25.3 kg/m2 BSA (Body Surface Area) 1.72 m2 [place] body weight in kilograms 54 01/16/2017 BP Systolic 110 mmHg BP Diastolic 62 mmHg Height 64 inches 5'4" Weight 147.00 lb BMI (Body Mass Index) 25.2 kg/m2 BSA (Body Surface Area) 1.72 m2 [place] body weight in kilograms 54 01/02/2017 BP Systolic Sitting Right Arm 102 mmHg BP Diastolic Sitting Right Arm 58 mmHg Body Temperature 98.7 F Heart Rate 84 /min Height 64 inches 5'4" Weight 148.38 lb BMI (Body Mass Index) 25.5 kg/m2 BSA (Body Surface Area) 1.72 m2 [place] body weight in kilograms 54 O2 % BldC Oximetry 96 % 01/02/2017 BP Systolic 106 mmHg BP Diastolic 66 mmHg Height 64 inches 5'4" Weight 148.25 lb BMI (Body Mass Index) 25.4 kg/m2 BSA (Body Surface Area) 1.72 m2 [place] body weight in kilograms 54 12/19/2016 BP Systolic 118 mmHg BP Diastolic 66 mmHg Height 64 inches 5'4" Weight 148.50 lb BMI (Body Mass Index) 25.5 kg/m2 BSA (Body Surface Area) 1.72 m2 [place] body weight in kilograms 54 12/05/2016 BP Systolic 104 mmHg BP Diastolic 70 mmHg Height 64 inches 5'4" Weight 147.50 lb BMI (Body Mass Index) 25.3 kg/m2 BSA (Body Surface Area) 1.72 m2 [place] body weight in kilograms 54 11/17/2016 BP [...] kg/m2 BSA (Body Surface Area) 1.63 m2 [place] body weight in kilograms 45 08/15/2016 BP [...] 6.5-7.5 Ua Blood negative Negative Ua Specific [place] 1.015 1.010-1.030 Ua Ketones negative Negative Ua [...] Treponema Antibody Negative Negative 1, 6 finding [place] CBC W/Automated 04/26/2018 White Blood Count 12.0 [...] Lymph % 12.6 % Low 20.0-42.0 1 [place] % 6.5 % 4.3-13.2 1 Eo% 0.6 % 0.0-6.6 1 Bas% 0.2 % 0.0-1.1 1 Neut# 9.63 K/uL High 1.8-7.0 1 Lymph # 1.52 K/uL 1.0-4.0 1 [place] # 0.78 K/uL 0.3-0.9 1 Eos # [...] 6.5-7.5 Ua Blood negative Negative Ua Specific [place] 1.010 1.010-1.030 Ua Ketones negative Negative Ua Bilirubin negative Negative Ua Glucose negative Negative Urine Dipstick 04/02/2018 Ua Color Lilly Yellow Ua Clarity Cloudy Clear Ua Leuko 3+ High Negative Ua Nitrite negative Negative Ua Urobilinogen negative Low 0.2 - 1.0 E.U./dL Ua Protein 1+ High Negative Ua PH 6.5 6.5-7.5 Ua Blood Trace Negative Ua Specific [place] 1.015 1.010-1.030 Ua Ketones negative Negative Ua Bilirubin 1+ High Negative Ua Glucose negative Negative Urine Dipstick 02/26/2018 Ua Color yellow Yellow Ua Clarity cloudy Clear Ua Leuko 3+ High Negative Ua Nitrite negative Negative Ua Urobilinogen 0.2 0.2 - 1.0 E.U./dL Ua Protein negative Negative Ua PH 7.0 6.5-7.5 Ua Blood negative Negative Ua Specific [place] 1.015 1.010-1.030 Ua Ketones negative Negative Ua Bilirubin negative Negative Ua Glucose negative Negative Urine Dipstick 01/29/2018 Ua Color Yellow Yellow Ua Clarity Clear Clear Ua Leuko 3+ High Negative Ua Nitrite negative Negative Ua Urobilinogen 0.2 0.2 - 1.0 E.U./dL Ua Protein negative Negative Ua PH 7.0 6.5-7.5 Ua Blood negative Negative Ua Specific [place] 1.015 1.010-1.030 Ua Ketones negative Negative Ua Bilirubin negative Negative Ua Glucose negative Negative Urine Dipstick 12/28/2017 Ua Color yellow Yellow Ua Clarity cloudy Clear Ua Leuko negative Negative Ua Nitrite negative Negative Ua Urobilinogen 0.2 0.2 - 1.0 E.U./dL Ua Protein negative Negative Ua PH 6.5 6.5-7.5 Ua Blood negative Negative Ua Specific [place] 1.015 1.010-1.030 Ua Ketones negative Negative Ua [...] Ua Blood 1+ High Negative Ua Specific [place] 1.020 1.010-1.030 Ua Ketones negative Negative Ua Bilirubin negative Negative Ua Glucose negative Negative Urine Dipstick 11/16/2017 Ua Color Yellow Yellow Ua Clarity Clear Clear Ua Leuko Negative Negative Ua Nitrite Negative Negative Ua Urobilinogen 0.2 0.2 - 1.0 E.U./dL Ua Protein 1+ High Negative Ua PH 6.0 Low 6.5-7.5 Ua Blood 1+ High Negative Ua Specific [place] 1.005 Low 1.010-1.030 Ua Ketones Negative Negative Ua Bilirubin Negative Negative Ua Glucose Negative Negative Slide Review 11/16/2017 Slide Review . 10, 11 HIV Screen 4TH Gen 11/16/2017 HIV Screen 4th Non Reactive Non Reactive 10, 12 Reflex Generation wRfx Laboratory test 11/16/2017 Treponema Antibody Negative Negative 10 finding [place] [facility] 11/16/2017 Amphetamines (Urine) Negative 10 [...] Lymph % 17.9 % Low 20.0-42.0 10 [place] % 6.4 % 4.3-13.2 10 Eo% 0.2 % 0.0-6.6 10 Bas% 0.4 % 0.0-1.1 10 Neut# 7.50 K/uL High 1.8-7.0 10 Lymph # 1.79 K/uL 1.0-4.0 10 [place] # 0.64 K/uL 0.3-0.9 10 Eos # [...] 22 Lymph % 29.9 % 20.0-42.0 22 [place] % 6.3 % 4.3-13.2 22 Eo% 1.7 % 0.0-6.6 22 Bas% 0.4 % 0.0-1.1 22 Neut# 4.82 K/uL 1.8-7.0 22 Lymph # 2.33 K/uL 1.0-4.0 22 [place] # 0.49 K/uL 0.3-0.9 22 Eos # [...] Treponema Antibody Negative Negative 25, 26 finding [place] Laboratory test 01/16/2017 Vaginal Strep NO GROUP [...] 34 Lymph # 1.83 K/uL 1.0-4.0 34 [place] # 0.82 K/uL 0.3-0.9 34 Eos # 0.09 K/uL 0.0-0.5 34 Baso # 0.02 K/uL 0.0-0.1 34 Laboratory test finding 11/17/2016 Treponema Antibody Negative Negative 34, 36 [place] Glucose,1 HR Post 11/17/2016 1 HR Glucose,Post [...] Ketone NEGATIVE mg/dL Negative 51 Urine Specific [place] 1.015 1.010-1.030 51 Urine Blood SMALL Negative [...] Negative Negative Laboratory test 08/04/2016 HCG, Quant 26536.0 mIU/mL 55, 56 finding Ua Routine 08/01/2016 Urine Color YELLOW Yellow 57 Urine Clarity CLOUDY Clear 57 Urine Glucose - Dipstick NEGATIVE mg/dL Negative 57 Urine Bilirubin - Dipstick NEGATIVE Negative 57 Urine Ketone NEGATIVE mg/dL Negative 57 Urine Specific [place] 1.010 1.010-1.030 57 Urine Blood TRACE Negative [...] (Ua) 08/01/2016 Urine Glucose (Ua) Negative Negative Therees species 08/01/2016 Therese species Negative [Negative] Dna Probe Dna Probe Gardnerella Dna 08/01/2016 Gardnerella Dna Positive High [Negative] Probe Probe Trichomonas Dna 08/01/2016 Trichomonas Dna Negative [Negative] Probe Probe Laboratory test 08/01/2016 HCG, Quant 69548.0 mIU/mL 57, 62 finding Chlamydia/GC Rimma 07/22/2016 [...] TRACE mg/dL High Negative 67 Urine Specific [place] 1.020 1.010-1.030 67 Urine Blood SMALL Negative [...] Negative Laboratory Studies 07/14/2016 Beta HCG, Quantitative 944618.00 mIU/mL Free Thyroxine 0.83 ng/dL 0.61-1.12 Free [...] Hormone (TSH) 0.69 mcIU/mL 0.34-5.60 Urine Specific [place] 1.024 1.010-1.030 Urine pH 6.0 5-9 White [...] (Auto) 0.6 % 0-2 Beta HCG, Quantitative 633047.00 mIU/mL Blood Urea Nitrogen 8 mg/dL 6-24 [...] Total Protein 7.3 g/dL 6.4-8.9 Urine Specific [place] 1.017 1.010-1.030 Urine pH 7.0 5-9 White Blood Count 13.3 10^3/ul High 3.5-10.8 Laboratory test finding 07/11/2016 HCG 622227.00 mIU/mL 71 Urine Culture SEE RESULT BELOW [...] Color Yellow Urine Appearance Cloudy Urine Specific [place] 1.017 1.010-1.030 Urine pH 7.0 5-9 Urine [...] 79 Lymph % 20.1 % 17.0-46.1 79 [place] % 7.6 % 4.3-13.2 79 Eo% 1.6 % 0.0-6.6 79 Bas% 0.2 % 0.0-1.1 79 Neut# 8.63 K/uL High 1.8-7.0 79 Lymph # 2.46 K/uL 1.8-7.0 79 [place] # 0.93 K/uL High 0.3-0.9 79 Eos [...] Treponema Nonreactive Nonreactive 79, 88 finding Antibody [place] Genital Culture W/ 06/29/2016 Gram Stain GRAM [...] 6.93 mg/L High < 5.00 95 HCG 52833.00 mIU/mL 96 Laboratory Studies 06/26/2016 Absolute Basophils [...] (Auto) 1.1 % 0-2 Beta HCG, Quantitative 79553.00 mIU/mL Blood Urea Nitrogen 10 mg/dL 6-24 [...] Color Yellow Urine Appearance Cloudy Urine Specific [place] 1.014 1.010-1.030 Urine pH 7.0 5-9 Urine [...] 101 finding Laboratory test 06/24/2016 HCG, Quant 62189.0 mIU/mL 102, 103 finding Urine HCG 06/24/2016 Urine HCG POSITIVE Negative 104 (Qualitative) (Qualitative) Source: URINE, CLEAN CAT <SEE NOTE> 104, 105 Ua Routine 06/24/2016 Urine Color YELLOW Yellow 104 Urine Clarity SL CLOUDY Clear 104 Urine Glucose - Dipstick NEGATIVE mg/dL Negative 104 Urine Bilirubin - Dipstick NEGATIVE Negative 104 Urine Ketone TRACE mg/dL High Negative 104 Urine Specific [place] >=1.030 1.010-1.030 104 Urine Blood MODERATE Negative [...] 109 Lymph % 22.7 % 17.0-46.1 109 [place] % 7.1 % 4.3-13.2 109 Eo% 2.1 % 0.0-6.6 109 Bas% 0.4 % 0.0-1.1 109 Neut# 6.96 K/uL 1.8-7.0 109 Lymph # 2.34 K/uL 1.8-7.0 109 [place] # 0.73 K/uL 0.3-0.9 109 Eos # [...] 4 NO SPECIMEN RECEIVED 5 Performed at: [address] [id number] Side Seam Tender: Rocio Paulson MD, Phone: [phone] 6 Performed at: [address] [id number] Side Seam Tender: Sabas Oneil MD, Phone: [phone] 7 LARGE PLATELETS PRESENT. 8 R31.9 9 10,000 - 50,000 CFU/mL 10 O09.71 Z34.81 11 Instrument flagged sample for slide review. Less than 10% Bands seen, few atypical lymphocytes seen. RBC morphology=0-1+ microcytes Platelet estimate=normal, large platelets present. 12 Performed at: [address] [id number] Side Seam Tender: Rocio Paulson MD, Phone: [phone] 13 URINE SPECIMENS ARE SCREENED AT THE [...] with a HCV Nucleic Acid Amplification test (520775). 16 Analysis by atomic absorption spectroscopy (AAS). Environmental Exposure: WHO Recommendation <20 Occupational Exposure: OSHA Lead Std 40 CHELE 30 Detection Limit=1 Performed at: [address] [id number] Side Seam Tender: Rocio Paulson MD, Phone: [phone] 17 GRAM STAIN INDICATES NORMAL GENITAL JOAQUÍN [...] 0.90 - 0.99 Immune >0.99 Performed at: [address] [id number] Side Seam Tender: Rocio Paulson MD, Phone: [phone] Performed at: [address] [id number] Side Seam Tender: Sabas Oneil MD, Phone: [phone] 22 FATIGUE, DIARRHEA, WANTS THYROID CHECKED 23 [...] is suggested. 25 LABOR 26 Performed at: [address] [id number] Side Seam Tender: Sabas Oneil MD, Phone: [phone] 27 Z3A.36 28 NO GROUP B STREPTOCOCCI ISOLATED 29 Z3A.34 30 10,000 - 50,000 CFU/mL 31 Countersinker Balance Screw Hole: [id number] 32 Z3A.32 33 > 100,000 CFU/mL SPECIMEN IS A MIX OF GRAM POSITIVE ORGANISMS CONSISTENT WITH SKIN VAGINAL CONTAMINATION. SUGGEST REPEAT SPECIMEN IF CLINICALLY INDICATED. 34 O09.892 35 11/17/161856: NEUT% previously reported as: 78.2 H % Amended result called to: [] - 11/17/16 at 7 11/17/16 1857: LYMPH % previously reported as: 14.4 L % Amended result called to: [] - 11/17/16 at 1857 11/17/16 185: MONO % previously reported as: 6.5 % Amended result called to: [] - 11/17/16 at 185611/17/16 185: EO% previously reported as: 0.7 % Amended result called to: [] - 11/17/16 at 7 11/17/161856: BAS% previously reported as: 0.2 % Amended result called to: [] - 11/17/16 at 1857 36 Performed at: [address] [id number] Side Seam Tender: Sabas Oneil MD, Phone: [phone] 37 POST GLUCOLA 38 NO SPECIMEN RECEIVED 39 NO SPECIMEN RECEIVED 40 LARGE PLATELETS PRESENT. 41 Performed at: [address] [id number] Side Seam Tender: Rocio Paulson MD, Phone: [phone] 42 > 100,000 CFU/mL SPECIMEN IS A [...] 63 CRAMPING, 10 WKS PREGN, SENT BY 64 A negative result for either C. trachomatis [...] [address]: Austin Shaffer MD Acct: [id number] Unit: [id number] AGE: 30 Location: ED Re07/11/16 SEX: F Status: DEP ER SPEC: [id number] JOSE: 07/11/16-[address]: Austin Shaffer MD REQ: [id number] RECD: 07/11/16 STATUS: DELL PARSONS DR: Lisa Craig PA _ SOURCE: URINE [facility]: ORDERED: Urine Culture Procedure Result Reported Site Urine Culture Final 07/12/16- 1230 ML No growth of clinically significant organisms * ML - MAIN LAB ([facility]) . END OF REPORT * ML=Testing performed at Main Lab DEPARTMENT OF PATHOLOGY, [address] [place] [address] Lew Cohen M.D. Director [facility] # [id number] 73 Because ethnic data is not always [...] Detection Limit=1 Performed at: RN - [facility] [address] [id number] Side Seam Tender: Rocio Paulson MD, Phone: [phone] 85 NOTE: A NON-REACTIVE RESULT INDICATES THAT HIV-1 AND HIV-2 ANTIBODIES HAVE NOT BEEN FOUND IN THIS PATIENT SPECIMEN. A NON-REACTIVE RESULT, HOWEVER, DOES NOT PRECLUDE PREVIOUS EXPOSURE OF INFECTION WITH HIV. * [place] STATE LAW PROHIBITS THE REDISCLOSURE OF THIS RESULT * * TO ANY UNAUTHORIZED LIBERTARIAN. * 86 Values >=10.0 IU/mL are positive [...] levels of up to 20 mIU/mL 97 [id number] 98 SEE RESULT BELOW Name: DAVID HUNG : [address]: Martita Braga Acct: [id number] Unit: [id number] AGE: 30 Location: [facility] Re06/25/16 SEX: F Status: DEP ER SPEC: [id number] JOSE: 06/25/160 [facility] DR: Allyson Mendes DO REQ: [id number] RECD: 06/25/16 STATUS: COMP KIRSTENHR DR: Lisa Craig PA _ SOURCE: VAGINAL SPDESC: ORDERED: Jorje,Yeast DNA COMMENTS: [id number] Procedure Result Reported Site Gardnerella/Yeast: Vaginal DNA [...] failure. * ML - MAIN LAB ([facility]) . END OF REPORT * ML=Testing performed at Main Lab DEPARTMENT OF PATHOLOGY, [address] [place] [address] Lew Cohen M.D. Director [facility] # [id number] 99 [id number] GC/Chlamydia Source?: Endocervical Trichomonas Source: Endocervical 100 Comment: has taken macrobid [id number] 101 SEE RESULT BELOW Name: DAVID HUNG Bonnie : [address]: aMrtita Braga Acct: [id number] Unit: [id number] AGE: 30 Location: [facility] Re06/25/16 SEX: F Status: DEP ER SPEC: [id number] JOSE: 06/25/16-[address] [facility] [address]: Allyson Mendes DO REQ: [id number] RECD: 06/25/16-1235 STATUS: DELL PARSONS DR: Emmett Ventura MD _ SOURCE: URINE SPDESC: ORDERED: Urine Culture COMMENTS: Comment: has taken macrobid [id number] Procedure Result Reported Site Urine Culture Final 06/26/16- 1214 ML No growth of clinically significant organisms * ML - MAIN LAB ([facility]) . END OF REPORT * ML=Testing performed at Main Lab DEPARTMENT OF PATHOLOGY, [address] [place] [address] Lew Cohen M.D. Director [facility] # [id number] 102 JUST FOUND OUT , HAVING ABD [...] D deficiency has been defined by the [place] of [employer] and an Endocrine Society practice guideline as a level of serum 25-OH vitamin D less than 20 ng/mL (1,2). The Endocrine Society went on to further define vitamin D insufficiency as a level between 21 and 29 ng/mL (2). 1. IOM ([place] of [employer]). 2010. Dietary reference intakes for calcium and D. [place]: The National Academies Press. 2. Marry MF, Malinda [place], Melecio-Levi DEL ANGEL, et al. Evaluation, treatment, and prevention of vitamin D deficiency: an Endocrine Society clinical practice guideline. JCEM. 2010; 96(7):1911-30. Performed at: RN - [facility] [address] [id number] Side Seam Tender: Rocio Paulson MD, Phone: [phone] 113 CP, HEART RACING 114 Instrument flagged sample for slide review. Less than 10% Bands seen, no other immature WBC's seen. RBC morphology essentially normal. Platelet estimate= Normal 115 POSSIBLE CYST BEHIND RT EAR 116 FEW GRAM POS BACILLI SUGGESTIVE OF DIPTHEROIDS 117 RARE GRAM POSITIVE COCCI 118 RARE WHITE BLOOD CELLS 119 NO PATHOGENS ISOLATED Procedures Date CPT Code Description Status 11/16/2017 40320 EKG-Tracing And Report Completed 02/11/2017 31283 Vaginal Delivery Global Care Completed 06/22/2016 10274 Echocardiogram Complete Completed 06/22/2016 43021 Event Monitor Inter/Review Only Completed 06/16/2016 70420 EKG-Tracing And Report Completed 08/20/2014 49714 Vaginal Delivery W/Post- Care Completed 06/24/2013 12243 Holter Monitor 24HR Inter/Report Completed 07/20/2011 23308 Echocardiogram Complete Completed 07/20/2011 29113 Event Monitor Inter/Review Only Completed 12/08/2010 18084 Remove Impacted Cerumen Completed 08/16/2010 06718 Holter Monitor 24HR Inter/Report Completed 08/13/2010 08994 EKG-Tracing And Report Completed 08/13/2010 29013 Pulse Oximetry Completed 08/09/2010 73497 Pulse Oximetry Completed 08/09/2010 57086 Pressurized/Non-Pressurized Inhalation Treatment,Acute Completed Obstructio 11/17/2008 01124 Post- Care Only Completed 10/03/2008 85137 Antepartum 7 Or More Total Office Visit Completed 10/03/2008 90673 Vaginal Delivery Global Care Completed 09/30/2008 85285 Antepartum 7 Or More Total Office Visit Completed 09/25/2008 43064 Antepartum 7 Or More Total Office Visit Completed 09/22/2008 18407 Antepartum 7 Or More Total Office Visit Completed 09/17/2008 46979 Antepartum 7 Or More Total Office Visit Completed 09/09/2008 16400 Antepartum 7 Or More Total Office Visit Completed 09/03/2008 65595 Antepartum 7 Or More Total Office Visit Completed 08/20/2008 [address]11 Antepartum 7 Or More Total Office Visit Completed Encounters Type Date Location Provider CPT E/M Dx Office Visit 11/16/2017 1:00p [place] [address] R00.2 F17.200 I49.3 Z3A.01 Office Visit 04/28/2017 11:00a Primary Care Office Dolly Londono M.D. 59832 H66.91 Office Visit 03/08/2017 11:00a Primary Care Office Lisa Craig, [address]1556 F32.9 PAIke F41.9 R00.2 E55.9 F17.200 Z71.6 Z70.9 Office Visit 01/02/2017 10:00a Primary Care Office Rajwinder Hutchinson, 46905 J06.9 RPAC O99.333 F17.210 Z71.6 Office Visit 07/21/2016 8:30a Family Medicine & Junior, [place], [facility] [address] H66.001 Women's Health Z33.1 Office Visit 07/19/2016 1:00p Family Medicine & [place], [place] [address] S39.011A Women's Health Z33.1 Office Visit 07/13/2016 1:30p Family Medicine & Gregorio Kirsten, [facility] [address] F41.9 Women's Health Office Visit 07/04/2016 11:00a Family Medicine & [place] Kirsten, [facility] [address] O26.851 Women's Health Z33.1 Office Visit 06/27/2016 10:30a [facility] [place], [place] [address] N91.1 Health Z71.6 E55.9 Office Visit 06/16/2016 8:00a Cardiology Office Jami Thompson, 69274 I49.3 MSN, [facility] I49.1 R00.2 Office Visit 06/15/2016 10:00a Primary Care Office Lisa Craig, 99229 F41.9 PA-C F32.9 E55.9 F17.200 Z71.6 D72.829 R74.8 R00.2 E78.5 N92.6 Office Visit 01/05/2016 2:30p Primary Care Office Lisa Craig, [address]0611 J01.90 PA-C E66.9 F17.200 E55.9 Z71.6 Office Visit 12/30/2015 2:30p Primary Care Office Lisa Craig, 54599 E66.9 PA-C F17.200 Z71.6 E55.9 E78.5 F41.9 F32.9 Office Visit 07/23/2015 3:00[place] [address] H66.90 F32.9 F41.9 E78.5 Z00.01 Office Visit 07/06/2015 10:30a Lisa Simmons PA-C 53341 E78.5 E55.9 F41.9 R00.2 F17.200 Z71.6 E66.9 E04.9 Office Visit 12/24/2014 1:45p Orthopaedic Office Yesenia Lozoya, [address] 719.47 [facility] 845.02 V22.2 Office Visit 10/01/2014 9:10a Cardiology Office Jami Thompson, 10644 785.1 MSN, [facility] Office Visit 07/23/2014 2:00p Cardiology Office Johnchelsea Song NazarioAngel, 56468 785.1 Marco Antonio, [facility] Plan of Care Future Appointment(s):05/28/2018 9:30 am - Sherine Freitas CNM at [facility]/16/2017 - Fay Nicholas, PAR00.2 PalpitationsNew Medication:Metoprolol Tartrate [...]
--- OUTSIDE RECORDS SUMMARY | 2018-06-01 21:40 | XMS REPORT ---
:1985 External Reference #:[id number] Author Organization [facility] 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 Unavailable Lindsey Rizzo MD Primary Care Physician Unavailable Payers Type Date Identification Numbers Payment Provider Subscriber Commercial Policy Number: [id number] [employer] David Hung PayID: [id number] [address] [place] [address] Problems Date Description Provider Status Onset: 05/27/2015 Hyperlipidemia Lisa Craig PA-C Active Onset: 05/27/2015 Anxiety Lisa Craig PA-C Active Onset: 05/27/2015 Depressive disorder Lisa Carig PA-C Active Onset: 04/10/2017 Palpitations [facility] Note: PVCs/PACs Onset: 12/14/2017 [...] 16oz of soda per day Age 1st Jermyn 12 Years Old # Partners in a Lifetime 2 STD's No STD History Allergies, Adverse Reactions, Alerts Date Description Reaction Status Severity Comments 12/30/2015 Bupropion active Moderate altered cognition 07/23/2014 NKDA inactive Medications Medication Date Status Form Strength Qnty SIG Indications Ordering Provider Robitussin 12 04/05/ Active Suer 30mg/5ML 89ml 2 teaspoon Borra, Hour Cough 2018 by mouth MARA Basurto Relief every 6 hours as needed Zithromax Z-Mathew 04/05/ Active Tablets 250mg 6tabs take 2 Borra, 2017 tablets by MARA Basurto mouth one time for infection then take 1 tablet by mouth daily for 4 days for infection 11/16/ Active Chewtabs 0.4-32.5mg 30unit 1 by mouth O09.71 Zena Gummies/Dha & 2018 s every day MARA Basurto Folic Acid Metoprolol 11/16/ Active Tablets 25mg 45tabs 1/2 Tab By R00.2 Margaret Tartrate 2017 Mouth Twice , Keegan Day Marco Antonio Camilo, [facility] / Active Chewtabs 60mg 2 by mouth Corina, Complete 0000 every day Guillermina Rothman. 1 11/16/ Hx Capsules 30-0.975-2 30caps take one O09.71 Zena, 2018 - 00mg capsule by MARA Basurto 11/16/ mouth every 2017 day. Amoxicillin 04/28/ Hx Capsules 500mg 30caps take 1 H66.91 Bry 2016 - tablet Andras, 05/09/ every 8 M.DAngel 2017 hours for 10 days Atenolol 04/28/ Hx Tablets 50mg 60tabs 1 tab by Emelina 2016 - mouth twice MD Dasha 04/28/ a day 2016 Atenolol 04/28/ Hx Tablets 25mg 60tabs 1 by mouth R00.2 Margaret 2016 - twice a day , Song 11/16/ Marco Antonio Camilo, 2018 [facility] 04/26/ Hx Tablets 2.5mg 30tabs 1 by mouth Denny, 2017 - daily MD Porter 2016 Norgestim-Eth 04/03/ Hx Tablets 0.18/0.215 84tabs 1 by mouth Z39.2 CorinaJovany gallegoglenny 2016 - /0.25 every day Stephan, Triphasic [...] every day David, 03/08/ for nasal M.D. 2017 congestion Amoxicillin 01/02/ Hx Capsules 500mg 30caps 1 cap by J06.9 Norbert, 2016 - mouth three David, 01/23/ times a day M.D. 2016 Propranolol HCL 12/08/ Hx Tablets 20mg 60tabs 1 tab by Norbert 2016 - mouth twice David, 04/26/ a day M.D. 2016 Amoxicillin 09/18/ Hx Tablets 875mg 15tabs 1 tab by Gregorio, 2017 - mouth three Kirsten, 11/17/ times a day CNM 2016 Amoxicillin 07/21/ Hx Capsules 500mg 14caps Take one H66.001 Junior, 2017 - capsule by 08/15/ mouth twice CNM 2016 daily for 7 days. 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 Vitamin D-3 Hx Capsules 1000Unit 30caps take one Junior, [...] Solution 0.65% 135ml 2 sprays J01.90 Aaron Hardwick 2016 every 2 Mikal E., hours as DO needed Probiotic 01/04/ Hx Capsules 60caps 1-2 J01.90 Paul Walker 2016 capsules by Mikal E., mouth daily DO x10 days Acetaminophen 01/04/ Hx Tablets 500mg 540tab 2 by mouth Aaron Extra Strength 2016 - s three times Mikal E., 06/27/ a day DO 2016 Xenical 12/29/ Hx Capsules 120mg 270cap take with E66.9 Aaron, 2016 - s or <1h Mikal Swanson, 06/14/ after meals DO 2016 containing fat 3 times daily; omit dose if meal is non-fat or missed Amoxicillin 07/23/ Hx Capsules 500mg 21caps 1 cap by H66.90 Lorenzo, 2016 - mouth three Emmett, 12/29/ times a day 2015 Lexapro 00/00/ Hx Tablets 20mg 30tabs by mouth Unknown 0000 every day Atenolol 00/00/ Hx Tablets 25mg 30tabs 1/2 by Jay, 0000 - mouth every Jami day 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 , 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, 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 Paroxetine HCL / Hx Tablets 20mg 90tabs 1 by mouth Aaron, - every day Mikal Swanson, 2016 Acetaminophen 00/ Hx Tablets 500mg 1-2 tabs by Unknown Extra Strength 0000 - mouth every 07/06/ 4 hours as 2014 needed Vitamin D / Hx Tablets 1000Unit 1 by mouth Unknown (Cholecalcifero 0000 - every day l) 2014 Pravastatin /00/ Hx Tablets 10mg 1 by mouth Unknown Sodium 0000 q hs Multivitamins 00/ Hx Capsules 1 by mouth Unknown 0000 - every day 2014 Atenolol /00/ Hx Tablets 50mg 180tab 1 and 1/2 Margaret 0000 - s by mouth Song 06/15/ twice a day Marco Antonio Camilo, 2016 FACC Zithromax /00/ Hx Tablets 250mg take 2 tabs Unknown 0000 - by mouth on day then 2015 1 tab by mouth qddays 2-5 Atenolol /00/ Hx Tablets 75mg 1 by mouth Unknown 0000 - bid 2015 Paxil /00/ Hx Tablets 20mg 1 by mouth Unknown 0000 - every day 2015 Immunizations CPT Code Status Date Vaccine Lot # [id number] Given 04/26/2018 Tdap injection [id number] Given 04/26/2018 Influenza Virus Vaccine, Quadrivalent, 36 Mos+, .5ML 94984 Given 12/20/2016 Tdap injection [id number] Given 04/16/2015 Influenza Vaccine (Fluzone) Age 3 And Older [id number] U-Pneum Given 04/12/2013 Pneumococcal,Unspecified [id number] Given 07/17/2011 Tdap injection 11906 Given 07/14/2009 H1N1 Immuniation Adminstration 69565 Given 07/14/2009 H1N1 Immuniation Adminstration Vital Signs Date Vital Result Comment 04/26/2018 BP Systolic 124 mmHg BP Diastolic 80 mmHg Body Temperature 98.3 F Heart Rate 97 /min Respiratory Rate 18 /min Height 64 inches 5'4" Weight 146.00 lb BMI (Body Mass Index) 25.1 kg/m2 BSA (Body Surface Area) 1.71 m2 [place] body weight in kilograms 54 O2 % BldC Oximetry 98 % 04/02/2018 BP Systolic 117 mmHg BP Diastolic 77 mmHg Body Temperature 97.7 F Heart Rate 89 /min Respiratory Rate 18 /min Height 64 inches 5'4" Weight 141.38 lb BMI (Body Mass Index) 24.3 kg/m2 BSA (Body Surface Area) 1.69 m2 [place] body weight in kilograms 54 O2 % BldC Oximetry 99 % 02/26/2018 BP Systolic 117 mmHg BP Diastolic 71 mmHg Body Temperature 98.8 F Heart Rate 92 /min Respiratory Rate 18 /min Height 64 inches 5'4" Weight 142.12 lb BMI (Body Mass Index) 24.4 kg/m2 BSA (Body Surface Area) 1.69 m2 [place] body weight in kilograms 54 O2 % BldC Oximetry 97 % 01/29/2018 BP Systolic 111 mmHg BP Diastolic 63 mmHg Body Temperature 98.4 F Heart Rate 88 /min Respiratory Rate 20 /min Height 64 inches 5'4" Weight 135.12 lb BMI (Body Mass Index) 23.2 kg/m2 BSA (Body Surface Area) 1.66 m2 [place] body weight in kilograms 54 O2 % BldC Oximetry 98 % 12/28/2017 BP Systolic 102 mmHg BP Diastolic 64 mmHg Body Temperature 96.0 F Heart Rate 80 /min Respiratory Rate 16 /min Height 64 inches 5'4" Weight 135.00 lb BMI (Body Mass Index) 23.2 kg/m2 BSA (Body Surface Area) 1.66 m2 [place] body weight in kilograms 54 O2 % BldC Oximetry 98 % 12/14/2017 BP Systolic 91 mmHg BP Diastolic 51 mmHg Body Temperature 97.6 F Heart Rate 75 /min Respiratory Rate 18 /min Height 64 inches 5'4" Weight 135.00 lb BMI (Body Mass Index) 23.2 kg/m2 BSA (Body Surface Area) 1.66 m2 [place] body weight in kilograms 54 O2 % BldC Oximetry 98 % 11/16/2017 BP Systolic Sitting Left Arm 120 mmHg BP Diastolic Sitting Left Arm 64 mmHg Heart Rate 80 /min Respiratory Rate 18 /min Height 64 inches 5'4" Weight 134.00 lb BMI (Body Mass Index) 23.0 kg/m2 BSA (Body Surface Area) 1.65 m2 [place] body weight in kilograms 54 11/16/2017 BP Systolic 135 mmHg BP Diastolic 74 mmHg Height 64 inches 5'4" Weight 134.00 lb BMI (Body Mass Index) 23.0 kg/m2 BSA (Body Surface Area) 1.65 m2 [place] body weight in kilograms 54 04/28/2017 BP [...] kg/m2 BSA (Body Surface Area) 1.63 m2 [place] body weight in kilograms 54 03/08/2017 BP Systolic 119 mmHg BP Diastolic 76 mmHg Heart Rate 73 /min Respiratory Rate 16 /min Height 64 inches 5'4" [place] body weight in kilograms 54 O2 % BldC Oximetry 99 % 02/06/2017 BP Systolic 118 mmHg BP Diastolic 86 mmHg Height 64 inches 5'4" Weight 149.38 lb BMI (Body Mass Index) 25.6 kg/m2 BSA (Body Surface Area) 1.73 m2 [place] body weight in kilograms 54 01/30/2017 BP Systolic 112 mmHg BP Diastolic 70 mmHg Height 64 inches 5'4" Weight 145.00 lb BMI (Body Mass Index) 24.9 kg/m2 BSA (Body Surface Area) 1.71 m2 [place] body weight in kilograms 54 01/23/2017 BP Systolic 106 mmHg BP Diastolic 60 mmHg Height 64 inches 5'4" Weight 147.38 lb BMI (Body Mass Index) 25.3 kg/m2 BSA (Body Surface Area) 1.72 m2 [place] body weight in kilograms 54 01/16/2017 BP Systolic 110 mmHg BP Diastolic 62 mmHg Height 64 inches 5'4" Weight 147.00 lb BMI (Body Mass Index) 25.2 kg/m2 BSA (Body Surface Area) 1.72 m2 [place] body weight in kilograms 54 01/02/2017 BP Systolic Sitting Right Arm 102 mmHg BP Diastolic Sitting Right Arm 58 mmHg Body Temperature 98.7 F Heart Rate 84 /min Height 64 inches 5'4" Weight 148.38 lb BMI (Body Mass Index) 25.5 kg/m2 BSA (Body Surface Area) 1.72 m2 [place] body weight in kilograms 54 O2 % BldC Oximetry 96 % 01/02/2017 BP Systolic 106 mmHg BP Diastolic 66 mmHg Height 64 inches 5'4" Weight 148.25 lb BMI (Body Mass Index) 25.4 kg/m2 BSA (Body Surface Area) 1.72 m2 [place] body weight in kilograms 54 12/19/2016 BP Systolic 118 mmHg BP Diastolic 66 mmHg Height 64 inches 5'4" Weight 148.50 lb BMI (Body Mass Index) 25.5 kg/m2 BSA (Body Surface Area) 1.72 m2 [place] body weight in kilograms 54 12/05/2016 BP Systolic 104 mmHg BP Diastolic 70 mmHg Height 64 inches 5'4" Weight 147.50 lb BMI (Body Mass Index) 25.3 kg/m2 BSA (Body Surface Area) 1.72 m2 [place] body weight in kilograms 54 11/17/2016 BP [...] kg/m2 BSA (Body Surface Area) 1.63 m2 [place] body weight in kilograms 45 08/15/2016 BP [...] Test Date Test Result H/L Range Note Glucose,1 HR Post Glucola 04/26/2018 1 HR Glucose,Post 102 mg/dL -138 1 , 2 Glucola 1 Hour Urine Glucose NO SPECIMEN RECE <SEE NOTE> % Negative 1, 3 1 Hour Urine Ketone NO SPECIMEN RECE <SEE NOTE> Negative 1, 4 HIV Screen 4TH Gen 04/26/2018 HIV Screen 4th Non Reactive Non Reactive 1 , 5 Reflex Generation wRfx Laboratory test 04/26/2018 Treponema Antibody Negative Negative 1, 6 finding [place] CBC W/Automated 04/26/2018 White Blood Count 12.0 [...] Lymph % 12.6 % Low 20.0-42.0 1 [place] % 6.5 % 4.3-13.2 1 Eo% 0.6 % 0.0-6.6 1 Bas% 0.2 % 0.0-1.1 1 Neut# 9.63 K/uL High 1.8-7.0 1 Lymph # 1.52 K/uL 1.0-4.0 1 [place] # 0.78 K/uL 0.3-0.9 1 Eos # [...] 6.5-7.5 Ua Blood negative Negative Ua Specific [place] 1.010 1.010-1.030 Ua Ketones negative Negative Ua Bilirubin negative Negative Ua Glucose negative Negative Urine Dipstick 04/02/2018 Ua Color Lilly Yellow Ua Clarity Cloudy Clear Ua Leuko 3+ High Negative Ua Nitrite negative Negative Ua Urobilinogen negative Low 0.2 - 1.0 E.U./dL Ua Protein 1+ High Negative Ua PH 6.5 6.5-7.5 Ua Blood Trace Negative Ua Specific [place] 1.015 1.010-1.030 Ua Ketones negative Negative Ua Bilirubin 1+ High Negative Ua Glucose negative Negative Urine Dipstick 02/26/2018 Ua Color yellow Yellow Ua Clarity cloudy Clear Ua Leuko 3+ High Negative Ua Nitrite negative Negative Ua Urobilinogen 0.2 0.2 - 1.0 E.U./dL Ua Protein negative Negative Ua PH 7.0 6.5-7.5 Ua Blood negative Negative Ua Specific [place] 1.015 1.010-1.030 Ua Ketones negative Negative Ua Bilirubin negative Negative Ua Glucose negative Negative Urine Dipstick 01/29/2018 Ua Color Yellow Yellow Ua Clarity Clear Clear Ua Leuko 3+ High Negative Ua Nitrite negative Negative Ua Urobilinogen 0.2 0.2 - 1.0 E.U./dL Ua Protein negative Negative Ua PH 7.0 6.5-7.5 Ua Blood negative Negative Ua Specific [place] 1.015 1.010-1.030 Ua Ketones negative Negative Ua Bilirubin negative Negative Ua Glucose negative Negative Urine Dipstick 12/28/2017 Ua Color yellow Yellow Ua Clarity cloudy Clear Ua Leuko negative Negative Ua Nitrite negative Negative Ua Urobilinogen 0.2 0.2 - 1.0 E.U./dL Ua Protein negative Negative Ua PH 6.5 6.5-7.5 Ua Blood negative Negative Ua Specific [place] 1.015 1.010-1.030 Ua Ketones negative Negative Ua [...] Ua Blood 1+ High Negative Ua Specific [place] 1.020 1.010-1.030 Ua Ketones negative Negative Ua Bilirubin negative Negative Ua Glucose negative Negative Urine Dipstick 11/16/2017 Ua Color Yellow Yellow Ua Clarity Clear Clear Ua Leuko Negative Negative Ua Nitrite Negative Negative Ua Urobilinogen 0.2 0.2 - 1.0 E.U./dL Ua Protein 1+ High Negative Ua PH 6.0 Low 6.5-7.5 Ua Blood 1+ High Negative Ua Specific [place] 1.005 Low 1.010-1.030 Ua Ketones Negative Negative Ua Bilirubin Negative Negative Ua Glucose Negative Negative Slide Review 11/16/2017 Slide Review . 10, 11 HIV Screen 4TH Gen 11/16/2017 HIV Screen 4th Non Reactive Non Reactive 10, 12 Reflex Generation wRfx Laboratory test 11/16/2017 Treponema Antibody Negative Negative 10 finding [place] [facility] 11/16/2017 Amphetamines (Urine) Negative 10 [...] Lymph % 17.9 % Low 20.0-42.0 10 [place] % 6.4 % 4.3-13.2 10 Eo% 0.2 % 0.0-6.6 10 Bas% 0.4 % 0.0-1.1 10 Neut# 7.50 K/uL High 1.8-7.0 10 Lymph # 1.79 K/uL 1.0-4.0 10 [place] # 0.64 K/uL 0.3-0.9 10 Eos # [...] 22 Lymph % 29.9 % 20.0-42.0 22 [place] % 6.3 % 4.3-13.2 22 Eo% 1.7 % 0.0-6.6 22 Bas% 0.4 % 0.0-1.1 22 Neut# 4.82 K/uL 1.8-7.0 22 Lymph # 2.33 K/uL 1.0-4.0 22 [place] # 0.49 K/uL 0.3-0.9 22 Eos # [...] Treponema Antibody Negative Negative 25, 26 finding [place] Laboratory test 01/16/2017 Vaginal Strep NO GROUP [...] 34 Lymph # 1.83 K/uL 1.0-4.0 34 [place] # 0.82 K/uL 0.3-0.9 34 Eos # 0.09 K/uL 0.0-0.5 34 Baso # 0.02 K/uL 0.0-0.1 34 Laboratory test finding 11/17/2016 Treponema Antibody Negative Negative 34, 36 [place] Glucose,1 HR Post 11/17/2016 1 HR Glucose,Post [...] Ketone NEGATIVE mg/dL Negative 51 Urine Specific [place] 1.015 1.010-1.030 51 Urine Blood SMALL Negative [...] Negative Negative Laboratory test 08/04/2016 HCG, Quant 44605.0 mIU/mL 55, 56 finding Ua Routine 08/01/2016 Urine Color YELLOW Yellow 57 Urine Clarity CLOUDY Clear 57 Urine Glucose - Dipstick NEGATIVE mg/dL Negative 57 Urine Bilirubin - Dipstick NEGATIVE Negative 57 Urine Ketone NEGATIVE mg/dL Negative 57 Urine Specific [place] 1.010 1.010-1.030 57 Urine Blood TRACE Negative [...] Protein Negative Negative Urine Urobilinogen 0.2 0.2-1.0 Trichomonas Dna 08/01/2016 Trichomonas Dna Negative [Negative] Probe Probe Laboratory test 08/01/2016 HCG, Quant 03584.0 mIU/mL 57, 62 finding Gardnerella Dna 08/01/2016 Gardnerella Dna Positive High [Negative] Probe Probe Therese species 08/01/2016 Therese species Negative [Negative] Dna Probe Dna Probe Urine Glucose (Ua) 08/01/2016 Urine Glucose (Ua) Negative Negative Lymphocytes % 07/22/2016 Lymphocytes % 22 17-56 Manual Slide 07/22/2016 Manual Slide Diff Ordered Review Review (Hematology) (Hematology) Chlamydia/GC Rimma 07/22/2016 Chlamydia Negative Negative 63 Trachomatis, Rimma Neisseria Gonorrhoeae, Rimma Negative Negative 63 Please note: (SEE NOTE) 63, 64 Monocytes % 07/22/2016 Monocytes % 4 0-10 Atypical Lymphocytes % 07/22/2016 Atypical Lymphocytes % 4 0-7 Neutrophils # (Auto) 07/22/2016 Neutrophils # (Auto) 10.71 High 1.8-7.0 Aspartate Amino Transf 07/22/2016 Aspartate Amino Transf 11 Low 15-37 (Ast/Sgot) (Ast/Sgot) Type And Screen 07/22/2016 Patient Blood Type O POS 63 Antibody Screen Negative Negative 63 Comprehensive Metabolic Panel 07/22/2016 Glucose 88 mg/dL [...] 63 Alkaline Phosphatase 114 U/L 45-117 63 Platelet Estimate 07/22/2016 Platelet Estimate Normal Differential Total Cells 07/22/2016 Differential Total Cells 100 Counted Counted Laboratory test finding 07/22/2016 Alanine Aminotransferase 16 12-78 (Alt/SGPT) Albumin/Globulin Ratio 0.8 BUN/Creatinine Ratio 18.0 [...] 0.2-1.0 White Blood Count 14.2 High 3.1-10.7 Lymphocytes # (Auto) 07/22/2016 Lymphocytes # (Auto) 2.42 1.8-7.0 Urine Glucose (Ua) 07/17/2016 Urine Glucose (Ua) Negative Negative Ua Routine 07/17/2016 Urine Color YELLOW Yellow 67 Urine Clarity SL CLOUDY Clear 67 Urine Glucose - Dipstick NEGATIVE mg/dL Negative 67 Urine Bilirubin - Dipstick NEGATIVE Negative 67 Urine Ketone TRACE mg/dL High Negative 67 Urine Specific [place] 1.020 1.010-1.030 67 Urine Blood SMALL Negative [...] Protein Negative Negative Urine Urobilinogen 0.2 0.2-1.0 Laboratory Studies 07/14/2016 Beta HCG, Quantitative 666813.00 mIU/mL Free Thyroxine 0.83 ng/dL 0.61-1.12 Free [...] Hormone (TSH) 0.69 mcIU/mL 0.34-5.60 Urine Specific [place] 1.024 1.010-1.030 Urine pH 6.0 5-9 White [...] (Auto) 0.6 % 0-2 Beta HCG, Quantitative 116800.00 mIU/mL Blood Urea Nitrogen 8 mg/dL 6-24 [...] Total Protein 7.3 g/dL 6.4-8.9 Urine Specific [place] 1.017 1.010-1.030 Urine pH 7.0 5-9 White Blood Count 13.3 10^3/ul High 3.5-10.8 Laboratory test finding 07/11/2016 HCG 141211.00 mIU/mL 71 Urine Culture SEE RESULT BELOW [...] Color Yellow Urine Appearance Cloudy Urine Specific [place] 1.017 1.010-1.030 Urine pH 7.0 5-9 Urine [...] Barbiturates 06/29/2016 Urine Barbiturates Negative Screen Screen Manual Slide Review 06/29/2016 Manual Slide Review . (Hematology) (Hematology) Rubella IgG Antibody 06/29/2016 Rubella IgG Antibody Reactive Reactive Whole Blood Lead 06/29/2016 Whole Blood Lead 2 0-19 Drugs Of Abuse-Urine 06/29/2016 Amphetamines (Urine) Negative 79 Screen 7 Barbiturates (Urine) Negative 79 Benzodiazepines (Urine) Negative [...] 79 Lymph % 20.1 % 17.0-46.1 79 [place] % 7.6 % 4.3-13.2 79 Eo% 1.6 % 0.0-6.6 79 Bas% 0.2 % 0.0-1.1 79 Neut# 8.63 K/uL High 1.8-7.0 79 Lymph # 2.46 K/uL 1.8-7.0 79 [place] # 0.93 K/uL High 0.3-0.9 79 Eos [...] Treponema Nonreactive Nonreactive 79, 88 finding Antibody Hartley Genital Culture W/ 06/29/2016 Gram Stain GRAM [...] Amphetamines 06/29/2016 Urine Amphetamines Negative Screen Screen CBC Auto Diff 06/26/2016 [...] 6.93 mg/L High < 5.00 95 HCG 96105.00 mIU/mL 96 Laboratory Studies 06/26/2016 Absolute Basophils [...] (Auto) 1.1 % 0-2 Beta HCG, Quantitative 79569.00 mIU/mL Blood Urea Nitrogen 10 mg/dL 6-24 [...] Color Yellow Urine Appearance Cloudy Urine Specific [place] 1.014 1.010-1.030 Urine pH 7.0 5-9 Urine [...] Urine Yeast Present Absent Laboratory test 06/25/2016 Urine Culture SEE RESULT BELOW 97, 98 finding GC/Chlamydia 06/25/2016 Chlamydia Negative Negative 99 Amplified Rna trachomatis Rna Neisseria gonorrhoeae (GC) Rna Negative Negative 99 Laboratory test 06/25/2016 Gardnerella/Yeast: Vaginal SEE RESULT 99, 100 finding Dna BELOW Trichomonas vaginalis Rna Negative Negative 99, 101 Urine Culture 06/24/2016 Urine Culture URETHRAL JOAQUÍN 102 Quantity 50,000 - 100,000 <SEE NOTE> 102, 103 Ua Routine 06/24/2016 Urine Color YELLOW Yellow 102 Urine Clarity SL CLOUDY Clear 102 Urine Glucose - Dipstick NEGATIVE mg/dL Negative 102 Urine Bilirubin - Dipstick NEGATIVE Negative 102 Urine Ketone TRACE mg/dL High Negative 102 Urine Specific [place] >=1.030 1.010-1.030 102 Urine Blood MODERATE Negative 102 Urine PH 6.0 Low 6.5-7.5 102 Urine Protein - Dipstick 30 mg/dL High Negative 102 Urine Urobilinogen - Dipstick 0.2 E.U./dL 0.2-1.0 102 Urine Nitrite - Dipstick NEGATIVE Negative 102 Urine Leuk Esterase SMALL Negative 102 Urine RBC 2-5 rbc/hpf 0-2 102 Urine WBC 20-30 wbc/hpf High 0-7 102 Urine Epithelial Cells MANY /lpf None Seen 102, 104 Urine Calcium Oxalate Crystals FEW None Seen 102 Urine Bacteria MANY None Seen 102 Urine Mucus LARGE None Seen 102 Source: URINE, CLEAN CAT <SEE NOTE> 102, 105 Urine HCG (Qualitative) 06/24/2016 Urine HCG (Qualitative) POSITIVE Negative 102 Source: URINE, CLEAN CAT <SEE NOTE> 102, 106 Laboratory test 06/24/2016 HCG, Quant 64115.0 mIU/mL 107, 108 finding Urine Glucose (Ua) 06/24/2016 Urine Glucose (Ua) Negative Negative Laboratory test 06/24/2016 Urine Bilirubin Negative Negative finding Urine Ketones Trace High Negative Urine Leukocyte Esterase Small High Negative Urine Nitrite Negative Negative Urine Protein 30 High Negative Urine Urobilinogen 0.2 0.2-1.0 Aspartate Amino Transf 06/15/2016 Aspartate Amino Transf 12 Low 15-37 (Ast/Sgot) (Ast/Sgot) Gamma Glutamyl 06/15/2016 Gamma Glutamyl 25 5-85 Transpeptidase Transpeptidase Lymphocytes # (Auto) 06/15/2016 Lymphocytes # (Auto) 2.34 1.8-7.0 Neutrophils # (Auto) 06/15/2016 Neutrophils # (Auto) 6.96 1.8-7.0 Vitamin D 25-Hydroxy 06/15/2016 Vitamin D 25-Hydroxy 23.5 Low 30.0-100.0 Laboratory test finding 06/15/2016 Alanine Aminotransferase 20 [...] 7.0 6.4-8.2 White Blood Count 10.3 3.1-10.7 Laboratory test finding 06/15/2016 Gamma Glutamyl 25 U/L 5-85 109 Transpeptidase CBS W/Automated Diff 06/15/2016 White Blood [...] 109 Lymph % 22.7 % 17.0-46.1 109 [place] % 7.1 % 4.3-13.2 109 Eo% 2.1 % 0.0-6.6 109 Bas% 0.4 % 0.0-1.1 109 Neut# 6.96 K/uL 1.8-7.0 109 Lymph # 2.34 K/uL 1.8-7.0 109 [place] # 0.73 K/uL 0.3-0.9 109 Eos # 0.22 K/uL 0.0-0.5 109 Baso # 0.04 K/uL 0.0-0.1 109 Laboratory test 06/15/2016 Vitamin D,25-Hydroxy 23.5 ng/mL Low 30.0-100.0 109, 110 finding Thyroid Stim Hormone 0.70 uIU/mL 0.30-4.20 109 Comprehensive Metabolic Panel 06/15/2016 Glucose 86 mg/dL 74-106 109 BUN 8 mg/dL 7-18 109 Creatinine 0.6 mg/dL 0.6-1.3 109 Glom Filtration Rate, Estimate >60 mL/min >60 109 If >60 mL/min >60 109, 111 BUN/Creat 13.3 ratio 109 Sodium 141 mmol/L [...] 109 Sgot/Ast 12 U/L Low 15-37 109, 112 SGPT/Alt 20 U/L 12-78 109 Alkaline Phosphatase 114 U/L 45-117 109 Total Creatine 06/12/2016 Total Creatine Kinase 96 26-192 Kinase Thyroid Stimulating 06/12/2016 Thyroid Stimulating 0.56 0.30-4.20 Hormone (TSH) Hormone (TSH) Neutrophils # (Auto) 06/12/2016 Neutrophils # (Auto) 7.63 High 1.8-7.0 Manual Slide Review 06/12/2016 Manual Slide Review See Note 113 (Hematology) (Hematology) Lymphocytes # (Auto) 06/12/2016 Lymphocytes [...] 06/12/2016 TSH Reflex FT4 0.56 uIU/mL 0.30-4.20 114 finding and/or FT3 Routine Culture W/ 04/28/2016 Gram Stain FEW GRAM POS [place] 115, 116 Gram Stain <SEE NOTE> Gram Stain RARE GRAM POSITI <SEE NOTE> 115, 117 Gram Stain RARE WHITE BLOOD <SEE NOTE> 115, 118 Aerobic Culture NO PATHOGENS ISO <SEE NOTE> 115, 119 1 Z3A.28 2 POST GLUCOLA 3 NO SPECIMEN RECEIVED 4 NO SPECIMEN RECEIVED 5 Performed at: [address] [id number] General Purchasing Agent: Rocio Paulson MD, Phone: [phone] Performed at: [address] [id number] General Purchasing Agent: Sabas Oneil MD, Phone: [phone] LARGE PLATELETS PRESENT. 8 R31.9 9 10,000 - 50,000 CFU/mL 10 O09.71 Z34.81 11 Instrument flagged sample for slide review. Less than 10% Bands seen, few atypical lymphocytes seen. RBC morphology=0-1+ microcytes Platelet estimate=normal, large platelets present. 12 Performed at: [address] [id number] General Purchasing Agent: Rocio Paulson MD, Phone: [phone] 13 URINE SPECIMENS ARE SCREENED AT THE [...] with a HCV Nucleic Acid Amplification test (992482). 16 Analysis by atomic absorption spectroscopy (AAS). Environmental Exposure: WHO Recommendation <20 Occupational Exposure: OSHA Lead Std 40 CHELE 30 Detection Limit=1 Performed at: [address] [id number] General Purchasing Agent: Rocio Paulson MD, Phone: [phone] 17 GRAM STAIN INDICATES NORMAL GENITAL JOAQUÍN [...] 0.90 - 0.99 Immune >0.99 Performed at: [address] [id number] General Purchasing Agent: Rocio Paulson MD, Phone: [phone] Performed at: [address] [id number] General Purchasing Agent: Sabas Oneil MD, Phone: [phone] FATIGUE, DIARRHEA, WANTS THYROID CHECKED 23 [...] suggested. 25 LABOR 26 Performed at: [address] [id number] General Purchasing Agent: Sabas Oneil MD, Phone: [phone] 27 Z3A.36 28 NO GROUP B STREPTOCOCCI ISOLATED 29 Z3A.34 30 10,000 - 50,000 CFU/mL 31 Gis Analyst Developer: [id number] 32 Z3A.32 33 > 100,000 CFU/mL SPECIMEN IS A MIX OF GRAM POSITIVE ORGANISMS CONSISTENT WITH SKIN VAGINAL CONTAMINATION. SUGGEST REPEAT SPECIMEN IF CLINICALLY INDICATED. 34 O09.892 35 11/17/16 1857: NEUT% previously reported as: 78.2 H % [...] - 11/17/16 at 1856 36 Performed at: - [facility] [id number] General Purchasing Agent: Sabas Oneil MD, Phone: [phone] 37 POST GLUCOLA 38 NO SPECIMEN RECEIVED 39 NO SPECIMEN RECEIVED 40 LARGE PLATELETS PRESENT. 41 Performed at: - [facility] [address] [id number] General Purchasing Agent: Rocio Paulson MD, Phone: [phone] 42 > 100,000 CFU/mL SPECIMEN IS A [...] BELOW Name: DAVID HUNG Bonnie : [address]: Austin Shaffer MD Acct: [id number] Unit: [id number] AGE: 30 Location: ED Re07/11/16 SEX: F Status: DEP ER SPEC: [id number] JOSE: 07/11/16 [facility] DR: Austin Shaffer MD REQ: [id number] RECD: 07/11/16 STATUS: DELL PARSONS DR: Lisa BORJAS _ SOURCE: URINE SPDESC: ORDERED: Urine Culture Procedure Result Reported Site Urine Culture Final 07/12/16- 1230 ML No growth of clinically significant organisms * ML - MAIN LAB ([facility]) . END OF REPORT * ML=Testing performed at Main Lab DEPARTMENT OF PATHOLOGY, [address] [place] [address] Lew Cohen M.D. Director [facility] # [id number] 73 Because ethnic data is not always [...] CHELE 30 Detection Limit=1 Performed at: - [facility] [id number] General Purchasing Agent: Rocio Paulson MD, Phone: [phone] 85 NOTE: A NON-REACTIVE RESULT INDICATES THAT HIV-1 AND HIV-2 ANTIBODIES HAVE NOT BEEN FOUND IN THIS PATIENT SPECIMEN. A NON-REACTIVE RESULT, HOWEVER, DOES NOT PRECLUDE PREVIOUS EXPOSURE OF INFECTION WITH HIV. * [place] STATE LAW PROHIBITS THE REDISCLOSURE OF THIS [...] levels of up to 20 mIU/mL 97 Comment: has taken macrobid [id number] 98 SEE RESULT BELOW Name: DAVID HUNG : [address]: Martita Braga Acct: [id number] Unit: [id number] AGE: 30 Location: [facility] Re06/25/16 SEX: F Status: DEP ER SPEC: [id number] JOSE: 06/25/16-[address]: Allyson Mendes DO REQ: [id number] RECD: 06/25/16-1235 STATUS: DELL PARSONS DR: Emmett Ventura MD _ SOURCE: URINE SPDESC: ORDERED: Urine Culture COMMENTS: Comment: has taken macrobid [id number] Procedure Result Reported Site Urine Culture Final 06/26/16- 1214 ML No growth of clinically significant organisms * ML - MAIN LAB ([facility]) . END OF REPORT * ML=Testing performed at Main Lab DEPARTMENT OF PATHOLOGY, [address] [place] [address] Lew Cohen M.D. Director [facility] # [id number] 99 [id number] 100 SEE RESULT BELOW Name: DAVID HUNG : [address]: Martita Braga Acct: [id number] Unit: [id number] AGE: 30 Location: [facility] Re06/25/16 SEX: F Status: DEP ER SPEC: [id number] JOSE: 06/25/16-[address] [facility] [address]: Allyson Mendes DO REQ: [id number] RECD: 06/25/169 STATUS: DELL PARSONS DR: Lisa Craig PA _ SOURCE: VAGINAL SPDESC: ORDERED: Jorje,Yeast DNA COMMENTS: [id number] Procedure Result Reported Site Gardnerella/Yeast: Vaginal DNA [...] or failure. * ML - MAIN LAB ([facility]) . END OF REPORT * ML=Testing performed at Main Lab DEPARTMENT OF PATHOLOGY, [address] [place] [address] Lew Cohen M.D. Director [facility] # [id number] [address] [place], [place] [id number] GC/Chlamydia Source?: Endocervical Trichomonas Source: Endocervical 102 TEST 103 50,000 - 100,000 CFU/mL SPECIMEN IS A MIX OF GRAM POSITIVE ORGANISMS CONSISTENT WITH SKIN VAGINAL CONTAMINATION. SUGGEST REPEAT SPECIMEN IF CLINICALLY INDICATED. 104 POSSIBLE UROGENITAL CONTAMINATION. 105 URINE, CLEAN CATCH 106 URINE, CLEAN CATCH 107 JUST FOUND OUT , HAVING ABD PAIN, BLEEDING 108 Approximate Gestational Age and Total BHCG Range: 0.2 - 1 Week........................5-50 mIU/mL 1 - 2 Weeks.....................50-500 mIU/mL 2 - 3 Weeks..................100-5,000 mIU/mL 3 - 4 Weeks.................500-10,000 mIU/mL 4 - 5 Weeks...............1,000-50,000 mIU/mL 5 - 6 Weeks.............10,000-100,000 mIU/mL 6 - 8 Weeks.............15,000-200,000 mIU/mL 2 - 3 Months............10,000-100,000 mIU/mL 109 E78.5 E55.9 F41.9 R74.9 110 Vitamin D deficiency has been defined by the [employer] of [employer] and an Endocrine Society practice guideline as a level of serum 25-OH vitamin D less than 20 ng/mL (1,2). The Endocrine Society went on to further define vitamin D insufficiency as a level between 21 and 29 ng/mL (2). 1. IOM ([employer] of [employer]). 2010. Dietary reference intakes for calcium and D. [place]: The National Academies Press. 2. Marry MF, Malinda NC, Yeimy DEL ANGEL, et al. Evaluation, treatment, and prevention of vitamin D deficiency: an Endocrine Society clinical practice guideline. JCEM. 2010; 96(1):1911-30. Performed at: RN - [facility] [address] [id number] General Purchasing Agent: Rocio Paulson MD, Phone: [phone] 111 Note: Persistent reduction for 3 months [...] normal populations. Clinical correlation is suggested. 113 Instrument flagged sample for slide review. Less than 10% Bands seen, no other immature WBC's seen. RBC morphology essentially normal. Platelet estimate= Normal 114 CP, HEART RACING 115 POSSIBLE CYST BEHIND RT EAR 116 FEW GRAM POS BACILLI SUGGESTIVE OF DIPTHEROIDS 117 RARE GRAM POSITIVE COCCI 118 RARE WHITE BLOOD CELLS 119 NO PATHOGENS ISOLATED Procedures Date CPT Code Description Status 11/16/2017 75201 EKG-Tracing And Report Completed 02/11/2017 98216 Vaginal Delivery Global Care Completed 06/22/2016 58723 Echocardiogram Complete Completed 06/22/2016 97838 Event Monitor Inter/Review Only Completed 06/16/2016 91960 EKG-Tracing And Report Completed 08/20/2014 09291 Vaginal Delivery W/Post- Care Completed 06/24/2013 39659 Holter Monitor 24HR Inter/Report Completed 07/20/2011 29649 Echocardiogram Complete Completed 07/20/2011 45978 Event Monitor Inter/Review Only Completed 12/08/2010 89744 Remove Impacted Cerumen Completed 08/16/2010 20730 Holter Monitor 24HR Inter/Report Completed 08/13/2010 70167 EKG-Tracing And Report Completed 08/13/2010 87784 Pulse Oximetry Completed 08/09/2010 33646 Pulse Oximetry Completed 08/09/2010 51805 Pressurized/Non-Pressurized Inhalation Treatment,Acute Completed Obstructio 11/17/2008 19239 Post- Care Only Completed 10/03/2008 05855 Antepartum 7 Or More Total Office Visit Completed 10/03/2008 46670 Vaginal Delivery Global Care Completed 09/30/2008 18777 Antepartum 7 Or More Total Office Visit Completed 09/25/2008 03716 Antepartum 7 Or More Total Office Visit Completed 09/22/2008 25418 Antepartum 7 Or More Total Office Visit Completed 09/17/2008 76117 Antepartum 7 Or More Total Office Visit Completed 09/09/2008 91573 Antepartum 7 Or More Total Office Visit Completed 09/03/2008 86305 Antepartum 7 Or More Total Office Visit Completed 08/20/2008 26626 Antepartum 7 Or More Total Office Visit Completed Encounters Type Date Location Provider CPT E/M Dx Office Visit 11/16/2017 1:00p [place] [address] R00.2 F17.200 I49.3 Z3A.01 Office Visit 04/28/2017 11:00a Primary Care Office Dolly Londono M.D. 66165 H66.91 Office Visit 03/08/2017 11:00a Primary Care Office Rafa Lisa Yuliana, 53680 F32.9 PAIke F41.9 R00.2 E55.9 F17.200 Z71.6 Z70.9 Office Visit 01/02/2017 10:00a Primary Care Office Rajwinder Hutchinson, [address] [facility] O99.333 F17.210 Z71.6 Office Visit 07/21/2016 8:30a Family Medicine & Junior, October, [facility] 13257 H66.001 Women's Health Z33.1 Office Visit 07/19/2016 1:00p Family Medicine & Junior, October, [facility] 14790 S39.011A Women's Health Z33.1 Office Visit 07/13/2016 1:30p [facility] [address] F41.9 [facility] Office Visit 07/04/2016 11:00a Family Medicine & Kirsten Perkins [facility] 95874 O26.851 Women's Health Z33.1 Office Visit 06/27/2016 10:30a Family Medicine & Women's Junior, October, [facility] 69743 N91.1 Health Z71.6 E55.9 Office Visit 06/16/2016 8:00a Cardiology Office Jami Thompson, 46131 I49.3 MSN, 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 I49.1 R00.2 Office Visit 06/15/2016 10:00a Primary Care Office Lisa Craig, 72735 F41.9 PA-C F32.9 E55.9 F17.200 Z71.6 D72.829 R74.8 R00.2 E78.5 N92.6 Office Visit 01/05/2016 2:30p Primary Care Office Lisa Craig, 28125 J01.90 PA-C E66.9 F17.200 E55.9 Z71.6 Office Visit 12/30/2015 2:30p Primary Care Office Lisa Craig, 02051 E66.9 PA-C F17.200 Z71.6 E55.9 E78.5 F41.9 F32.9 Office Visit 07/23/2015 3:00[place] [address] H66.90 F32.9 F41.9 E78.5 Z00.01 Office Visit 07/06/2015 10:30a RafaLisa, PA-C 60308 E78.5 E55.9 F41.9 R00.2 F17.200 Z71.6 E66.9 E04.9 Office Visit 12/24/2014 1:45p Orthopaedic Office Yesenia Lozoya, [address] [facility] 845.02 V22.2 Office Visit 10/01/2014 9:10a Cardiology Office Jami Thompson, 11083 785.1 EBEN, 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 Office Visit 07/23/2014 2:00p Cardiology Office Song Robles, 88899 785.1 Marco Antonio, [facility] Plan of Care Future Appointment(s):05/14/2018 9:00 am - Sherine Freitas CNM at [facility]9511/16/2017 - Fay Nicholas, PAR00.2 PalpitationsNew Medication:Metoprolol Tartrate [...]
[2018-06-01 21:41] VITALS: BP 114/65
--- NOTE | 2018-06-01 21:53 | UC ---
Respiratory Complaint HPI - HPI Summary HPI Summary: Per area captain "coughing x2-3 weeks. Pt states her chest feels congested and at times she coughs up phlegm. Pt states she feels fine otherwise, but is concerned because she is . " -she has SVT and takes metoprolol. follows w/ Dr Sawant. -has been following through -34 wks . + movement. no ctxs. no bleeding -continues to smoke but trying to cut down. -cannot take albuterol bc SVT. doesnt want to take prednisone b/c SVT and - History of Current Complaint Chief Complaint: UCRespiratory Stated Complaint: COUGH,CONGESTION Time Seen by Provider: 06/01/18 21:35 Hx Last Menstrual Period: 2 weeks ago Pain Intensity: 0 - Allergies/Home Medications Allergies/Adverse Reactions: Allergies Allergy/AdvReac Type Severity Reaction Status Date / Time No Known Allergies Allergy Verified 06/01/18 21:41 PMH/Surg Hx/FS Hx/Imm Hx Previously Healthy: Yes Other Cardiovascular History: SVT - Surgical History Surgical History: Yes Surgery Procedure, Year, and Place: Right Fall[facility] T[facility], [facility], [facility] Ear Tubes as a child. RIGHT ear tube 2013 Other Surgical History: Has right ear tube - Family History Known Family History: Positive: Unknown - PT ADOPTED - Social History Alcohol Use: None Substance Use Type: None Smoking Status (MU): Heavy Every Day Tobacco Smoker Type: Cigarettes Amount Used/How Often: 10 cig/day Length of Time of Smoking/Using Tobacco: 14 yrs Have You Smoked in the Last Year: Yes When Did the Patient Quit Smoking/Using Tobacco: 06/29 Household Exposure Type: Cigarettes - Immunization History Most Recent Influenza Vaccination: 2016 Most Recent Pneumonia Vaccination: FALL 2013 Review of Systems All Other Systems Reviewed And Are Negative: Yes Constitutional: Positive: Negative Skin: Positive: Negative Eyes: Positive: Negative ENT: Positive: Negative Respiratory: Positive: Cough Cardiovascular: Positive: Negative Gastrointestinal: Positive: Negative Genitourinary: Positive: Negative Motor: Positive: Negative Neurovascular: Positive: Negative Musculoskeletal: Positive: Negative Neurological: Positive: Negative Psychological: Positive: Negative Is Patient Immunocompromised?: No Physical Exam Triage Information Reviewed: Yes Appearance: Well-Appearing, No Pain Distress, Well-Nourished Vital Signs: Initial Vital Signs Temp 98.5 F 06/01/18 21:38 Pulse 89 06/01/18 21:38 Resp 18 06/01/18 21:38 BP 114/65 06/01/18 21:38 Pulse Ox 99 06/01/18 21:38 Eye Exam: Normal ENT Exam: Normal ENT: Positive: Pharynx normal, Nasal congestion, TMs normal. Negative: Tonsillar swelling, Tonsillar exudate, Muffled voice, Hoarse voice, Sinus tenderness Respiratory: Positive: No respiratory distress, No accessory muscle use, Wheezing - b/l mild scattered exp wheezing that clear after cough.. Negative: Crackles, Rhonchi, Stridor Cardiovascular Exam: Normal Cardiovascular: Positive: RRR, No Murmur Abdomen Description: Positive: Nontender - gravid, Soft Musculoskeletal Exam: Normal Neurological Exam: Normal Psychological Exam: Normal Skin Exam: Normal UC Diagnostic Evaluation - Laboratory O2 Sat by Pulse Oximetry: 99 Respiratory Course/Dx - Course Course Of Treatment: she declines albuterol and prednisone at this time. she is trying to quit smoking. she prefers to wait to see if she will improve on her own before using any meds. She does agree to f/u if symptoms worsen. can use humidifier and OTC mucines (without any decongestents). - Differential Dx/Diagnosis Differential Diagnosis/HQI/PQRI: Asthma, Bronchitis, Sinusitis Provider Diagnoses: Bronchitis, tobacco use Discharge - Sign-Out/Discharge Documenting (check all that apply): Patient Departure All imaging exams completed and their final reports reviewed: No Studies - Discharge Plan Condition: Stable Disposition: HOME Patient Education Materials: Acute Bronchitis (ED) Referrals: Lindsey Rizzo MD [Primary Care Provider] - 3 Days Additional Instructions: We talked about the importance of quitting smoking. If things worsen, you should discuss possible use of prednisone to help. You should go to the ER if your baby stops moving, with contractions or bleeding - Billing Disposition and Condition Condition: STABLE Disposition: Home
== END 2018-06-01 22:08 | disposition home or self-care (01) ==
LOC: UCCORT 21:27
DX: J40 Bronchitis, not specified as acute or chronic (principal); F17.210 Nicotine dependence, cigarettes, uncomplicated
CPT/HCPCS: 99211; G0463

== ENCOUNTER 2018-08-21 20:27 | Emergency (ER) | payer OTHER ==
--- OUTSIDE RECORDS SUMMARY | 2018-08-21 20:51 | XMS REPORT | Continuity of Care Document ---
:1985 External Reference #:[id number] Author Name Michelle Baldwinberly Care Team Providers Name Role Phone Lindsey Rizzo M.D. Primary Care Physician Unavailable Payers Type Date Identification Numbers Payment Provider Subscriber Policy Number: [id number] Cipriano Hung PayID: [id number] [address] [place] [address] Advance Directives Description No Information Available Problems Date Description Provider Status Onset: 06/12/2017 [...] hx Social History Type Date Description Comments Sex Unknown Marital Status Lives With Lives With Children Occupation Unemployed Tobacco Use Start: Unknown currently smokes 1/2 Pack Daily Tobacco Use Start: Unknown Never Smoked Cigars Tobacco Use Start: Unknown Never Smoked A Pipe Smokeless Tobacco Never Used Smokeless Tobacco ETOH Use Denies alcohol use Tobacco Use Start: Unknown Light tobacco smoker (10 or fewer cigarettes/day) Smoking Status Reviewed: 07/23/18 Light tobacco smoker (10 or fewer cigarettes/day) Allergies, Adverse Reactions, Alerts Description No Known Drug Allergies Medications Medication Date Status Form Strength Qnty SIG Indications Ordering Provider Atenolol Active Tablets 50mg 1 by mouth Unknown 0 every day Lexapro Hx Tablets 20mg 1 by mouth Unknown 0 - every day 5 Paxil Hx Tablets 30mg one every in Unknown 0 - the morning 7 Immunizations Description No Information Available Vital Signs Date Vital Result Comment 07/23/2018 1:59pm Height 60 inches 5'0" Weight 125.00 lb BP Systolic Sitting 126 mmHg BP Diastolic Sitting 76 mmHg Respiratory Rate 16 /min Pain Level 0 BMI (Body Mass Index) 24.4 kg/m2 06/12/2017 2:40pm Height 60 inches 5'0" Weight 126.00 lb Heart Rate 66 /min BP Systolic Sitting 112 mmHg BP Diastolic Sitting 68 mmHg Respiratory Rate 16 /min Pain Level 0 BMI (Body Mass Index) 24.6 kg/m2 10/23/2014 8:59am Heart Rate 76 /min BP Systolic Sitting 118 mmHg BP Diastolic Sitting 76 mmHg 09/11/2014 9:50am Height 60 inches 5'0" Weight 130.00 lb Heart Rate 70 /min BP Systolic Sitting 122 mmHg BP Diastolic Sitting 80 mmHg BMI (Body Mass Index) 25.4 kg/m2 Results Description No Information Available Procedures Description No Information Available Encounters Type Date Location Provider Dx Diagnosis Office Visit 06/12/2017 [facility] H72.01 Central perforation 2:30p [facility] [place] [facility] of tympanic [place] membrane, right ear H90.11 Condctv hear loss, uni, right ear, w unrestr hear cntra side Office Visit 10/23/2014 9:15a [facility] 388.31 Tinnitus 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 AT [place] Larry Loss,Unilateral Luis Plan of Treatment 07/23/2018 - [facility] M.D.H72.01 Central perforation of tympanic membrane, right earComments:The patient is scheduled for an audiogram, she will return back after the audiogram. She may be a candidate for right ear tympanoplasty with graft.H90.11 Conductive hearing loss, unilateral, right ear, with unrestr
[2018-08-21 21:31] VITALS: BP 94/60
--- NOTE | 2018-08-21 21:49 | UC ---
Ear Complaint HPI - HPI Summary HPI Summary: Pt with 2 days right ear pain. pt states intermittent drainage. No fever, chills mild sinus congestion. Pt was at ED yesterday - Rx amox for OM. Has taken 3 doses pt still with pain so wanted second opinion. Pt with tympaonoplasty from Dr. Kim. No analgesia taken no other complaints not medicaitons reviewed this visit - History of Current Complaint Chief Complaint: UCEar Stated Complaint: RIGHT EAR PAIN Time Seen by Provider: 08/21/18 21:35 Hx Obtained From: Patient Hx Last Menstrual Period: 2 weeks ago Pain Intensity: 2 - Allergies/Home Medications Allergies/Adverse Reactions: Allergies Allergy/AdvReac Type Severity Reaction Status Date / Time No Known Allergies Allergy Verified 08/21/18 21:31 Home Medications: Home Medications Amoxicillin PO (*) [Amoxicillin 875 MG (*)] 875 mg PO BID 08/21/18 [History Confirmed 08/21/18] Atenolol TAB* [Tenormin TAB* 25 MG] 25 mg PO BID 08/21/18 [History Confirmed 12/02] PMH/Surg Hx/FS Hx/Imm Hx Previously Healthy: Yes - Surgical History Surgical History: Yes Surgery Procedure, Year, and Place: Right Fallopian Tube Removed, 2010, [facility]. Ear Tubes as a child. RIGHT ear tube 2013 Other Surgical History: Has right ear tube - Family History Known Family History: Positive: Unknown - PT ADOPTED - Social History Occupation: Employed Full-time Lives: With Family Alcohol Use: None Substance Use Type: None Smoking Status (MU): Heavy Every Day Tobacco Smoker Type: Cigarettes Amount Used/How Often: 10 cig/day Length of Time of Smoking/Using Tobacco: 14 yrs Have You Smoked in the Last Year: Yes When Did the Patient Quit Smoking/Using Tobacco: 06/29 Household Exposure Type: Cigarettes - Immunization History Most Recent Influenza Vaccination: 2016 Most Recent Pneumonia Vaccination: FALL 2013 Review of Systems All Other Systems Reviewed And Are Negative: Yes ENT: Positive: Ear Ache Physical Exam - Summary Physical Exam Summary: Vital Signs Reviewed: Yes A+Ox3, no distress Eyes: Conjunctiva Clear, COLT. EOM intact and full ENT: Hearing grossly normal right TM with tymponsotomy, scant drainage 5oclock. no mastoid pain no erythema, dried fluid in canal turbinates inflammed, mild pND, mmoist, uvula midline, no exudate, no erythema Neck: Positive: Supple Respiratory: Positive: No respiratory distress, No accessory muscle use + CTA throughout no w/r Cardiovascular: RRR nl s1, s2 no m/r CBT <2 sec abd soft + BS nt/nd no guarding, no distension Musculoskeletal Exam: MARIN x 4 without difficulty Strength Intact, ROM Intact Neurological: Positive: Alert, + sensation throughout Psychological: Positive: Normal Response To Family Skin: Positive: no rash, no ecchymosis Triage Information Reviewed: Yes Vital Signs: Initial Vital Signs Temp 98.8 F 08/21/18 21:27 Pulse 68 08/21/18 21:27 Resp 16 08/21/18 21:27 BP 94/60 08/21/18 21: Pulse Ox 100 08/21/18 21:27 Ear Complaint Course/Dx - Course Course Of Treatment: pt with progressive pain right ear. Pt wiht tymponsotomy by Dr. Kim. pt with dried fluid in canal and scant fluid noted middle ear. continue amoxi. flonase. motrin/apap. f/u Dr. Kim 7-10 days - Differential Dx/Diagnosis Provider Diagnosis: Otitis media Discharge - Sign-Out/Discharge Documenting (check all that apply): Patient Departure All imaging exams completed and their final reports reviewed: No Studies - Discharge Plan Condition: Stable Disposition: HOME Prescriptions: Fluticasone NASAL SPRAY 50MCG* [Flonase NASAL SPRAY 50MCG*] 2 spray BOTH NARES DAILY #1 btl Patient Education Materials: Serous Otitis Media (ED) Referrals: Lindsey Rizzo MD [Primary Care Provider] - Arnoldo Kim MD [Medical Doctor] - Additional Instructions: - Take nasal spray as prescribed - Alternate ibuprofen (advil, Motrin) and tylenol every 3 hours for pain - finish antibiotics as prescribed - humidfy the air in the room where you sleep - boil water, run a hot steam shower, vaporizer, cups of water by heat register - work to decrease cigarette smoke - Contact Dr. Kim for a re-evaluation in 2 weeks. - Billing Disposition and Condition Condition: STABLE Disposition: Home
== END 2018-08-21 21:54 | disposition home or self-care (01) ==
LOC: UCCORT 20:27
DX: H92.01 Otalgia, right ear (principal); F17.210 Nicotine dependence, cigarettes, uncomplicated
CPT/HCPCS: 99212; G0463

== ENCOUNTER 2018-10-05 09:28 | Emergency (ER) | payer OTHER ==
[2018-10-05 09:48] VITALS: BP 117/74
--- NOTE | 2018-10-05 10:23 | UC ---
Ear Complaint HPI - HPI Summary HPI Summary: Pt presents with c/o of fci right ear "issue". Pt reports that ~ 4 years ago she had ear tube place in right ear, then it fell out, then she had surgical repari of hole that "failed. Pt reports that she intermittently hears a "whooshing sound and a heart beat". She was seen by Dr. Julio crawford [facility] and has had multiple tests per pt and told that everything looked "fine". Pt denies any DEL ANGEL, discharge or fever, or change in symptoms. - History of Current Complaint Chief Complaint: UCEar Stated Complaint: RIGHT EAR Time Seen by Provider: 10/05/18 10:12 Hx Obtained From: Patient Hx Last Menstrual Period: 10/02/17 ?: No Onset/Duration: Gradual Onset, Lasting Weeks Severity Initially: Mild Severity Currently: Mild Pain Intensity: 0 - Allergies/Home Medications Allergies/Adverse Reactions: Allergies Allergy/AdvReac Type Severity Reaction Status Date / Time antidepressant med Allergy See Comment Uncoded 10/05/18 09:42 Home Medications: Home Medications Metoprolol Succinate XL TAB* [Toprol XL TAB*] 25 mg PO DAILY 10/05/18 [History Confirmed 10/05/18] PMH/Surg Hx/FS Hx/Imm Hx Previously Healthy: Yes - Surgical History Surgical History: Yes Surgery Procedure, Year, and Place: Right Fallopian Tube Removed, 2010, [facility]. Ear Tubes as a child. RIGHT ear tube 2013 Other Surgical History: Has right ear tube - Family History Known Family History: Positive: Unknown - PT ADOPTED - Social History Occupation: Works From/At Home Lives: With Family Alcohol Use: None Substance Use Type: None Smoking Status (MU): Heavy Every Day Tobacco Smoker Type: Cigarettes Amount Used/How Often: 10 cig/day Length of Time of Smoking/Using Tobacco: 14 yrs Have You Smoked in the Last Year: Yes When Did the Patient Quit Smoking/Using Tobacco: 06/29 Household Exposure Type: Cigarettes - Immunization History Most Recent Influenza Vaccination: 2016 Most Recent Pneumonia Vaccination: FALL 2013 Review of Systems All Other Systems Reviewed And Are Negative: Yes Constitutional: Positive: Negative Skin: Positive: Negative Eyes: Positive: Negative ENT: Positive: Ear Ache - right Respiratory: Positive: Negative Cardiovascular: Positive: Negative Gastrointestinal: Positive: Negative Genitourinary: Positive: Negative Motor: Positive: Negative Neurovascular: Positive: Negative Musculoskeletal: Positive: Negative Neurological: Positive: Negative Psychological: Positive: Negative Is Patient Immunocompromised?: No Physical Exam Triage Information Reviewed: Yes Appearance: Well-Appearing Vital Signs: Initial Vital Signs Temp 98 F 10/05/18 09:43 Pulse 71 10/05/18 09:43 Resp 16 10/05/18 09:43 BP 117/74 10/05/18 09:43 Pulse Ox 100 10/05/18 09:43 Vital Signs Reviewed: Yes Eye Exam: Normal ENT Exam: Other ENT: Positive: Other - hole in right TM Dental Exam: Normal Neck exam: Normal Respiratory Exam: Normal Respiratory: Positive: No respiratory distress Musculoskeletal Exam: Normal Neurological Exam: Normal Psychological Exam: Normal Skin Exam: Normal Ear Complaint Course/Dx - Course Course Of Treatment: Pt was recommended to continue f/u with ENT specialist. Pt verbalized understanding and agreed to plan of care. - Differential Dx/Diagnosis Differential Diagnosis/HQI/PQRI: Perforated TM Provider Diagnosis: Perforated tympanic membrane Discharge - Sign-Out/Discharge Documenting (check all that apply): Patient Departure All imaging exams completed and their final reports reviewed: No Studies - Discharge Plan Condition: Stable Disposition: HOME Patient Education Materials: Earache (ED) Referrals: Lindsey Rizzo MD [Primary Care Provider] - If Needed Additional Instructions: Please follow up with your ENT provider as soon as possible. - Billing Disposition and Condition Condition: STABLE Disposition: Home
== END 2018-10-05 10:28 | disposition home or self-care (01) ==
LOC: UCCORT 09:28
DX: H72.91 Unspecified perforation of tympanic membrane, right ear (principal); F17.210 Nicotine dependence, cigarettes, uncomplicated; Z98.890 Other specified postprocedural states; Z88.8 Allergy status to other drugs, medicaments and biological substances
CPT/HCPCS: 99211; G0463

== ENCOUNTER 2018-11-14 07:50 | Day surgery (SDC) | payer OTHER ==
[~2018-11-14 07:50] MED LIST: Acetaminophen TAB* 325 MG PO ONE; Buffered Lidocaine 1% SYRIN* 1 ML/SYRINGE INTRADERM ONE; Lactated Ringers 1000 ML Bag* 1,000 ML IV SCH
[2018-11-14] MEDS ORDERED: Buffered Lidocaine 1% SYRIN* 1 ML/SYRINGE INTRADERM ONE (08:47)
[2018-11-14] MEDS ORDERED: Acetaminophen TAB* 325 MG ONE (08:47)
[2018-11-14] MEDS ORDERED: fentaNYL* 50 MCG/ML 2 ML VIAL (100 MCG VIAL) ONE (10:16)
[2018-11-14] MEDS ORDERED: Midazolam* 1 MG/ML 2 ML VIAL (2 MG) ONE (10:16)
[2018-11-14] MEDS ORDERED: EPINEPHRINE 1 MG/ML 1 ML VIAL ONE (10:50)
[2018-11-14] MEDS ORDERED: Bacitracin OINTMENT* 0.5% 0.5 oz TUBE ONE (10:50)
[2018-11-14] MEDS ORDERED: Ciprofloxacin 0.3% OPTH.SOL* BTL ONE (10:50)
[2018-11-14] MEDS ORDERED: Gelfoam 12-7 ADSORBABL SPONGE* 1 EA SPONGE ONE (10:50)
[2018-11-14] MEDS ORDERED: Lidocaine 2% w/ EPI 1:200,000* 20 ML SDV VIAL ONE (10:50)
[2018-11-14] MEDS ORDERED: Famotidine IV* 10 MG/ML 2 ML (20 mg) ONE (10:52)
[2018-11-14] MEDS ORDERED: diPHENhydraMINE IV* 50 MG/ML 1 ml VIAL (BENADRYL) IV PRN (11:36)
[2018-11-14] MEDS ORDERED: Ondansetron INJ* 2 MG/ML VIAL IV PRN (11:36)
[2018-11-14] MEDS ORDERED: Acetaminophen TAB* 325 MG PO PRN (11:36)
[2018-11-14] MEDS ORDERED: fentaNYL* 50 MCG/ML 2 ML VIAL (100 MCG VIAL) IV PRN (11:36)
[2018-11-14] MEDS ORDERED: Levalbuterol 0.63MG/3ML NEB* UNIT OF USE INH PRN (11:36)
[2018-11-14] MEDS ORDERED: HYDROcodone/ACETAMIN 5-325 MG* 1 TAB PO PRN (11:36)
[2018-11-14] MEDS ORDERED: DiMENhydriNATE IV* 50 MG/ML VIAL IV PUSH PRN (11:36)
[2018-11-14] MEDS ORDERED: Naloxone* 0.4 MG/ML 1 ML VIAL IV PRN (11:36)
[2018-11-14] MEDS ORDERED: Ondansetron ODT TAB* 4 MG ONE (13:32)
[2018-11-14 13:37] VITALS: BP 153/109
--- NOTE | 2018-11-14 15:03 | OP ---
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 OPERATIVE PROCEDURE: Tympanoplasty right ear with a graft. BRIEF HISTORY: This 33-year-old female with significant history of recurring otorrhea, right ear per foration with occasional discomfort, elected for surgical management. DESCRIPTION OF PROCEDURE: The patient was taken to the operating room, general anesthetic was given, the patient was intubated with LMA. Right ear was then prepped and draped in the usual fashion. A curvilinear incision was made in the pinna and cartilage graft was harvested. Subsequently, the ear was examined. Margins of the perforation were epithelialized and margins of the perforation were fres hened up. The middle ear was then packed with Gelfoam. An underlay technique was utilized to place the tympanic replacement graft with perichondrium and very thin cartilage. Externally, the ear was p acked with Gelfoam, which was soaked with ofloxacin. The right ear graft site was then closed in a s katrina layer. Cotton ball was applied. The patient was then awakened and sent to recovery room in st able condition. Instrument and sponge counts were correct. Blood loss minimal. [id number]/[facility] #: [id number]
== END 2019-07-15 13:38 | disposition home or self-care (01) ==
LOC: OR 07:50
PROVIDERS: ATTEND Otolaryngology
DX: H72.01 Central perforation of tympanic membrane, right ear (principal); H92.11 Otorrhea, right ear; H90.11 Conductive hearing loss, unilateral, right ear, with unrestricted hearing on the contralateral side; I49.3 Ventricular premature depolarization; R01.1 Cardiac murmur, unspecified; F41.9 Anxiety disorder, unspecified; F17.210 Nicotine dependence, cigarettes, uncomplicated
CPT/HCPCS: 81025; A9270-GY; J2250; J3010

== ENCOUNTER 2018-11-21 14:09 | Emergency (ER) | payer OTHER ==
[2018-11-21 14:22] VITALS: BP 145/89
--- OUTSIDE RECORDS SUMMARY | 2018-11-21 15:01 | XMS REPORT | Continuity of Care Document ---
:1985 External Reference #:[id number] Author Name JonathonPiyush ring Care Team Providers Name Role Phone Lindsey Rizzo M.D. Primary Care Physician Unavailable Payers Date Identification Numbers Payment Provider Subscriber Policy Number: [id number] Cipriano Hung PayID: [id number] [address] [place] [address] Advance Directives Description No Information Available Problems Active Problems Provider Date Right conductive hearing loss Ike Mcclure M.D. 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 Onset: 10/23/2014 Unilateral conductive hearing loss Kenrick Larry M.D. Onset: 09/11/2014 Family History Date Family Member(s) Observation Comments General Pt adopted, unsure of hx [...] (10 or fewer cigarettes/day) Smoking Status Reviewed: 11/20/18 Light tobacco smoker (10 or fewer cigarettes/day) Allergies, Adverse Reactions, Alerts Description No Known Drug Allergies Medications Active Medications SIG Qnty Indications Ordering Date Provider Ofloxacin (Otic) 5 drops 10ml Ike 11/20/2018 0.3% Solution affected ear at [facility] Mcclure bedtime a day Hydrochlorothiazide 1 tab daily by Margaret, 12.5mg Capsules mouth MD Song Propranolol HCL ER TK 1 C PO qd Unknown 80mg Caps ER 24HR Magnesium Oxide TK 1 T PO qd Unknown 400mg Tablets History Medications Lexapro 1 by mouth every day Unknown - 10/23/2014 20mg Tablets Paxil one every in the Unknown - 05/24/2017 30mg Tablets morning Atenolol 1 by mouth every day Unknown - 10/22/2018 50mg Tablets Metoprolol Succinate ER TK 1 T PO Q Night Unknown - 2018 25mg Tablets ER 24HR Immunizations Description No Information Available Vital Signs Date Vital Result Comment 11/20/2018 9:10am Height 60 inches 5'0" Weight 129.00 lb Heart Rate 64 /min BP Systolic Sitting 148 mmHg BP Diastolic Sitting 78 mmHg Respiratory Rate 18 /min Body Temperature 99.7 F Pain Level 2 O2 % BldC Oximetry 98 % BMI (Body Mass Index) 25.2 kg/m2 10/23/2018 10:35am Height 60 inches 5'0" Weight 135.00 lb Heart Rate 76 /min BP Systolic 116 mmHg BP Diastolic 80 mmHg Pain Level 0 BMI (Body Mass Index) 26.4 kg/m2 07/23/2018 1:59pm Height 60 inches 5'0" Weight [...] Date Location Provider Dx Diagnosis Office Visit 10/23/2018 [facility] [place] [facility] [id number]. Central perforation 11:00a [facility] AT [facility] Mccl[facility] of tympanic [place]sey membrane, right ear H90.11 Condctv hear loss, uni, right ear, w unrestr hear cntra side Office Visit 07/23/2018 2:30p [facility] [place] [id number] Donnell Greenberg AT [place] Mc[facility] perforation of Pansey tympanic membrane, right ear H90.11 Condctv hear loss, uni, right ear, w unrestr hear cntra side Office Visit 06/12/2017 2:30p [facility] Donnell Greenberg AT [place] Antonio Mcclure perforation of Luis tympanic membrane, right ear H90.11 Condctv hear loss, uni, right ear, w unrestr hear cntra side Office Visit 10/23/2014 9:15a [facility] [place] [phone] Tinnitus Magdalene.Zak AT [place] Antonio Larry Subjective Pansey 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 Loss,Unilateral Pansey Plan of Treatment Future Appointment(s):12/25/2018 9:00 am - Ike Mcclure M.D. at [facility] [place]
--- NOTE | 2018-11-21 16:21 | UC ---
Cardiac HPI - HPI Summary HPI Summary: Pt presents with c/o of intermittent CP that began 4- 6weeks ago. Pt had surgery last week for repair of her right TM by Dr. Iniguez. Pt denies nauea, diaphoresis, left arm pain or back pain. Denies pain worsens with exertion, pt has known hx of PACs and PVCs denies SOB recent illness and was medically cleared for sx last week. Pt is a pt of Dr. Robles. - History of Current Complaint Chief Complaint: UCGeneralIllness Stated Complaint: CHEST DISCOMFORT Time Seen by Provider: 11/21/18 14:38 Hx Obtained From: Patient Hx Last Menstrual Period: 2 month ago Onset/Duration: Gradual Onset, Lasting Weeks Timing: Intermittent Episodes Lasting: Initial Severity: Mild Current Severity: None Pain Intensity: 0 Chest Pain Location: Left Anterior Character: Fluttering, Skipped Beats, Dull/Aching Aggravating Factor(s): Nothing Alleviating Factor(s): Spontaneous Resolution Associated Signs & Symptoms: Positive: Chest Pain, Palpitations - Risk Factors Pulmonary Embolism Risk Factors: Smoking Cardiac Risk Factors: Smoking Atrial Fibrillation: Negative TAD Risk Factors: Smoking AMI/ACS Risk Factors: Smoking - Allergy/Home Medications Allergies/Adverse Reactions: Allergies Allergy/AdvReac Type Severity Reaction Status Date / Time antidepressant med Allergy See Comment Uncoded 11/21/18 14:15 PMH/Surg Hx/FS Hx/Imm Hx Previously Healthy: Yes - pt has preexisting cardiac dysrythmia Cardiovascular History: Other - irregular rhythm Psychological History: Anxiety - Surgical History Surgical History: Yes Surgery Procedure, Year, and Place: Right Fallopian Tube Removed, 2010, [facility]. Ear Tubes as a child. RIGHT ear tube 2013. Cyst removed from side of head. graft put on ear drum Other Surgical History: Has right ear tube - Family History Known Family History: Positive: Unknown - PT ADOPTED - Social History Occupation: Works From/At Home Lives: With Family Alcohol Use: None Substance Use Type: None Smoking Status (MU): Heavy Every Day Tobacco Smoker Type: Cigarettes Amount Used/How Often: 1 PPD smoking for 19 years Length of Time of Smoking/Using Tobacco: 14 yrs Have You Smoked in the Last Year: Yes When Did the Patient Quit Smoking/Using Tobacco: 06/29 Household Exposure Type: Cigarettes - Immunization History Most Recent Influenza Vaccination: 2016 Most Recent Pneumonia Vaccination: FALL 2013 Vaccination Up to Date: Yes Review of Systems All Other Systems Reviewed And Are Negative: Yes Constitutional: Positive: Negative Skin: Positive: Negative Eyes: Positive: Negative ENT: Positive: Negative Respiratory: Positive: Negative Cardiovascular: Positive: Palpitations, Chest Pain Gastrointestinal: Positive: Negative Genitourinary: Positive: Negative Motor: Positive: Negative Neurovascular: Positive: Negative Musculoskeletal: Positive: Negative Neurological: Positive: Negative Psychological: Positive: Negative Is Patient Immunocompromised?: No Physical Exam - Summary Physical Exam Summary: Pt is sitting comfortalby in chair in exam room in [facility]. Triage Information Reviewed: Yes Appearance: Well-Appearing, No Pain Distress, Well-Nourished Vital Signs: Initial Vital Signs Temp 97.9 F 11/21/18 14:15 Pulse 74 11/21/18 14:15 Resp 16 11/21/18 14:15 BP 145/89 11/21/18 14:15 Pulse Ox 100 11/21/18 14:15 Vital Signs Reviewed: Yes Eye Exam: Normal ENT Exam: Normal Dental Exam: Normal Neck exam: Normal Respiratory Exam: Normal Cardiovascular Exam: Normal Cardiovascular: Positive: RRR, No Murmur Musculoskeletal Exam: Normal Neurological Exam: Normal Psychological Exam: Normal Skin Exam: Normal - Assessment/Plan Course Of Treatment: Pt was instructed to go to the closest emergency room if symptoms worsen. Pt verbalized understanding. - Differential Diagnoses - Chest Pain Differential Diagnosis/HQI/PQRI: Acute MN, ACS, Angina, Pulmonary Embolism - Differential Diagnoses - Hypertension Differential Diagnosis/HQI PQRI: Myocardial Infarction - Differential Diagnoses - Palpitations Differential Diagnosis/HQI/PQRI: Panic Disorder, Pericarditis, Pulmonary Embolism - Clinical Impression Provider Diagnosis: Chest pain in adult Discharge - Sign-Out/Discharge Documenting (check all that apply): Patient Departure All imaging exams completed and their final reports reviewed: No Studies - Discharge Plan Condition: Stable Disposition: HOME-RECOMMEND TO ED Patient Education Materials: Chest Pain (ED) Referrals: Lindsey Rizzo MD [Primary Care Provider] - As Soon As Possible Additional Instructions: IT IS RECOMMENDED THAT YOU GO TO THE CLOSEST EMERGENCY ROOM IF YOUR SYMPTOMS DO NOT IMPROVE OR WORSEN. PLEASE FOLLOW UP WITH YOUR PCP SOON POSSIBLE. - Billing Disposition and Condition Condition: STABLE Disposition: Home-Recommend to ED
== END 2018-11-21 15:22 | disposition home health service (06) ==
LOC: UCCORT 14:09
DX: R07.9 Chest pain, unspecified (principal); I49.9 Cardiac arrhythmia, unspecified; F41.9 Anxiety disorder, unspecified; F17.210 Nicotine dependence, cigarettes, uncomplicated; Z88.8 Allergy status to other drugs, medicaments and biological substances
CPT/HCPCS: 93005; 99212; G0463

== ENCOUNTER 2019-10-17 15:48 | Emergency (ER) | payer OTHER ==
--- NOTE | 2019-10-17 16:07 | UC ---
UC General HPI - HPI Summary HPI Summary: LMP: 08/28/19 No control Sexually active Has 4 kids [employer] - Dr. German's office - called them and was unable to get them. Had some vaginal spotting on 09/25 - off and on - light for about 5 days stopped on 09/29 No fever, no cough No urinary frequency, no dysuria Increase PO, feeling bloated - few days. No abdominal pain or cramping. Nauseated, headaches. No vomiting. Diarrhea x 1 yesterday. No issues with constipation Increase hair Positive test faint line yesterday - can't get into Dr. german's office for a few months due to the coronavirus - History of Current Complaint Chief Complaint: UCAbdominalPain Stated Complaint: NAUSEA,ABD PAIN Time Seen by Provider: 10/17/19 15:52 Hx Last Menstrual Period: 09/26/2019 Pain Intensity: 1 - Allergy/Home Medications Allergies/Adverse Reactions: Allergies Allergy/AdvReac Type Severity Reaction Status Date / Time bupropion AdvReac "It alters Verified 10/17/19 15:56 my thinking. ... think that I can't breathe." Home Medications: Home Medications Propranolol HCl [Propranolol HCl ER] 80 mg PO BEDTIME 11/13/18 [History Confirmed 10/17/19] PMH/Surg Hx/FS Hx/Imm Hx Previously Healthy: Yes - Surgical History Surgical History: Yes Surgery Procedure, Year, and Place: Right Fallopian Tube Removed, 2010, [facility]. Ear Tubes as a child. RIGHT ear tube 2013. Cyst removed from side of head. graft put on ear drum Other Surgical History: Has right ear tube - Family History Known Family History: Positive: Unknown - PT ADOPTED - Social History Alcohol Use: None Substance Use Type: None Smoking Status (MU): Heavy Every Day Tobacco Smoker Type: Cigarettes Amount Used/How Often: 1 1/2 PPD Length of Time of Smoking/Using Tobacco: Since Age 12 Have You Smoked in the Last Year: Yes When Did the Patient Quit Smoking/Using Tobacco: 06/29 Household Exposure Type: Cigarettes - Immunization History Most Recent Influenza Vaccination: 2016 Most Recent Pneumonia Vaccination: FALL 2013 Vaccination Up to Date: Yes Review of Systems All Other Systems Reviewed And Are Negative: Yes Physical Exam Triage Information Reviewed: Yes Appearance: Well-Appearing Vital Signs Reviewed: Yes ENT: Positive: Normal ENT inspection Respiratory: Positive: Lungs clear, Normal breath sounds Cardiovascular: Positive: RRR, No Murmur Abdomen Description: Positive: Nontender, Soft Bowel Sounds: Positive: Present Course/Dx - Course Course Of Treatment: This is a 34 yr old who presented with nausea and bloating concern for test; negative discussed could be mild gastroenteritis Overeating could also be related to her symptoms of bloating and nausea Plan Recommend balanced diet with three meals a day and monitoring your intake Continue to monitor symptoms at home If symptoms persist or worsen, recommend follow up with your PCP for further evaluation - Diagnoses Provider Diagnosis: Gastroenteritis Discharge ED - Sign-Out/Discharge Documenting (check all that apply): Patient Departure All imaging exams completed and their final reports reviewed: No Studies - Discharge Plan Condition: Fair Disposition: HOME Patient Education Materials: Gastroenteritis (ED) Referrals: Lindsey Rizzo MD [Primary Care Provider] - Additional Instructions: Recommend balanced diet with three meals a day and monitoring your intake Continue to monitor symptoms at home If symptoms persist or worsen, recommend follow up with your PCP for further evaluation - Billing Disposition and Condition Condition: FAIR Disposition: Home
[2019-10-17 16:31] VITALS: BP 125/80
== END 2019-10-17 16:36 | disposition home or self-care (01) ==
LOC: UCCORT 15:48
DX: K52.9 Noninfective gastroenteritis and colitis, unspecified (principal); Z32.02 Encounter for pregnancy test, result negative; Z88.8 Allergy status to other drugs, medicaments and biological substances; Z72.0 Tobacco use
CPT/HCPCS: 84702; 99211; G0463